=== PATIENT | female | born 1970 | race Caucasian/White ===

== ENCOUNTER 2016-05-31 13:12 | Emergency (ER) | payer OTHER ==
[~2016-05-31] VITALS: Ht 152.4 cm; Wt 60.0 kg
[~2016-05-31 13:12] MED LIST: LISI-363 PO
[2016-05-31 13:15] VITALS: BP 127/85; PULSE 83; RESP 15; TEMP 98.2; O2SAT 97
[2016-05-31] MEDS ORDERED: LISI-515 PO (15:41)
[2016-05-31] MEDS ORDERED: IBUPROFEN 600 MG TAB PO ONE (17:15)
[2016-05-31 17:42] LABS: BACTERIA, URINE RARE /hpf; BLOOD, URINE NEG (NEG); COMMENT (UR) CULT NOT INDICATED; CULTURE IF INDICATED CULT NOT INDICATED; GLUCOSE,URINE NEG (NEG); HYALINE CAST, URINE 1 /lpf (RARE); KETONE, URINE NEG (NEG); NITRITE,URINE NEG (NEG); SQUAMOUS EPITHELIAL CELL URINE 3 /hpf (0-5); URINE COLOR YELLOW (YELLW/STRAW)
[2016-05-31] MEDS ORDERED: METR-1 PO (17:51)
[2016-05-31] MEDS ORDERED: POLY10O EACH EYE (17:51)
--- NOTE | 2016-05-31 17:52 | PD ---
HPI Chief Complaint: Finish Opener Problem/Complaint Time Seen by Provider: 15:44 Travel History International Travel<30 days: No Contact w/Intl Traveler<30days: No Traveled to known affect area: No History of Present Illness HPI Patient is a 45 year old female presents with two complaints. She states "i think i have an infection" and then points to her eyes as well as her vagina. Patient states she is having some vaginal discomfort as well as eye discharge. She requests something for pain. States symptoms for 3 days and gradually worsening. Denies n/v/d, vb. PFSH Past Medical History Hx Anticoagulant Therapy: No Arthritis: No Asthma: No Autoimmune Disease: Yes (HIV +) Blood Disorders: No Anxiety: No Depression: No Heart Rhythm Problems: No Cancer: No Cardiovascular Problems: No High Cholesterol: No Chemotherapy: No Chest Pain: No Congestive Heart Failure: No COPD: No Cerebrovascular Accident: No Diabetes: No Diminished Hearing: No Diverticulitis: Yes Endocrine: No Gastrointestinal Disorders: No Genitourinary: No Headaches: Yes Hepatitis: Yes (C) Hiatal Hernia: Yes Heparin Induced Thrombocytopen: No Hypertension: Yes Immune Disorder: Yes Inguinal Hernia: Yes Implanted Vascular Access Dvce: No Kidney Stones: Yes (removed in september 2015) Musculoskeletal: No Neurologic: No Psychiatric: No Reproductive: No Respiratory: No Immunizations Current: Yes Migraines: Yes Radiation Therapy: No Sickle Cell Disease: No Sleep Apnea: No Thyroid Disease: No Influenza Vaccination: No ?: Not Menopausal: No : 2 Para: 2 Miscarriage: 0 : 0 Ovarian Cysts: Yes (HAD REMOVED) Past Surgical History AICD: No Appendectomy: Yes Arteriovenous Shunt: No Cardiac Surgery: No Section: Yes (X 2) Cholecystectomy: Yes Ear Surgery: No Endocrine Surgery: No Eye Surgery: No Genitourinary Surgery: Yes (Kidney Stones surgery.) Gynecologic Surgery: No Hysterectomy: Yes (PARTIAL) Insulin Pump: No Joint Replacement: No Neurologic Surgery: No Oral Surgery: No Pacemaker: No Thoracic Surgery: No Tonsillectomy: Yes ( AND ADENOIDS CHILD) Other Surgery: Yes (Gallbladder, Appendectomy, Hysterectomy, 2 C-Sections, Tonsillectomy) Social History Alcohol Use: No Tobacco Use: No Substance Use: No Allergies-Medications (Allergen,Severity, Reaction): Coded Allergies: *MDRO Multi-Drug Resistant Organism (Verified Adverse Reaction, Unknown, ) MRSA (wounds) - 09/03/15; MRSA (ear) - 11/26/15 Reported Meds & Prescriptions Reported Meds & Active Scripts Active Flagyl (Metronidazole) 500 Mg Tab 500 Mg PO BID 7 Days Polytrim Opth Drops (Polymyxin/Trimethoprim Sulfate) 10,000-0.1 Unit/Ml-% Soln 1 Drop EACH EYE Q6HR 10 Days Reported Lisinopril 20 Mg Tab 20 Mg PO DAILY Review of Systems Except as stated in HPI: all other systems reviewed are Neg Physical Exam Narrative GENERAL: WD/WN in nad. Disheveled and unkempt. SKIN: Warm and dry. HEAD: Atraumatic. Normocephalic. EYES: Pupils equal and round. No scleral icterus. THere is minimal injection R> L and no chemosis. no discharge apparent. ENT: No nasal bleeding or discharge. Mucous membranes pink and moist. NECK: Trachea midline. No JVD. CARDIOVASCULAR: Regular rate and rhythm. RESPIRATORY: No accessory muscle use. Clear to auscultation. Breath sounds equal bilaterally. GASTROINTESTINAL: Abdomen soft, non-tender, nondistended. Hepatic and splenic margins not palpable. : Performed with female nurse gta at all time. Grossly normal female external genitalia, no rash nor lesion. Minimal vaginal discharge. No CMT, no BMT. No cervicitis. MUSCULOSKELETAL: Extremities without clubbing, cyanosis, or edema. No obvious deformities. NEUROLOGICAL: Awake and alert. No obvious cranial nerve deficits. Motor grossly within normal limits. Five out of 5 muscle strength in the arms and legs. Normal speech. PSYCHIATRIC: Appropriate mood and affect; insight and judgment normal. Data Data Last Documented VS Vital Signs Date Time Temp Pulse Resp B/P Pulse Ox O2 Delivery O2 Flow Rate FiO2 05/31/16 13:15 98.2 83 15 127/85 97 Orders Ibuprofen (Motrin) (05/31/16 17:15) Gc And Chlamydia Pcr (05/31/16 17:04) Wet Prep Profile (05/31/16 17:04) Ed Urine Pregnancytest Poc (05/31/16 17:26) Urinalysis - C+S If Indicated (05/31/16 17:26) Acetaminophen (Tylenol) (05/31/16 18:00) Labs Laboratory Tests Test 05/31/16 05/31/16 17:10 17:30 Clue Cells (Wet Prep) PRESENT Vaginal Trichomonas (Wet Prep) NONE SEEN Vaginal Yeast (Wet Prep) NONE SEEN Chlamydia trachomatis DNA NOT DETECTED (PCR) Neisseria gonorrhoeae DNA NOT DETECTED (PCR) Urine Color YELLOW Urine Turbidity CLEAR Urine pH 6.0 Urine Specific [place] 1.016 Urine Protein TRACE mg/dL Urine Glucose (UA) NEG mg/dL Urine Ketones NEG mg/dL Urine Occult Blood NEG Urine Nitrite NEG Urine Bilirubin NEG Urine Urobilinogen LESS THAN 2.0 MG/DL Urine Leukocyte Esterase NEG Urine RBC 2 /hpf Urine WBC 2 /hpf Urine Squamous Epithelial 3 /hpf Cells Urine Bacteria RARE /hpf Urine Hyaline Casts 1 /lpf Microscopic Urinalysis Comment CULT NOT INDICATED MDM Medical Decision Making Medical Screen Exam Complete: Yes Emergency Medical Condition: Yes Differential Diagnosis Viral conjunctivitis, bacterial conjunctivitis, STD, BV, CV, UTI, Pregnnancy. Narrative Course Roomed in ED, appears non-toxic. Symptoms consistent with BV and conjunctivitis , doubt STD related conjunctivitis. Discussed treatment, given scripts. Ibuprofen in ed and patient requests more pain medication. Eforsce highly concerning for multiple scripts from multiple providers over the past year. Tylenol offered and she is agreeable. Discharged to self care. Diagnosis Primary Impression: Bacterial vaginosis Additional Impression: Conjunctivitis Med/Other Pt SpecificInfo: Prescription(s) given Scripts Metronidazole (Flagyl)500 Mg [id number] Mg PO BID 7 Days Ref 0 Prov:Garret Dietz MD 05/31/16 Polymyxin B-Trimethoprim Opth Drops (Polytrim Opth Drops)10,000-0.1 Unit/Ml-% Soln1 Drop EACH EYE Q6HR 10 Days Ref 0 Prov:Garret Dietz MD 05/31/16 Disposition: 01 DISCHARGE HOME Condition: Stable Garret Dietz MD May 31, 2016 17:52
[2016-05-31] MEDS ORDERED: ACETAMINOPHEN 325 MG TAB PO ONE (18:00)
[2016-05-31 21:38] LABS: CHLAMYDIA PCR NOT DETECTED (NOT DETECT); NEISSERIA PCR NOT DETECTED (NOT DETECT)
== END 2016-05-31 18:13 | disposition home or self-care (01) ==
LOC: NEPA 13:12
DX: N76.0 Acute vaginitis (principal); H10.9 Unspecified conjunctivitis
CPT/HCPCS: 81001; 84703; 87210; 87491; 87591; 99283

== ENCOUNTER 2016-06-19 13:03 | Inpatient (IN) | payer OTHER ==
[~2016-06-19] VITALS: Ht 152.4 cm; Wt 59.4 kg
[~2016-06-19 13:03] MED LIST changes: -LISI-363 PO; +LISI-515 PO; +METR-1 PO; +POLY10O EACH EYE
[2016-06-19 13:06] VITALS: BP 182/106; PULSE 98; RESP 15; TEMP 98.2; O2SAT 99
--- NOTE | 2016-06-19 14:04 | PD ---
HPI Chief Complaint: Chest Pain Time Seen by Provider: 13:48 Travel History International Travel<30 days: No Contact w/Intl Traveler<30days: No Traveled to known affect area: No History of Present Illness HPI This is a 45-year-old female with known history of HIV not on any anti- retroviral medication, hepatitis C, presents here for evaluation of cough and chest pain. She reports over the past 4 months she has had a cough with brown sputum production. She reports generalized chest pain that is particularly bad when she coughs or moves. She reports that she was seen at an outside [facility] emergency room last week for evaluation of the symptoms. She reports that a CT of the chest was performed and she was told that she had lung cancer and advised to follow-up with someone. No treatment for her symptoms was given at that time. She presents here now with worsening cough and generalized chest pain. She endorses slight dyspnea. Denies fevers or chills, calf swelling, abdominal pain, nausea or vomiting. The patient reports that in the past week she has obtained insurance plans on following up with a infectious disease specialist on July 08 in regards to her HIV therapy. She does not recall the name of the infectious disease specialist that she is scheduled an appointment with. She does not know when her last CD4 count was. Her last CD4 count in our records was 445 in November 2015. She has no other complaints. PFSH Past Medical History Hx Anticoagulant Therapy: No Arthritis: No Asthma: No Autoimmune Disease: Yes (HIV +) Blood Disorders: No Anxiety: No Depression: No Heart Rhythm Problems: No Cancer: No Cardiovascular Problems: No High Cholesterol: No Chemotherapy: No Chest Pain: No Congestive Heart Failure: No COPD: No Cerebrovascular Accident: No Diabetes: No Diminished Hearing: No Diverticulitis: Yes Endocrine: No Gastrointestinal Disorders: No Genitourinary: No Headaches: Yes Hepatitis: Yes (C) Hiatal Hernia: Yes Heparin Induced Thrombocytopen: No Hypertension: Yes Immune Disorder: Yes Inguinal Hernia: Yes Implanted Vascular Access Dvce: No Kidney Stones: Yes (removed in september 2015) Musculoskeletal: No Neurologic: No Psychiatric: No Reproductive: No Respiratory: No Immunizations Current: Yes Migraines: Yes Radiation Therapy: No Sickle Cell Disease: No Sleep Apnea: No Thyroid Disease: No ?: Not Menopausal: No : 2 Para: 2 Miscarriage: 0 : 0 Ovarian Cysts: Yes (HAD REMOVED) Past Surgical History AICD: No Appendectomy: Yes Arteriovenous Shunt: No Cardiac Surgery: No Section: Yes (X 2) Cholecystectomy: Yes Ear Surgery: No Endocrine Surgery: No Eye Surgery: No Genitourinary Surgery: Yes (Kidney Stones surgery.) Gynecologic Surgery: No Hysterectomy: Yes (PARTIAL) Insulin Pump: No Joint Replacement: No Neurologic Surgery: No Oral Surgery: No Pacemaker: No Thoracic Surgery: No Tonsillectomy: Yes ( AND ADENOIDS CHILD) Other Surgery: Yes (Gallbladder, Appendectomy, Hysterectomy, 2 C-Sections, Tonsillectomy) Social History Alcohol Use: No Tobacco Use: No Substance Use: No Allergies-Medications (Allergen,Severity, Reaction): Coded Allergies: *MDRO Multi-Drug Resistant Organism (Verified Adverse Reaction, Unknown, ) MRSA (wounds) - 09/03/15; MRSA (ear) - 11/26/15 Reported Meds & Prescriptions Reported Meds & Active Scripts Active No Active Prescriptions or Reported Medications Review of Systems Except as stated in HPI: all other systems reviewed are Neg Physical Exam Narrative GENERAL: Well-developed well-nourished female in no acute distress SKIN: Warm and dry. HEAD: Atraumatic. Normocephalic. EYES: Pupils equal and round. No scleral icterus. No injection or drainage. ENT: No nasal bleeding or discharge. Mucous membranes pink and moist. NECK: Trachea midline. No JVD. CARDIOVASCULAR: Regular rate and rhythm. No murmur appreciated. RESPIRATORY: No accessory muscle use. Clear to auscultation. Breath sounds equal bilaterally. GASTROINTESTINAL: Abdomen soft, non-tender, nondistended. Hepatic and splenic margins not palpable. MUSCULOSKELETAL: No obvious deformities. No edema. Negative Homans. NEUROLOGICAL: Awake and alert. No obvious cranial nerve deficits. Motor grossly within normal limits. Normal speech. Data Data Last Documented VS Vital Signs Date Time Temp Pulse Resp B/P Pulse Ox O2 Delivery O2 Flow Rate FiO2 06/19/16 13:06 98.2 98 15 182/106 99 Orders Electrocardiogram (06/19/16 13:51) Basic Metabolic Panel (Bmp) (06/19/16 13:51) Ckmb (Isoenzyme) Profile (06/19/16 13:51) Complete Blood Count With Diff (06/19/16 13:51) D-Dimer (06/19/16 13:51) Magnesium (Mg) (06/19/16 13:51) Troponin I (06/19/16 13:51) Chest, Single Ap (06/19/16 13:51) Morphine Inj (Morphine Inj) (06/19/16 16:00) Labs Laboratory Tests Test 06/19/16 14:02 White Blood Count 13.7 TH/MM3 Red Blood Count 3.98 MIL/MM3 Hemoglobin 12.3 GM/DL Hematocrit 36.9 % Mean Corpuscular Volume 92.8 FL Mean Corpuscular Hemoglobin 30.9 PG Mean Corpuscular Hemoglobin 33.3 % Concent Red Cell Distribution Width 14.5 % Platelet Count 252 TH/MM3 Mean Platelet Volume 8.6 FL Neutrophils (%) (Auto) 64.6 % Lymphocytes (%) (Auto) 12.0 % Monocytes (%) (Auto) 12.7 % Eosinophils (%) (Auto) 9.6 % Basophils (%) (Auto) 1.1 % Neutrophils # (Auto) 8.9 TH/MM3 Lymphocytes # (Auto) 1.6 TH/MM3 Monocytes # (Auto) 1.7 TH/MM3 Eosinophils # (Auto) 1.3 TH/MM3 Basophils # (Auto) 0.1 TH/MM3 CBC Comment DIFF FINAL Differential Comment D-Dimer Quantitative (PE/DVT) 1.02 MG/L FEU Sodium Level 142 MEQ/L Potassium Level 3.6 MEQ/L Chloride Level 106 MEQ/L Carbon Dioxide Level 29.7 MEQ/L Anion Gap 6 MEQ/L Blood Urea Nitrogen 13 MG/DL Creatinine 1.12 MG/DL Estimat Glomerular Filtration 53 ML/MIN Rate Random Glucose 83 MG/DL Calcium Level 8.3 MG/DL Magnesium Level 1.7 MG/DL Total Creatine Kinase 54 U/L Troponin I LESS THAN 0.02 NG/ML MDM Medical Decision Making Medical Screen Exam Complete: Yes Emergency Medical Condition: Yes Medical Record Reviewed: Yes Differential Diagnosis Bronchitis, pneumonia, bronchiectasis, tuberculosis, pneumocystitis, pulmonary embolism Narrative Course 45-year-old female with untreated HIV, hepatitis C presents with 4 months of cough and generalized chest pain that is per to clearly reproduced with coughing. She reports that she was seen in an outside emergency room last week and had a CT of the chest which she reports revealed malignancy. Physical examination is reassuring. She is not tachypneic or hypoxic. She is not febrile. Her lungs sound clear. Plans for basic lab work and chest x-ray and EKG. Pulmonary embolism has been considered in the differential and is considered less likely than alternative diagnoses however her Wells score is 1 and therefore a D-dimer has been ordered as opposed to ctpa. Workup was initiated in triage. The patient will be moved to a medical bed when one becomes available. She is currently stable. Procedures EKG Prior to Arrival: Yes Scripts No Active Prescriptions or Reported Meds Armaan Albright Jun 19, 2016 14:04
[2016-06-19 14:23] LABS: AUTOMATED NEUTROPHIL # 8.9 TH/MM3 (1.8-7.7); BASOPHIL # 0.1 TH/MM3 (0-0.2); BASOPHIL % 1.1 % (0.0-2.0); EOSINOPHIL # 1.3 TH/MM3 (0-0.4); EOSINOPHIL % 9.6 % (0.0-4.0); HEMATOCRIT 36.9 % (35.0-46.0); HEMO FLAGS DIFF FINAL; LYMPHOCYTE # 1.6 TH/MM3 (1.0-4.8); MEAN CELL VOLUME 92.8 FL (80.0-100.0); MEAN CORPUSCULAR HEMOGLOBIN 30.9 PG (27.0-34.0); MEAN CORPUSCULAR HGB CONC 33.3 % (32.0-36.0); MONO % 12.7 % (0.0-8.0); NEUT % 64.6 % (16.0-70.0); PLATELET COUNT 252 TH/MM3 (150-450); RED BLOOD COUNT 3.98 MIL/MM3 (4.00-5.30); RED CELL DISTRIBUTION WIDTH 14.5 % (11.6-17.2); WHITE BLOOD COUNT 13.7 TH/MM3 (4.0-11.0)
[2016-06-19 14:42] LABS: ANION GAP 6 MEQ/L (5-15); BICARBONATE 29.7 MEQ/L (21.0-32.0); BLOOD UREA NITROGEN 13 MG/DL (7-18); CHLORIDE 106 MEQ/L (98-107); GLOMERULAR FILTRATION RATE 53 ML/MIN (>89); SODIUM (NA) 142 MEQ/L (136-145)
[2016-06-19 14:43] LABS: CREATINE KINASE 54 U/L (26-192); MAGNESIUM 1.7 MG/DL (1.5-2.5); POTASSIUM 3.6 MEQ/L (3.5-5.1)
--- NOTE | 2016-06-19 14:58 | RADRPT ---
EXAM DATE/TIME: 06/19/2016 14:03 [facility] COMPARISON: CHEST SINGLE AP, December 09, 2015, 15:23. INDICATIONS : Chest pain MEDICAL HISTORY : None. SURGICAL HISTORY : None. ENCOUNTER: Initial ACUITY: 2 months PAIN SCORE: 6/10 LOCATION: Chest FINDINGS: There is minimal patchiness within the right medial lung base consistent with atelectasis and/or deve loping pneumonia. Clinical correlation is recommended. A faint nodular density within the left upper lung field is again noted. Again, if the patient has not had outpatient evaluation of this question able lesion this should be considered and can be obtained with CT of the chest. Scoliosis of the thor acic spine is noted. CONCLUSION: 1. Focal patchiness within the right medial lung base consistent with atelectasis and/or pneumonia. C linical correlation is recommended. 2. Stable faint nodular density within the left upper lung field. Outpatient CT of the chest would b e helpful for further evaluation of this finding if not already performed. Garret Guidry MD on June 19, 2016 at 14:49 Board Certified Radiologist. This report was verified electronically.
--- NOTE | 2016-06-19 15:54 | PD ---
Data Data Last Documented VS Vital Signs Date Time Temp Pulse Resp B/P Pulse Ox O2 Delivery O2 Flow Rate FiO2 06/19/16 16:23 98 Room Air 06/19/16 13:06 98.2 98 15 182/106 Orders Electrocardiogram (06/19/16 13:51) Basic Metabolic Panel (Bmp) (06/19/16 13:51) Ckmb (Isoenzyme) Profile (06/19/16 13:51) Complete Blood Count With Diff (06/19/16 13:51) D-Dimer (06/19/16 13:51) Magnesium (Mg) (06/19/16 13:51) Troponin I (06/19/16 13:51) Chest, Single Ap (06/19/16 13:51) Morphine Inj (Morphine Inj) (06/19/16 16:00) Iv Access Insert/Monitor (06/19/16 15:49) Ecg Monitoring (06/19/16 15:49) Oximetry (06/19/16 15:49) Oxygen Administration (06/19/16 15:49) Sodium Chloride 0.9% Flush (Ns Flush) (06/19/16 16:00) Ct Pulmonary Angiogram (06/19/16 15:49) Aspirin Chew (Aspirin Chew) (06/19/16 16:00) Iohexol 350 Inj (Omnipaque 350 Inj) (06/19/16 17:26) Blood Culture (06/19/16 17:58) Sputum Af[employer] Culture And Stain (06/19/16 17:58) Sputum Culture And Gram Stain (06/19/16 17:58) Sputum Fungus Cult And Stain (06/19/16 17:58) Morphine Inj (Morphine Inj) (06/19/16 18:00) Ceftriaxone Inj (Rocephin Inj) (06/19/16 18:00) Azithromycin Inj (Zithromax Inj) (06/19/16 18:00) Labs Laboratory Tests Test 06/19/16 14:02 White Blood Count 13.7 TH/MM3 Red Blood Count 3.98 MIL/MM3 Hemoglobin 12.3 GM/DL Hematocrit 36.9 % Mean Corpuscular Volume 92.8 FL Mean Corpuscular Hemoglobin 30.9 PG Mean Corpuscular Hemoglobin 33.3 % Concent Red Cell Distribution Width 14.5 % Platelet Count 252 TH/MM3 Mean Platelet Volume 8.6 FL Neutrophils (%) (Auto) 64.6 % Lymphocytes (%) (Auto) 12.0 % Monocytes (%) (Auto) 12.7 % Eosinophils (%) (Auto) 9.6 % Basophils (%) (Auto) 1.1 % Neutrophils # (Auto) 8.9 TH/MM3 Lymphocytes # (Auto) 1.6 TH/MM3 Monocytes # (Auto) 1.7 TH/MM3 Eosinophils # (Auto) 1.3 TH/MM3 Basophils # (Auto) 0.1 TH/MM3 CBC Comment DIFF FINAL Differential Comment D-Dimer Quantitative (PE/DVT) 1.02 MG/L FEU Sodium Level 142 MEQ/L Potassium Level 3.6 MEQ/L Chloride Level 106 MEQ/L Carbon Dioxide Level 29.7 MEQ/L Anion Gap 6 MEQ/L Blood Urea Nitrogen 13 MG/DL Creatinine 1.12 MG/DL Estimat Glomerular Filtration 53 ML/MIN Rate Random Glucose 83 MG/DL Calcium Level 8.3 MG/DL Magnesium Level 1.7 MG/DL Total Creatine Kinase 54 U/L Troponin I LESS THAN 0.02 NG/ML MDM Supervised Visit with [facility]: Yes Narrative Course I, Dr. Colunga, have reviewed the advance practice practitioner's documentation and am in agreement, met with the patient face to face, made the diagnosis, and the medical decision making was done by me. See his note for further details. Briefly this is a 45-year-old female with history of HIV is not on any anti- retroviral therapy, here for evaluation of chest pain and cough. The patient reports having these symptoms for the last 2 months. She describes an ache in the center of her chest that has been constant for the last 2 months, moderate, no modifying factors. She also reports having a cough productive of brownish sputum which has also been going on for last 2 months. She states that the symptoms seem to be worse over the last few days, so she presented to the emergency department for evaluation. No fevers or chills. No known history of cardiac disease. No history of DVT or PE. The patient was worked up in triage by my PA. Her EKG shows no signs of ischemia. Her cardiac enzymes are negative. Her d-dimer is a little bit elevated at 1.04, so CT pulmonary angiogram has been ordered. On my exam the patient is resting comfortably, no acute distress. She is requesting something for pain. Breath sounds are clear and equal bilaterally. CT pulmonary angiogram: CONCLUSION: 1. Thick-walled cavitary lesion within the superior segment of the left lower lobe measuring 1.3 cm. Differential includes infectious or neoplastic etiologies. 2. Patchy infiltrates within the right middle lobe and right lower lobe consistent with possible pneumonia. Clinical correlation is recommended. 3. No evidence of pulmonary embolism. 4. Cardiomegaly. 5. Hepatomegaly. Patient was placed on TB precautions after CT resulted. Sputum cultures ordered. She was started on Rocephin and azithromycin. She will be admitted for further treatment and evaluation of pneumonia/rule out TB. Diagnosis Primary Impression: Pneumonia Qualified Code: J18.1 - Pneumonia of right middle lobe due to infectious organism Additional Impression: Cavitary lesion of lung Admitting Information Admitting Physician Requests: Admit Scripts No Active Prescriptions or Reported Meds Fitz Colunga MD Jun 19, 2016 15:54
[2016-06-19] MEDS ORDERED: ASPIRIN 81 MG CHEW TAB PO ONE (16:00)
[2016-06-19] MEDS ORDERED: MORPHINE SULFATE 4 MG/ML INJ IV PUSH ONE ×2 (16:00→18:00)
[2016-06-19] MEDS ORDERED: SODIUM CHLORIDE 0.9% FLUSH 5 ML FLUSH IVF PRN (16:00)
[2016-06-19 16:23] VITALS: O2SAT 98
[2016-06-19] MEDS ORDERED: IOHEXOL 350 MG/ML 10 ML VIAL (for RAD DIAG) IV ONE (17:26)
--- NOTE | 2016-06-19 17:55 | RADRPT ---
EXAM DATE/TIME: 06/19/2016 17:24 [facility] COMPARISON: No previous studies available for comparison. INDICATIONS : Cough and chest pain for 4 months; evaluate for pulmonary embolism. IV CONTRAST: 75 cc Omnipaque 350 (iohexol) IV RADIATION DOSE: 23.38 CTDIvol (mGy) MEDICAL HISTORY : Hypertension. Hernia, hiatal. HIV.Hepatitis C SURGICAL HISTORY : Appendectomy. Cholecystectomy. Hysterectomy. ENCOUNTER: Initial ACUITY: 4 - 6 months PAIN SCALE: 6/10 LOCATION: Chest TECHNIQUE: Volumetric scanning of the chest was performed using a pulmonary embolism protocol MIP images were re constructed. Using automated exposure control and adjustment of the mA and/or kV according to patien t size, radiation dose was kept as low as reasonably achievable to obtain optimal diagnostic quality images. FINDINGS: There is a thick-walled cavitary lesion within the superior segment of the left lower lobe measuring 1.3 cm in size which is indeterminate. Infection and neoplasm are in the differential for this lesio n. Patchy nodular infiltrates are noted within the right middle lobe and right lower lobe consistent with probable pneumonia. Clinical correlation is recommended. The heart is enlarged. There is no p ulmonary embolism. No mediastinal, hilar or axillary lymphadenopathy is noted. The liver is enlarge d. The patient is status post cholecystectomy. The adrenal glands are unremarkable bilaterally. CONCLUSION: 1. Thick-walled cavitary lesion within the superior segment of the left lower lobe measuring 1.3 cm. Differential includes infectious or neoplastic etiologies. 2. Patchy infiltrates within the right middle lobe and right lower lobe consistent with possible pneu monia. Clinical correlation is recommended. 3. No evidence of pulmonary embolism. 4. Cardiomegaly. 5. Hepatomegaly. Garret Guidry MD on June 19, 2016 at 17:44 Board Certified Radiologist. This report was verified electronically.
[2016-06-19] MEDS ORDERED: AZITHROMYCIN INJ 500 MG in SODIUM CHLOR 0.9% 250 ML INJ 250 ML IV ONE (18:00)
[2016-06-19] MEDS ORDERED: cefTRIAXone INJ 1,000 MG in SODIUM CHLORIDE 0.9% INJ 100 ML IV ONE (18:00)
[2016-06-19 19:02] VITALS: BP 140/90; PULSE 86; RESP 20; O2SAT 98
[2016-06-19 21:06] VITALS: BP 119/78; PULSE 106; RESP 20; O2SAT 100
[2016-06-19] MEDS ORDERED: MORPHINE SULFATE 4 MG/ML INJ IV PUSH PRN (23:00)
[2016-06-19 23:38] VITALS: BP 130/77; PULSE 90; RESP 18; O2SAT 100
[2016-06-19] MEDS: MORPHINE SULFATE 4 MG/ML INJ IV PUSH PRN (23:51)
[2016-06-20 02:00] VITALS: BP 132/68; PULSE 88; RESP 18; O2SAT 99
[2016-06-20 04:29] VITALS: BP 127/74; PULSE 101; RESP 24; O2SAT 96
[2016-06-20] MEDS ORDERED: BISACODYL 10 MG SUPP PR PRN (05:00)
[2016-06-20] MEDS ORDERED: NALOXONE HCL 0.4 MG/ML AMP IV PRN (05:00)
[2016-06-20] MEDS ORDERED: ACETAMINOPHEN 325 MG TAB PO PRN (05:00)
[2016-06-20] MEDS ORDERED: ONDANSETRON HCL 4 MG/2 ML VIAL IVP PRN (05:00)
[2016-06-20] MEDS ORDERED: SENNOSIDES 8.6 MG TAB PO PRN (05:00)
[2016-06-20] MEDS ORDERED: MAGNESIUM HYDROXIDE SUSP 30 ML CUP PO PRN (05:00)
[2016-06-20 05:04] VITALS: O2SAT 96
[2016-06-20] MEDS: HEPARIN SODIUM - SQ 10,000 UNITS/ML VIAL SQ SCH ×3 (05:15→22:00)
[2016-06-20] MEDS: MORPHINE SULFATE 4 MG/ML INJ IV PUSH PRN ×5 (05:16→22:02)
[2016-06-20 07:13] VITALS: BP 101/56; PULSE 107; RESP 17; O2SAT 96
[2016-06-20] MEDS: SODIUM CHLORIDE 0.9% FLUSH 5 ML FLUSH FLUSH SCH ×2 (09:11→22:03)
[2016-06-20] MEDS: DOCUSATE SODIUM 100 MG CAP PO SCH ×2 (09:11→22:02)
[2016-06-20 13:05] VITALS: BP 92/55; PULSE 114; RESP 19; O2SAT 94
--- NOTE | 2016-06-20 13:12 | EKG ---
Date Performed: 06/19/2016 Time Performed: 14:12:01 PTAGE: 45 years EKG: Sinus rhythm WITH SHORT DE INTERVAL NONSPECIFIC T-WAVE ABNORMALITY BORDERLINE ECG Compared to prior tracing no si gnificant change PREVIOUS TRACING : 06/19/2016 14.11 DOCTOR: Emil Austin Interpretating Date/Time 06/20/2016 13:10:21
--- NOTE | 2016-06-20 18:40 | HHI.HP ---
HPI Service [facility] Hospitalists Primary Care Physician No Primary Care Physician Admission Diagnosis pneumonia, rule out TB Chief Complaint: cough. Travel History International Travel<30 Days: No Contact w/Intl Traveler <30 Da: No Traveled to Known Affected Are: No History of Present Illness Mrs. Cullen is a 44 y/o WF with HIV, hepatitis C, HTN, nephrolithiasis. She lost her insurance and has been of HIV meds x 1 yr. Has had cough for over a month and was seen at [facility]. She was told a CT might show cancer in the left lung. she was sent home and came here for another opinion. Maybe some sweats. coughing up brown sputum. no blood. Pain with coughing. Review of Systems Other cough Past Family Social History Past Medical History HIV, untreated. Last CD4 445 in Hepatitis C Nephrolithiasis Hypertension Ureter kidney stones s/p stent placement with Hx of E.coli and sepsis. Hx candidiasis Chronic left leg pain Hysterectomy and salpingectomy Lysis of adhesion abdomen/pelvis Lap spencer Left leg 4 compartment fasciotomy for compartment syndrome Reported Medications Reported Meds & Active Scripts Active No Active Prescriptions or Reported Medications Allergies: Coded Allergies: *MDRO Multi-Drug Resistant Organism (Verified Adverse Reaction, Unknown, ) MRSA (wounds) - 09/03/15; MRSA (ear) - 11/26/15 Family History nc Social History no etoh/tob Physical Exam Vital Signs heart reg lung course bs fely abd s/nt ext no edema Vital Signs Date Time Temp Pulse Resp B/P Pulse Ox O2 Delivery O2 Flow Rate FiO2 06/20/16 13:05 114 19 92/55 94 Room Air 06/20/16 10:31 21 06/20/16 07:13 107 17 101/56 96 Room Air 06/20/16 05:04 96 06/20/16 04:29 101 24 127/74 96 Room Air 06/20/16 02:00 88 18 132/68 99 Room Air 06/20/16 01:33 16 06/19/16 23:38 90 18 130/77 100 Room Air 06/19/16 21:06 106 20 119/78 100 Room Air 06/19/16 19:02 86 20 140/90 98 Room Air Laboratory Date/Time Procedure Status Source Growth 06/19/16 21:22 Gram Stain - Final Resulted Sputum Expectorated Sputum 06/19/16 21:22 Sputum Culture - Preliminary Resulted Sputum Expectorated Sputum IMMATURE GROWTH - REINCUBATE 06/19/16 21:22 Fungal Smear - Final Resulted Sputum Expectorated Sputum RARE BUDDING YEAST WITH PSEUDOHYPHAE 06/19/16 21:22 Fungal Culture Resulted Sputum Expectorated Sputum Pending 06/19/16 21:22 Acid Fast Stain Received Sputum Expectorated Sputum Pending 06/19/16 21:22 Mycobacterial Culture Received Sputum Expectorated Sputum Pending 06/19/16 18:17 Aerobic Blood Culture - Preliminary Resulted Blood Peripheral NO GROWTH IN 1 DAY 06/19/16 18:17 Anaerobic Blood Culture - Preliminary Resulted Blood Peripheral NO GROWTH IN 1 DAY Result Diagram: 06/19/16 1402 06/19/16 1402 Assessment and Plan Problem List: (1) Cavitary lesion of lung Status: Acute Plan: Pt is 45 yr with HIV and hep C. Has been off meds x 1 yr Last cd4 November 2015 445. Has been coughing up brown sputum CT chest shows rml/rll patchy infiltrates and Left lower lung thick walled cavitary lesion. 1.3cm..?fungal. malignant. r/o tb. consult ID/Pulmonary ED started rocephin/azithro. sputum cx. myco. TB pcr. isolated cough meds. prn pain control dvt prophylaxis cd 4 count. will need to re-establish HIV therapy. (2) HIV (human immunodeficiency virus infection) Status: Chronic Plan: see above (3) Hepatitis C Status: Chronic Plan: see above Physician Certification 2 Midnight Certification Type: Admission for Inpatient Services Order for Inpatient Services 3The services are ordered in accordance with Medicare regulations or non- Medicare payer requirements, as applicable. In the case of services not specified as inpatient-only, they are appropriately provided as inpatient services in accordance with the 2-midnight benchmark. Estimated LOS (days): 3 3 days is the estimated time the patient will need to remain in the hospital, assuming treatment plan goals are met and no additional complications. Post-Hospital Plan: Home Demetrius Worthington MD Jun 20, 2016 18:40
[2016-06-20] MEDS: AZITHROMYCIN INJ 500 MG in SODIUM CHLOR 0.9% 250 ML INJ 250 ML IV SCH (19:14)
[2016-06-20 20:00] VITALS: BP 98/50; PULSE 107; RESP 18; TEMP 100; O2SAT 94
[2016-06-20] MEDS: guaiFENesin/CODEINE SYRUP 200 MG/20 MG/10 ML CUP PO PRN (22:01)
[2016-06-20] MEDS: ENOXAPARIN SODIUM 40 MG/0.4 ML SYRINGE SQ SCH (22:02)
[2016-06-20] MEDS: cefTRIAXone INJ 1,000 MG in SODIUM CHLORIDE 0.9% INJ 100 ML IV SCH (22:03)
[2016-06-20] MEDS: TEMAZEPAM 15 MG CAP PO PRN (23:28)
[2016-06-21] VITALS (8 sets, daily range): BP systolic 102–130; BP diastolic 54–70; PULSE 88–112; RESP 18–20; TEMP 97.5–98.8; O2SAT 95–99
[2016-06-21 01:21] LABS: M. TUBERCULOSIS PCR NOT DETECTED (NOT DETECT)
[2016-06-21] MEDS: guaiFENesin/CODEINE SYRUP 200 MG/20 MG/10 ML CUP PO PRN ×5 (03:23→20:52)
[2016-06-21] MEDS: SODIUM CHLORIDE 0.9% FLUSH 5 ML FLUSH FLUSH PRN (03:23)
[2016-06-21] MEDS: MORPHINE SULFATE 4 MG/ML INJ IV PUSH PRN ×5 (03:24→20:55)
[2016-06-21] MEDS: HEPARIN SODIUM - SQ 10,000 UNITS/ML VIAL SQ SCH (06:00)
[2016-06-21] MEDS: DOCUSATE SODIUM 100 MG CAP PO SCH ×2 (07:45→20:52)
[2016-06-21 09:14] LABS: AUTOMATED NEUTROPHIL # 5.4 TH/MM3 (1.8-7.7); BASOPHIL % 0.5 % (0.0-2.0); EOSINOPHIL # 1.8 TH/MM3 (0-0.4); EOSINOPHIL % 19.5 % (0.0-4.0); HEMATOCRIT 35.8 % (35.0-46.0); HEMO FLAGS DIFF FINAL; LYMPHOCYTE # 1.2 TH/MM3 (1.0-4.8); MEAN CELL VOLUME 93.4 FL (80.0-100.0); MEAN CORPUSCULAR HEMOGLOBIN 31.4 PG (27.0-34.0); MEAN CORPUSCULAR HGB CONC 33.6 % (32.0-36.0); MONO % 10.1 % (0.0-8.0); NEUT % 56.9 % (16.0-70.0); PLATELET COUNT 241 TH/MM3 (150-450); RED BLOOD COUNT 3.83 MIL/MM3 (4.00-5.30); RED CELL DISTRIBUTION WIDTH 14.4 % (11.6-17.2); WHITE BLOOD COUNT 9.4 TH/MM3 (4.0-11.0)
[2016-06-21 09:50] LABS: BICARBONATE 34.3 MEQ/L (21.0-32.0); POTASSIUM 3.9 MEQ/L (3.5-5.1)
[2016-06-21] MEDS ORDERED: KETOROLAC TROMETHAMINE 30 MG/ML (IVP) VIAL IV PUSH ONE (10:00)
[2016-06-21] MEDS: SODIUM CHLORIDE 0.9% FLUSH 5 ML FLUSH FLUSH SCH ×2 (11:30→20:54)
--- NOTE | 2016-06-21 12:56 | MB ---
cc: Armin OCHOA M.D. DATE OF CONSULTATION: 06/21/2016 REASON FOR CONSULTATION: HISTORY OF PRESENT ILLNESS: Mrs. Cullen is a 44 year-old white female with history of HIV for two years. For the last year she has not been on therapy because she lost her insurance and also has a history of Hepatitis C. She denies any prior pulmonary history. She has never smoked, although she is to a smoker. She never had pneumonia, known exposure to tuberculosis, and only recently over the last several weeks has had a cough with purulent sputum. No hemoptysis. She has had no unusual exposures, not aware of anybody that she has ever been exposed to with TB. She was admitted to the hospital for a small nodular density in the left lower lobe with cavitation and a right mid lung infiltrate. LABORATORY DATA: To date include sputum culture which shows rare budding yeast, AFB PCR was negative. AFB stain is pending. Routine culture is pending. Blood cultures were negative. The patient was empirically placed on Rocephin and Zithromax in the emergency room and infectious disease has been consulted. The patient has had recurrent urinary infections due to calculi. She has had thrush and some skin infection, none recently. PAST MEDICAL HISTORY/PAST SURGICAL HISTORY In addition she has had hypertension. She has had some stents placed for the stones and infections in her kidneys, she has had a previous cholecystectomy, hysterectomy and the left leg procedure for a compartment syndrome. No prior history of thromboembolic disease. SOCIAL HISTORY living with her who smokes. They have a 16 and 18 year-old at home. No one has been ill in the home recently. She does not drink, she has never smoked. No illicit drug use. MEDICATIONS Reviewed in the EMR. REVIEW OF SYSTEMS: Other than that noted above appetite has been fine. There has been no significant weight loss. No swelling in the legs. No nausea, vomiting or abdominal pain. She has had some discomfort after prolonged coughing. PHYSICAL EXAMINATION VITAL SIGNS: Highest temperature 100 degrees currently afebrile, pulse is 100, respirations are 18, O2 saturations 99% on room air. HEENT: Sclerae anicteric. No adenopathy in the neck, supraclavicular region. The neck veins are flat. Chest is really quite clear. No wheezes, no rales or congestion. Heart: Regular rhythm. No harsh murmur, very soft systolic murmur. No audible S3. Abdomen is soft. Extremities: No peripheral edema. No calf tenderness. No cyanosis or clubbing. LABORATORY DATA: White count was 13 on admission 9400 today. BUN and creatinine are normal. Sputum and TB PCR noted above. DISCUSSION Mrs. Cullen presents with an abnormal CT scan. It is a very smooth thick-walled nodular density at the left base. I suspect it is a small lung abscess. She may have some infection in the right midlung as well. Infectious Disease has been asked to see her. Sputum pending. In light of the immunodeficiency, Infectious Disease feels additional information is needed. A percutaneous needle aspiration looks like it would be the best approach to that peripheral left lower lobe lesion. Will await their opinion. Further diagnostic and/or therapeutic intervention, will depend on her ongoing clinical course. R. MD KEATON Fuentes/CHUN /12:24 PM /12:47 PM
--- NOTE | 2016-06-21 14:48 | HHI.PR ---
Subjective Remarks ant cp from coughing. Objective Vitals heart reg lung course bs b abd s/nt ext no edema ant cw pain to palpation. Vital Signs Date Time Temp Pulse Resp B/P Pulse Ox O2 Delivery O2 Flow Rate FiO2 06/21/16 12:00 98.6 112 20 123/63 98 06/21/16 08:25 95 21 06/21/16 08:00 98.1 99 20 130/66 98 06/21/16 04:00 98.6 99 18 120/58 99 06/21/16 04:00 Room Air 06/21/16 04:00 98.6 99 18 120/58 99 06/21/16 00:00 98.5 107 18 130/70 96 06/21/16 00:00 Room Air 06/20/16 20:00 107 06/20/16 20:00 100.0 107 18 98/50 94 06/20/16 20:00 Room Air 06/20/16 06/20/16 06/21/16 15:00 23:00 07:00 Intake Total 590 ml 240 ml Balance 590 ml 240 ml Intake Oral 240 ml 240 ml IV Total 350 ml # Voids 2 2 # Bowel Movements 1 0 Result Diagram: 06/21/16 0900 06/21/16 0900 A/P Problem List: (1) Cavitary lesion of lung Status: Acute Plan: Pt is 45 yr with HIV and hep C. Has been off meds x 1 yr Last cd4 November 2015 445. Has been coughing up brown sputum CT chest shows rml/rll patchy infiltrates and Left lower lung thick walled cavitary lesion. 1.3cm..? bacterial ?fungal. malignant. r/o tb. - m. tb pcr negative. sputum cx showing mrsa consulted ID/Pulmonary ED started rocephin/azithro. will defer abx adjustment to ID today. sputum cx. isolated cough meds. prn pain control dvt prophylaxis cd 4 count. will need to re-establish HIV therapy. (2) HIV (human immunodeficiency virus infection) Status: Chronic Plan: see above (3) Hepatitis C Status: Chronic Plan: see above Demetrius Worthington MD Jun 21, 2016 14:47
[2016-06-21] MEDS ORDERED: Vancomycin Consult Pharmacy 1 EA OTHER SCH (17:00)
[2016-06-21] MEDS ORDERED: VANCOMYCIN INJ 1,000 MG in SODIUM CHLOR 0.9% 250 ML INJ 250 ML IV ONE (17:00)
[2016-06-21] MEDS: AZITHROMYCIN INJ 500 MG in SODIUM CHLOR 0.9% 250 ML INJ 250 ML IV SCH (19:22)
[2016-06-21] MEDS: cefTRIAXone INJ 1,000 MG in SODIUM CHLORIDE 0.9% INJ 100 ML IV SCH (20:52)
[2016-06-21] MEDS: ENOXAPARIN SODIUM 40 MG/0.4 ML SYRINGE SQ SCH (20:54)
[2016-06-21] MEDS: TEMAZEPAM 15 MG CAP PO PRN (22:41)
[2016-06-22] VITALS (10 sets, daily range): BP systolic 91–130; BP diastolic 47–68; PULSE 95–122; RESP 18–28; TEMP 98.1–101.6; O2SAT 93–100
[2016-06-22] MEDS: guaiFENesin/CODEINE SYRUP 200 MG/20 MG/10 ML CUP PO PRN ×3 (01:13→10:12)
[2016-06-22] MEDS: MORPHINE SULFATE 4 MG/ML INJ IV PUSH PRN ×6 (01:14→22:40)
[2016-06-22] MEDS: SODIUM CHLORIDE 0.9% FLUSH 5 ML FLUSH FLUSH PRN (01:14)
[2016-06-22] MEDS: VANCOMYCIN 1,000 MG/NS 250 ML IV SCH ×4 (05:37→17:42)
--- NOTE | 2016-06-22 09:11 | RADRPT ---
EXAM DATE/TIME: 06/22/2016 08:39 [place] COMPARISON: CT PULMONARY ANGIOGRAM, June 19, 2016, 17:24. CHEST SINGLE AP, June 19, 2016, 14:03. INDICATIONS : Patient with fever who is HIV positive. Patient has a known cavitary lesion in the left lower lobe. MEDICAL HISTORY : None. SURGICAL HISTORY : None. ENCOUNTER: Subsequent ACUITY: 4 - 6 days PAIN SCORE: 0/10 LOCATION: Bilateral chest FINDINGS: A single AP erect portable view of the chest was obtained. The lungs are better inflated with mild pa tchy opacity remaining at the right lung base. The known cavitary mass in the left lung is again visu alized and measures approximately 1.4 cm. The heart and mediastinal structures are within normal limi ts. There is no evidence of an effusion. CONCLUSION: 1. Cavitary mass again noted in the left lung. 2. Improved aeration with decreased patchy opacity at the right lung base. Karan Martinez MD on June 22, 2016 at 9:07 Board Certified Radiologist. This report was verified electronically.
[2016-06-22] MEDS: DOCUSATE SODIUM 100 MG CAP PO SCH ×2 (09:32→20:42)
[2016-06-22] MEDS: SODIUM CHLORIDE 0.9% FLUSH 5 ML FLUSH FLUSH SCH ×2 (09:33→20:42)
[2016-06-22 10:47] LABS: AUTOMATED NEUTROPHIL # 4.1 TH/MM3 (1.8-7.7); BASOPHIL % 0.4 % (0.0-2.0); EOSINOPHIL % 23.8 % (0.0-4.0); HEMATOCRIT 33.4 % (35.0-46.0); HEMO FLAGS DIFF FINAL; LYMPH % 17.1 % (9.0-44.0); LYMPHOCYTE # 1.4 TH/MM3 (1.0-4.8); MEAN CELL VOLUME 93.2 FL (80.0-100.0); MEAN CORPUSCULAR HGB CONC 33.2 % (32.0-36.0); MONO % 8.9 % (0.0-8.0); NEUT % 49.8 % (16.0-70.0); PLATELET COUNT 215 TH/MM3 (150-450); RED BLOOD COUNT 3.59 MIL/MM3 (4.00-5.30); RED CELL DISTRIBUTION WIDTH 14.1 % (11.6-17.2); WHITE BLOOD COUNT 8.2 TH/MM3 (4.0-11.0)
[2016-06-22 11:23] LABS: BLOOD, URINE NEG (NEG); GLUCOSE,URINE NEG (NEG); KETONE, URINE NEG (NEG); NITRITE,URINE NEG (NEG); PH, URINE 7.5 (5.0-8.5); SQUAMOUS EPITHELIAL CELL URINE 2 /hpf (0-5); URINE COLOR YELLOW (YELLW/STRAW)
[2016-06-22 11:28] LABS: COMMENT (UR) CULT NOT INDICATED; CULTURE IF INDICATED CULT NOT INDICATED
[2016-06-22] MEDS ORDERED: LINEZOLID 600 MG PREMIX 300 ML IV SCH (13:00)
[2016-06-22] MEDS ORDERED: 1/2 NS + KCL 20 MEQ INJ 1,000 ML IV STA (13:02)
[2016-06-22 13:09] LABS: BLOOD GAS BASE EXCESS 6.6 mmol/L (-2-2); BLOOD GAS CARBOXYHEMOGLOBIN 1.2 % (0-4); BLOOD GAS HCO3 31 mmol/L (22-26); BLOOD GAS O2 HGB SATURATION 92 % (90-100); BLOOD GAS OXYGEN CONTENT 14.6 Vol % (12.0-20.0); BLOOD GAS PCO2 43 mmHg (38-42); BLOOD GAS PO2 67 mmHg (61-120); BLOOD GAS TOTAL HGB 11.3 G/DL (12.0-16.0); CRITICAL VALUE NO; DRAW SITE LT RADIAL; FIO2 21 %; NUMBER OF ARTERIAL PUNCTURES 1; STAT YES; TEMP CORR TO 98.6; ULNAR PULSE PRESENT
--- NOTE | 2016-06-22 13:33 | HHI.PR ---
Subjective Remarks Pt c/o acute pain in both hands. Pt had fever 101.6 at 8AM. Objective Vitals Vital Signs Date Time Temp Pulse Resp B/P Pulse Ox O2 Delivery O2 Flow Rate FiO2 06/22/16 13:05 93 Room Air 06/22/16 12:30 98.9 107 20 104/59 93 06/22/16 12:00 98.7 110 20 91/51 100 06/22/16 11:12 18 06/22/16 08:00 101.6 113 20 94/47 96 06/22/16 04:00 98.2 106 18 103/53 98 06/22/16 00:00 99.4 115 18 119/64 94 06/22/16 00:00 Room Air 06/21/16 20:00 Room Air 06/21/16 20:00 98.8 111 18 102/54 98 06/21/16 20:00 105 06/21/16 19:20 21 06/21/16 16:00 97.5 88 20 106/55 97 06/21/16 06/21/16 06/22/16 15:00 23:00 07:00 Intake Total 1570 ml 730 ml Balance 1570 ml 730 ml Intake Oral 720 ml 480 ml IV Total 850 ml 250 ml # Voids 4 2 2 # Bowel Movements 2 1 2 Result Diagram: 06/22/16 1004 06/22/16 0452 Imaging Last Impressions Chest X-Ray 06/22/16 0000 Signed Impressions: Service Date/Time: Wednesday, June 22, 2016 08:39 - CONCLUSION: 1. Cavitary mass again noted in the left lung. 2. Improved aeration with decreased patchy opacity at the right lung base. Karan Martinez MD CT Angiography 06/19/16 1549 Signed Impressions: Service Date/Time: Sunday, June 19, 2016 17:24 - CONCLUSION: 1. Thick-walled cavitary lesion within the superior segment of the left lower lobe measuring 1.3 cm. Differential includes infectious or neoplastic etiologies. 2. Patchy infiltrates within the right middle lobe and right lower lobe consistent with possible pneumonia. Clinical correlation is recommended. 3. No evidence of pulmonary embolism. 4. Cardiomegaly. 5. Hepatomegaly. Garret Guidry MD Objective Remarks GENERAL: This is a well-nourished, well-developed patient, in no apparent distress. CARDIOVASCULAR: Regular rate and rhythm without murmurs, gallops, or rubs. RESPIRATORY: Clear to auscultation. Breath sounds equal bilaterally. No wheezes , rales, or rhonchi. GASTROINTESTINAL: Abdomen soft, non-tender, nondistended. Normal active bowel sounds MUSCULOSKELETAL: 4th and 5th digits of both hands are cool to touch, but excellent radial pulses in each hand. both feet are cool to the touch. NEURO: Alert & Oriented x4 to person, place, time, situation. Moves all ext x4 A/P Problem List: (1) Sepsis Status: Acute Plan: - case d/w Dr. Spenser Dozier (06/22/16) - Case d/w ID, Dr. Hansen (06/22/16) - Case d/w Dr. Richter (06/22/16) DDX: sepsis vs cryoglobulinemia with Raynaud's phenomenon - previous dx of cryoglobulinemia - IVFs - abx regimen per ID - transfer to ICU for closer observation and treatment - Consult Critical Care, case d/w Dr. Richter - obtain serum cryoglobulins, complements, sed rate, CRP, RF (2) Cavitary lesion of lung Status: Acute Plan: - comgmt with ID and Pulmonary Medicine Pt is 45 yr with HIV and hep C. Has been off meds x 1 yr Last cd4 November 2015 445. Has been coughing up brown sputum CT chest shows rml/rll patchy infiltrates and Left lower lung thick walled cavitary lesion. 1.3cm..? bacterial ?fungal. malignant. r/o tb. - m. tb pcr negative. sputum cx showing mrsa ED started rocephin/azithro. will defer abx adjustment to ID today. - sputum cx. (06/19/16) --> MRSA - ABX per ID will need to re-establish HIV therapy. (3) HIV (human immunodeficiency virus infection) Status: Chronic Plan: see above (4) Hepatitis C Status: Chronic Plan: see above Joshua Duran DO Jun 22, 2016 13:33
--- NOTE | 2016-06-22 13:45 | PD.ID.CON ---
History of Present Illness Service ID Consult Requested By Dr Worthington Reason for Consult cavitary pulm lesion Primary Care Physician No Primary Care Physician Diagnoses: History of Present Illness 45 yo F known to me with HIV/HCV co-infx, non compliance , cryogllobullimenia presented with L sided CP found to have a L lung mass lesion which apparently was present on Dec 2015 CXR and has not significantly changed in size She has a fever up 101.6, productive cough and sputum + for MRSA MTB PCR neg today pt co severe pain and numbness i her fingers Review of Systems Respiratory: COMPLAINS OF: Cough, Sputum production Cardiovascular: COMPLAINS OF: Chest pain Integumentary: COMPLAINS OF: Abnormal pigmentation, Pruritus, Rash Except as stated in HPI: all other systems reviewed are Neg Past Family Social History Allergies: Coded Allergies: *MDRO Multi-Drug Resistant Organism (Verified Adverse Reaction, Unknown, ) MRSA (wounds) - 09/03/15; (ear) - 11/26/15; (sputum) - 06/19/16 Past Medical History HIV dz, non compliance (states insurance issues as barrier) candidal espohagitis cryoglobulemimia Past Surgical History hysterctomy appey abdifatah EPSTEIN sx Active Ordered Medications azithro vanco CFTX Family History Non-Contributory. Social History No Tobacco. No ETOH. No Illicit Drugs. Physical Exam Vital Signs Vital Signs Date Time Temp Pulse Resp B/P Pulse Ox O2 Delivery O2 Flow Rate FiO2 06/22/16 13:05 93 Room Air 06/22/16 12:30 98.9 107 20 104/59 93 06/22/16 12:00 98.7 110 20 91/51 100 06/22/16 11:12 18 06/22/16 08:00 101.6 113 20 94/47 96 06/22/16 04:00 98.2 106 18 103/53 98 06/22/16 00:00 99.4 115 18 119/64 94 06/22/16 00:00 Room Air 06/21/16 20:00 Room Air 06/21/16 20:00 98.8 111 18 102/54 98 06/21/16 20:00 105 06/21/16 19:20 21 06/21/16 16:00 97.5 88 20 106/55 97 Physical Exam CONSTITUTIONAL/GENERAL: This is an adequately nourished patient, mmild distress due to pain TUBES/LINES/DRAINS: SKIN: No jaundice, rashes, or lesions. + pruritic rash fingertips are cyanotic cold to touch (digits 3-5 b/l) tender to palpation toe tips with similar changes to less extent HEAD: Atraumatic. Normocephalic. EYES: Pupils equal and round and reactive. Extraocular motions intact. No scleral icterus. No injection or drainage. Fundi not examined. ENT: Hearing grossly normal. Nose without bleeding or purulent drainage. oral mucosae without visible erythema, exudates, masses, or lesions. Poor dentition NECK: Trachea midline. Supple, nontender. CARDIOVASCULAR: Regular rate and rhythm without murmurs, gallops, or rubs. No JVD. Peripheral pulses symmetric. RESPIRATORY/CHEST: Symmetric, unlabored respirations. Clear to auscultation. Breath sounds equal bilaterally. No wheezes, rales, or rhonchi. GASTROINTESTINAL: Abdomen soft, non-tender, nondistended. No hepato-splenomegaly , or palpable masses. No guarding. Bowel sounds present. GENITOURINARY: Without palpable bladder distension. MUSCULOSKELETAL: Extremities without clubbing, cyanosis, or edema. No joint tenderness or effusion noted. No calf tenderness. No mottling or clubbing. well healed scard LLE cw past surg hx LYMPHATICS: No palpable cervical or supraclavicular adenopathy. NEUROLOGICAL: Awake and alert. Motor and sensory grossly within normal limits. Follows commands. Normal speech Moves all extremities. PSYCHIATRIC: No obvious anxiety/depression. no apparent hallucinations or other psychotic thought process. Laboratory Laboratory Tests Test 06/22/16 06/22/16 06/22/16 06/22/16 04:52 10:04 10:50 12:54 Creatinine 1.05 Estimat Glomerular Filtration 57 Rate White Blood Count 8.2 Red Blood Count 3.59 Hemoglobin 11.1 Hematocrit 33.4 Mean Corpuscular Volume 93.2 Mean Corpuscular Hemoglobin 31.0 Mean Corpuscular Hemoglobin 33.2 Concent Red Cell Distribution Width 14.1 Platelet Count 215 Mean Platelet Volume 8.7 Neutrophils (%) (Auto) 49.8 Lymphocytes (%) (Auto) 17.1 Monocytes (%) (Auto) 8.9 Eosinophils (%) (Auto) 23.8 Basophils (%) (Auto) 0.4 Neutrophils # (Auto) 4.1 Lymphocytes # (Auto) 1.4 Monocytes # (Auto) 0.7 Eosinophils # (Auto) 2.0 Basophils # (Auto) 0.0 CBC Comment DIFF FINAL Differential Comment Urine Color YELLOW Urine Turbidity CLEAR Urine pH 7.5 Urine Specific [place] 1.012 Urine Protein TRACE Urine Glucose (UA) NEG Urine Ketones NEG Urine Occult Blood NEG Urine Nitrite NEG Urine Bilirubin NEG Urine Urobilinogen LESS THAN 2.0 Urine Leukocyte Esterase NEG Urine RBC LESS THAN 1 Urine WBC 1 Urine Squamous Epithelial 2 Cells Microscopic Urinalysis Comment CULT NOT INDICATED Blood Gas Puncture Site LT RADIAL Blood Gas Patient Temperature 98.6 Blood Gas HCO3 31 Blood Gas Base Excess 6.6 Blood Gas Oxygen Saturation 92 Arterial Blood pH 7.47 Arterial Blood Partial 43 Pressure CO2 Arterial Blood Partial 67 Pressure O2 Arterial Blood Oxygen Content 14.6 Arterial Blood 1.2 Carboxyhemoglobin Arterial Blood Methemoglobin 1.0 Blood Gas Hemoglobin 11.3 Blood Gas Inspired Oxygen 21 Date/Time Procedure Status Source Growth 06/22/16 10:15 Gram Stain - Final Resulted Sputum Expectorated Sputum 06/22/16 10:15 Sputum Culture Resulted Sputum Expectorated Sputum Pending 06/22/16 10:15 Acid Fast Stain Received Sputum Expectorated Sputum Pending 06/22/16 10:15 Mycobacterial Culture Received Sputum Expectorated Sputum Pending 06/22/16 10:04 Aerobic Blood Culture Received Blood Peripheral Pending 06/22/16 10:04 Anaerobic Blood Culture Received Blood Peripheral Pending 06/19/16 21:22 Fungal Smear - Final Resulted Sputum Expectorated Sputum RARE BUDDING YEAST WITH PSEUDOHYPHAE 06/19/16 21:22 Fungal Culture Resulted Sputum Expectorated Sputum Pending 06/19/16 21:22 Acid Fast Stain - Final Resulted Sputum Expectorated Sputum NO ACID FAST BACILLI SEEN 06/19/16 21:22 Mycobacterial Culture Resulted Sputum Expectorated Sputum Pending 06/19/16 18:17 Aerobic Blood Culture - Preliminary Resulted Blood Peripheral NO GROWTH IN 3 DAYS 06/19/16 18:17 Anaerobic Blood Culture - Preliminary Resulted Blood Peripheral NO GROWTH IN 3 DAYS Result Diagram: 06/22/16 1004 06/22/16 0452 Imaging Last Impressions Chest X-Ray 06/22/16 0000 Signed Impressions: Service Date/Time: Wednesday, June 22, 2016 08:39 - CONCLUSION: 1. Cavitary mass again noted in the left lung. 2. Improved aeration with decreased patchy opacity at the right lung base. Karan Martinez MD CT Angiography 06/19/16 1549 Signed Impressions: Service Date/Time: Sunday, June 19, 2016 17:24 - CONCLUSION: 1. Thick-walled cavitary lesion within the superior segment of the left lower lobe measuring 1.3 cm. Differential includes infectious or neoplastic etiologies. 2. Patchy infiltrates within the right middle lobe and right lower lobe consistent with possible pneumonia. Clinical correlation is recommended. 3. No evidence of pulmonary embolism. 4. Cardiomegaly. 5. Hepatomegaly. Garret Guidry MD Assessment and Plan Assessment and Plan HIV, non compliance HCV Cryoglobulimemia, previously known Cavitrary pulmonary lesion ? chronic PNA, MRSA Acute apisode of poor perfusion : diff dx include Renauld sd, cryoglobulemiemia vs less liekly sepsis dc CFTX start zosyn cont vanco cancell zyvox for now monitor clinically - fu blood clx Discussed Condition With Anil Dozier, Jessica Hansen,Soo Patterson MD Jun 22, 2016 13:45
[2016-06-22 13:49] LABS: RHEUMATOID FACTOR TRIGGER LESS THAN 10.0 IU/ML (0.0-14.9)
[2016-06-22] MEDS: PIPERACIL-TAZO 3.375 GM PREMIX 50 ML IV SCH ×2 (16:33→20:42)
[2016-06-22] MEDS ORDERED: GLUCAGON 1 MG/ML VIAL OTHER PRN (17:15)
[2016-06-22] MEDS ORDERED: DEXTROSE 50% IN WATER 50 ML VIAL(D50) IV PUSH PRN (17:15)
[2016-06-22] MEDS ORDERED: SODIUM CHLOR 0.9% 1000 ML INJ 1,000 ML IV ONE (17:15)
[2016-06-22] MEDS: INSULIN NovoLIN REGULAR SUPPLEMENTAL SCALE SQ SCH (18:00)
[2016-06-22 18:28] LABS: AUTOMATED NEUTROPHIL # 4.5 TH/MM3 (1.8-7.7); BASOPHIL % 0.2 % (0.0-2.0); EOSINOPHIL % 23.4 % (0.0-4.0); HEMATOCRIT 33.4 % (35.0-46.0); MEAN CELL VOLUME 92.8 FL (80.0-100.0); MEAN CORPUSCULAR HEMOGLOBIN 30.7 PG (27.0-34.0); MONO % 11.2 % (0.0-8.0); NEUT % 53.2 % (16.0-70.0); PLATELET COUNT 218 TH/MM3 (150-450); RED CELL DISTRIBUTION WIDTH 14.3 % (11.6-17.2); WHITE BLOOD COUNT 8.5 TH/MM3 (4.0-11.0)
[2016-06-22] MEDS: DEXT 5%-NACL 0.9% 1000 ML INJ 1,000 ML IV SCH (18:35)
[2016-06-22 18:36] LABS: HEMO FLAGS AUTO DIFF
[2016-06-22] MEDS: AZITHROMYCIN INJ 500 MG in SODIUM CHLOR 0.9% 250 ML INJ 250 ML IV SCH (18:38)
[2016-06-22 18:46] LABS: ANION GAP 6 MEQ/L (5-15); AST (GOT) 21 U/L (15-37); BICARBONATE 30.2 MEQ/L (21.0-32.0); BLOOD UREA NITROGEN 11 MG/DL (7-18); CHLORIDE 100 MEQ/L (98-107); GLOMERULAR FILTRATION RATE 55 ML/MIN (>89); MAGNESIUM 1.8 MG/DL (1.5-2.5); POTASSIUM 4.2 MEQ/L (3.5-5.1); SODIUM (NA) 136 MEQ/L (136-145)
[2016-06-22 18:49] LABS: ALKALINE PHOSPHATASE 82 U/L (45-117); ALT (GPT) 30 U/L (10-53); TOTAL BILIRUBIN ADULT 0.5 MG/DL (0.2-1.0)
[2016-06-22 19:45] LABS: BANDS 6 % (0-6); EOSINOPHILS 17 % (0-4); MYELOCYTES 1 % (0-0); NEUTROPHIL # MANUAL DIFF 4.8 TH/MM3 (1.8-7.7); PLATELET ESTIMATE SMEAR NORMAL (NORMAL); PLATELET MORPHOLOGY NORMAL (NORMAL); POLYS (SEG NEUTROPHILS) 49 % (16-70); WBC DIFF SAMPLE 100
[2016-06-22 19:46] LABS: SCAN/DIFF FINAL DIFF MANUAL
[2016-06-22] MEDS: ENOXAPARIN SODIUM 40 MG/0.4 ML SYRINGE SQ SCH (20:42)
--- NOTE | 2016-06-22 21:09 | MB ---
cc: COOPER MARTINEZ M.D. DATE OF CONSULTATION 06/22/2016 DATE OF 1970 HISTORY OF THE PRESENT ILLNESS The patient is a 45-year-old female with past medical history of chronic hepatitis C, HIV, cryoglobulinemia and noncompliance. She was admitted to [facility] under Dr. Worthington's service on June 20 for left-sided chest pain, intermittent productive cough with brownish phlegm. She had CT angiogram of the chest on arrival which showed no evidence of pulmonary embolism, however, it showed a thick-walled cavitary lesion within the superior segment of the left lower lobe measuring 1.3 cm. The patient was placed on broad-spectrum antibiotics and her sputum culture from June 19 grew MRSA and yeast. The patient has been seen by Dr. Hansen from infectious disease and Dr. Dozier from pulmonary service. Her MTB PCR is negative. She had a repeat chest x-ray this morning which showed the cavitary mass again noted in the left lung and improved aeration with decreased patchy opacity at the right lung base. On the floor the patient had a borderline low blood pressure of 90s over 50s. Her C-reactive protein today is 4.5. She was transferred [place] [facility] [place] and critical care medicine was consulted for critical care management. The patient had a temperature of 101.6 this morning and she is currently afebrile. She was placed on IV fluids and her current blood pressure is 112/60 with a pulse of 105 and saturation 97% on room air. She denies any nausea, vomiting or abdominal pain. PAST MEDICAL HISTORY Significant for: 1. Chronic hepatitis C. 2. HIV. 3. Shavon esophagitis. 4. Cryoglobulinemia. PAST SURGICAL HISTORY 1. Previous hysterectomy. 2. Previous appendectomy. 3. And cholecystectomy. 4. Previous surgery on her left lower extremity. ALLERGIES NO KNOWN DRUG ALLERGIES. MEDICATIONS Current medications include: 1. Vancomycin. 2. Azithromycin. 3. Zosyn. 4. Lovenox. FAMILY HISTORY Noncontributory. SOCIAL HISTORY Nonsmoker, nondrinker. Denies any IV drug use. REVIEW OF SYSTEMS As per HPI. Rest of the system unremarkable. PHYSICAL EXAMINATION GENERAL: A 45-year-old female lying in bed in no acute respiratory distress. VITAL SIGNS: Temperature 99.6, T-max 101.6, pulse of 105, blood pressure 112/60, saturation 97% on room air. HEENT: Atraumatic, normocephalic. Pupils equal, round and reactive to light and accommodation. Extraocular muscles intact. Conjunctivae pink. Nonicteric sclerae. Oral mucosa within normal. Dry mucous membranes. NECK: Supple. No JVD, adenopathy or thyromegaly. Trachea midline. CARDIOVASCULAR: Tachycardiac, normal S1-S2. No murmurs, rubs or gallops noted. LUNGS: Pulmonary exam bilateral equal air entry. No rales or wheezing. ABDOMEN: Soft, nontender, no distension. Positive bowel sounds. EXTREMITIES: No clubbing, cyanosis or edema. NEUROLOGICAL: No focal sensory deficit. LABORATORY DATA CBC from today showed WBC 8.2, hemoglobin 11.1, hematocrit 33, platelet count 215. BMP yesterday showed sodium 139, potassium 3.9, chloride 100, CO2 24, BUN of 11, creatinine 1.02, glucose 104. Troponin less than 0.02 with a total CK 54 on June 19. Urinalysis negative for urinary tract infection. Rheumatoid factor negative. MTB PCR negative. IMAGING Radiology, CT angiogram of the chest on June 19 negative for PE, however, it showed a 1.3 cm cavitary lesion within the superior segment of the left lower lobe. IMPRESSION 1. MRSA pneumonia. 2. 1.3 cm cavitary lesion left lower lobe. Differential diagnosis infectious process versus malignancy. 3. Leukocytosis trending down. 4. Mild acute kidney injury, improving. 5. History of hypertension. 6. Chronic hepatitis C. 7. HIV with last CD-4 count of 445 in November. 8. History of cryoglobulinemia. RECOMMENDATIONS 1. Monitor neuro status closely and avoid any sedatives. 2. Oxygen p.r.n. to maintain sats above 92%. 3. Bronchodilators on a p.r.n. basis. 4. Monitor heart rate and blood pressure closely and maintain MAP greater than 65 mmHg. We will give normal saline 1 liter bolus and change maintenance fluids to D5 NS at 125 an hour. 5. Check lactic acid level. 6. Monitor renal function Is and Os and electrolyte replacement as needed. 7. Continue with IV fluids as stated above. 8. Continue with broad-spectrum antibiotics. The patient is placed on vancomycin, Zosyn and azithromycin. Infectious disease is following. Monitor for signs of infections which include fever and WBC. Follow up on cultures. 9. Monitor CBC. 10. Sliding scale insulin with Accu-Cheks if needed for glycemic control. 11. The patient is on p.o. regular diet. 12. No indications for GI prophylaxis. 13. Continue with Lovenox 40 mg subcu daily for DVT prophylaxis. 14. Further recommendations will be based on hospital course. 15. The case discussed with ICU nursing staff and Dr. Duran. 16, Level IV. MD MARCIA Villareal/AMBER /5:17 PM /8:11 PM
[2016-06-22] MEDS ORDERED: CHLORHEXIDINE GLUCONATE 2 % 1 PACK (2 CLOTHS)(extra cloths) TOP PRN (22:45)
[2016-06-23] VITALS (14 sets, daily range): BP systolic 86–120; BP diastolic 50–59; PULSE 85–110; RESP 15–23; TEMP 98.6–100.5; O2SAT 96–99
[2016-06-23] MEDS: TEMAZEPAM 15 MG CAP PO PRN (00:33)
[2016-06-23] MEDS: guaiFENesin/CODEINE SYRUP 200 MG/20 MG/10 ML CUP PO PRN ×4 (00:33→20:57)
[2016-06-23] MEDS: DEXT 5%-NACL 0.9% 1000 ML INJ 1,000 ML IV SCH ×3 (01:15→22:22)
[2016-06-23] MEDS: CHLORHEXIDINE GLUCONATE 2 % 1 PACK (2 CLOTHS)(taper/protocol) TOP SCH (02:47)
[2016-06-23] MEDS: PIPERACIL-TAZO 3.375 GM PREMIX 50 ML IV SCH ×4 (02:47→20:56)
[2016-06-23] MEDS: MORPHINE SULFATE 4 MG/ML INJ IV PUSH PRN ×5 (02:47→20:56)
[2016-06-23] MEDS: VANCOMYCIN 1,000 MG/NS 250 ML IV SCH ×4 (04:59→16:10)
[2016-06-23] MEDS: INSULIN NovoLIN REGULAR SUPPLEMENTAL SCALE SQ SCH ×4 (06:00→17:33)
[2016-06-23 07:22] LABS: HEMATOCRIT 37.7 % (35.0-46.0); MEAN CELL VOLUME 92.8 FL (80.0-100.0); MEAN CORPUSCULAR HEMOGLOBIN 30.9 PG (27.0-34.0); MEAN CORPUSCULAR HGB CONC 33.3 % (32.0-36.0); PLATELET COUNT 215 TH/MM3 (150-450); RED BLOOD COUNT 4.06 MIL/MM3 (4.00-5.30); RED CELL DISTRIBUTION WIDTH 14.4 % (11.6-17.2); WHITE BLOOD COUNT 7.1 TH/MM3 (4.0-11.0)
[2016-06-23 07:34] LABS: HEMO FLAGS AUTO DIFF
[2016-06-23 07:37] LABS: ALKALINE PHOSPHATASE 92 U/L (45-117); ALT (GPT) 37 U/L (10-53); ANION GAP 5 MEQ/L (5-15); AST (GOT) 32 U/L (15-37); BICARBONATE 28.6 MEQ/L (21.0-32.0); BLOOD UREA NITROGEN 11 MG/DL (7-18); CHLORIDE 104 MEQ/L (98-107); GLOMERULAR FILTRATION RATE 47 ML/MIN (>89); POTASSIUM 4.5 MEQ/L (3.5-5.1); SODIUM (NA) 138 MEQ/L (136-145); TOTAL BILIRUBIN ADULT 0.5 MG/DL (0.2-1.0)
[2016-06-23] MEDS: DOCUSATE SODIUM 100 MG CAP PO SCH ×2 (07:48→20:56)
[2016-06-23] MEDS: SODIUM CHLORIDE 0.9% FLUSH 5 ML FLUSH FLUSH SCH ×2 (07:49→20:56)
--- NOTE | 2016-06-23 07:52 | HHI.CCPN ---
Subjective Remarks/Hospital Course The patient is a 45-year-old female with past medical history of chronic hepatitis C, HIV, cryoglobulinemia and noncompliance. She was admitted to [facility] under Dr. Worthington's service on June 20 for left- sided chest pain, intermittent productive cough with brownish phlegm. She had CT angiogram of the chest on arrival which showed no evidence of pulmonary embolism, however, it showed a thick-walled cavitary lesion within the superior segment of the left lower lobe measuring 1.3 cm. The patient was placed on broad-spectrum antibiotics and her sputum culture from June 19 grew MRSA and yeast. The patient has been seen by Dr. Hansen from infectious disease and Dr. Dozier from pulmonary service. Her MTB PCR is negative. She had a repeat chest x-ray this morning which showed the cavitary mass again noted in the left lung and improved aeration with decreased patchy opacity at the right lung base. On the floor the patient had a borderline low blood pressure of 90s over 50s. Her C-reactive protein today is 4.5. She was transferred to [facility] for close observation and critical care medicine was consulted for critical care management. The patient had a temperature of 101.6 this morning and she is currently afebrile. She was placed on IV fluids and her current blood pressure is 112/60 with a pulse of 105 and saturation 97% on room air. She denies any nausea, vomiting or abdominal pain. 06/23 Patient is on room air oxygen. Afebrile. Lactic acid 0.7. Objective Vital Signs Date Time Temp Pulse Resp B/P Pulse Ox O2 Delivery O2 Flow Rate FiO2 06/23/16 06:00 85 06/23/16 04:00 98.8 18 86/50 96 06/22/16 19:00 Room Air 06/22/16 11:05 21 Intake and Output 06/22/16 06/22/16 06/23/16 08:00 16:00 00:00 Intake Total 730 ml 240 ml 1087 ml Output Total 1300 ml Balance 730 ml 240 ml -213 ml Result Diagram: 06/23/16 0705 06/23/16 0705 Other Results Laboratory Tests Test 06/22/16 06/22/16 06/22/16 06/22/16 10:04 10:50 12:54 17:40 White Blood Count 8.2 TH/MM3 Red Blood Count 3.59 MIL/MM3 Hemoglobin 11.1 GM/DL Hematocrit 33.4 % Mean Corpuscular Volume 93.2 FL Mean Corpuscular Hemoglobin 31.0 PG Mean Corpuscular Hemoglobin 33.2 % Concent Red Cell Distribution Width 14.1 % Platelet Count 215 TH/MM3 Mean Platelet Volume 8.7 FL Neutrophils (%) (Auto) 49.8 % Lymphocytes (%) (Auto) 17.1 % Monocytes (%) (Auto) 8.9 % Eosinophils (%) (Auto) 23.8 % Basophils (%) (Auto) 0.4 % Neutrophils # (Auto) 4.1 TH/MM3 Lymphocytes # (Auto) 1.4 TH/MM3 Monocytes # (Auto) 0.7 TH/MM3 Eosinophils # (Auto) 2.0 TH/MM3 Basophils # (Auto) 0.0 TH/MM3 CBC Comment DIFF FINAL Differential Comment Erythrocyte Sedimentation Rate 45 mm/hr Urine Color YELLOW Urine Turbidity CLEAR Urine pH 7.5 Urine Specific [place] 1.012 Urine Protein TRACE mg/dL Urine Glucose (UA) NEG mg/dL Urine Ketones NEG mg/dL Urine Occult Blood NEG Urine Nitrite NEG Urine Bilirubin NEG Urine Urobilinogen LESS THAN 2.0 MG/DL Urine Leukocyte Esterase NEG Urine RBC LESS THAN 1 /hpf Urine WBC 1 /hpf Urine Squamous Epithelial 2 /hpf Cells Microscopic Urinalysis Comment CULT NOT INDICATED Blood Gas Puncture Site LT RADIAL Blood Gas Patient Temperature 98.6 Blood Gas HCO3 31 mmol/L Blood Gas Base Excess 6.6 mmol/L Blood Gas Oxygen Saturation 92 % Arterial Blood pH 7.47 Arterial Blood Partial 43 mmHg Pressure CO2 Arterial Blood Partial 67 mmHg Pressure O2 Arterial Blood Oxygen Content 14.6 Vol % Arterial Blood 1.2 % Carboxyhemoglobin Arterial Blood Methemoglobin 1.0 % Blood Gas Hemoglobin 11.3 G/DL Blood Gas Inspired Oxygen 21 % Nasal Screen MRSA (PCR) NEGATIVE Test 06/22/16 06/23/16 17:59 07:05 White Blood Count 8.5 TH/MM3 7.1 TH/MM3 Red Blood Count 3.60 MIL/MM3 4.06 MIL/MM3 Hemoglobin 11.0 GM/DL 12.6 GM/DL Hematocrit 33.4 % 37.7 % Mean Corpuscular Volume 92.8 FL 92.8 FL Mean Corpuscular Hemoglobin 30.7 PG 30.9 PG Mean Corpuscular Hemoglobin 33.0 % 33.3 % Concent Red Cell Distribution Width 14.3 % 14.4 % Platelet Count 218 TH/MM3 215 TH/MM3 Mean Platelet Volume 8.4 FL 8.7 FL Neutrophils (%) (Auto) 53.2 % % Lymphocytes (%) (Auto) 12.0 % % Monocytes (%) (Auto) 11.2 % % Eosinophils (%) (Auto) 23.4 % % Basophils (%) (Auto) 0.2 % % Neutrophils # (Auto) 4.5 TH/MM3 TH/MM3 Lymphocytes # (Auto) 1.0 TH/MM3 TH/MM3 Monocytes # (Auto) 0.9 TH/MM3 TH/MM3 Eosinophils # (Auto) 2.0 TH/MM3 TH/MM3 Basophils # (Auto) 0.0 TH/MM3 TH/MM3 CBC Comment AUTO DIFF AUTO DIFF Differential Total Cells 100 Counted Neutrophils % (Manual) 49 % Band Neutrophils % 6 % Lymphocytes % 17 % Monocytes % 10 % Eosinophils % 17 % Neutrophils # (Manual) 4.8 TH/MM3 Myelocytes 1 % Differential Comment FINAL DIFF MANUAL Platelet Estimate NORMAL Platelet Morphology Comment NORMAL Sodium Level 136 MEQ/L 138 MEQ/L Potassium Level 4.2 MEQ/L 4.5 MEQ/L Chloride Level 100 MEQ/L 104 MEQ/L Carbon Dioxide Level 30.2 MEQ/L 28.6 MEQ/L Anion Gap 6 MEQ/L 5 MEQ/L Blood Urea Nitrogen 11 MG/DL 11 MG/DL Creatinine 1.08 MG/DL 1.24 MG/DL Estimat Glomerular Filtration 55 ML/MIN 47 ML/MIN Rate Random Glucose 91 MG/DL 83 MG/DL Lactic Acid Level 0.7 mmol/L Calcium Level 7.6 MG/DL 8.0 MG/DL Phosphorus Level 2.9 MG/DL Magnesium Level 1.8 MG/DL Total Bilirubin 0.5 MG/DL 0.5 MG/DL Aspartate Amino Transf 21 U/L 32 U/L (AST/SGOT) Alanine Aminotransferase 30 U/L 37 U/L (ALT/SGPT) Alkaline Phosphatase 82 U/L 92 U/L Total Protein 6.2 GM/DL 6.7 GM/DL Albumin 2.4 GM/DL 2.5 GM/DL Imaging Last Impressions Chest X-Ray 06/22/16 0000 Signed Impressions: Service Date/Time: Wednesday, June 22, 2016 08:39 - CONCLUSION: 1. Cavitary mass again noted in the left lung. 2. Improved aeration with decreased patchy opacity at the right lung base. Karan Martinez MD CT Angiography 06/19/16 1549 Signed Impressions: Service Date/Time: Sunday, June 19, 2016 17:24 - CONCLUSION: 1. Thick-walled cavitary lesion within the superior segment of the left lower lobe measuring 1.3 cm. Differential includes infectious or neoplastic etiologies. 2. Patchy infiltrates within the right middle lobe and right lower lobe consistent with possible pneumonia. Clinical correlation is recommended. 3. No evidence of pulmonary embolism. 4. Cardiomegaly. 5. Hepatomegaly. Garret Guidry MD Objective Remarks GENERAL: Patient is lying in bed in no acute resp distress SKIN: Warm and dry. HEAD: Normocephalic. EYES: No scleral icterus. No injection or drainage. NECK: Supple, trachea midline. No JVD or lymphadenopathy. CARDIOVASCULAR: Regular rate and rhythm without murmurs, gallops, or rubs. RESPIRATORY: Breath sounds equal bilaterally. No accessory muscle use. GASTROINTESTINAL: Abdomen soft, non-tender, nondistended. MUSCULOSKELETAL: No cyanosis, or edema. Neuro: Awake and alert. A/P Assessment and Plan 1. MRSA pneumonia. 2. 1.3 cm cavitary lesion left lower lobe. Differential diagnosis infectious process vs malignancy. 3. Leukocytosis trending down. 4. Mild acute kidney injury 5. History of hypertension. 6. Chronic hepatitis C. 7. HIV with last CD-4 count of 445 in November 2015. 8. History of cryoglobulinemia. Plan: Neuro: Monitor neuro status and avoid any sedatives. Pulm: Oxygen p.r.n. to maintain sats above 92%. Bronchodilators on a p.r.n. basis. Pulm- Dr. Dzoier CV: Monitor heart rate and blood pressure closely and maintain MAP> 65 mmHg. Continue with IVF. Lactic acid 0.7 : Monitor renal function, I/O's, electrolytes replacement as needed. Decrease D5NS@75ml/hr ID: MTB DNA PCR is negative. Continue with abx per ID (vancomycin, Zosyn and azithromycin) Monitor for signs of infections(fever and WBC). Follow up on cultures. Might need bronch with BAL will discuss with Pulm 06/19 Sputum: MRSA, Yeast Heme: Monitor CBC. RF negative, Cryoglobulin level pending Check ZARINA level, Scl 70 IGG, SSA, SSB Endo: Sliding scale insulin with Accu-Cheks if needed for glycemic control. GI: On p.o. regular diet. No indications for GI prophylaxis. Continue with Lovenox 40 mg subcu daily for DVT prophylaxis. Consult vascular access team to place peripheral IV's Will sign off. Level 3 Huseyin Sanches MD Jun 23, 2016 07:52
[2016-06-23 09:19] LABS: BANDS 3 % (0-6); EOSINOPHILS 33 % (0-4); NEUTROPHIL # MANUAL DIFF 3.7 TH/MM3 (1.8-7.7); PLATELET ESTIMATE SMEAR NORMAL (NORMAL); PLATELET MORPHOLOGY NORMAL (NORMAL); POLYS (SEG NEUTROPHILS) 49 % (16-70); SCAN/DIFF FINAL DIFF MANUAL; WBC DIFF SAMPLE 100
[2016-06-23] MEDS ORDERED: PHARMACY ORDERED LAB XX ONE (16:45)
[2016-06-23] MEDS: AZITHROMYCIN INJ 500 MG in SODIUM CHLOR 0.9% 250 ML INJ 250 ML IV SCH (17:35)
[2016-06-23] MEDS: RESP: ALBUTEROL 2.5 MG/IPRATROPIUM 0.5 MG NEB (SCH) NEB (19:44)
[2016-06-23] MEDS: ENOXAPARIN SODIUM 40 MG/0.4 ML SYRINGE SQ SCH (20:55)
[2016-06-24] VITALS (15 sets, daily range): BP systolic 100–138; BP diastolic 54–71; PULSE 71–102; RESP 13–21; TEMP 98.1–99; O2SAT 95–100
[2016-06-24] MEDS: MORPHINE SULFATE 4 MG/ML INJ IV PUSH PRN ×4 (01:02→21:59)
[2016-06-24] MEDS: TEMAZEPAM 15 MG CAP PO PRN (01:02)
[2016-06-24] MEDS: PIPERACIL-TAZO 3.375 GM PREMIX 50 ML IV SCH ×3 (02:47→15:31)
[2016-06-24] MEDS: CHLORHEXIDINE GLUCONATE 2 % 1 PACK (2 CLOTHS)(taper/protocol) TOP SCH (02:47)
[2016-06-24] MEDS ORDERED: PHARMACY ORDERED LAB XX ONE (04:45)
[2016-06-24] MEDS: INSULIN NovoLIN REGULAR SUPPLEMENTAL SCALE SQ SCH ×4 (05:40→18:00)
[2016-06-24] MEDS: VANCOMYCIN 1,000 MG/NS 250 ML IV SCH ×4 (05:41→16:38)
[2016-06-24] MEDS: guaiFENesin/CODEINE SYRUP 200 MG/20 MG/10 ML CUP PO PRN ×3 (05:41→16:37)
[2016-06-24 06:10] LABS: AUTOMATED NEUTROPHIL # 2.3 TH/MM3 (1.8-7.7); BASOPHIL % 0.4 % (0.0-2.0); EOSINOPHIL # 1.7 TH/MM3 (0-0.4); EOSINOPHIL % 27.3 % (0.0-4.0); HEMATOCRIT 34.8 % (35.0-46.0); HEMO FLAGS DIFF FINAL; LYMPHOCYTE # 1.2 TH/MM3 (1.0-4.8); MEAN CELL VOLUME 93.6 FL (80.0-100.0); MEAN CORPUSCULAR HEMOGLOBIN 30.5 PG (27.0-34.0); MEAN CORPUSCULAR HGB CONC 32.6 % (32.0-36.0); MONO % 17.5 % (0.0-8.0); NEUT % 35.8 % (16.0-70.0); PLATELET COUNT 207 TH/MM3 (150-450); RED BLOOD COUNT 3.72 MIL/MM3 (4.00-5.30); WHITE BLOOD COUNT 6.3 TH/MM3 (4.0-11.0)
[2016-06-24 06:47] LABS: BICARBONATE 27.1 MEQ/L (21.0-32.0); POTASSIUM 4.3 MEQ/L (3.5-5.1); VANCOMYCIN TROUGH 18.6 MCG/ML (5.0-10.0)
[2016-06-24] MEDS: RESP: ALBUTEROL 2.5 MG/IPRATROPIUM 0.5 MG NEB (SCH) NEB ×2 (08:06→19:50)
[2016-06-24] MEDS: SODIUM CHLORIDE 0.9% FLUSH 5 ML FLUSH FLUSH SCH ×2 (09:00→21:56)
[2016-06-24] MEDS: DOCUSATE SODIUM 100 MG CAP PO SCH ×2 (09:00→21:00)
[2016-06-24] MEDS: DEXT 5%-NACL 0.9% 1000 ML INJ 1,000 ML IV SCH (16:38)
--- NOTE | 2016-06-24 17:01 | HHI.PR ---
Subjective Remarks No new complaints. Objective Vitals Vital Signs Date Time Temp Pulse Resp B/P Pulse Ox O2 Delivery O2 Flow Rate FiO2 06/24/16 16:00 77 06/24/16 14:00 77 06/24/16 12:09 99.0 92 18 122/59 97 06/24/16 12:00 77 06/24/16 10:00 77 06/24/16 08:07 95 21 06/24/16 08:00 98.6 87 20 122/71 100 06/24/16 08:00 77 06/24/16 07:00 93 Room Air 06/24/16 06:00 77 06/24/16 05:53 20 06/24/16 04:00 71 06/24/16 04:00 98.4 71 20 138/70 100 06/24/16 02:00 76 06/24/16 00:00 98.1 76 21 102/54 98 06/24/16 00:00 87 06/23/16 22:00 107 06/23/16 21:57 20 06/23/16 20:00 100.5 102 21 113/53 98 06/23/16 20:00 102 06/23/16 19:45 98 21 06/23/16 19:00 100 Room Air 06/23/16 18:00 101 06/23/16 06/23/16 06/24/16 15:00 23:00 07:00 Intake Total 750 ml 407 ml 520 ml Output Total 1000 ml 1400 ml 1000 ml Balance -250 ml -993 ml -480 ml Intake Oral 200 ml 300 ml IV Total 550 ml 107 ml 520 ml Output Urine Total 1000 ml 1400 ml 1000 ml # Voids 4 # Bowel Movements 1 Result Diagram: 06/24/16 0517 06/24/16 0517 Imaging Last Impressions Chest X-Ray 06/22/16 0000 Signed Impressions: Service Date/Time: Wednesday, June 22, 2016 08:39 - CONCLUSION: 1. Cavitary mass again noted in the left lung. 2. Improved aeration with decreased patchy opacity at the right lung base. Karan Martinez MD CT Angiography 06/19/16 1549 Signed Impressions: Service Date/Time: Sunday, June 19, 2016 17:24 - CONCLUSION: 1. Thick-walled cavitary lesion within the superior segment of the left lower lobe measuring 1.3 cm. Differential includes infectious or neoplastic etiologies. 2. Patchy infiltrates within the right middle lobe and right lower lobe consistent with possible pneumonia. Clinical correlation is recommended. 3. No evidence of pulmonary embolism. 4. Cardiomegaly. 5. Hepatomegaly. Garret Guidry MD Objective Remarks GENERAL: This is a well-nourished, well-developed patient, in no apparent distress. CARDIOVASCULAR: Regular rate and rhythm without murmurs, gallops, or rubs. RESPIRATORY: Clear to auscultation. Breath sounds equal bilaterally. No wheezes , rales, or rhonchi. GASTROINTESTINAL: Abdomen soft, non-tender, nondistended. Normal active bowel sounds MUSCULOSKELETAL: 4th and 5th digits of both hands are cool to touch, but excellent radial pulses in each hand. both feet are cool to the touch. NEURO: Alert & Oriented x4 to person, place, time, situation. Moves all ext x4 A/P Problem List: (1) Sepsis Status: Acute Plan: - case d/w Dr. Spenser Dozier (06/22/16) - Case d/w ID, Dr. Hansen (06/22/16) - Case d/w Dr. Richter (06/22/16) DDX: sepsis vs cryoglobulinemia with Raynaud's phenomenon - etiology most likely cryoglobulinemia, pt does NOT appear to be septic - previous dx of cryoglobulinemia - IVFs - abx regimen per ID - obtain serum cryoglobulins, complements, sed rate, CRP, RF - transfer to general medical floor (2) Cavitary lesion of lung Status: Acute Plan: - comgmt with ID and Pulmonary Medicine Pt is 45 yr with HIV and hep C. Has been off meds x 1 yr Last cd4 November 2015 445. Has been coughing up brown sputum CT chest shows rml/rll patchy infiltrates and Left lower lung thick walled cavitary lesion. 1.3cm..? bacterial ?fungal. malignant. r/o tb. - m. tb pcr negative. sputum cx showing mrsa ED started rocephin/azithro. will defer abx adjustment to ID today. - sputum cx. (06/19/16) --> MRSA - zosyn - vancomycin will need to re-establish HIV therapy. (3) HIV (human immunodeficiency virus infection) Status: Chronic Plan: see above (4) Hepatitis C Status: Chronic Plan: see above Joshua Duran DO Jun 24, 2016 17:01
--- NOTE | 2016-06-24 20:32 | HHI.IDPN ---
Subjective Subjective Remarks delayed entry - seen earlier today BP normal afebrile prominent eosinophilia some mildly pruritic rash noted co L back pain Antibiotics azithro zosyn vanco Past Medical History HIV HCV Allergies: Coded Allergies: *MDRO Multi-Drug Resistant Organism (Verified Adverse Reaction, Unknown, ) MRSA (wounds) - 09/03/15; (ear) - 11/26/15; (sputum) - 06/19/16 Objective . Vital Signs Date Time Temp Pulse Resp B/P Pulse Ox O2 Delivery O2 Flow Rate FiO2 06/24/16 19:50 98 21 06/24/16 18:00 77 06/24/16 16:00 77 06/24/16 16:00 98.9 92 18 122/71 97 06/24/16 14:00 77 06/24/16 12:09 99.0 92 18 122/59 97 06/24/16 12:00 77 06/24/16 10:00 77 06/24/16 08:07 95 21 06/24/16 08:00 98.6 87 20 122/71 100 06/24/16 08:00 77 06/24/16 07:00 93 Room Air 06/24/16 06:00 77 06/24/16 05:53 20 06/24/16 04:00 71 06/24/16 04:00 98.4 71 20 138/70 100 06/24/16 02:00 76 06/24/16 00:00 98.1 76 21 102/54 98 06/24/16 00:00 87 06/23/16 22:00 107 06/23/16 21:57 20 06/23/16 20:00 100.5 102 21 113/53 98 06/23/16 20:00 102 06/23/16 06/23/16 06/24/16 15:00 23:00 07:00 Intake Total 750 ml 407 ml 520 ml Output Total 1000 ml 1400 ml 1000 ml Balance -250 ml -993 ml -480 ml Intake Oral 200 ml 300 ml IV Total 550 ml 107 ml 520 ml Output Urine Total 1000 ml 1400 ml 1000 ml # Voids 4 # Bowel Movements 1 . Laboratory Tests Test 06/23/16 06/24/16 07:05 05:17 White Blood Count 7.1 TH/MM3 6.3 TH/MM3 Red Blood Count 4.06 MIL/MM3 3.72 MIL/MM3 Hemoglobin 12.6 GM/DL 11.4 GM/DL Hematocrit 37.7 % 34.8 % Mean Corpuscular Volume 92.8 FL 93.6 FL Mean Corpuscular Hemoglobin 30.9 PG 30.5 PG Mean Corpuscular Hemoglobin 33.3 % 32.6 % Concent Red Cell Distribution Width 14.4 % 15.0 % Platelet Count 215 TH/MM3 207 TH/MM3 Mean Platelet Volume 8.7 FL 8.9 FL Neutrophils (%) (Auto) % 35.8 % Lymphocytes (%) (Auto) % 19.0 % Monocytes (%) (Auto) % 17.5 % Eosinophils (%) (Auto) % 27.3 % Basophils (%) (Auto) % 0.4 % Neutrophils # (Auto) TH/MM3 2.3 TH/MM3 Lymphocytes # (Auto) TH/MM3 1.2 TH/MM3 Monocytes # (Auto) TH/MM3 1.1 TH/MM3 Eosinophils # (Auto) TH/MM3 1.7 TH/MM3 Basophils # (Auto) TH/MM3 0.0 TH/MM3 CBC Comment AUTO DIFF DIFF FINAL Differential Total Cells 100 Counted Neutrophils % (Manual) 49 % Band Neutrophils % 3 % Lymphocytes % 7 % Monocytes % 8 % Eosinophils % 33 % Neutrophils # (Manual) 3.7 TH/MM3 Differential Comment FINAL DIFF MANUAL Platelet Estimate NORMAL Platelet Morphology Comment NORMAL Red Cell Morphology Comment NORMAL Laboratory Tests Test 06/23/16 06/24/16 07:05 05:17 Sodium Level 138 MEQ/L 140 MEQ/L Potassium Level 4.5 MEQ/L 4.3 MEQ/L Chloride Level 104 MEQ/L 107 MEQ/L Carbon Dioxide Level 28.6 MEQ/L 27.1 MEQ/L Anion Gap 5 MEQ/L 6 MEQ/L Blood Urea Nitrogen 11 MG/DL 10 MG/DL Creatinine 1.24 MG/DL 1.28 MG/DL Estimat Glomerular Filtration 47 ML/MIN 45 ML/MIN Rate Random Glucose 83 MG/DL 80 MG/DL Calcium Level 8.0 MG/DL 8.0 MG/DL Total Bilirubin 0.5 MG/DL Aspartate Amino Transf 32 U/L (AST/SGOT) Alanine Aminotransferase 37 U/L (ALT/SGPT) Alkaline Phosphatase 92 U/L Total Protein 6.7 GM/DL Albumin 2.5 GM/DL Microbiology Date/Time Procedure Status Source Growth 06/22/16 09:50 Aerobic Blood Culture - Preliminary Resulted Blood Peripheral NO GROWTH IN 2 DAYS 06/22/16 09:50 Anaerobic Blood Culture - Preliminary Resulted Blood Peripheral NO GROWTH IN 2 DAYS 06/22/16 10:04 Aerobic Blood Culture - Preliminary Resulted Blood Peripheral NO GROWTH IN 2 DAYS 06/22/16 10:04 Anaerobic Blood Culture - Preliminary Resulted Blood Peripheral NO GROWTH IN 2 DAYS 06/22/16 10:15 Gram Stain - Final Complete Sputum Expectorated Sputum 06/22/16 10:15 Sputum Culture - Final Complete S. Aureus Mrsa 06/22/16 10:15 Acid Fast Stain - Final Resulted Sputum Expectorated Sputum NO ACID FAST BACILLI SEEN 06/22/16 10:15 Mycobacterial Culture Resulted Sputum Expectorated Sputum Pending Imaging Last Impressions Chest X-Ray 06/22/16 0000 Signed Impressions: Service Date/Time: Wednesday, June 22, 2016 08:39 - CONCLUSION: 1. Cavitary mass again noted in the left lung. 2. Improved aeration with decreased patchy opacity at the right lung base. Karan Martinez MD CT Angiography 06/19/16 1549 Signed Impressions: Service Date/Time: Sunday, June 19, 2016 17:24 - CONCLUSION: 1. Thick-walled cavitary lesion within the superior segment of the left lower lobe measuring 1.3 cm. Differential includes infectious or neoplastic etiologies. 2. Patchy infiltrates within the right middle lobe and right lower lobe consistent with possible pneumonia. Clinical correlation is recommended. 3. No evidence of pulmonary embolism. 4. Cardiomegaly. 5. Hepatomegaly. Garret Guidry MD Physical Exam CONSTITUTIONAL/GENERAL: This is an adequately nourished patient, mild distress due to pain TUBES/LINES/DRAINS: SKIN: No jaundice, rashes, or lesions. + pruritic rash bl forearms fingertips are warm and pink and well perfused HEAD: Atraumatic. Normocephalic. EYES: Pupils equal and round and reactive. Extraocular motions intact. No scleral icterus. No injection or drainage. Fundi not examined. ENT: Hearing grossly normal. Nose without bleeding or purulent drainage. oral mucosae without visible erythema, exudates, masses, or lesions. Poor dentition CARDIOVASCULAR: Regular rate and rhythm without murmurs, gallops, or rubs. No JVD. Peripheral pulses symmetric. RESPIRATORY/CHEST: Symmetric, unlabored respirations. Clear to auscultation. Breath sounds equal bilaterally. No wheezes, rales, or rhonchi. GASTROINTESTINAL: Abdomen soft, non-tender, nondistended. . Bowel sounds present. MUSCULOSKELETAL: Extremities without clubbing, cyanosis, or edema. NEUROLOGICAL: Awake and alert. Motor and sensory grossly within normal limits. Follows commands. Normal speech Moves all extremities. Assessment & Plan Remarks HIV, non compliance HCV Cryoglobulimemia, previously known Cavitrary pulmonary lesion ? chronic PNA, MRSA Acute apisode of poor perfusion with Renauld typr reaction and mild renal insufficiency Marked eosinophilia cindy schuster and simone macdonald zyvox repeat CXR Soo Hansen MD Jun 24, 2016 20:32
[2016-06-24] MEDS: LINEZOLID 600 MG TAB PO SCH (21:56)
[2016-06-24] MEDS: ENOXAPARIN SODIUM 40 MG/0.4 ML SYRINGE SQ SCH (21:56)
[2016-06-25] VITALS (10 sets, daily range): BP systolic 94–129; BP diastolic 52–69; PULSE 80–108; RESP 16–22; TEMP 97.6–98.8; O2SAT 95–100
[2016-06-25] MEDS: guaiFENesin/CODEINE SYRUP 200 MG/20 MG/10 ML CUP PO PRN ×2 (00:19→23:04)
[2016-06-25] MEDS: TEMAZEPAM 15 MG CAP PO PRN (00:19)
[2016-06-25] MEDS: CHLORHEXIDINE GLUCONATE 2 % 1 PACK (2 CLOTHS)(taper/protocol) TOP SCH ×2 (04:00→22:09)
[2016-06-25] MEDS ORDERED: PHARMACY ORDERED LAB XX ONE (04:45)
[2016-06-25] MEDS: DEXT 5%-NACL 0.9% 1000 ML INJ 1,000 ML IV SCH ×2 (05:35→19:43)
[2016-06-25] MEDS: INSULIN NovoLIN REGULAR SUPPLEMENTAL SCALE SQ SCH ×5 (05:38→23:11)
[2016-06-25 06:30] LABS: VANCOMYCIN TROUGH 17.1 MCG/ML (5.0-10.0)
[2016-06-25] MEDS: RESP: ALBUTEROL 2.5 MG/IPRATROPIUM 0.5 MG NEB (SCH) NEB ×2 (08:00→20:05)
[2016-06-25] MEDS: MORPHINE SULFATE 4 MG/ML INJ IV PUSH PRN ×4 (09:34→23:05)
[2016-06-25] MEDS: LINEZOLID 600 MG TAB PO SCH ×2 (09:35→19:42)
[2016-06-25] MEDS: SODIUM CHLORIDE 0.9% FLUSH 5 ML FLUSH FLUSH SCH ×2 (09:35→19:43)
[2016-06-25] MEDS: DOCUSATE SODIUM 100 MG CAP PO SCH ×2 (09:35→19:42)
--- NOTE | 2016-06-25 10:52 | HHI.PR ---
Subjective Remarks still c/o b/l hand pain. Objective Vitals Vital Signs Date Time Temp Pulse Resp B/P Pulse Ox O2 Delivery O2 Flow Rate FiO2 06/25/16 09:48 100 21 06/25/16 06:00 84 06/25/16 04:00 80 06/25/16 04:00 98.8 80 22 94/52 95 06/25/16 02:00 86 06/25/16 00:00 98.7 82 17 106/56 100 06/25/16 00:00 82 06/24/16 22:00 102 06/24/16 20:00 90 06/24/16 20:00 98.5 90 13 100/61 96 06/24/16 19:50 98 21 06/24/16 19:00 95 Room Air 06/24/16 18:00 77 06/24/16 16:00 77 06/24/16 16:00 98.9 92 18 122/71 97 06/24/16 14:00 77 06/24/16 12:09 99.0 92 18 122/59 97 06/24/16 12:00 77 06/24/16 06/24/16 06/25/16 15:00 23:00 07:00 Intake Total 1007 ml 963 ml 897 ml Output Total 1500 ml 800 ml 400 ml Balance -493 ml 163 ml 497 ml Intake Oral 320 ml 250 ml IV Total 687 ml 963 ml 647 ml Output Urine Total 1500 ml 800 ml 400 ml # Voids 3 2 1 Result Diagram: 06/24/16 0517 06/25/16 0513 Other Results Item Value Date Time Complement C4 16 MG/DL 06/22/16 0452 Complement C3 90 MG/DL 06/22/16 0452 Item Value Date Time Erythrocyte Sedimentation Rate 45 mm/hr H 06/22/16 1004 Item Value Date Time Rheumatoid Factor Screen NEGATIVE 06/22/16 0452 Imaging Last Impressions Chest X-Ray 06/22/16 0000 Signed Impressions: Service Date/Time: Wednesday, June 22, 2016 08:39 - CONCLUSION: 1. Cavitary mass again noted in the left lung. 2. Improved aeration with decreased patchy opacity at the right lung base. Karan Martinez MD CT Angiography 06/19/16 1549 Signed Impressions: Service Date/Time: Stephon, June 19, 2016 17:24 - CONCLUSION: 1. Thick-walled cavitary lesion within the superior segment of the left lower lobe measuring 1.3 cm. Differential includes infectious or neoplastic etiologies. 2. Patchy infiltrates within the right middle lobe and right lower lobe consistent with possible pneumonia. Clinical correlation is recommended. 3. No evidence of pulmonary embolism. 4. Cardiomegaly. 5. Hepatomegaly. Garret Guidry MD Objective Remarks GENERAL: This is a well-nourished, well-developed patient, in no apparent distress. CARDIOVASCULAR: Regular rate and rhythm without murmurs, gallops, or rubs. RESPIRATORY: Clear to auscultation. Breath sounds equal bilaterally. No wheezes , rales, or rhonchi. GASTROINTESTINAL: Abdomen soft, non-tender, nondistended. Normal active bowel sounds MUSCULOSKELETAL: both hands are warm, both with some erythema and tender to touch. NEURO: Alert & Oriented x4 to person, place, time, situation. Moves all ext x4 A/P Problem List: (1) Cryoglobulinemia Status: Acute Plan: - case d/w Dr. Spenser Dozier (06/22/16) - Case d/w ID, Dr. Hansen (06/22/16) - Case d/w Dr. Richter (06/22/16) - previous dx of cryoglobulinemia - IVFs - abx regimen per ID for chest abscess - obtain repeat serum cryoglobulins --> pending - case informally d/w Hematology (06/24/16) - pt unlikely to benefit from plasmapheresis since cryoglobulins would quickly reaccumulate - best approach to try to treat underlying etiology - Pt has chronic Hepatitis C which is likely the etiology of pt's cryoglobulinemia - will consult GI for Hepatitis C treatment options - obtain Hep C genotype - obtain Hep C RNA quantitative (2) Cavitary lesion of lung Status: Acute Plan: - comgmt with ID and Pulmonary Medicine Pt is 45 yr with HIV and hep C. Has been off meds x 1 yr Last cd4 November 2015 445. Has been coughing up brown sputum CT chest shows rml/rll patchy infiltrates and Left lower lung thick walled cavitary lesion. 1.3cm..? bacterial ?fungal. malignant. r/o tb. - m. tb pcr negative. sputum cx showing mrsa ED started rocephin/azithro. will defer abx adjustment to ID today. - sputum cx. (06/19/16) --> MRSA - zosyn (06/22 - 06/24/16) - vancomycin (06/22 - 06/24/16) - azithromycin (06/20 - 06/23/16) - Zyvox (06/24 - present) will need to re-establish HIV therapy. (3) HIV (human immunodeficiency virus infection) Status: Chronic Plan: see above (4) Hepatitis C Status: Chronic Plan: see above Joshua Duran DO Jun 25, 2016 10:52
--- NOTE | 2016-06-25 12:10 | PD.CONS ---
HPI History of Present Illness This is a 45 year old with a hx of HIV and HCV with prior cryoglobulinemia in April of 2014 who is currently in the ICU for cryoglobulinemia, pneumonia, cavitary lesion of the lung, HIV, Hepatitis C, and marked eosinophilia. She was diagnosed with both HIV and Hepatitis C about 2 years ago. She was started on treatment a little over a year ago for about a month, but then lost her insurance and has been off of her medications for about a year. She reports that she did receive one shot after being diagnosed with Hepatitis C, but is treatment naive. She believes it may have been a vaccination. SHe has been having a productive cough with brown sputum and shortness of breath. She recently had an abnormal CT scan at [facility] and told that she may have lung cancer and that she needed to follow up with someone. Her symptoms did not improve and therefore she came here for further evaluation and treatment. CT angiography (06/19/16) revealed 1. Thick-walled cavitary lesion within the superior segment of the left lower lobe measuring 1.3 cm. Differential includes infectious or neoplastic etiologies. 2. Patchy infiltrates within the right middle lobe and right lower lobe consistent with possible pneumonia. Clinical correlation is recommended. 3. No evidence of pulmonary embolism. 4. Cardiomegaly. 5. Hepatomegaly. She is being followed by ID and is getting zyvox per their recommendations. GI was consulted for hepatitis C, possible cryoglobulinemia. She is not having any nausea, vomiting, abdominal pain, or other GI issues. She does reports that she has been having skin sensitivity and an intermittent blotchy red rash associated with showers- water alone, no soap for a few months. She reports that when she has this, she will have significant discomfort from the water hitting her skin and develop a blotchy red rash. She denies any new soaps or skin irritants. She had a positive Cryoglobulin with a low cryoprecipitate < 1% back on 04/09/14. She does not recall ever being told that she had cryoglobulinemia. (Caroline Patel) PFSH Past Medical History Chronic hepatitis C Fatty liver Hypertension Oral Shavon HIV Hypertension Gastritis Dermatitis Kidney stones Past Surgical History Appendectomy Cholecystectomy Hernia repair Tonsillectomy Total abdominal hysterectomy (Caroline Patel) Coded Allergies: *MDRO Multi-Drug Resistant Organism (Verified Adverse Reaction, Unknown, ) MRSA (wounds) - 09/03/15; (ear) - 11/26/15; (sputum) - 06/19/16 Medications Allergies Coded Allergies Type Severity Reaction Last Updated Verified *MDRO Multi-Drug Resistant Organism Adverse Reaction Unknown 06/22/16 Yes Active Scripts Medications Dose Route/Sig Days Date Category No Active Prescriptions or Reported Medications Rx Family History Maternal grandmother had glaucoma Social History No use of tobacco, alcohol, illicit drug use (Caroline Patel) Review of Systems Constitutional: COMPLAINS OF: Fatigue, Chills, DENIES: Fever, Weight loss, Night Sweats Respiratory: COMPLAINS OF: Cough, Sputum production, Shortness of breath Cardiovascular: DENIES: Chest pain Gastrointestinal: DENIES: Abdominal pain, Black stools, Bloody stools, Constipation, Diarrhea, Nausea, Vomiting, Swelling of Abdomen, Heartburn Musculoskeletal: COMPLAINS OF: Muscle aches Integumentary: COMPLAINS OF: Abnormal pigmentation, Rash Hematologic/lymphatic: DENIES: Bruising Neurologic: DENIES: Headache Psychiatric: DENIES: Confusion (Caroline Patel) GI Exam Vitals I&O Vital Signs Date Time Temp Pulse Resp B/P Pulse Ox O2 Delivery O2 Flow Rate FiO2 06/25/16 10:00 108 06/25/16 09:48 100 21 06/25/16 08:00 81 06/25/16 08:00 97.6 81 16 114/61 100 06/25/16 06:00 84 06/25/16 04:00 80 06/25/16 04:00 98.8 80 22 94/52 95 06/25/16 02:00 86 06/25/16 00:00 98.7 82 17 106/56 100 06/25/16 00:00 82 06/24/16 22:00 102 06/24/16 20:00 90 06/24/16 20:00 98.5 90 13 100/61 96 06/24/16 19:50 98 21 06/24/16 19:00 95 Room Air 06/24/16 18:00 77 06/24/16 16:00 77 06/24/16 16:00 98.9 92 18 122/71 97 06/24/16 14:00 77 06/24/16 12:09 99.0 92 18 122/59 97 I/O 06/24/16 06/24/16 06/24/16 06/25/16 06/25/16 06/25/16 07:00 15:00 23:00 07:00 15:00 23:00 Intake Total 520 ml 1007 ml 963 ml 897 ml Output Total 1000 ml 1500 ml 800 ml 400 ml Balance -480 ml -493 ml 163 ml 497 ml Intake Oral 320 ml 250 ml IV Total 520 ml 687 ml 963 ml 647 ml Output Urine Total 1000 ml 1500 ml 800 ml 400 ml # Voids 3 2 1 Imaging Last Impressions Chest X-Ray 06/22/16 0000 Signed Impressions: Service Date/Time: Wednesday, June 22, 2016 08:39 - CONCLUSION: 1. Cavitary mass again noted in the left lung. 2. Improved aeration with decreased patchy opacity at the right lung base. Karan Martinez MD CT Angiography 06/19/16 1549 Signed Impressions: Service Date/Time: Sunday, June 19, 2016 17:24 - CONCLUSION: 1. Thick-walled cavitary lesion within the superior segment of the left lower lobe measuring 1.3 cm. Differential includes infectious or neoplastic etiologies. 2. Patchy infiltrates within the right middle lobe and right lower lobe consistent with possible pneumonia. Clinical correlation is recommended. 3. No evidence of pulmonary embolism. 4. Cardiomegaly. 5. Hepatomegaly. Garret Guidry MD Laboratory Test 06/25/16 05:13 Creatinine 1.15 MG/DL Estimat Glomerular Filtration 51 ML/MIN Rate Vancomycin Level Trough 17.1 MCG/ML Date/Time Procedure Status Source Growth 06/22/16 10:15 Gram Stain - Final Complete Sputum Expectorated Sputum 06/22/16 10:15 Sputum Culture - Final Complete S. Aureus Mrsa 06/22/16 10:15 Acid Fast Stain - Final Resulted Sputum Expectorated Sputum NO ACID FAST BACILLI SEEN 06/22/16 10:15 Mycobacterial Culture Resulted Sputum Expectorated Sputum Pending 06/22/16 10:04 Aerobic Blood Culture - Preliminary Resulted Blood Peripheral NO GROWTH IN 3 DAYS 06/22/16 10:04 Anaerobic Blood Culture - Preliminary Resulted Blood Peripheral NO GROWTH IN 3 DAYS Physical Examination HEENT: Normocephalic; atraumatic; no jaundice. CHEST: Resp. even/unlabored. CARDIAC: RRR ABDOMEN: Soft, nondistended, nontender; no hepatosplenomegaly; bowel sounds are present in all four quadrants. EXTREMITIES:Very trace generalized edema. SKIN: Normal; no rash; no jaundice. SOIL SORT WORKER: No focal deficits; alert and oriented times three. (Caroline Patel) Assessment and Plan Plan ASSESSMENT: - Hepatitis C, with hx of cryoglobulinemia. She was diagnosed 2 years ago and is tx naive. In 04/2014, she was positive for cryoglobulinemia, with low cryoprecipitate < 1.0%. She reports that for the past 2 months, she has been having an intermittent painful blotchy red rash aggravated by showers at times. She states that the water hitting her skin is quite painful and then she will break out in a blotchy red rash and then this will resolve on its own. Cryoglobulins are pending. Dr. Duran informally d/w hematology and they feel that the patient would be unlikely to benefit from plasmapheresis since the cryoglobulins would quickly reaccumulate and that the best approach would be to try to treat underlying etiology. HCV Genotype 1A, Viral load in November of 2015 395,000. - PNA, Cavitary lesion of the lung. ID following, Abx per ID - HIV, dx 2 years ago. Did start tx x 1 month about a year ago, but then lost her insurance and was not able to get medications. She recently obtained [facility] and has an appointment with a primary physician to get referred to ID, but has not been seen yet. - Anemia. 11.4/34.8. PLAN: - SOLA - Await cryoglobulins - HCV Viral load - Monitor labs - Supportive care - Further recommendations to follow based on results of above - Pt seen and examined by Dr. Sandoval and myself and this note is written on her behalf (Caroline Patel) Physician Comments seen, examined agree with above hepatitis c treatment can be done only op , will need referral to infectious disease as per her insurance rules we will await viral load and genotype (Karen Sandoval MD) Caroline Patel Jun 25, 2016 12:09 Karen Sandoval MD Jun 25, 2016 17:36
[2016-06-25] MEDS: ENOXAPARIN SODIUM 40 MG/0.4 ML SYRINGE SQ SCH (19:43)
[2016-06-25] MEDS: SODIUM CHLORIDE 0.9% FLUSH 5 ML FLUSH FLUSH PRN (23:05)
[2016-06-26] VITALS (9 sets, daily range): BP systolic 120–171; BP diastolic 65–79; PULSE 75–104; RESP 17–26; TEMP 97.7–99; O2SAT 96–100
[2016-06-26] MEDS: DEXT 5%-NACL 0.9% 1000 ML INJ 1,000 ML IV SCH (00:41)
[2016-06-26] MEDS: MORPHINE SULFATE 4 MG/ML INJ IV PUSH PRN ×5 (03:12→20:25)
[2016-06-26] MEDS: INSULIN NovoLIN REGULAR SUPPLEMENTAL SCALE SQ SCH ×2 (05:29→12:00)
[2016-06-26] MEDS: guaiFENesin/CODEINE SYRUP 200 MG/20 MG/10 ML CUP PO PRN ×2 (06:11→18:13)
[2016-06-26] MEDS: SODIUM CHLORIDE 0.9% FLUSH 5 ML FLUSH FLUSH SCH ×2 (08:00→20:22)
[2016-06-26] MEDS: DOCUSATE SODIUM 100 MG CAP PO SCH ×2 (08:00→20:22)
[2016-06-26] MEDS: LINEZOLID 600 MG TAB PO SCH ×2 (08:00→20:22)
[2016-06-26] MEDS: RESP: ALBUTEROL 2.5 MG/IPRATROPIUM 0.5 MG NEB (SCH) NEB (08:37)
--- NOTE | 2016-06-26 11:38 | HHI.PR ---
Subjective Remarks arms/hands less painful today. Objective Vitals Vital Signs Date Time Temp Pulse Resp B/P Pulse Ox O2 Delivery O2 Flow Rate FiO2 06/26/16 08:37 100 21 06/26/16 06:00 87 06/26/16 04:00 75 06/26/16 04:00 98.3 81 19 120/65 97 06/26/16 02:00 75 06/26/16 00:00 83 06/26/16 00:00 98.3 91 21 130/71 97 06/25/16 22:00 83 06/25/16 20:06 100 21 06/25/16 20:00 98.3 83 19 129/69 97 06/25/16 20:00 89 06/25/16 06/25/16 06/26/16 15:00 23:00 07:00 Intake Total 2128 ml 897 ml Output Total 1675 ml 550 ml Balance 453 ml 347 ml Intake Oral 730 ml 250 ml IV Total 1398 ml 647 ml Output Urine Total 1675 ml 550 ml # Voids 6 4 # Bowel Movements 0 Result Diagram: 06/24/16 0517 06/26/16 0640 Imaging Last Impressions Chest X-Ray 06/22/16 0000 Signed Impressions: Service Date/Time: Wednesday, June 22, 2016 08:39 - CONCLUSION: 1. Cavitary mass again noted in the left lung. 2. Improved aeration with decreased patchy opacity at the right lung base. Karan Martinez MD CT Angiography 06/19/16 1549 Signed Impressions: Service Date/Time: Sunday, June 19, 2016 17:24 - CONCLUSION: 1. Thick-walled cavitary lesion within the superior segment of the left lower lobe measuring 1.3 cm. Differential includes infectious or neoplastic etiologies. 2. Patchy infiltrates within the right middle lobe and right lower lobe consistent with possible pneumonia. Clinical correlation is recommended. 3. No evidence of pulmonary embolism. 4. Cardiomegaly. 5. Hepatomegaly. Garret Guidry MD Objective Remarks GENERAL: This is a well-nourished, well-developed patient, in no apparent distress. CARDIOVASCULAR: Regular rate and rhythm without murmurs, gallops, or rubs. RESPIRATORY: Clear to auscultation. Breath sounds equal bilaterally. No wheezes , rales, or rhonchi. GASTROINTESTINAL: Abdomen soft, non-tender, nondistended. Normal active bowel sounds MUSCULOSKELETAL: both hands are warm, both with some erythema and tender to touch. NEURO: Alert & Oriented x4 to person, place, time, situation. Moves all ext x4 A/P Problem List: (1) Cryoglobulinemia Status: Acute Plan: - comgmt with GI - case d/w Dr. Spenser Dozier (06/22/16) - Case d/w ID, Dr. Hansen (06/22/16) - Case d/w Dr. Richter (06/22/16) - previous dx of cryoglobulinemia - IVFs - abx regimen per ID for chest abscess - obtain repeat serum cryoglobulins --> pending - case informally d/w Hematology (06/24/16) - pt unlikely to benefit from plasmapheresis since cryoglobulins would quickly reaccumulate - best approach to try to treat underlying etiology - Pt has chronic Hepatitis C which is likely the etiology of pt's cryoglobulinemia - Hep C genotype --> pending - Hep C RNA quantitative --> pending - therapy for Hep C would need to be initiated outpt (2) Cavitary lesion of lung Status: Acute Plan: - comgmt with ID and Pulmonary Medicine Pt is 45 yr with HIV and hep C. Has been off meds x 1 yr Last cd4 November 2015 445. Has been coughing up brown sputum CT chest shows rml/rll patchy infiltrates and Left lower lung thick walled cavitary lesion. 1.3cm..? bacterial ?fungal. malignant. r/o tb. - m. tb pcr negative. sputum cx showing mrsa ED started rocephin/azithro. will defer abx adjustment to ID today. - sputum cx. (06/19/16) --> MRSA - zosyn (06/22 - 06/24/16) - vancomycin (06/22 - 06/24/16) - azithromycin (06/20 - 06/23/16) - Zyvox (06/24 - present) - Will d/w ID - anticipate d/c to home in next 1-2 days will need to re-establish HIV therapy. (3) HIV (human immunodeficiency virus infection) Status: Chronic Plan: see above (4) Hepatitis C Status: Chronic Plan: see above (5) Strain of left trapezius muscle Status: Acute Plan: - pt c/o pain at left trapezius muscle extending to her neck and left shoulder - pain on palpation of left trapezius muscle - obtain x-ray series of c-spine and left shoulder - trial of heating pad - trial of flexeril 5mg q8hrs prn Problem Qualifiers (1) Strain of left trapezius muscle: Qualified Code: S46.812A - Strain of left trapezius muscle, initial encounter Joshua Duran DO Jun 26, 2016 11:38
[2016-06-26] MEDS ORDERED: CYCLOBENZAPRINE HCL 10 MG TAB PO PRN (12:00)
[2016-06-26] MEDS ORDERED: PILL SPLITTER OTHER PRN (12:15)
--- NOTE | 2016-06-26 12:21 | HHI.GIFU ---
Subjective Remarks Patient is resting in bed, reports pain in left shoulder/ neck left upper back. left arm painful. (Marina Saavedra WAREHOUSE LEAD) Objective Vitals I&O Vital Signs Date Time Temp Pulse Resp B/P Pulse Ox O2 Delivery O2 Flow Rate FiO2 06/26/16 08:37 100 21 06/26/16 06:00 87 06/26/16 04:00 75 06/26/16 04:00 98.3 81 19 120/65 97 06/26/16 02:00 75 06/26/16 00:00 83 06/26/16 00:00 98.3 91 21 130/71 97 06/25/16 22:00 83 06/25/16 20:06 100 21 06/25/16 20:00 98.3 83 19 129/69 97 06/25/16 20:00 89 I/O 06/25/16 06/25/16 06/25/16 06/26/16 06/26/16 06/26/16 07:00 15:00 23:00 07:00 15:00 23:00 Intake Total 897 ml 2128 ml 897 ml Output Total 400 ml 1675 ml 550 ml Balance 497 ml 453 ml 347 ml Intake Oral 250 ml 730 ml 250 ml IV Total 647 ml 1398 ml 647 ml Output Urine Total 400 ml 1675 ml 550 ml # Voids 1 6 4 # Bowel Movements 0 Laboratory Laboratory Tests Test 06/26/16 06:40 Creatinine 1.00 Estimat Glomerular Filtration 60 Rate Date/Time Procedure Status Source Growth 06/22/16 10:15 Gram Stain - Final Complete Sputum Expectorated Sputum 06/22/16 10:15 Sputum Culture - Final Complete S. Aureus Mrsa 06/22/16 10:15 Acid Fast Stain - Final Resulted Sputum Expectorated Sputum NO ACID FAST BACILLI SEEN 06/22/16 10:15 Mycobacterial Culture Resulted Sputum Expectorated Sputum Pending 06/22/16 10:04 Aerobic Blood Culture - Preliminary Resulted Blood Peripheral NO GROWTH IN 4 DAYS 06/22/16 10:04 Anaerobic Blood Culture - Preliminary Resulted Blood Peripheral NO GROWTH IN 4 DAYS Imaging Last Impressions Chest X-Ray 06/22/16 0000 Signed Impressions: Service Date/Time: Wednesday, June 22, 2016 08:39 - CONCLUSION: 1. Cavitary mass again noted in the left lung. 2. Improved aeration with decreased patchy opacity at the right lung base. Karan Martinez MD CT Angiography 06/19/16 1549 Signed Impressions: Service Date/Time: Sunday, June 19, 2016 17:24 - CONCLUSION: 1. Thick-walled cavitary lesion within the superior segment of the left lower lobe measuring 1.3 cm. Differential includes infectious or neoplastic etiologies. 2. Patchy infiltrates within the right middle lobe and right lower lobe consistent with possible pneumonia. Clinical correlation is recommended. 3. No evidence of pulmonary embolism. 4. Cardiomegaly. 5. Hepatomegaly. Garret Guidry MD Physical Exam HEENT: normocephalic; atraumatic; no jaundice. Throat is clear. NECK: Neck is supple, no JVD, no lymphadenopathy. CHEST: Chest is clear to auscultation and percussion. CARDIAC: Regular rate and rhythm with no murmur gallop or rubs. ABDOMEN: Soft, nondistended, nontender; no hepatosplenomegaly; bowel sounds are present in all four quadrants. EXTREMITIES: gen.edema mild SKIN: redness, rash, swelling to left arm DRAPERY HANGER: No focal deficits; alert and oriented times three. (Marina Saavedra) Assessment and Plan Plan ASSESSMENT: - Hepatitis C, with hx of cryoglobulinemia. She was diagnosed 2 years ago and is tx naive. In 04/2014, she was positive for cryoglobulinemia, with low cryoprecipitate < 1.0%. She reports that for the past 2 months, she has been having an intermittent painful blotchy red rash aggravated by showers at times. She states that the water hitting her skin is quite painful and then she will break out in a blotchy red rash and then this will resolve on its own. Cryoglobulins are pending. Dr. Duran informally d/w hematology and they feel that the patient would be unlikely to benefit from plasmapheresis since the cryoglobulins would quickly reaccumulate and that the best approach would be to try to treat underlying etiology. HCV Genotype 1A, Viral load in November of 2015 395,000. - PNA, Cavitary lesion of the lung. ID following, Abx per ID - HIV, dx 2 years ago. Did start tx x 1 month about a year ago, but then lost her insurance and was not able to get medications. She recently obtained [facility] and has an appointment with a primary physician to get referred to ID, but has not been seen yet. - Anemia. 11.4/34.8. 2/- Hep - C PCR and cryoglobulin pending, anemia stable PLAN: - SOLA - Await cryoglobulins - HCV Viral load - She needs referral to ID per insurance protocol - Monitor labs - Supportive care - Further recommendations to follow based on results of above - Pt seen and examined by Dr. Sandoval and myself and this note is written on her behalf (Marina Saavedra) Physician Comments seen, examined agree with above (Karen Sandoval MD) Marina Saavedra Jun 26, 2016 12:21 Karen Sandoval MD Jun 26, 2016 15:20
[2016-06-26 13:53] LABS: SCL-70 IGG AUTOAB <1.0 NEG AI (<1.0 NEGATIVE)
--- NOTE | 2016-06-26 14:27 | HHI.IDPN ---
Subjective Subjective Remarks doing well tgransferred to floor no rash co L upper back pain Antibiotics zyvox Past Medical History HIV HCV Allergies: Coded Allergies: *MDRO Multi-Drug Resistant Organism (Verified Adverse Reaction, Unknown, ) MRSA (wounds) - 09/03/15; (ear) - 11/26/15; (sputum) - 06/19/16 Objective . Vital Signs Date Time Temp Pulse Resp B/P Pulse Ox O2 Delivery O2 Flow Rate FiO2 06/26/16 08:37 100 21 06/26/16 06:00 87 06/26/16 04:00 75 06/26/16 04:00 98.3 81 19 120/65 97 06/26/16 02:00 75 06/26/16 00:00 83 06/26/16 00:00 98.3 91 21 130/71 97 06/25/16 22:00 83 06/25/16 20:06 100 21 06/25/16 20:00 98.3 83 19 129/69 97 06/25/16 20:00 89 06/25/16 06/25/16 06/26/16 14:59 22:59 06:59 Intake Total 2128 ml 897 ml Output Total 1675 ml 550 ml Balance 453 ml 347 ml Intake Oral 730 ml 250 ml IV Total 1398 ml 647 ml Output Urine Total 1675 ml 550 ml # Voids 6 4 # Bowel Movements 1 . Laboratory Tests Test 06/25/16 06/26/16 05:13 06:40 Creatinine 1.15 MG/DL 1.00 MG/DL Estimat Glomerular Filtration 51 ML/MIN 60 ML/MIN Rate Imaging Last Impressions Chest X-Ray 06/22/16 0000 Signed Impressions: Service Date/Time: Wednesday, June 22, 2016 08:39 - CONCLUSION: 1. Cavitary mass again noted in the left lung. 2. Improved aeration with decreased patchy opacity at the right lung base. Karan Martinez MD CT Angiography 06/19/16 1549 Signed Impressions: Service Date/Time: Sunday, June 19, 2016 17:24 - CONCLUSION: 1. Thick-walled cavitary lesion within the superior segment of the left lower lobe measuring 1.3 cm. Differential includes infectious or neoplastic etiologies. 2. Patchy infiltrates within the right middle lobe and right lower lobe consistent with possible pneumonia. Clinical correlation is recommended. 3. No evidence of pulmonary embolism. 4. Cardiomegaly. 5. Hepatomegaly. Garret Guidry MD Physical Exam CONSTITUTIONAL/GENERAL: This is an adequately nourished patient, mild distress due to pain TUBES/LINES/DRAINS: SKIN: No jaundice, rashes, or lesions. no rash seen + dvery dry somewhat scaly skin fingertips are warm and pink and well perfused HEAD: Atraumatic. Normocephalic. EYES: Pupils equal and round and reactive. Extraocular motions intact. No scleral icterus. No injection or drainage. Fundi not examined. ENT: Hearing grossly normal. Nose without bleeding or purulent drainage. oral mucosae without visible erythema, exudates, masses, or lesions. Poor dentition CARDIOVASCULAR: Regular rate and rhythm without murmurs, gallops, or rubs. No JVD. Peripheral pulses symmetric. RESPIRATORY/CHEST: Symmetric, unlabored respirations. Clear to auscultation. Breath sounds equal bilaterally. No wheezes, rales, or rhonchi. GASTROINTESTINAL: Abdomen soft, non-tender, nondistended. . Bowel sounds present. MUSCULOSKELETAL: Extremities without clubbing, cyanosis, or edema. NEUROLOGICAL: Awake and alert. Motor and sensory grossly within normal limits. Follows commands. Normal speech Moves all extremities. Assessment & Plan Remarks HIV, non compliance HCV Cryoglobulimemia, previously known Cavitrary pulmonary lesion ? chronic PNA, MRSA - MTB PCR neg Acute apisode of poor perfusion with Renauld typr reaction and mild renal insufficiency: resolved Marked eosinophilia cont zyvox; anticipate 2 weeks - monitor closely CBC and bicarb while on zyvox Soo Hansen MD Jun 26, 2016 14:27
--- NOTE | 2016-06-26 15:57 | RADRPT ---
EXAM DATE/TIME: 06/26/2016 15:09 [facility] COMPARISON: CHEST SINGLE AP, June 22, 2016, 8:39. INDICATIONS : Neck pain for 2 days with no known injury MEDICAL HISTORY : None. SURGICAL HISTORY : None. ENCOUNTER: Initial ACUITY: 2 days PAIN SCORE: 6/10 LOCATION: Cervical spine FINDINGS: There are 7 cervical type vertebral bodies. There are degenerated disc at C4/5 and C5/6. Alignment is adequate. No acute fracture seen. No destructive lesion is present. The atlantodens joint is intact. The bony foramina appear adequate. CONCLUSION: 1. Degenerated disc at C4/5 and C5/6. 2. No acute fracture. Gunner Beyer MD on June 26, 2016 at 15:55 Board Certified Radiologist. This report was verified electronically.
--- NOTE | 2016-06-26 15:57 | RADRPT ---
EXAM DATE/TIME: 06/26/2016 15:15 [facility] COMPARISON: SPINE CERVICAL COMPLETE ([id number]), June 26, 2016, 15:09. INDICATIONS : Left shoulder pain for 2 days with no known injury MEDICAL HISTORY : None. SURGICAL HISTORY : None. ENCOUNTER: Initial ACUITY: 2 days PAIN SCORE: 6/10 LOCATION: Left entire shoulder FINDINGS: Multiple view examination of the left shoulder demonstrates no evidence of fracture or dislocation. The glenohumeral and acromioclavicular joints are maintained. There is normal range of motion betwee n internal and external rotation. Bony mineralization is normal. CONCLUSION: 1. Negative examination. Gunner Beyer MD on June 26, 2016 at 15:54 Board Certified Radiologist. This report was verified electronically.
[2016-06-26] MEDS: ENOXAPARIN SODIUM 40 MG/0.4 ML SYRINGE SQ SCH (20:22)
[2016-06-27] VITALS (7 sets, daily range): BP systolic 122–144; BP diastolic 62–80; PULSE 77–89; RESP 16–18; TEMP 97.9–99.2; O2SAT 95–98
[2016-06-27] MEDS: guaiFENesin/CODEINE SYRUP 200 MG/20 MG/10 ML CUP PO PRN ×2 (00:47→18:24)
[2016-06-27] MEDS: MORPHINE SULFATE 4 MG/ML INJ IV PUSH PRN ×6 (00:49→22:03)
[2016-06-27 03:54] LABS: CD4/CD8 RATIO 0.1 (0.86-5.00)
[2016-06-27] MEDS: CHLORHEXIDINE GLUCONATE 2 % 1 PACK (2 CLOTHS)(taper/protocol) TOP SCH (04:00)
[2016-06-27] MEDS: RESP: ALBUTEROL 2.5 MG/IPRATROPIUM 0.5 MG NEB (SCH) NEB (09:26)
[2016-06-27 09:54] LABS: HCV RNA PCR IU/ML 2160000 IU/mL (()); HCV RNA PCR LOGIU/ML 6.33 (()); HEPATITIS C RNA GENOTYPE 1a (())
[2016-06-27] MEDS: LINEZOLID 600 MG TAB PO SCH ×2 (10:00→22:04)
[2016-06-27] MEDS: DOCUSATE SODIUM 100 MG CAP PO SCH ×2 (10:00→22:04)
[2016-06-27] MEDS: SODIUM CHLORIDE 0.9% FLUSH 5 ML FLUSH FLUSH SCH ×2 (10:06→22:04)
--- NOTE | 2016-06-27 15:16 | HHI.PR ---
Subjective Remarks No new complaints. Objective Vitals Vital Signs Date Time Temp Pulse Resp B/P Pulse Ox O2 Delivery O2 Flow Rate FiO2 06/27/16 12:00 98.2 82 18 132/80 95 06/27/16 09:32 96 21 06/27/16 08:00 98.6 86 18 141/77 95 06/27/16 06:27 16 06/27/16 04:00 98.3 89 18 144/79 97 06/27/16 00:00 99.2 87 18 134/74 98 06/26/16 20:00 97.7 85 18 158/67 96 06/26/16 16:30 99.0 85 18 157/77 100 06/26/16 06/26/16 06/27/16 15:00 23:00 07:00 Intake Total 471 ml 480 ml 242 ml Output Total 500 ml Balance -29 ml 480 ml 242 ml Intake Oral 360 ml 480 ml 240 ml IV Total 111 ml 2 ml Output Urine Total 500 ml # Voids 3 3 3 # Bowel Movements 0 Result Diagram: 06/24/16 0517 06/26/16 0640 Imaging Last Impressions Chest X-Ray 06/22/16 0000 Signed Impressions: Service Date/Time: Wednesday, June 22, 2016 08:39 - CONCLUSION: 1. Cavitary mass again noted in the left lung. 2. Improved aeration with decreased patchy opacity at the right lung base. Karan Martinez MD CT Angiography 06/19/16 1549 Signed Impressions: Service Date/Time: Sunday, June 19, 2016 17:24 - CONCLUSION: 1. Thick-walled cavitary lesion within the superior segment of the left lower lobe measuring 1.3 cm. Differential includes infectious or neoplastic etiologies. 2. Patchy infiltrates within the right middle lobe and right lower lobe consistent with possible pneumonia. Clinical correlation is recommended. 3. No evidence of pulmonary embolism. 4. Cardiomegaly. 5. Hepatomegaly. Garret Guidry MD Objective Remarks GENERAL: This is a well-nourished, well-developed patient, in no apparent distress. CARDIOVASCULAR: Regular rate and rhythm without murmurs, gallops, or rubs. RESPIRATORY: Clear to auscultation. Breath sounds equal bilaterally. No wheezes , rales, or rhonchi. GASTROINTESTINAL: Abdomen soft, non-tender, nondistended. Normal active bowel sounds MUSCULOSKELETAL: no c/c/e NEURO: Alert & Oriented x4 to person, place, time, situation. Moves all ext x4 A/P Problem List: (1) Cryoglobulinemia Status: Acute Plan: - comgmt with GI - case d/w Dr. Spenser Dozier (06/22/16) - Case d/w ID, Dr. Hansen (06/22/16) - Case d/w Dr. Richter (06/22/16) - previous dx of cryoglobulinemia - abx regimen per ID for chest abscess - obtain repeat serum cryoglobulins --> pending - case informally d/w Hematology (06/24/16) - pt unlikely to benefit from plasmapheresis since cryoglobulins would quickly reaccumulate - best approach to try to treat underlying etiology - Pt has chronic Hepatitis C which is likely the etiology of pt's cryoglobulinemia - Hep C genotype --> 1a - Hep C RNA quantitative --> 2.1 million - upon discharge I will have pt f/u with Dr. Gunner Moseley who cares for HIV & Hep C pts for [facility] (2) Cavitary lesion of lung Status: Acute Plan: - comgmt with ID and Pulmonary Medicine Pt is 45 yr with HIV and hep C. Has been off meds x 1 yr Last cd4 November 2015 445. Has been coughing up brown sputum CT chest shows rml/rll patchy infiltrates and Left lower lung thick walled cavitary lesion. 1.3cm..? bacterial ?fungal. malignant. r/o tb. - m. tb pcr negative. sputum cx showing mrsa ED started rocephin/azithro. will defer abx adjustment to ID today. - sputum cx. (06/19/16) --> MRSA - zosyn (06/22 - 06/24/16) - vancomycin (06/22 - 06/24/16) - azithromycin (06/20 - 06/23/16) - Zyvox (06/24 - present), now PO - anticipate d/c to home 06/29/16 (3) HIV (human immunodeficiency virus infection) Status: Chronic Plan: see above (4) Hepatitis C Status: Chronic Plan: see above (5) Strain of left trapezius muscle Status: Acute Plan: - pt c/o pain at left trapezius muscle extending to her neck and left shoulder - pain on palpation of left trapezius muscle - obtain x-ray series of c-spine and left shoulder - trial of heating pad - trial of flexeril 5mg q8hrs prn Problem Qualifiers (1) Strain of left trapezius muscle: Qualified Code: S46.812A - Strain of left trapezius muscle, initial encounter Joshua Duran DO Jun 27, 2016 15:16
[2016-06-27] MEDS: ENOXAPARIN SODIUM 40 MG/0.4 ML SYRINGE SQ SCH (22:04)
[2016-06-28] VITALS: BP 132/80; PULSE 85; RESP 16; TEMP 98.4; O2SAT 97
[2016-06-28] MEDS: MORPHINE SULFATE 4 MG/ML INJ IV PUSH PRN ×3 (04:13→12:53)
[2016-06-28] MEDS: guaiFENesin/CODEINE SYRUP 200 MG/20 MG/10 ML CUP PO PRN ×5 (04:14→22:22)
[2016-06-28] MEDS: SODIUM CHLORIDE 0.9% FLUSH 5 ML FLUSH FLUSH SCH ×2 (07:47→22:21)
[2016-06-28] MEDS: DOCUSATE SODIUM 100 MG CAP PO SCH ×2 (07:48→22:21)
[2016-06-28] MEDS: LINEZOLID 600 MG TAB PO SCH ×2 (07:48→22:22)
[2016-06-28 08:00] VITALS: BP 139/83; PULSE 88; RESP 18; TEMP 99; O2SAT 96
[2016-06-28] MEDS: SODIUM CHLORIDE 0.9% FLUSH 5 ML FLUSH FLUSH PRN ×2 (08:44→12:54)
[2016-06-28 12:00] VITALS: BP 136/70; PULSE 85; RESP 18; TEMP 98.3; O2SAT 95
[2016-06-28] MEDS ORDERED: NORC5TAB PO (14:55)
[2016-06-28] MEDS ORDERED: GUAI100S5 PO (14:55)
[2016-06-28] MEDS ORDERED: DOCU1CAP39 PO (14:55)
[2016-06-28] MEDS ORDERED: CYCL1TAB29 PO (14:55)
[2016-06-28] MEDS ORDERED: ZYVO600T PO (14:55)
--- NOTE | 2016-06-28 15:01 | HHI.DS ---
Discharge Summary Admission Date Jun 19, 2016 at 18:10 Discharge Date: Jul 01, 2016 Admitting Diagnosis pneumonia, rule out TB (1) Cryoglobulinemia Diagnosis: Principal (2) Cavitary lesion of lung Diagnosis: Principal (3) HIV (human immunodeficiency virus infection) Diagnosis: Secondary (4) Hepatitis C Diagnosis: Secondary (5) Strain of left trapezius muscle Diagnosis: Secondary Consultants Dr. Soo Hansen, Infectious Disease Brief History Mrs. Cullen is a 44 y/o WF with HIV, hepatitis C, HTN, nephrolithiasis. She lost her insurance and has been of HIV meds x 1 yr. Has had cough for over a month and was seen at [facility]. She was told a CT might show cancer in the left lung. she was sent home and came here for another opinion. Maybe some sweats. coughing up brown sputum. no blood. Pain with coughing. CBC/BMP: 06/24/16 0517 06/28/16 0940 Significant Findings Laboratory Tests Test 06/26/16 06/28/16 06:40 09:40 Estimat Glomerular Filtration 60 ML/MIN (>89) 51 ML/MIN (>89) Rate Creatinine 1.16 MG/DL (0.50-1.00) Imaging Last Impressions Upper Extremity Ultrasound 06/28/16 0000 Signed Impressions: Service Date/Time: Tuesday, June 28, 2016 20:50 - CONCLUSION: 1. Negative for deep venous thrombosis. There is superficial occlusive thrombus in the left mid and distal cephalic vein. Kurt Underwood MD Shoulder X-Ray 06/26/16 0000 Signed Impressions: Service Date/Time: Sunday, June 26, 2016 15:15 - CONCLUSION: 1. Negative examination. Gunner Beyer MD Cervical Spine X-Ray 06/26/16 0000 Signed Impressions: Service Date/Time: Sunday, June 26, 2016 15:09 - CONCLUSION: 1. Degenerated disc at C4/5 and C5/6. 2. No acute fracture. Gunner Beyer MD Chest X-Ray 06/22/16 0000 Signed Impressions: Service Date/Time: Wednesday, June 22, 2016 08:39 - CONCLUSION: 1. Cavitary mass again noted in the left lung. 2. Improved aeration with decreased patchy opacity at the right lung base. Karan Martinez MD CT Angiography 06/19/16 1549 Signed Impressions: Service Date/Time: Sunday, June 19, 2016 17:24 - CONCLUSION: 1. Thick-walled cavitary lesion within the superior segment of the left lower lobe measuring 1.3 cm. Differential includes infectious or neoplastic etiologies. 2. Patchy infiltrates within the right middle lobe and right lower lobe consistent with possible pneumonia. Clinical correlation is recommended. 3. No evidence of pulmonary embolism. 4. Cardiomegaly. 5. Hepatomegaly. Garret Guidry MD PE at Discharge GENERAL: This is a well-nourished, well-developed patient, in no apparent distress. CARDIOVASCULAR: Regular rate and rhythm without murmurs, gallops, or rubs. RESPIRATORY: Clear to auscultation. Breath sounds equal bilaterally. No wheezes , rales, or rhonchi. GASTROINTESTINAL: Abdomen soft, non-tender, nondistended. Normal active bowel sounds MUSCULOSKELETAL: no c/c/e NEURO: Alert & Oriented x4 to person, place, time, situation. Moves all ext x4 Hospital Course (1) Cryoglobulinemia Status: Acute Plan: - comgmt with GI - case d/w Dr. Spenser Dozier (06/22/16) - Case d/w ID, Dr. Hansen (06/22/16) - Case d/w Dr. Richter (06/22/16) - previous dx of cryoglobulinemia - abx regimen per ID for chest abscess - obtain repeat serum cryoglobulins --> pending - case informally d/w Hematology (06/24/16) - pt unlikely to benefit from plasmapheresis since cryoglobulins would quickly reaccumulate - best approach to try to treat underlying etiology - Pt has chronic Hepatitis C which is likely the etiology of pt's cryoglobulinemia - Hep C genotype --> 1a - Hep C RNA quantitative --> 2.1 million - upon discharge I will have pt f/u with Dr. Gunner Moseley who cares for HIV & Hep C pts for [facility] (2) Cavitary lesion of lung Status: Acute Plan: - comgmt with ID and Pulmonary Medicine Pt is 45 yr with HIV and hep C. Has been off meds x 1 yr Last cd4 November 2015 445. Has been coughing up brown sputum CT chest shows rml/rll patchy infiltrates and Left lower lung thick walled cavitary lesion. 1.3cm..? bacterial ?fungal. malignant. r/o tb. - m. tb pcr negative. sputum cx showing mrsa ED started rocephin/azithro. will defer abx adjustment to ID today. - sputum cx. (06/19/16) --> MRSA - zosyn (06/22 - 06/24/16) - vancomycin (06/22 - 06/24/16) - azithromycin (06/20 - 06/23/16) - Zyvox (06/24 - present), now PO, will need to continue for additional 2 weeks - discharge to home - f/u with PCP, Dr. Neto Cheung, in 1 week - f/u with Dr. Gunner Moseley in 2 weeks, RE: HIV and Hep C - f/u with Dr. Spenser Dozier in 2 weeks, re: chronic lung abscess - see discharge orders (3) HIV (human immunodeficiency virus infection) Status: Chronic Plan: see above (4) Hepatitis C Status: Chronic Plan: see above (5) Strain of left trapezius muscle Status: Acute Plan: - pt c/o pain at left trapezius muscle extending to her neck and left shoulder - pain on palpation of left trapezius muscle - x-ray series of c-spine and left shoulder --> NO acute findings - trial of heating pad - trial of flexeril 5mg q8hrs prn (6) Superficial thrombophlebitis - Pt's initial planned discharge was held for 3 days d/t developement of superficial thrombophebitis left cephalic vein - Pt was treated with compress, elevation of LUE, and low dose lovenox, ASA - Pt instructed to f/u with her PCP - see discharge orders Pt Condition on Discharge: Stable Discharge Disposition: Discharge Home Discharge Instructions DIET: Follow Instructions for: As Tolerated, No Restrictions Activities you can perform: Regular-No Restrictions Follow up Referrals: Infectious Disease - [address] Gunner Moseley PCP Follow-up - [address] Neto Cheung Pulmonology - 2 Weeks with Armin Dozier MD New Medications: Aspirin (Aspirin) 81 Mg Chew 81 MG CHEW DAILY thrombosis #0 Ref 0 TAB Hydrocodone-Acetaminophen ([place]) 5-325 mg Tab 1 TAB PO Q6H PRN PAIN #7 Ref 0 TAB Cyclobenzaprine (Flexeril) 10 Mg Tab 5 MG PO Q8H PRN muscle strain #15 Ref 0 TAB Docusate Sodium (Dok) 100 Mg Cap 100 MG PO Q12HR narcotics #60 Ref 0 CAP Guaifenesin-Codeine Liq (Guaifenesin-Codeine Liq) 100-10 Mg/5 Ml Soln 10 ML PO Q4H PRN cough #1 Ref 0 ML Linezolid (Zyvox) 600 Mg Tab 600 MG PO Q12HR chronic lung abscess #28 Ref 0 TAB Joshua Duran DO Jun 28, 2016 15:01
--- NOTE | 2016-06-28 15:14 | HHI.PR ---
Subjective Remarks Pt c/o pain and swelling at LUE Objective Vitals Vital Signs Date Time Temp Pulse Resp B/P Pulse Ox O2 Delivery O2 Flow Rate FiO2 06/28/16 13:00 18 06/28/16 12:00 98.3 85 18 136/70 95 06/28/16 08:00 99.0 88 18 139/83 96 06/28/16 00:00 98.4 85 16 132/80 97 06/27/16 20:00 97.9 88 16 133/62 97 06/27/16 16:00 98.7 77 18 122/74 95 06/27/16 06/27/16 06/28/16 15:00 23:00 07:00 Intake Total 480 ml 420 ml 240 ml Balance 480 ml 420 ml 240 ml Intake Oral 480 ml 420 ml 240 ml # Voids 3 2 2 # Bowel Movements 1 1 0 Result Diagram: 06/24/16 0517 06/28/16 0940 Imaging Last Impressions Chest X-Ray 06/22/16 0000 Signed Impressions: Service Date/Time: Wednesday, June 22, 2016 08:39 - CONCLUSION: 1. Cavitary mass again noted in the left lung. 2. Improved aeration with decreased patchy opacity at the right lung base. Karan Martinez MD CT Angiography 06/19/16 1549 Signed Impressions: Service Date/Time: Sunday, June 19, 2016 17:24 - CONCLUSION: 1. Thick-walled cavitary lesion within the superior segment of the left lower lobe measuring 1.3 cm. Differential includes infectious or neoplastic etiologies. 2. Patchy infiltrates within the right middle lobe and right lower lobe consistent with possible pneumonia. Clinical correlation is recommended. 3. No evidence of pulmonary embolism. 4. Cardiomegaly. 5. Hepatomegaly. Garret Guidry MD Objective Remarks GENERAL: This is a well-nourished, well-developed patient, in no apparent distress. CARDIOVASCULAR: Regular rate and rhythm without murmurs, gallops, or rubs. RESPIRATORY: Clear to auscultation. Breath sounds equal bilaterally. No wheezes , rales, or rhonchi. GASTROINTESTINAL: Abdomen soft, non-tender, nondistended. Normal active bowel sounds MUSCULOSKELETAL: swelling at anterior surface at RUE, tender and warm to touch NEURO: Alert & Oriented x4 to person, place, time, situation. Moves all ext x4 A/P Problem List: (1) Cryoglobulinemia Status: Acute Plan: - comgmt with GI - case d/w Dr. Spenser Dozier (06/22/16) - Case d/w ID, Dr. Hansen (06/22/16) - Case d/w Dr. Richter (06/22/16) - previous dx of cryoglobulinemia - abx regimen per ID for chest abscess - obtain repeat serum cryoglobulins --> pending - case informally d/w Hematology (06/24/16) - pt unlikely to benefit from plasmapheresis since cryoglobulins would quickly reaccumulate - best approach to try to treat underlying etiology - Pt has chronic Hepatitis C which is likely the etiology of pt's cryoglobulinemia - Hep C genotype --> 1a - Hep C RNA quantitative --> 2.1 million - upon discharge I will have pt f/u with Dr. Gunner Moseley who cares for HIV & Hep C pts for [facility] (2) Cavitary lesion of lung Status: Acute Plan: - comgmt with ID and Pulmonary Medicine Pt is 45 yr with HIV and hep C. Has been off meds x 1 yr Last cd4 November 2015 445. Has been coughing up brown sputum CT chest shows rml/rll patchy infiltrates and Left lower lung thick walled cavitary lesion. 1.3cm..? bacterial ?fungal. malignant. r/o tb. - m. tb pcr negative. sputum cx showing mrsa ED started rocephin/azithro. will defer abx adjustment to ID today. - sputum cx. (06/19/16) --> MRSA - zosyn (06/22 - 06/24/16) - vancomycin (06/22 - 06/24/16) - azithromycin (06/20 - 06/23/16) - Zyvox (06/24 - present), now PO - anticipate d/c to home 06/29/16 (3) HIV (human immunodeficiency virus infection) Status: Chronic Plan: see above (4) Hepatitis C Status: Chronic Plan: see above (5) Strain of left trapezius muscle Status: Acute Plan: - pt c/o pain at left trapezius muscle extending to her neck and left shoulder - pain on palpation of left trapezius muscle - obtain x-ray series of c-spine and left shoulder - trial of heating pad - trial of flexeril 5mg q8hrs prn (6) Thrombophlebitis arm Status: Acute Plan: - thrombophlebitis vs DVT at [facility] [place] - obtain US - heating pad Problem Qualifiers (1) Strain of left trapezius muscle: Qualified Code: S46.812A - Strain of left trapezius muscle, initial encounter Joshua Duran DO Jun 28, 2016 15:14
[2016-06-28 16:00] VITALS: BP 123/73; PULSE 99; RESP 18; TEMP 98.4; O2SAT 96
[2016-06-28] MEDS: ACETAMINOPHEN/HYDROcodone 325 MG/5 MG TAB PO PRN ×2 (16:48→22:21)
[2016-06-28 20:00] VITALS: BP 125/75; PULSE 84; RESP 17; TEMP 98.5; O2SAT 96
[2016-06-28] MEDS: TEMAZEPAM 15 MG CAP PO PRN (22:21)
[2016-06-28] MEDS: ENOXAPARIN SODIUM 40 MG/0.4 ML SYRINGE SQ SCH (22:21)
--- NOTE | 2016-06-28 22:31 | RADRPT ---
EXAM DATE/TIME: 06/28/2016 20:50 [facility] COMPARISON: No previous studies available for comparison. INDICATIONS : Left arm swelling. MEDICAL HISTORY : Hypertension. Cough. Chest pain. Dyspnea. Renal disease. HIV. Hepatits C. MDRO. SURGICAL HISTORY : Tonsillectomy. Cholecystectomy. Hysterectomy. Leg surgery. Kidney stone removal. ENCOUNTER: Initial ACUITY: 1 day PAIN SCORE: 6/10 LOCATION: Left arm FINDINGS: There is spontaneous flow documented in the brachial, basilic, axillary, and subclavian veins. The v essels are compressible and augmentation response is documented. No filling defects are seen. The f low is phasic with respiration. Direction of flow in the jugular vein is caudal. There is thrombus in the cephalic vein. CONCLUSION: 1. Negative for deep venous thrombosis. There is superficial occlusive thrombus in the left mid and d istal cephalic vein. Kurt Underwood MD on June 28, 2016 at 22:29 Board Certified Radiologist. This report was verified electronically.
[2016-06-29] VITALS (7 sets, daily range): BP systolic 109–128; BP diastolic 58–80; PULSE 72–84; RESP 16–20; TEMP 97.7–98; O2SAT 95–98
[2016-06-29] MEDS: ACETAMINOPHEN/HYDROcodone 325 MG/5 MG TAB PO PRN ×4 (04:56→23:12)
[2016-06-29] MEDS: guaiFENesin/CODEINE SYRUP 200 MG/20 MG/10 ML CUP PO PRN (09:00)
[2016-06-29] MEDS: DOCUSATE SODIUM 100 MG CAP PO SCH ×2 (09:02→20:53)
[2016-06-29] MEDS: LINEZOLID 600 MG TAB PO SCH ×2 (09:02→20:53)
[2016-06-29] MEDS: SODIUM CHLORIDE 0.9% FLUSH 5 ML FLUSH FLUSH SCH ×2 (09:03→20:53)
[2016-06-29] MEDS: NAPROXEN 500 MG TAB PO SCH ×2 (09:09→20:53)
--- NOTE | 2016-06-29 10:35 | HHI.PR ---
Subjective Remarks painful left upper arm after old iv removed Objective Vitals heart reg lung cta abd s/nt ext left upper arm indurated/tender/red above the elbow and old iv site. Vital Signs Date Time Temp Pulse Resp B/P Pulse Ox O2 Delivery O2 Flow Rate FiO2 06/29/16 08:00 98.0 72 20 109/66 96 06/29/16 04:00 98.0 72 17 110/67 98 06/29/16 00:00 98.0 84 18 123/77 95 06/28/16 20:00 98.5 84 17 125/75 96 06/28/16 16:00 98.4 99 18 123/73 96 06/28/16 13:00 18 06/28/16 12:00 98.3 85 18 136/70 95 06/28/16 06/28/16 06/29/16 15:00 23:00 07:00 Intake Total 728 ml 380 ml 280 ml Balance 728 ml 380 ml 280 ml Intake Oral 720 ml 380 ml 280 ml IV Total 8 ml # Voids 4 3 3 # Bowel Movements 1 1 1 Result Diagram: 06/28/16 0940 Imaging Last Impressions Chest X-Ray 06/22/16 0000 Signed Impressions: Service Date/Time: Wednesday, June 22, 2016 08:39 - CONCLUSION: 1. Cavitary mass again noted in the left lung. 2. Improved aeration with decreased patchy opacity at the right lung base. Karan Martinez MD CT Angiography 06/19/16 1549 Signed Impressions: Service Date/Time: Sunday, June 19, 2016 17:24 - CONCLUSION: 1. Thick-walled cavitary lesion within the superior segment of the left lower lobe measuring 1.3 cm. Differential includes infectious or neoplastic etiologies. 2. Patchy infiltrates within the right middle lobe and right lower lobe consistent with possible pneumonia. Clinical correlation is recommended. 3. No evidence of pulmonary embolism. 4. Cardiomegaly. 5. Hepatomegaly. Garret Guidry MD A/P Problem List: (1) Cavitary lesion of lung Status: Acute Plan: - comgmt with ID and Pulmonary Medicine Pt is 45 yr with HIV and hep C. Has been off meds x 1 yr Last cd4 November 2015 445. Has been coughing up brown sputum CT chest shows rml/rll patchy infiltrates and Left lower lung thick walled cavitary lesion. 1.3cm.. no TB. - m. tb pcr negative. sputum cx showing mrsa currently on zyvox per ID f/u outpt ID (2) Superficial thrombophlebitis Status: Acute Plan: developed superficial thrombophebitis left cephalic vein cont compress. elevation. nsaid. already on low dose lovenox. (3) Cryoglobulinemia Status: Acute Plan: - case informally d/w Hematology (06/24/16) - pt unlikely to benefit from plasmapheresis since cryoglobulins would quickly reaccumulate - best approach to try to treat underlying etiology - Pt has chronic Hepatitis C which is likely the etiology of pt's cryoglobulinemia - Hep C genotype --> 1a - Hep C RNA quantitative --> 2.1 million - upon discharge I will have pt f/u with Dr. Gunner Moseley who cares for HIV & Hep C pts for [facility] (4) HIV (human immunodeficiency virus infection) Status: Chronic Plan: see above (5) Hepatitis C Status: Chronic Plan: see above (6) Strain of left trapezius muscle Status: Acute Plan: - pt c/o pain at left trapezius muscle extending to her neck and left shoulder - pain on palpation of left trapezius muscle - obtained x-ray series of c-spine and left shoulder - trial of heating pad - trial of flexeril 5mg q8hrs prn Problem Qualifiers (1) Strain of left trapezius muscle: Qualified Code: S46.812A - Strain of left trapezius muscle, initial encounter Demetrius Worthington MD Jun 29, 2016 10:35
[2016-06-29] MEDS: ENOXAPARIN SODIUM 40 MG/0.4 ML SYRINGE SQ SCH (20:53)
[2016-06-29] MEDS: TEMAZEPAM 15 MG CAP PO PRN (23:11)
[2016-06-30 03:57] VITALS: BP 118/68; PULSE 70; RESP 16; TEMP 97.5; O2SAT 97
[2016-06-30] MEDS: guaiFENesin/CODEINE SYRUP 200 MG/20 MG/10 ML CUP PO PRN ×2 (05:21→21:26)
[2016-06-30] MEDS: ACETAMINOPHEN/HYDROcodone 325 MG/5 MG TAB PO PRN (05:21)
[2016-06-30 08:00] VITALS: BP 106/57; PULSE 71; RESP 16; TEMP 97.7; O2SAT 96
[2016-06-30] MEDS: LINEZOLID 600 MG TAB PO SCH ×2 (08:46→21:27)
[2016-06-30] MEDS: NAPROXEN 500 MG TAB PO SCH ×2 (08:46→21:27)
[2016-06-30] MEDS: SODIUM CHLORIDE 0.9% FLUSH 5 ML FLUSH FLUSH SCH ×2 (08:46→21:29)
[2016-06-30] MEDS: DOCUSATE SODIUM 100 MG CAP PO SCH ×2 (08:46→21:00)
--- NOTE | 2016-06-30 09:56 | HHI.PR ---
Subjective Remarks asking for more pain meds. Objective Vitals nad heart reg lung cta abds/nt ext left uppr ext. less indurated and red mild tenderness. Vital Signs Date Time Temp Pulse Resp B/P Pulse Ox O2 Delivery O2 Flow Rate FiO2 06/30/16 08:00 97.7 71 16 106/57 96 06/30/16 03:57 97.5 70 16 118/68 97 06/29/16 23:18 97.7 84 16 128/80 97 06/29/16 21:25 98.0 75 16 109/59 95 06/29/16 15:53 97.8 83 20 113/60 97 06/29/16 12:00 97.7 81 20 115/58 95 06/29/16 06/29/16 06/30/16 15:00 23:00 07:00 Intake Total 480 ml 480 ml Output Total 100 ml Balance 480 ml 380 ml Intake Oral 480 ml 480 ml Output Urine Total 100 ml # Voids 6 # Bowel Movements 1 0 Result Diagram: 06/30/16 0559 Imaging Last Impressions Chest X-Ray 06/22/16 0000 Signed Impressions: Service Date/Time: Wednesday, June 22, 2016 08:39 - CONCLUSION: 1. Cavitary mass again noted in the left lung. 2. Improved aeration with decreased patchy opacity at the right lung base. Karan Martinez MD CT Angiography 06/19/16 1549 Signed Impressions: Service Date/Time: Sunday, June 19, 2016 17:24 - CONCLUSION: 1. Thick-walled cavitary lesion within the superior segment of the left lower lobe measuring 1.3 cm. Differential includes infectious or neoplastic etiologies. 2. Patchy infiltrates within the right middle lobe and right lower lobe consistent with possible pneumonia. Clinical correlation is recommended. 3. No evidence of pulmonary embolism. 4. Cardiomegaly. 5. Hepatomegaly. Garret Guidry MD A/P Problem List: (1) Cavitary lesion of lung Status: Acute Plan: - comgmt with ID and Pulmonary Medicine Pt is 45 yr with HIV and hep C. Has been off meds x 1 yr Last cd4 November 2015 445. Has been coughing up brown sputum CT chest shows rml/rll patchy infiltrates and Left lower lung thick walled cavitary lesion. 1.3cm.. no TB. - m. tb pcr negative. sputum cx showing mrsa currently on zyvox per ID f/u outpt ID (2) Superficial thrombophlebitis Status: Acute Plan: developed superficial thrombophebitis left cephalic vein cont compress. elevation. nsaid. already on low dose lovenox. seems better..continue aggressive care today and d/c in AM. (3) Cryoglobulinemia Status: Acute Plan: - case informally d/w Hematology (06/24/16) - pt unlikely to benefit from plasmapheresis since cryoglobulins would quickly reaccumulate - best approach to try to treat underlying etiology - Pt has chronic Hepatitis C which is likely the etiology of pt's cryoglobulinemia - Hep C genotype --> 1a - Hep C RNA quantitative --> 2.1 million - upon discharge I will have pt f/u with Dr. Gunner Moseley who cares for HIV & Hep C pts for [facility] (4) HIV (human immunodeficiency virus infection) Status: Chronic Plan: see above (5) Hepatitis C Status: Chronic Plan: see above (6) Strain of left trapezius muscle Status: Acute Plan: - pt c/o pain at left trapezius muscle extending to her neck and left shoulder - pain on palpation of left trapezius muscle - obtained x-ray series of c-spine and left shoulder - trial of heating pad - trial of flexeril 5mg q8hrs prn Problem Qualifiers (1) Strain of left trapezius muscle: Qualified Code: S46.812A - Strain of left trapezius muscle, initial encounter Demetrius Worthington MD Jun 30, 2016 09:56
[2016-06-30] MEDS: ACETAMINOPHEN/HYDROcodone 325 MG/7.5 MG TAB PO PRN ×2 (11:20→17:49)
[2016-06-30 12:00] VITALS: BP 110/73; PULSE 72; RESP 16; TEMP 97.4; O2SAT 97
[2016-06-30 16:00] VITALS: BP 103/64; PULSE 71; RESP 16; TEMP 97.4; O2SAT 97
[2016-06-30 19:32] VITALS: BP 110/66; PULSE 72; RESP 16; TEMP 96.6; O2SAT 97
[2016-06-30] MEDS: ENOXAPARIN SODIUM 40 MG/0.4 ML SYRINGE SQ SCH (21:27)
[2016-06-30 23:25] VITALS: BP 115/67; PULSE 73; RESP 16; TEMP 98.6; O2SAT 95
[2016-07-01] MEDS: TEMAZEPAM 15 MG CAP PO PRN (00:05)
[2016-07-01] MEDS: ACETAMINOPHEN/HYDROcodone 325 MG/7.5 MG TAB PO PRN ×2 (00:06→06:22)
[2016-07-01 05:30] VITALS: BP 117/71; PULSE 64; RESP 16; TEMP 97.4; O2SAT 98
[2016-07-01 08:00] VITALS: BP 109/59; PULSE 69; RESP 18; TEMP 97.8; O2SAT 96
[2016-07-01] MEDS: LINEZOLID 600 MG TAB PO SCH (08:05)
[2016-07-01] MEDS: DOCUSATE SODIUM 100 MG CAP PO SCH (08:05)
[2016-07-01] MEDS: SODIUM CHLORIDE 0.9% FLUSH 5 ML FLUSH FLUSH SCH (08:06)
[2016-07-01] MEDS ORDERED: ASPI81CH CHEW (09:14)
--- NOTE | 2016-07-01 09:15 | HHI.DCPOC ---
Discharge Care Plan Diagnosis: (1) Pneumonia (2) HIV (human immunodeficiency virus infection) (3) Cavitary lesion of lung (4) Thrombophlebitis arm (5) Hepatitis C (6) Hypothyroidism Goals to Promote Your Health * To prevent worsening of your condition and complications * To maintain your health at the optimal level Directions to Meet Your Goals Take your medications as prescribed Follow your dietary instruction Follow activity as directed Keep your appointments as scheduled Take your immunizations and boosters as scheduled If your symptoms worsen call your PCP, if no PCP go to Urgent Care Center or Emergency Room Smoking is Dangerous to Your Health. Avoid second hand smoke Call the 24-hour hour crisis hotline for domestic abuse at Demetrius Worthington MD Jul 01, 2016 09:15
--- NOTE | 2016-07-01 09:17 | HHI.PR ---
Subjective Remarks left upper ext feels much better. Objective Vitals lue..induration nearly resolved. full range of motion. distal pulses intact heart reg lung cta abd s/nt ext no pitting Vital Signs Date Time Temp Pulse Resp B/P Pulse Ox O2 Delivery O2 Flow Rate FiO2 07/01/16 08:00 97.8 69 18 109/59 96 07/01/16 05:30 97.4 64 16 117/71 98 06/30/16 23:25 98.6 73 16 115/67 95 06/30/16 20:00 Room Air 21 06/30/16 19:32 96.6 72 16 110/66 97 06/30/16 16:00 97.4 71 16 103/64 97 06/30/16 12:00 97.4 72 16 110/73 97 06/30/16 10:18 Room Air 21 06/30/16 06/30/16 07/01/16 15:00 23:00 07:00 Intake Total 830 ml 480 ml 240 ml Output Total 250 ml 200 ml Balance 830 ml 230 ml 40 ml Intake Oral 830 ml 480 ml 240 ml Output Urine Total 250 ml 200 ml # Voids 3 # Bowel Movements 1 1 0 Result Diagram: 06/30/16 0559 Imaging Last Impressions Chest X-Ray 06/22/16 0000 Signed Impressions: Service Date/Time: Wednesday, June 22, 2016 08:39 - CONCLUSION: 1. Cavitary mass again noted in the left lung. 2. Improved aeration with decreased patchy opacity at the right lung base. Karan Martinez MD CT Angiography 06/19/16 1549 Signed Impressions: Service Date/Time: Sunday, June 19, 2016 17:24 - CONCLUSION: 1. Thick-walled cavitary lesion within the superior segment of the left lower lobe measuring 1.3 cm. Differential includes infectious or neoplastic etiologies. 2. Patchy infiltrates within the right middle lobe and right lower lobe consistent with possible pneumonia. Clinical correlation is recommended. 3. No evidence of pulmonary embolism. 4. Cardiomegaly. 5. Hepatomegaly. Garret Guidry MD A/P Problem List: (1) Cavitary lesion of lung Status: Acute Plan: - comgmt with ID and Pulmonary Medicine Pt is 45 yr with HIV and hep C. Has been off meds x 1 yr Last cd4 November 2015 445. Has been coughing up brown sputum CT chest shows rml/rll patchy infiltrates and Left lower lung thick walled cavitary lesion. 1.3cm.. no TB. - m. tb pcr negative. sputum cx showing mrsa currently on zyvox per ID f/u outpt ID (2) Superficial thrombophlebitis Status: Acute Plan: developed superficial thrombophebitis left cephalic vein cont compress. elevation. nsaid. already on low dose lovenox. better. cont warm compresses at home and asa. f/u pcp. (3) Cryoglobulinemia Status: Acute Plan: - case informally d/w Hematology (06/24/16) - pt unlikely to benefit from plasmapheresis since cryoglobulins would quickly reaccumulate - best approach to try to treat underlying etiology - Pt has chronic Hepatitis C which is likely the etiology of pt's cryoglobulinemia - Hep C genotype --> 1a - Hep C RNA quantitative --> 2.1 million - upon discharge I will have pt f/u with Dr. Gunner Moseley who cares for HIV & Hep C pts for [place] (4) HIV (human immunodeficiency virus infection) Status: Chronic Plan: see above (5) Hepatitis C Status: Chronic Plan: see above (6) Strain of left trapezius muscle Status: Acute Plan: - pt c/o pain at left trapezius muscle extending to her neck and left shoulder - pain on palpation of left trapezius muscle - obtained x-ray series of c-spine and left shoulder - trial of heating pad - trial of flexeril 5mg q8hrs prn Problem Qualifiers (1) Strain of left trapezius muscle: Qualified Code: S46.812A - Strain of left trapezius muscle, initial encounter Demetrius Worthington MD Jul 01, 2016 09:17
== END 2016-07-01 11:34 | disposition home or self-care (01) | DRG 974 ==
LOC: NEPE 13:03 → NEDA 18:10 → NEDH 06-20 06:52 → N04A 06-20 15:30 → HIME 06-22 16:55 → N04B 06-26 16:04
PROVIDERS: ADMIT Hospitalist; ATTEND Hospitalist
DX: B20 Human immunodeficiency virus [HIV] disease (principal); J15.212 Pneumonia due to Methicillin resistant Staphylococcus aureus; J85.1 Abscess of lung with pneumonia; N17.9 Acute kidney failure, unspecified; I82.612 Acute embolism and thrombosis of superficial veins of left upper extremity; S46.812A Strain of other muscles, fascia and tendons at shoulder and upper arm level, left arm, initial encounter; D64.9 Anemia, unspecified; D89.1 Cryoglobulinemia; B18.2 Chronic viral hepatitis C; Z91.14 Patient's other noncompliance with medication regimen; L29.9 Pruritus, unspecified
CPT/HCPCS: 36600; 71010; 71275; 72050; 73030; 76937; 80048; 80053; 80202; 81001; 82550; 82565; 82595; 82805; 82948; 83605; 83735; 84100; 84484; 85007; 85025; 85027; 85379; 85652; 86038; 86140; 86160; 86235; 86355; 86357; 86359; 86360; 86403; 86430; 87015; 87040; 87070; 87102; 87116; 87147; 87186; 87205; 87206; 87522; 87556; 87641; 87798; 87902; 93005; 93971; 94640; 94664; 96374; J0456; J0696; J1644; J1650; J1885; J2270; J2543; J3370; J7030; J7042; J7050; Q9967

== ENCOUNTER 2016-07-16 17:14 | Emergency (ER) | payer OTHER ==
[~2016-07-16] VITALS: Ht 149.9 cm; Wt 60.0 kg
[~2016-07-16 17:14] MED LIST changes: +ASPI81CH CHEW; +CYCL1TAB29 PO; +DOCU1CAP39 PO; +GUAI100S5 PO; -LISI-515 PO; -METR-1 PO; +NORC5TAB PO; -POLY10O EACH EYE; +ZYVO600T PO
[2016-07-16 17:15] VITALS: BP 128/73; PULSE 126; RESP 16; TEMP 99.3; O2SAT 99
[2016-07-16 17:22] VITALS: PULSE 113; RESP 20; O2SAT 99
[2016-07-16] MEDS ORDERED: methylPREDNISolone SOD SUCC 125 MG/2 ML VIAL IVP ONE (23:45)
[2016-07-16] MEDS ORDERED: SODIUM CHLORIDE 0.9% FLUSH 5 ML FLUSH IVF PRN (23:45)
--- NOTE | 2016-07-16 23:46 | PD ---
HPI Chief Complaint: Respiratory Symptoms Time Seen by Provider: 23:32 Travel History International Travel<30 days: No Contact w/Intl Traveler<30days: No Traveled to known affect area: No History of Present Illness HPI The patient is a 45-year-old female who presents to the emergency department for anterior pleuritic chest pain. The patient states she has a history of HIV was recently admitted to the hospital for pneumonia. The patient states she was diagnosed with MRSA and was treated with antibiotics. The patient states she was discharged home and had anterior pleuritic chest pain at that time which has continued over the last several weeks. The patient now complains of fever, chills, and sweats, thinks her symptoms are now progressing. The patient did see her primary physician on an outpatient basis, Dr. Stone, who scheduled her for an echocardiogram to evaluate her murmur or neck. However, she was unable to be seen acutely by her primary physician for her progressing symptoms. The patient also states she has an appointment next week with her HIV physician, is not currently on antivirals. The patient does complain of a dry mostly nonproductive cough with her pleuritic chest pain , she notes minimal edema of the left ankle, does have a history of previous infection to left lower extremity with surgery. The patient denies any nausea, vomiting, diarrhea, or abdominal pain. PFSH Past Medical History Hx Anticoagulant Therapy: No Arthritis: No Asthma: No Autoimmune Disease: Yes (HIV +) Blood Disorders: No Anxiety: No Depression: No Heart Rhythm Problems: No Cancer: No Cardiovascular Problems: Yes (HEART MURMUR) High Cholesterol: No Chemotherapy: No Chest Pain: Yes Congestive Heart Failure: No COPD: No Cerebrovascular Accident: No Diabetes: No Diminished Hearing: No Diverticulitis: Yes Endocrine: No Gastrointestinal Disorders: No Genitourinary: Yes Headaches: Yes Hepatitis: Yes (C) Hiatal Hernia: No Heparin Induced Thrombocytopen: No Hypertension: Yes Immune Disorder: Yes Inguinal Hernia: Yes Implanted Vascular Access Dvce: No Kidney Stones: Yes (removed in september 2015) Musculoskeletal: No Neurologic: No Psychiatric: No Reproductive: No Respiratory: No Immunizations Current: Yes Migraines: Yes Radiation Therapy: No Seizures: No Sickle Cell Disease: No Sleep Apnea: No Thyroid Disease: No Menopausal: No : 2 Para: 2 Miscarriage: 0 : 0 Ovarian Cysts: Yes (HAD REMOVED) Past Surgical History AICD: No Appendectomy: Yes Arteriovenous Shunt: No Cardiac Surgery: No Section: Yes (X 2) Cholecystectomy: Yes Ear Surgery: No Endocrine Surgery: No Eye Surgery: No Genitourinary Surgery: Yes (Kidney Stones surgery.) Gynecologic Surgery: No Hysterectomy: Yes (PARTIAL) Insulin Pump: No Joint Replacement: No Neurologic Surgery: No Oral Surgery: No Pacemaker: No Thoracic Surgery: No Tonsillectomy: Yes ( AND ADENOIDS CHILD) Other Surgery: Yes (Gallbladder, Appendectomy, Hysterectomy, 2 C-Sections, Tonsillectomy) Social History Alcohol Use: No Tobacco Use: No Substance Use: No Allergies-Medications (Allergen,Severity, Reaction): Coded Allergies: *MDRO Multi-Drug Resistant Organism (Verified Adverse Reaction, Unknown, ) MRSA (wounds) - 09/03/15; (ear) - 11/26/15; (sputum) - 06/19/16 Reported Meds & Prescriptions Reported Meds & Active Scripts Active Aspirin 81 Mg Chew 81 Mg CHEW DAILY [place] (Hydrocodone-Acetaminophen) 5-325 mg Tab 1 Tab PO Q6H PRN Zyvox (Linezolid) 600 Mg Tab 600 Mg PO Q12HR Guaifenesin-Codeine Liq 100-10 Mg/5 Ml Soln 10 Ml PO Q4H PRN Dok (Docusate Sodium) 100 Mg Cap 100 Mg PO Q12HR Flexeril (Cyclobenzaprine HCl) 10 Mg Tab 5 Mg PO Q8H PRN Review of Systems Except as stated in HPI: all other systems reviewed are Neg General / Constitutional: Positive: Fever, Chills HENT: No: Lightheadedness Respiratory: Positive: Cough, Shortness of Breath, Pleuritic Pain Gastrointestinal: No: Nausea, Vomiting, Abdominal Pain Musculoskeletal: Positive: Edema Physical Exam Narrative GENERAL: Awake, alert, pleasant 45-year-old female who appears her stated age and is in no acute respiratory distress. SKIN: Warm and dry. HEAD: Atraumatic. Normocephalic. EYES: Pupils equal and round. No scleral icterus. No injection or drainage. ENT: No nasal bleeding or discharge. Mucous membranes pink and moist. NECK: Trachea midline. No JVD. CARDIOVASCULAR: Regular, tachycardic with a heart rate in the 120s. RESPIRATORY: No accessory muscle use. Few rhonchi in the right midlung. GASTROINTESTINAL: Abdomen soft, non-tender, nondistended. No rebound tenderness. MUSCULOSKELETAL: No obvious deformities. No clubbing. No cyanosis. Well- healed longitudinal scars in the left lower extremity. No obvious edema.. NEUROLOGICAL: Awake and alert. No obvious cranial nerve deficits. Motor grossly within normal limits. Normal speech. PSYCHIATRIC: Appropriate mood and affect; insight and judgment normal. Data Data Last Documented VS Vital Signs Date Time Temp Pulse Resp B/P Pulse Ox O2 Delivery O2 Flow Rate FiO2 07/17/16 00:40 95 07/16/16 17:22 20 99 07/16/16 17:15 99.3 128/73 Orders Complete Blood Count With Diff (07/16/16 23:39) Comprehensive Metabolic Panel (07/16/16 23:39) Magnesium (Mg) (07/16/16 23:39) Blood Culture (07/16/16 23:39) Iv Access Insert/Monitor (07/16/16 23:39) Ecg Monitoring (07/16/16 23:39) Oximetry (07/16/16 23:39) Oxygen Administration (07/16/16 23:39) Sodium Chloride 0.9% Flush (Ns Flush) (07/16/16 23:45) Methylprednisolone So Succ Inj (Solumedr (07/16/16 23:45) Albuterol-Ipratropium Neb (Duoneb Neb) (07/16/16 23:45) Ct Thorax/ Chest Wo Iv Contras (07/16/16 ) Sodium Chlor 0.9% 1000 Ml Inj (Ns 1000 M (07/17/16 00:00) Ketorolac Inj (Toradol Inj) (07/17/16 00:45) Morphine Inj (Morphine Inj) (07/17/16 01:30) Ondansetron Inj (Zofran Inj) (07/17/16 01:30) Labs Laboratory Tests Test 07/17/16 00:00 White Blood Count 5.9 TH/MM3 Red Blood Count 3.83 MIL/MM3 Hemoglobin 12.2 GM/DL Hematocrit 34.8 % Mean Corpuscular Volume 90.7 FL Mean Corpuscular Hemoglobin 31.8 PG Mean Corpuscular Hemoglobin 35.1 % Concent Red Cell Distribution Width 15.6 % Platelet Count 234 TH/MM3 Mean Platelet Volume 9.0 FL Neutrophils (%) (Auto) 35.5 % Lymphocytes (%) (Auto) 37.7 % Monocytes (%) (Auto) 19.3 % Eosinophils (%) (Auto) 6.8 % Basophils (%) (Auto) 0.7 % Neutrophils # (Auto) 2.1 TH/MM3 Lymphocytes # (Auto) 2.2 TH/MM3 Monocytes # (Auto) 1.1 TH/MM3 Eosinophils # (Auto) 0.4 TH/MM3 Basophils # (Auto) 0.0 TH/MM3 CBC Comment DIFF FINAL Differential Comment Sodium Level 140 MEQ/L Potassium Level 4.0 MEQ/L Chloride Level 104 MEQ/L Carbon Dioxide Level 29.0 MEQ/L Anion Gap 7 MEQ/L Blood Urea Nitrogen 17 MG/DL Creatinine 1.13 MG/DL Estimat Glomerular Filtration 52 ML/MIN Rate Random Glucose 83 MG/DL Calcium Level 8.9 MG/DL Magnesium Level 1.8 MG/DL Total Bilirubin 0.5 MG/DL Aspartate Amino Transf 30 U/L (AST/SGOT) Alanine Aminotransferase 21 U/L (ALT/SGPT) Alkaline Phosphatase 64 U/L Total Protein 8.4 GM/DL Albumin 3.4 GM/DL MDM Medical Decision Making Medical Screen Exam Complete: Yes Emergency Medical Condition: Yes Medical Record Reviewed: Yes Interpretation(s) Last Impressions Chest CT 07/16/16 0000 Signed Impressions: Service Date/Time: Sunday, July 17, 2016 00:01 - CONCLUSION: 1. Interval resolution of the infiltrate in the anterior right lower lung. 2. Stable thickwalled 1.3 cm cavitary mass in the left lower lobe. Jsaon Craig MD Laboratory Tests Test 07/17/16 00:00 White Blood Count 5.9 TH/MM3 Red Blood Count 3.83 MIL/MM3 Hemoglobin 12.2 GM/DL Hematocrit 34.8 % Mean Corpuscular Volume 90.7 FL Mean Corpuscular Hemoglobin 31.8 PG Mean Corpuscular Hemoglobin 35.1 % Concent Red Cell Distribution Width 15.6 % Platelet Count 234 TH/MM3 Mean Platelet Volume 9.0 FL Neutrophils (%) (Auto) 35.5 % Lymphocytes (%) (Auto) 37.7 % Monocytes (%) (Auto) 19.3 % Eosinophils (%) (Auto) 6.8 % Basophils (%) (Auto) 0.7 % Neutrophils # (Auto) 2.1 TH/MM3 Lymphocytes # (Auto) 2.2 TH/MM3 Monocytes # (Auto) 1.1 TH/MM3 Eosinophils # (Auto) 0.4 TH/MM3 Basophils # (Auto) 0.0 TH/MM3 CBC Comment DIFF FINAL Differential Comment Sodium Level 140 MEQ/L Potassium Level 4.0 MEQ/L Chloride Level 104 MEQ/L Carbon Dioxide Level 29.0 MEQ/L Anion Gap 7 MEQ/L Blood Urea Nitrogen 17 MG/DL Creatinine 1.13 MG/DL Estimat Glomerular Filtration 52 ML/MIN Rate Random Glucose 83 MG/DL Calcium Level 8.9 MG/DL Magnesium Level 1.8 MG/DL Total Bilirubin 0.5 MG/DL Aspartate Amino Transf 30 U/L (AST/SGOT) Alanine Aminotransferase 21 U/L (ALT/SGPT) Alkaline Phosphatase 64 U/L Total Protein 8.4 GM/DL Albumin 3.4 GM/DL Differential Diagnosis Differential diagnosis includes mycoplasma pneumonia, tuberculosis, AYALA infection, pneumonia, pleural effusion, pulmonary embolism, cavitary lesion. Narrative Course IV was established, labs are drawn and sent, and the patient was placed on cardiac telemetry monitoring and continuous pulse oximetry monitoring. CT of the thorax was ordered without contrast to evaluate for underlying cavitary pneumonia. The patient was administered Solu-Medrol and 2 duo nebs. Blood cultures were sent to lab. The patient was administered 1 L of IV fluids. CT of the thorax reveals resolution of the previous pneumonia, cavitary lesion is stable. Labs are unremarkable. The patient is stable for outpatient follow-up with her primary physician. Diagnosis Primary Impression: Pleuritic chest pain Patient Instructions: General Instructions Additional Instructions: Medications as directed. Follow-up with your primary physician. Return if symptoms worsen or progress. Please provide the patient a copy of her labs and CT results at discharge. Med/Other Pt SpecificInfo: Prescription(s) given Scripts Ibuprofen 600 Mg [id number] Mg PO Q6H PRN (Pain/Inflammation) #20 TAB Ref 0 Prov:Marko Torres MD 07/17/16 Hydrocodone-Acetaminophen ([place])5-325 mg Tab1 Tab PO Q6H PRN (PAIN) #15 TAB Ref 0 Prov:Marko Torres MD 07/17/16 Disposition: 01 DISCHARGE HOME Condition: Stable Marko Torres MD Jul 16, 2016 23:46
[2016-07-16] MEDS: RESP: ALBUTEROL 2.5 MG/IPRATROPIUM 0.5 MG NEB (SCH) INH ×2 (23:50→23:51)
[2016-07-17] MEDS ORDERED: SODIUM CHLOR 0.9% 1000 ML INJ 1,000 ML IV ONE
[2016-07-17 00:24] LABS: AUTOMATED NEUTROPHIL # 2.1 TH/MM3 (1.8-7.7); BASOPHIL % 0.7 % (0.0-2.0); EOSINOPHIL # 0.4 TH/MM3 (0-0.4); EOSINOPHIL % 6.8 % (0.0-4.0); HEMATOCRIT 34.8 % (35.0-46.0); HEMO FLAGS DIFF FINAL; LYMPH % 37.7 % (9.0-44.0); LYMPHOCYTE # 2.2 TH/MM3 (1.0-4.8); MEAN CELL VOLUME 90.7 FL (80.0-100.0); MEAN CORPUSCULAR HEMOGLOBIN 31.8 PG (27.0-34.0); MEAN CORPUSCULAR HGB CONC 35.1 % (32.0-36.0); MONO % 19.3 % (0.0-8.0); NEUT % 35.5 % (16.0-70.0); PLATELET COUNT 234 TH/MM3 (150-450); RED BLOOD COUNT 3.83 MIL/MM3 (4.00-5.30); RED CELL DISTRIBUTION WIDTH 15.6 % (11.6-17.2); WHITE BLOOD COUNT 5.9 TH/MM3 (4.0-11.0)
[2016-07-17 00:40] VITALS: PULSE 95
[2016-07-17] MEDS ORDERED: KETOROLAC TROMETHAMINE 30 MG/ML (IVP) VIAL IV PUSH ONE (00:45)
--- NOTE | 2016-07-17 00:45 | RADRPT ---
EXAM DATE/TIME: 07/17/2016 00:01 [facility] COMPARISON: CT ABDOMEN & PELVIS W/O CONTRAST, June 20, 2015, 10:25. CT PULMONARY ANGIOGRAM, June 19 7, 17:24. CHEST SINGLE AP, June 22, 2016, 8:39. INDICATIONS : Recent pneumonia with increasing shortness of breath. RADIATION DOSE: 5.10 CTDIvol (mGy) MEDICAL HISTORY : HIV. Hepatitis C. Hypertension. SURGICAL HISTORY : None. ENCOUNTER: Initial ACUITY: 2 weeks PAIN SCALE: 0/10 LOCATION: TECHNIQUE: Volumetric scanning of the chest was performed. Using automated exposure control and adjustment of t he mA and/or kV according to patient size, radiation dose was kept as low as reasonably achievable to obtain optimal diagnostic quality images. FINDINGS: LUNGS: 1.3 thick wall cavitary lesion in the superior segment left lower lobe is stable in size when compare d to 06/19/16. Previously noted infiltrate in the anterior right lower lung has totally resolved. No new infiltrates seen. No evidence of pneumothorax. PLEURAE: There is no pleural thickening or pleural effusion. MEDIASTINUM: The heart and great vessels demonstrate no acute abnormality. There is no mediastinal or hilar lymph adenopathy. AXILLAE: Scattered bilateral axillary lymph nodes with fatty timoteo stable from prior. MUSCULOSKELETAL: Within normal limits for patient age. MISCELLANEOUS: The visualized upper abdominal organs demonstrate no acute abnormality. Stable tiny nonobstructing s tone upper pole right kidney. Hemoclips in the mayra from prior cholecystectomy.. CONCLUSION: 1. Interval resolution of the infiltrate in the anterior right lower lung. 2. Stable thickwalled 1.3 cm cavitary mass in the left lower lobe. Jason Craig MD on July 17, 2016 at 0:39 Board Certified Radiologist. This report was verified electronically.
[2016-07-17 00:51] LABS: ALKALINE PHOSPHATASE 64 U/L (45-117); TOTAL BILIRUBIN ADULT 0.5 MG/DL (0.2-1.0)
[2016-07-17 01:04] LABS: ALT (GPT) 21 U/L (10-53); ANION GAP 7 MEQ/L (5-15); AST (GOT) 30 U/L (15-37); BLOOD UREA NITROGEN 17 MG/DL (7-18); CHLORIDE 104 MEQ/L (98-107); GLOMERULAR FILTRATION RATE 52 ML/MIN (>89); MAGNESIUM 1.8 MG/DL (1.5-2.5)
[2016-07-17 01:05] LABS: SODIUM (NA) 140 MEQ/L (136-145)
[2016-07-17] MEDS ORDERED: ONDANSETRON HCL 4 MG/2 ML VIAL IV PUSH ONE (01:30)
[2016-07-17] MEDS ORDERED: MORPHINE SULFATE 4 MG/ML INJ IV PUSH ONE (01:30)
[2016-07-17] MEDS ORDERED: NORC5TAB PO (01:33)
[2016-07-17] MEDS ORDERED: IBUP-232 PO (01:33)
== END 2016-07-17 02:15 | disposition home or self-care (01) ==
LOC: NEPC 17:14
DX: R07.81 Pleurodynia (principal); R06.02 Shortness of breath; Z87.01 Personal history of pneumonia (recurrent); I10 Essential (primary) hypertension; B20 Human immunodeficiency virus [HIV] disease
CPT/HCPCS: 71250; 80053; 83735; 85025; 87040; 94640; 94664; 96361; 96374; 96375; 99284; J1885; J2270; J2405; J2930; J7030

== ENCOUNTER 2016-07-24 08:49 | Inpatient (IN) | payer OTHER ==
[~2016-07-24] VITALS: Ht 152.4 cm; Wt 60.0 kg
[2016-07-24] VITALS (9 sets, daily range): BP systolic 101–157; BP diastolic 52–83; PULSE 92–125; RESP 16–20; TEMP 98.2–100.6; O2SAT 95–100
[~2016-07-24 08:49] MED LIST changes: +IBUP-232 PO
[2016-07-24] MEDS ORDERED: LISI10TA3 PO (09:07)
[2016-07-24] MEDS ORDERED: MORPHINE SULFATE 4 MG/ML INJ IV PUSH ONE (09:30)
[2016-07-24] MEDS ORDERED: SODIUM CHLOR 0.9% 1000 ML INJ 1,000 ML IV SCH (09:30)
--- NOTE | 2016-07-24 09:46 | RADRPT ---
EXAM DATE/TIME: 07/24/2016 09:29 [facility] COMPARISON: CT THORAX W/O CONTRAST, July 17, 2016, 0:01. CHEST SINGLE AP, June 22, 2016, 8:39. INDICATIONS : Shortness of breath MEDICAL HISTORY : None. SURGICAL HISTORY : None. ENCOUNTER: Initial ACUITY: 1 day PAIN SCORE: 10/10 LOCATION: Bilateral chest FINDINGS: The heart size is normal. There continues to be a cavitary 1.4 cm mass in the left upper lung. There is some increased density at the medial right upper lung and at the medial right base. A significant effusion is not seen. CONCLUSION: Persisting cavitary mass in the left upper lung and suspected consolidation or atelectasis in the med ial right upper and lower lungs. Shakir Livingston MD on July 24, 2016 at 9:38 Board Certified Radiologist. This report was verified electronically.
[2016-07-24 09:47] LABS: BASOPHIL # 0.1 TH/MM3 (0-0.2); BASOPHIL % 0.5 % (0.0-2.0); EOSINOPHIL # 2.3 TH/MM3 (0-0.4); HEMATOCRIT 33.7 % (35.0-46.0); HEMO FLAGS DIFF FINAL; LYMPH % 14.5 % (9.0-44.0); LYMPHOCYTE # 2.1 TH/MM3 (1.0-4.8); MEAN CELL VOLUME 91.1 FL (80.0-100.0); MEAN CORPUSCULAR HEMOGLOBIN 29.9 PG (27.0-34.0); MEAN CORPUSCULAR HGB CONC 32.8 % (32.0-36.0); MONO % 7.2 % (0.0-8.0); NEUT % 61.8 % (16.0-70.0); PLATELET COUNT 243 TH/MM3 (150-450); RED BLOOD COUNT 3.69 MIL/MM3 (4.00-5.30); RED CELL DISTRIBUTION WIDTH 15.6 % (11.6-17.2); WHITE BLOOD COUNT 14.6 TH/MM3 (4.0-11.0)
--- NOTE | 2016-07-24 09:47 | PD ---
HPI Chief Complaint: Pain: Acute or Chronic Time Seen by Provider: 08:59 Travel History International Travel<30 days: No Contact w/Intl Traveler<30days: No Traveled to known affect area: No History of Present Illness HPI This is a 45-year-old female who presents to the emergency department with pain at her tailbone that radiates into her right thigh, constant for 3-4 days, moderate severity associated with some chills, worse with walking. Patient reports that she's had increasing sores show up on her groin area. The patient has a history of HIV and her last CD4 count is 150. She is not currently on any antiretrovirals. She denies any history of IV drug use. PFSH Past Medical History Hx Anticoagulant Therapy: No Arthritis: No Asthma: No Autoimmune Disease: Yes (HIV +) Blood Disorders: No Anxiety: No Depression: No Heart Rhythm Problems: No Cancer: No Cardiovascular Problems: Yes (HTN) High Cholesterol: No Chemotherapy: No Chest Pain: Yes Congestive Heart Failure: No COPD: No Cerebrovascular Accident: No Diabetes: No Diminished Hearing: No Diverticulitis: Yes Endocrine: No Gastrointestinal Disorders: No Genitourinary: Yes Headaches: Yes (seldom) Hepatitis: Yes (C) Hiatal Hernia: No Heparin Induced Thrombocytopen: No Hypertension: Yes Immune Disorder: Yes Inguinal Hernia: Yes Implanted Vascular Access Dvce: No Kidney Stones: Yes (removed in september 2015) Musculoskeletal: No Neurologic: No Psychiatric: No Reproductive: No Respiratory: No Immunizations Current: Yes Migraines: Yes Radiation Therapy: No Seizures: No Sickle Cell Disease: No Sleep Apnea: No Thyroid Disease: No Tetanus Vaccination: < 5 Years Influenza Vaccination: Yes ?: Not LMP: 2013 Menopausal: No : 2 Para: 2 Miscarriage: 0 : 0 Ovarian Cysts: Yes (HAD REMOVED) Past Surgical History AICD: No Appendectomy: Yes Arteriovenous Shunt: No Cardiac Surgery: No Section: Yes (X 2) Cholecystectomy: Yes Ear Surgery: No Endocrine Surgery: No Eye Surgery: No Genitourinary Surgery: Yes (Kidney Stones surgery.) Gynecologic Surgery: No Hysterectomy: Yes (PARTIAL) Insulin Pump: No Joint Replacement: No Neurologic Surgery: No Oral Surgery: No Pacemaker: No Thoracic Surgery: No Tonsillectomy: Yes ( AND ADENOIDS CHILD) Other Surgery: Yes (Gallbladder, Appendectomy, Hysterectomy, 2 C-Sections, Tonsillectomy) Social History Alcohol Use: No Tobacco Use: No Substance Use: No Allergies-Medications (Allergen,Severity, Reaction): Coded Allergies: *MDRO Multi-Drug Resistant Organism (Verified Adverse Reaction, Unknown, ) MRSA (wounds) - 09/03/15; (ear) - 11/26/15; (sputum) - 06/19/16 Reported Meds & Prescriptions Reported Meds & Active Scripts Active Reported Lisinopril 10 Mg Tab 10 Mg PO DAILY Review of Systems Except as stated in HPI: all other systems reviewed are Neg Physical Exam Narrative GENERAL:Well appearing, no acute distress SKIN: Chronic thickened scan in the vaginal area with small ulcerated lesions in the groin creases with some pustules. Abscess on the left posterior thigh that measures about 3 cm. Purulent drainage from a pilonidal cyst with minimal induration and no surrounding fluctuance. HEAD: Atraumatic. Normocephalic. EYES: Pupils equal and round. No injection or drainage. ENT: Moist mucous membranes NECK: Trachea midline. CARDIOVASCULAR: Regular rate and rhythm. No murmur appreciated. RESPIRATORY: Clear to auscultation. Breath sounds equal bilaterally. GASTROINTESTINAL: Abdomen soft, non-tender, nondistended. MUSCULOSKELETAL: Tender to palpation of the right posterior thigh. NEUROLOGICAL: Awake and alert. No obvious cranial nerve deficits. Moving all extremities. PSYCHIATRIC: Appropriate mood and affect; insight and judgment normal. Data Data Last Documented VS Vital Signs Date Time Temp Pulse Resp B/P Pulse Ox O2 Delivery O2 Flow Rate FiO2 07/24/16 11:28 98 21 07/24/16 09:11 99.4 101 150/74 07/24/16 09:10 Room Air 07/24/16 09:02 17 Orders Complete Blood Count With Diff (07/24/16 09:06) Comprehensive Metabolic Panel (07/24/16 09:06) Lactic Acid Sepsis Protocol (07/24/16 09:06) Urinalysis - C+S If Indicated (07/24/16 09:06) Blood Culture (07/24/16 09:06) Blood Glucose (07/24/16 09:06) Ecg Monitoring (07/24/16 09:06) Iv Access Insert/Monitor (07/24/16 09:06) Oximetry (07/24/16 09:06) Oxygen Administration (07/24/16 09:06) C-Reactive Protein (Crp) (07/24/16 09:06) Sodium Chlor 0.9% 1000 Ml Inj (Ns 1000 M (07/24/16 09:30) Westergren Sedimentation Rate (07/24/16 09:18) Chest, Single Ap (07/24/16 ) Morphine Inj (Morphine Inj) (07/24/16 09:30) Vancomycin Inj (Vancomycin Inj) (07/24/16 10:00) Cefepime Inj (Maxipime Inj) (07/24/16 10:00) Cath For Specimen (07/24/16 10:10) Ct Femur W/O Iv Contrast (07/24/16 ) Urine Culture (07/24/16 10:19) Vascular Access Team Consult PRN (07/24/16 11:04) Vascular Poc Ultrasound (07/24/16 ) Admit To Inpatient (07/24/16 ) Code Status (07/24/16 11:16) Vital Signs (Adult) Q4H (07/24/16 11:16) Activity Oob With Assistance (07/24/16 11:16) Diet Regular Basic (07/24/16 Lunch) Sodium Chloride 0.9% Flush (Ns Flush) (07/24/16 11:30) Sodium Chloride 0.9% Flush (Ns Flush) (07/24/16 21:00) Acetaminophen (Tylenol) (07/24/16 11:30) Ondansetron Inj (Zofran Inj) (07/24/16 11:30) Bisacodyl Supp (Dulcolax Supp) (07/24/16 11:30) Docusate Sodium (Colace) (07/24/16 12:00) Temazepam (Restoril) (07/24/16 11:30) Basic Metabolic Panel (Bmp) (07/25/16 06:00) Complete Blood Count With Diff (07/25/16 06:00) Electrocardiogram (07/24/16 11:16) Resp Oxygen Rex C Titrat 1-4 L (07/24/16 ) Pt Request For Service (07/24/16 11:16) Scd Bilateral/Knee High ADOLPH.BID (07/24/16 11:16) Naloxone Inj (Narcan Inj) (07/24/16 11:30) Inpatient Certification (07/24/16 ) Consult Infectious Disease (07/24/16 ) Admit Order (Ed Use Only) (07/24/16 11:31) Labs Laboratory Tests Test 07/24/16 07/24/16 07/24/16 09:24 09:25 10:19 Lactic Acid Level 1.8 mmol/L White Blood Count 14.6 TH/MM3 Red Blood Count 3.69 MIL/MM3 Hemoglobin 11.1 GM/DL Hematocrit 33.7 % Mean Corpuscular Volume 91.1 FL Mean Corpuscular Hemoglobin 29.9 PG Mean Corpuscular Hemoglobin 32.8 % Concent Red Cell Distribution Width 15.6 % Platelet Count 243 TH/MM3 Mean Platelet Volume 9.6 FL Neutrophils (%) (Auto) 61.8 % Lymphocytes (%) (Auto) 14.5 % Monocytes (%) (Auto) 7.2 % Eosinophils (%) (Auto) 16.0 % Basophils (%) (Auto) 0.5 % Neutrophils # (Auto) 9.0 TH/MM3 Lymphocytes # (Auto) 2.1 TH/MM3 Monocytes # (Auto) 1.0 TH/MM3 Eosinophils # (Auto) 2.3 TH/MM3 Basophils # (Auto) 0.1 TH/MM3 CBC Comment DIFF FINAL Differential Comment Erythrocyte Sedimentation Rate 66 mm/hr Sodium Level 140 MEQ/L Potassium Level 4.0 MEQ/L Chloride Level 106 MEQ/L Carbon Dioxide Level 26.4 MEQ/L Anion Gap 8 MEQ/L Blood Urea Nitrogen 14 MG/DL Creatinine 1.23 MG/DL Estimat Glomerular Filtration 47 ML/MIN Rate Random Glucose 147 MG/DL Calcium Level 8.2 MG/DL Total Bilirubin 0.3 MG/DL Aspartate Amino Transf 26 U/L (AST/SGOT) Alanine Aminotransferase 20 U/L (ALT/SGPT) Alkaline Phosphatase 54 U/L C-Reactive Protein 2.90 MG/DL Total Protein 7.1 GM/DL Albumin 2.8 GM/DL Urine Color YELLOW Urine Turbidity HAZY Urine pH 6.0 Urine Specific [place] 1.018 Urine Protein 30 mg/dL Urine Glucose (UA) NEG mg/dL Urine Ketones NEG mg/dL Urine Occult Blood NEG Urine Nitrite POS Urine Bilirubin NEG Urine Urobilinogen LESS THAN 2.0 MG/DL Urine Leukocyte Esterase LARGE Urine RBC 4 /hpf Urine WBC 69 /hpf Urine Squamous Epithelial 7 /hpf Cells Urine Bacteria MOD /hpf Urine Mucus FEW /lpf Microscopic Urinalysis Comment CATH-CULTURE IND MDM Medical Decision Making Medical Screen Exam Complete: Yes Emergency Medical Condition: Yes Interpretation(s) Temperature is 99.4, tachycardic Leukocytosis 16% eosinophils Sedimentation rate is 66 CRP is 2.9 Lactic acid is 1.8 Creatinine is 1.2 Urinalysis: Urinary tract infection Chest x-ray: Persisting cavitary mass in the left upper lung and consolidation in the medial right upper and lower lungs CT femur: No soft tissue infection Differential Diagnosis Sepsis, pneumonia, pyelonephritis, pilonidal cyst, abscess, soft tissue infection Narrative Course This is a 45-year-old female who has a history of HIV and noncompliance as well as cryoglobulinemia who presents to the emergency department with increasing pain in her tailbone extending down to her leg. She is not been feeling well for several days. She was placed in a monitor and an IV was established. She was tachycardic. Labs demonstrate a leukocytosis. She does have a urinary tract infection. Chest x-ray demonstrates an old cavitary lesion on the left and then some possible new consolidation on the right. She has a history of MRSA pneumonia. She has scattered small abscesses and pustules on her skin. She does have a fairly superficial open abscess on her tailbone suggestive of a pilonidal cyst. I was concerned for a deeper soft tissue infection of her right posterior thigh so obtained a CT scan which was negative. I don't suspect an epidural abscess as her pain is quite low and seems to be focused around her pilonidal cyst. I think she requires admission for broad-spectrum antibiotics given her history of immunocompromise. Physician Communication Physician Communication Discussed with Dr. Duran Diagnosis Primary Impression: Sepsis Qualified Code: A41.9 - Sepsis, due to unspecified organism Admitting Information Admitting Physician Requests: Admit Bee Pace MD Jul 24, 2016 09:47
[2016-07-24] MEDS ORDERED: IOHEXOL 350 MG/ML 10 ML VIAL (for RAD DIAG) IV ONE (09:51)
[2016-07-24] MEDS ORDERED: CEFEPIME INJ 2,000 MG in SODIUM CHLORIDE 0.9% INJ 100 ML IV ONE (10:00)
[2016-07-24] MEDS ORDERED: VANCOMYCIN INJ 900 MG in SODIUM CHLOR 0.9% 250 ML INJ 250 ML IV ONE (10:00)
[2016-07-24 10:11] LABS: ALKALINE PHOSPHATASE 54 U/L (45-117); ALT (GPT) 20 U/L (10-53); ANION GAP 8 MEQ/L (5-15); AST (GOT) 26 U/L (15-37); BICARBONATE 26.4 MEQ/L (21.0-32.0); BLOOD UREA NITROGEN 14 MG/DL (7-18); CHLORIDE 106 MEQ/L (98-107); GLOMERULAR FILTRATION RATE 47 ML/MIN (>89); SODIUM (NA) 140 MEQ/L (136-145); TOTAL BILIRUBIN ADULT 0.3 MG/DL (0.2-1.0)
[2016-07-24 10:36] LABS: BACTERIA, URINE MOD /hpf; BLOOD, URINE NEG (NEG); COMMENT (UR) CATH-CULTURE IND; CULTURE IF INDICATED CATH CULTURE IND; GLUCOSE,URINE NEG (NEG); KETONE, URINE NEG (NEG); MUCUS URINE FEW /lpf (OCC); NITRITE,URINE POS (NEG); SQUAMOUS EPITHELIAL CELL URINE 7 /hpf (0-5); URINE COLOR YELLOW (YELLW/STRAW)
--- NOTE | 2016-07-24 10:55 | RADRPT ---
EXAM DATE/TIME: 07/24/2016 09:51 [facility] COMPARISON: No previous studies available for comparison. INDICATIONS : Tailbone pain radiating down right leg. No known trauma. RADIATION DOSE: 10.33 CTDIvol (mGy) MEDICAL HISTORY : HIV. Hepatitis C. Hypertension.Renal disease. SURGICAL HISTORY : Appendectomy. Cholecystectomy. section.Hysterectomy. ENCOUNTER: Initial ACUITY: 1 day PAIN SCALE: 6/10 LOCATION: Right femur TECHNIQUE: Volumetric scanning of the femur was performed. Using automated exposure control and adjustment of t he mA and/or kV according to patient size, radiation dose was kept as low as reasonably achievable to obtain optimal diagnostic quality images. FINDINGS: BONES: No evidence of fracture. Alignment is within normal limits. JOINTS: No evidence of joint narrowing or effusion. SOFT TISSUES: Muscles, tendons, and neurovascular structures are grossly unremarkable. No evidence of mass, organiz ed fluid collection, or foreign body CONCLUSION: There is no evidence for abscess or soft tissue induration. The lumbar spine was not evaluated. The SI joints are not evaluated.. Noah Beyer MD FACR on July 24, 2016 at 10:52 Board Certified Radiologist. This report was verified electronically.
[2016-07-24] MEDS ORDERED: ACETAMINOPHEN 325 MG TAB PO PRN (11:30)
[2016-07-24] MEDS ORDERED: NALOXONE HCL 0.4 MG/ML AMP IV PRN (11:30)
[2016-07-24] MEDS ORDERED: BISACODYL 10 MG SUPP PR PRN (11:30)
[2016-07-24] MEDS ORDERED: SODIUM CHLORIDE 0.9% FLUSH 5 ML FLUSH FLUSH PRN (11:30)
[2016-07-24] MEDS ORDERED: ONDANSETRON HCL 4 MG/2 ML VIAL IVP PRN (11:30)
[2016-07-24] MEDS ORDERED: TEMAZEPAM 15 MG CAP PO PRN (11:30)
--- NOTE | 2016-07-24 11:36 | HHI.HP ---
HPI Service [facility] Hospitalists Primary Care Physician Nikia Stone M.D. Admission Diagnosis sepsis, urinary tract infection Chief Complaint: sacral pain with radiation to right thigh. Travel History International Travel<30 Days: No Contact w/Intl Traveler <30 Da: No Traveled to Known Affected Are: No History of Present Illness Pt is a 45 y/o F with HIV, chronic Hepatitis C, and non-compliance. Pt is well known to my service. Pt was most recently admitted to [place] 06/19 -07/01/16. During that hospitalization pt was once agian treated for her cavitary lung lesion as well as RML & RLL pneumonia. Sputum Cultures showed MRSA. Pt received IV zyvox. Pt was instructed to complete a 2 week course of PO zyvox upon discharge. Pt states that she completed this course of treatment. Pt's hospitalization was complicated by cryoglobulinemia. Pt was instructed to follow with Dr. Gunner Moseley for management of her HIV and Hepatitis C. Case was informally d/w Hematology. It was felt that pt would NOT benefit from plasmapheresis since cryoglobulins would quickly reaccumulate, and treatment of the underlying process, Hepatitis C, was recommended. Unfortunately pt has been off of HIV medication for over 1 year. Pt's last absolute CD4 count 06/25/16 was 151. Per pt, she has an appointment to see Dr. Moseley July 29. Pt now returns to the [place] ER 07/24/16 with c/o pain at her tailbone with radiation to her right thigh. Pt describes the pain as severe, constant for last 3-4 days. Pt states that walking exacerbates the pain. Pt denies cough, dysuria, sweat. Pt c/o chills. On physical exam pt has a small, punctate shallow ulcer at the sacrum. Pt a skin abscess at the posterior left thigh which was drained in the ER. Pt also c/o vaginal discharge ongoing for several days. In the ER, pt was noted to be tachycardic upon initial presentation with a HR of 118. Tmax 99.4. Pt was NOT tachycardic. There was an a mild elevation of the pt's WBC at 14.6K. LE CT (07/24/16) There is no evidence for abscess or soft tissue induration. The lumbar spine was not evaluated. The SI joints are not evaluated Pt admitted to [facility] for further evaluation and treatment. Pt was interviewed and examined together with Brittani Black PA-C. Pt's floor nurse was also present. Review of Systems Constitutional: DENIES: Diaphoretic episodes, Fatigue, Fever, Weight gain, Weight loss, Chills, Dizziness, Change in appetite, Night Sweats Endocrine: DENIES: Heat/cold intolerance, Polydipsia, Polyuria, Polyphagia Eyes: DENIES: Blurred vision, Diplopia, Eye inflammation, Eye pain, Vision loss , Photosensitivity, Double Vision Ears, nose, mouth, throat: DENIES: Tinnitus, Hearing loss, Vertigo, Nasal discharge, Oral lesions, Throat pain, Hoarseness, Ear Pain, Running Nose, Epistaxis, Sinus Pain, Toothache, Odynophagia Respiratory: DENIES: Apneas, Cough, Snoring, Wheezing, Hemoptysis, Sputum production, Shortness of breath Cardiovascular: DENIES: Chest pain, Palpitations, Syncope, Dyspnea on Exertion , PND, Lower Extremity Edema, Orthopnea, Claudication Gastrointestinal: DENIES: Abdominal pain, Black stools, Bloody stools, BRB per rectum, Constipation, Diarrhea, GERD, Nausea, Reflux, Vomiting, Difficulty Swallowing, Anorexia Genitourinary: DENIES: Urinary frequency, Urinary incontinence, Urgency, Hematuria, Dysuria, Nocturia Musculoskeletal: COMPLAINS OF: Joint pain, Muscle aches, DENIES: Stiffness, Joint Swelling, Back pain, Neck pain Integumentary: DENIES: Abnormal pigmentation, Pruritus, Rash, Nail changes, Breast masses, Breast skin changes, Nipple discharge Hematologic/lymphatic: DENIES: Bruising, Lymphadenopathy Immunologic/allergic: DENIES: Eczema, Urticaria Psychiatric: DENIES: Anxiety, Confusion, Mood changes, Depression, Hallucinations, Agitation, Suicidal Ideation, Homicidal Ideation, Delusions, History of Bipolar, History of Schizophrenia Past Family Social History Past Medical History 1. HIV, untreated. Last CD4 151 06/2016 2. Hepatitis C 3. Cryoglobulinemia 4. Nephrolithiasis 5. Hypertension 6. Ureter kidney stones s/p stent placement with Hx of E.coli and sepsis. 7. Hx candidiasis 8. Chronic left leg pain Past Surgical History 1. Hysterectomy and salpingectomy 2. Lysis of adhesion abdomen/pelvis 3. Lap spencer 4. Left leg 4 compartment fasciotomy for compartment syndrome Allergies: Coded Allergies: *MDRO Multi-Drug Resistant Organism (Verified Adverse Reaction, Unknown, ) MRSA (wounds) - 09/03/15; (ear) - 11/26/15; (sputum) - 06/19/16 Family History Non-contributory Social History - NO tobacco - NO alcohol use - NO illicit street drugs Physical Exam Vital Signs Vital Signs Date Time Temp Pulse Resp B/P Pulse Ox O2 Delivery O2 Flow Rate FiO2 07/24/16 09:11 99.4 101 150/74 07/24/16 09:10 99 Room Air 07/24/16 09:02 107 17 07/24/16 08:50 98.2 118 20 157/83 100 Room Air Physical Exam GENERAL: This is a well-nourished, well-developed patient, in no apparent distress. SKIN: No rashes, ecchymoses or lesions. Cool and dry. HEAD: Atraumatic. Normocephalic. No temporal or scalp tenderness. EYES: Pupils equal round and reactive. Extraocular motions intact. No scleral icterus. No injection or drainage. ENT: Nose without bleeding, purulent drainage or septal hematoma. Throat without erythema, tonsillar hypertrophy or exudate. Uvula midline. Airway patent. NECK: Trachea midline. No JVD or lymphadenopathy. Supple, nontender, no meningeal signs. CARDIOVASCULAR: Regular rate and rhythm without murmurs, gallops, or rubs. RESPIRATORY: Clear to auscultation. Breath sounds equal bilaterally. No wheezes , rales, or rhonchi. GASTROINTESTINAL: Abdomen soft, non-tender, nondistended. No hepato-splenomegaly , or palpable masses. No guarding. MUSCULOSKELETAL: Extremities without clubbing, cyanosis, or edema. No joint tenderness, effusion, or edema noted. No calf tenderness. Negative Homans sign bilaterally. NEUROLOGICAL: Awake and alert. Cranial nerves II through XII intact. Motor and sensory grossly within normal limits. Five out of 5 muscle strength in all muscle groups. Normal speech. Skin: shallow, non-draining 2-3 cm diameter ulcer at sacrum, tender abscess at left posterior thigh with surgical incision with surrounding erythema, hyperpigmentation in groin with yeast smell. Laboratory Laboratory Tests Test 07/24/16 07/24/16 07/24/16 09:24 09:25 10:19 Lactic Acid Level 1.8 White Blood Count 14.6 Red Blood Count 3.69 Hemoglobin 11.1 Hematocrit 33.7 Mean Corpuscular Volume 91.1 Mean Corpuscular Hemoglobin 29.9 Mean Corpuscular Hemoglobin 32.8 Concent Red Cell Distribution Width 15.6 Platelet Count 243 Mean Platelet Volume 9.6 Neutrophils (%) (Auto) 61.8 Lymphocytes (%) (Auto) 14.5 Monocytes (%) (Auto) 7.2 Eosinophils (%) (Auto) 16.0 Basophils (%) (Auto) 0.5 Neutrophils # (Auto) 9.0 Lymphocytes # (Auto) 2.1 Monocytes # (Auto) 1.0 Eosinophils # (Auto) 2.3 Basophils # (Auto) 0.1 CBC Comment DIFF FINAL Differential Comment Erythrocyte Sedimentation Rate 66 Sodium Level 140 Potassium Level 4.0 Chloride Level 106 Carbon Dioxide Level 26.4 Anion Gap 8 Blood Urea Nitrogen 14 Creatinine 1.23 Estimat Glomerular Filtration 47 Rate Random Glucose 147 Calcium Level 8.2 Total Bilirubin 0.3 Aspartate Amino Transf 26 (AST/SGOT) Alanine Aminotransferase 20 (ALT/SGPT) Alkaline Phosphatase 54 C-Reactive Protein 2.90 Total Protein 7.1 Albumin 2.8 Urine Color YELLOW Urine Turbidity HAZY Urine pH 6.0 Urine Specific [place] 1.018 Urine Protein 30 Urine Glucose (UA) NEG Urine Ketones NEG Urine Occult Blood NEG Urine Nitrite POS Urine Bilirubin NEG Urine Urobilinogen LESS THAN 2.0 Urine Leukocyte Esterase LARGE Urine RBC 4 Urine WBC 69 Urine Squamous Epithelial 7 Cells Urine Bacteria MOD Urine Mucus FEW Microscopic Urinalysis Comment CATH-CULTURE IND Date/Time Procedure Status Source Growth 07/24/16 10:19 Urine Culture Received Urine Catheterized Urine Pending 07/24/16 09:38 Aerobic Blood Culture Received Blood Peripheral Pending 07/24/16 09:38 Anaerobic Blood Culture Received Blood Peripheral Pending Result Diagram: 07/24/1625 07/24/16924 Imaging Last Impressions Lower Extremity CT 07/24/16 0000 Signed Impressions: Service Date/Time: Sunday, July 24, 2016 09:51 - CONCLUSION: There is no evidence for abscess or soft tissue induration. The lumbar spine was not evaluated. The SI joints are not evaluated.. Noah Beyer MD FACR Chest X-Ray 07/24/16 0000 Signed Impressions: Service Date/Time: Sunday, July 24, 2016 09:29 - CONCLUSION: Persisting cavitary mass in the left upper lung and suspected consolidation or atelectasis in the medial right upper and lower lungs. Shakir Livingston MD Septic Shock Reassessment Heart: Regular rate and rhythm Lungs: Clear Skin: Warm Peripheral Pulses: Bounding Right Radial Bounding Left Radial Bounding Right Popliteal Bounding Left Popliteal Bounding Right Dorsalis Pedis Bounding Left Dorsalis Pedis Bounding Right Posterior Tibial Bounding Left Posterior Tibial Capillary Refill: Brisk Assessment and Plan Problem List: (1) UTI (urinary tract infection) Status: Acute Plan: - Pt recently hospitalized d/t MRSA pneumonia - Pt received treatment with IV zosyn, and pt instructed to complete a 2 week course of PO zyvox outpt - Pt with chronic MIL cavitary lesion - Pt received Vancomycin and Cefepime in the ER - blood Cx --> pending - urine Cx --> pending - WBC 14.6 on admission (07/24/16) - Consult Infectious Disease - await ID evaluation prior to further antibiotics (2) HIV (human immunodeficiency virus infection) Status: Chronic Plan: - Pt off HIV medication for over 1 year - last CD4 absolute count 151 06/2016 - Non-compliant - Pt instructed to f/u with Dr. Moseley at the conclusion of last hospitalization (3) Hepatitis C Status: Chronic Plan: - Pt instructed to f/u with Dr. Moseley at the conclusion of last hospitalization (4) Cryoglobulinemia Status: Acute Plan: - see above (5) Hypothyroidism Status: Acute Plan: - continue levothyroxine (6) HTN (hypertension) Status: Chronic Plan: - continue lisinopril (7) Abscess of left thigh Status: Acute Plan: - s/p I&D in ER - I wrote for wound culture - pt received vancomycin and cefepime in Er (8) Shavon vaginitis Status: Acute Plan: - case d/w Dr. George. She will consult Physician Certification 2 Midnight Certification Type: Admission for Inpatient Services Order for Inpatient Services The services are ordered in accordance with Medicare regulations or non- Medicare payer requirements, as applicable. In the case of services not specified as inpatient-only, they are appropriately provided as inpatient services in accordance with the 2-midnight benchmark. Estimated LOS (days): 3 days is the estimated time the patient will need to remain in the hospital, assuming treatment plan goals are met and no additional complications. Post-Hospital Plan: Not yet determined Problem Qualifiers (1) Hypothyroidism: Qualified Code: E03.9 - Hypothyroidism, unspecified type (2) HTN (hypertension): Qualified Code: I10 - Essential hypertension Joshua Duran DO Jul 24, 2016 11:36
[2016-07-24] MEDS ORDERED: DOCUSATE SODIUM 100 MG CAP PO SCH (12:00)
[2016-07-24] MEDS ORDERED: CYCLOBENZAPRINE HCL 10 MG TAB PO PRN (12:15)
[2016-07-24] MEDS ORDERED: LIDOCAINE 1%/EPINEPHrine 1:100,000 SOLN 20 ML VIAL INFIL ONE (12:30)
--- NOTE | 2016-07-24 12:50 | PD ---
Physical Exam Time Seen by Provider: 12:48 Narrative I was asked to perform an I&D of an abscess on the patient's left posterior thigh. For further details regarding the patient's visit please see the physician's documentation. Data Data Last Documented VS Vital Signs Date Time Temp Pulse Resp B/P Pulse Ox O2 Delivery O2 Flow Rate FiO2 07/24/16 11:28 98 21 07/24/16 09:11 99.4 101 150/74 07/24/16 09:10 Room Air 07/24/16 09:02 17 Orders Complete Blood Count With Diff (07/24/16 09:06) Comprehensive Metabolic Panel (07/24/16 09:06) Lactic Acid Sepsis Protocol (07/24/16 09:06) Urinalysis - C+S If Indicated (07/24/16 09:06) Blood Culture (07/24/16 09:06) Blood Glucose (07/24/16 09:06) Ecg Monitoring (07/24/16 09:06) Iv Access Insert/Monitor (07/24/16 09:06) Oximetry (07/24/16 09:06) Oxygen Administration (07/24/16 09:06) C-Reactive Protein (Crp) (07/24/16 09:06) Sodium Chlor 0.9% 1000 Ml Inj (Ns 1000 M (07/24/16 09:30) Westergren Sedimentation Rate (07/24/16 09:18) Chest, Single Ap (07/24/16 ) Morphine Inj (Morphine Inj) (07/24/16 09:30) Vancomycin Inj (Vancomycin Inj) (07/24/16 10:00) Cefepime Inj (Maxipime Inj) (07/24/16 10:00) Cath For Specimen (07/24/16 10:10) Ct Femur W/O Iv Contrast (07/24/16 ) Urine Culture (07/24/16 10:19) Vascular Access Team Consult PRN (07/24/16 11:04) Vascular Poc Ultrasound (07/24/16 ) Admit To Inpatient (07/24/16 ) Code Status (07/24/16 11:16) Vital Signs (Adult) Q4H (07/24/16 11:16) Activity Oob With Assistance (07/24/16 11:16) Diet Regular Basic (07/24/16 Lunch) Sodium Chloride 0.9% Flush (Ns Flush) (07/24/16 11:30) Sodium Chloride 0.9% Flush (Ns Flush) (07/24/16 21:00) Acetaminophen (Tylenol) (07/24/16 11:30) Ondansetron Inj (Zofran Inj) (07/24/16 11:30) Bisacodyl Supp (Dulcolax Supp) (07/24/16 11:30) Docusate Sodium (Colace) (07/24/16 12:00) Temazepam (Restoril) (07/24/16 11:30) Basic Metabolic Panel (Bmp) (07/25/16 06:00) Complete Blood Count With Diff (07/25/16 06:00) Electrocardiogram (07/24/16 11:16) Resp Oxygen Rex C Titrat 1-4 L (07/24/16 ) Pt Request For Service (07/24/16 11:16) Scd Bilateral/Knee High ADOLPH.BID (07/24/16 11:16) Naloxone Inj (Narcan Inj) (07/24/16 11:30) Inpatient Certification (07/24/16 ) Consult Infectious Disease (07/24/16 ) Admit Order (Ed Use Only) (07/24/16 11:31) Labs Laboratory Tests Test 07/24/16 07/24/16 07/24/16 09:24 09:25 10:19 Lactic Acid Level 1.8 mmol/L White Blood Count 14.6 TH/MM3 Red Blood Count 3.69 MIL/MM3 Hemoglobin 11.1 GM/DL Hematocrit 33.7 % Mean Corpuscular Volume 91.1 FL Mean Corpuscular Hemoglobin 29.9 PG Mean Corpuscular Hemoglobin 32.8 % Concent Red Cell Distribution Width 15.6 % Platelet Count 243 TH/MM3 Mean Platelet Volume 9.6 FL Neutrophils (%) (Auto) 61.8 % Lymphocytes (%) (Auto) 14.5 % Monocytes (%) (Auto) 7.2 % Eosinophils (%) (Auto) 16.0 % Basophils (%) (Auto) 0.5 % Neutrophils # (Auto) 9.0 TH/MM3 Lymphocytes # (Auto) 2.1 TH/MM3 Monocytes # (Auto) 1.0 TH/MM3 Eosinophils # (Auto) 2.3 TH/MM3 Basophils # (Auto) 0.1 TH/MM3 CBC Comment DIFF FINAL Differential Comment Erythrocyte Sedimentation Rate 66 mm/hr Sodium Level 140 MEQ/L Potassium Level 4.0 MEQ/L Chloride Level 106 MEQ/L Carbon Dioxide Level 26.4 MEQ/L Anion Gap 8 MEQ/L Blood Urea Nitrogen 14 MG/DL Creatinine 1.23 MG/DL Estimat Glomerular Filtration 47 ML/MIN Rate Random Glucose 147 MG/DL Calcium Level 8.2 MG/DL Total Bilirubin 0.3 MG/DL Aspartate Amino Transf 26 U/L (AST/SGOT) Alanine Aminotransferase 20 U/L (ALT/SGPT) Alkaline Phosphatase 54 U/L C-Reactive Protein 2.90 MG/DL Total Protein 7.1 GM/DL Albumin 2.8 GM/DL Urine Color YELLOW Urine Turbidity HAZY Urine pH 6.0 Urine Specific [place] 1.018 Urine Protein 30 mg/dL Urine Glucose (UA) NEG mg/dL Urine Ketones NEG mg/dL Urine Occult Blood NEG Urine Nitrite POS Urine Bilirubin NEG Urine Urobilinogen LESS THAN 2.0 MG/DL Urine Leukocyte Esterase LARGE Urine RBC 4 /hpf Urine WBC 69 /hpf Urine Squamous Epithelial 7 /hpf Cells Urine Bacteria MOD /hpf Urine Mucus FEW /lpf Microscopic Urinalysis Comment CATH-CULTURE IND MDM Supervised Visit with LISSA: No Narrative Course After the risks and benefits were discussed the following procedure was performed: INCISION AND DRAINAGE OF ABSCESS: The area was prepped and was sterilely draped. A subcutaneous wheal of 1 % Xylocaine with lidocaine with a total number 3 mL was used to anesthetize the area. The area was properly anesthetized. A number 11 scalpel was used to make a 1-cm incision across the area of the abscess. Cultures were obtained. The abscess was drained an irrigated with normal saline. Sterile dressing applied. Diagnosis Primary Impression: Sepsis Qualified Code: A41.9 - Sepsis, due to unspecified organism Nat Dewey Jul 24, 2016 12:50
[2016-07-24] MEDS: DOCUSATE SODIUM 100 MG CAP PO SCH ×2 (13:57→20:28)
[2016-07-24] MEDS: ACETAMINOPHEN/HYDROcodone 325 MG/5 MG TAB PO PRN ×2 (13:58→20:28)
[2016-07-24] MEDS: diphenhydrAMINE HCL 25 MG CAP PO PRN ×2 (15:46→22:42)
--- NOTE | 2016-07-24 17:30 | PD.ID.CON ---
History of Present Illness Service ID Consult Requested By Dr Duran Reason for Consult UTI Primary Care Physician Nikia Stone M.D. Diagnoses: History of Present Illness 45 yo F known to me with HIV/HCV co-infx, non compliance , cryoglobulinemia Last admission in june with MRSA pulmonary abscess and ARF thought to be 2/ 2 cryoglobulinemia Pt's last absolute CD4 count 06/25/16 was 151. Pt now returns to the [facility] ER today with c/o severe, constant pain at her tailbone with radiation to her right thigh x 3-4 days. Walking exacerbates the pain. LE CT (07/24/16) There is no evidence for abscess or soft tissue induration. The lumbar spine was not evaluated. The SI joints are not evaluated Pt is afebrile with elevated WBC, and her ESR has been trending up and is now 66 Pt denies disuria Co on pruritic rash involving torso, BUE Review of Systems Musculoskeletal: COMPLAINS OF: Back pain Except as stated in HPI: all other systems reviewed are Neg Past Family Social History Allergies: Coded Allergies: *MDRO Multi-Drug Resistant Organism (Verified Adverse Reaction, Unknown, ) MRSA (wounds) - 09/03/15; (ear) - 11/26/15; (sputum) - 06/19/16 Past Medical History HIV dz, non compliance (states insurance issues as barrier) candidal espohagitis cryoglobulemimia Past Surgical History hysterectomy mariella EPSTEIN sx Active Ordered Medications Medications where reviewed in EMR Antibiotics Include: vancomycin Family History Non-Contributory. Social History No Tobacco. No ETOH. No Illicit Drugs. Physical Exam Vital Signs Vital Signs Date Time Temp Pulse Resp B/P Pulse Ox O2 Delivery O2 Flow Rate FiO2 07/24/16 15:26 95 21 07/24/16 12:00 99.2 113 16 114/56 99 07/24/16 11:40 18 07/24/16 11:38 98.8 96 18 115/67 100 Room Air 07/24/16 11:28 98 21 07/24/16 09:11 99.4 101 150/74 07/24/16 09:10 99 Room Air 07/24/16 09:02 107 17 07/24/16 08:50 98.2 118 20 157/83 100 Room Air Physical Exam CONSTITUTIONAL/GENERAL: This is an adequately nourished patient, in no apparent distress. TUBES/LINES/DRAINS: SKIN: No jaundice, rashes, or lesions. Diffuse erythrodermia - pt seen during vancomycin infusion HEAD: Atraumatic. Normocephalic. EYES: Pupils equal and round and reactive. Extraocular motions intact. No scleral icterus. No injection or drainage. Fundi not examined. ENT: Hearing grossly normal. Nose without bleeding or purulent drainage. Oral mucosae without visible erythema, exudates, masses, or lesions. NECK: Trachea midline. Supple, nontender. No palpable thyroid enlargement or nodularity. CARDIOVASCULAR: Regular rate and rhythm without murmurs, gallops, or rubs. No JVD. Peripheral pulses symmetric. RESPIRATORY/CHEST: Symmetric, unlabored respirations. Clear to auscultation. Breath sounds equal bilaterally. No wheezes, rales, or rhonchi. GASTROINTESTINAL: Abdomen soft, non-tender, nondistended. No hepato-splenomegaly , or palpable masses. No guarding. Bowel sounds present. GENITOURINARY: Without palpable bladder distension. MUSCULOSKELETAL: Extremities without clubbing, cyanosis, or edema. + joint tenderness over R SI joint . No calf tenderness. No mottling or clubbing. LYMPHATICS: No palpable cervical or supraclavicular adenopathy. NEUROLOGICAL: Awake and alert. Motor and sensory grossly within normal limits. Follows commands. Normal speech. Moves all extremities. PSYCHIATRIC: No obvious anxiety/depression. no apparent hallucinations or other psychotic thought process. Laboratory Laboratory Tests Test 07/24/16 07/24/16 07/24/16 09:24 09:25 10:19 Lactic Acid Level 1.8 White Blood Count 14.6 Red Blood Count 3.69 Hemoglobin 11.1 Hematocrit 33.7 Mean Corpuscular Volume 91.1 Mean Corpuscular Hemoglobin 29.9 Mean Corpuscular Hemoglobin 32.8 Concent Red Cell Distribution Width 15.6 Platelet Count 243 Mean Platelet Volume 9.6 Neutrophils (%) (Auto) 61.8 Lymphocytes (%) (Auto) 14.5 Monocytes (%) (Auto) 7.2 Eosinophils (%) (Auto) 16.0 Basophils (%) (Auto) 0.5 Neutrophils # (Auto) 9.0 Lymphocytes # (Auto) 2.1 Monocytes # (Auto) 1.0 Eosinophils # (Auto) 2.3 Basophils # (Auto) 0.1 CBC Comment DIFF FINAL Differential Comment Erythrocyte Sedimentation Rate 66 Sodium Level 140 Potassium Level 4.0 Chloride Level 106 Carbon Dioxide Level 26.4 Anion Gap 8 Blood Urea Nitrogen 14 Creatinine 1.23 Estimat Glomerular Filtration 47 Rate Random Glucose 147 Calcium Level 8.2 Total Bilirubin 0.3 Aspartate Amino Transf 26 (AST/SGOT) Alanine Aminotransferase 20 (ALT/SGPT) Alkaline Phosphatase 54 C-Reactive Protein 2.90 Total Protein 7.1 Albumin 2.8 Urine Color YELLOW Urine Turbidity HAZY Urine pH 6.0 Urine Specific [place] 1.018 Urine Protein 30 Urine Glucose (UA) NEG Urine Ketones NEG Urine Occult Blood NEG Urine Nitrite POS Urine Bilirubin NEG Urine Urobilinogen LESS THAN 2.0 Urine Leukocyte Esterase LARGE Urine RBC 4 Urine WBC 69 Urine Squamous Epithelial 7 Cells Urine Bacteria MOD Urine Mucus FEW Microscopic Urinalysis Comment CATH-CULTURE IND Date/Time Procedure Status Source Growth 07/24/16 12:52 Gram Stain Received Wound Leg Pending 07/24/16 12:52 Wound Culture Received Wound Leg Pending 07/24/16 10:19 Urine Culture Received Urine Catheterized Urine Pending 07/24/16 09:38 Aerobic Blood Culture Received Blood Peripheral Pending 07/24/16 09:38 Anaerobic Blood Culture Received Blood Peripheral Pending Result Diagram: 07/24/1625 07/24/16 0925 Imaging Last Impressions Lower Extremity CT 07/24/16 0000 Signed Impressions: Service Date/Time: Sunday, July 24, 2016 09:51 - CONCLUSION: There is no evidence for abscess or soft tissue induration. The lumbar spine was not evaluated. The SI joints are not evaluated.. Noah Beyer MD FACR Chest X-Ray 07/24/16 0000 Signed Impressions: Service Date/Time: Sunday, July 24, 2016 09:29 - CONCLUSION: Persisting cavitary mass in the left upper lung and suspected consolidation or atelectasis in the medial right upper and lower lungs. Shakir Livingston MD Assessment and Plan Assessment and Plan HIV/AIDS, non compliant - off HAART - syeda with Dr Moseley July 29 New onset pain R SI joint radiating hip and down the RLE - ? sacroilitis vs radiculopathy MRSA pulmonary abscess with persistent cavitary mass on CXR ? Kevin sd to vancomycin Pyuria: - poorly collected UA (sq epis >5) in the abscence of disuria in a young pt wo h/o any conditions predisposing to neurogenic bladder - dc vancomycin - start zyvox - CT chest - MRI R SI area, if neg will get L spine MRI - recollect UA, C+S Soo Hansen MD Jul 24, 2016 17:30
--- NOTE | 2016-07-24 18:01 | EKG ---
Date Performed: 07/24/2016 Time Performed: 10:00:40 PTAGE: 45 years EKG: SINUS TACHYCARDIA NONSPECIFIC T-WAVE ABNORMALITY ABNORMAL RHYTHM ECG NO SIGNIFICANT CHANGE FROM PRIOR ELECTROCARDIOGRAM. PREVIOUS TRACING : 07/24/2016 09.59 DOCTOR: Jack Edward Interpretating Date/Time 07/24/2016 17:59:28
[2016-07-24] MEDS: LINEZOLID 600 MG TAB PO SCH (19:06)
--- NOTE | 2016-07-24 19:26 | PD.CONS ---
History of Present Illness Service gynecology Consult Requested By Joshua Duran DO Reason for Consult vaginal discharge Primary Care Physician Nikia Stone M.D. Diagnoses: History of Present Illness 45 yo MWF known to Dr. Lopez with HIV/HCV co-infx, non compliance , cryoglobulinemia Last admission in June with MRSA pulmonary abscess and ARF thought to be 2/ 2 cryoglobulinemia Pt's last absolute CD4 count 06/25/16 was 151. Pt now returns to the [facility] ER today with c/o severe, constant pain at her tailbone with radiation to her right thigh x 3-4 days. Walking exacerbates the pain. LE CT (07/24/16) There is no evidence for abscess or soft tissue induration. The lumbar spine was not evaluated. The SI joints are not evaluated Pt is afebrile with elevated WBC, and her ESR has been trending up and is now 66 Pt denies dysuria, but leukocytes and nitrites were positive in the urine. Culture of urine, blood and other abscesses are pending. Complains of pruritic rash involving vulva, mons and groins. She complains of some itching of skin, "wetness" in groins" and moderate yellow discharge without malodor, and swelling and tenderness of the labia.. She estimates symptoms have been present one month. Patient states she has not been sexually active with her or any other partner since she recieved her HIV diagnosis some years a go. She is s/p total abdominal hysterectomy in the for benign reasons. Review of Systems Genitourinary: COMPLAINS OF: Vaginal discharge Past Family Social History Allergies: Coded Allergies: *MDRO Multi-Drug Resistant Organism (Verified Adverse Reaction, Unknown, ) MRSA (wounds) - 09/03/15; (ear) - 11/26/15; (sputum) - 06/19/16 Physical Exam Vital Signs Vital Signs Date Time Temp Pulse Resp B/P Pulse Ox O2 Delivery O2 Flow Rate FiO2 07/24/16 16:00 100.6 125 16 101/52 100 07/24/16 15:26 95 21 07/24/16 12:00 99.2 113 16 114/56 99 07/24/16 11:40 18 07/24/16 11:38 98.8 96 18 115/67 100 Room Air 07/24/16 11:28 98 21 07/24/16 09:11 99.4 101 150/74 07/24/16 09:10 99 Room Air 07/24/16 09:02 107 17 07/24/16 08:50 98.2 118 20 157/83 100 Room Air Physical Exam GENERAL: This is a well-nourished, well-developed patient, in no apparent distress. SKIN: No rashes, ecchymoses or lesions. Cool and dry. HEAD: Atraumatic. Normocephalic. No temporal or scalp tenderness. EYES: Pupils equal round and reactive. Extraocular motions intact. No scleral icterus. No injection or drainage. ENT: Nose without bleeding, purulent drainage or septal hematoma. Throat without erythema, tonsillar hypertrophy or exudate. Uvula midline. Airway patent. NECK: Trachea midline. No JVD or lymphadenopathy. Supple, nontender, no meningeal signs. CARDIOVASCULAR: Regular rate and rhythm without murmurs, gallops, or rubs. RESPIRATORY: Clear to auscultation. Breath sounds equal bilaterally. No wheezes , rales, or rhonchi. GASTROINTESTINAL: Abdomen soft, non-tender, nondistended. No hepato-splenomegaly , or palpable masses. No guarding. MUSCULOSKELETAL: Extremities without clubbing, cyanosis, or edema. No joint tenderness, effusion, or edema noted. No calf tenderness. Negative Homans sign bilaterally. NEUROLOGICAL: Awake and alert. Cranial nerves II through XII intact. Motor and sensory grossly within normal limits. Five out of 5 muscle strength in all muscle groups. Normal speech. On exam she has dark discoloration diffusely involving the mons and labia, extending to the groins. The skin is dry on the mons, but there is some moisture and white-yellow exudate in the groins. The labia are tender and indurated, but epithelium is intact. There is small amounts of smegma in folds. On bimanual digital exam, the vagina seems normally estrogenized for a pre- menopausal patient, of normal caliber and length, and absence of cervix is verified. No pelvic masses are palpated but guarding was moderate. Laboratory Laboratory Tests Test 07/24/16 07/24/16 07/24/16 09:24 09:25 10:19 Lactic Acid Level 1.8 White Blood Count 14.6 Red Blood Count 3.69 Hemoglobin 11.1 Hematocrit 33.7 Mean Corpuscular Volume 91.1 Mean Corpuscular Hemoglobin 29.9 Mean Corpuscular Hemoglobin 32.8 Concent Red Cell Distribution Width 15.6 Platelet Count 243 Mean Platelet Volume 9.6 Neutrophils (%) (Auto) 61.8 Lymphocytes (%) (Auto) 14.5 Monocytes (%) (Auto) 7.2 Eosinophils (%) (Auto) 16.0 Basophils (%) (Auto) 0.5 Neutrophils # (Auto) 9.0 Lymphocytes # (Auto) 2.1 Monocytes # (Auto) 1.0 Eosinophils # (Auto) 2.3 Basophils # (Auto) 0.1 CBC Comment DIFF FINAL Differential Comment Erythrocyte Sedimentation Rate 66 Sodium Level 140 Potassium Level 4.0 Chloride Level 106 Carbon Dioxide Level 26.4 Anion Gap 8 Blood Urea Nitrogen 14 Creatinine 1.23 Estimat Glomerular Filtration 47 Rate Random Glucose 147 Calcium Level 8.2 Total Bilirubin 0.3 Aspartate Amino Transf 26 (AST/SGOT) Alanine Aminotransferase 20 (ALT/SGPT) Alkaline Phosphatase 54 C-Reactive Protein 2.90 Total Protein 7.1 Albumin 2.8 Urine Color YELLOW Urine Turbidity HAZY Urine pH 6.0 Urine Specific [place] 1.018 Urine Protein 30 Urine Glucose (UA) NEG Urine Ketones NEG Urine Occult Blood NEG Urine Nitrite POS Urine Bilirubin NEG Urine Urobilinogen LESS THAN 2.0 Urine Leukocyte Esterase LARGE Urine RBC 4 Urine WBC 69 Urine Squamous Epithelial 7 Cells Urine Bacteria MOD Urine Mucus FEW Microscopic Urinalysis Comment CATH-CULTURE IND Date/Time Procedure Status Source Growth 07/24/16 12:52 Gram Stain Received Wound Leg Pending 07/24/16 12:52 Wound Culture Received Wound Leg Pending 07/24/16 10:19 Urine Culture Received Urine Catheterized Urine Pending 07/24/16 09:38 Aerobic Blood Culture Received Blood Peripheral Pending 07/24/16 09:38 Anaerobic Blood Culture Received Blood Peripheral Pending Result Diagram: 07/24/1692407/24/16924 Assessment and Plan Assessment and Plan Vaginal discharge: Darkening of the skin of the pelvis, exudate in creases, itching, discharge without malodor, and lack of sexual activity make a chronic fungal infection most likely. Untreated HIV: Makes an exotic fungus or other microbe a possibility. Therefore , wet prep and fungal culture for C&S is collected by myself from vagina and vulva. Spoke with lab about ordering and transport to lab. I know that cultures of blood, urine and wounds are pending, Dr. Hansen of ID is consulting, and that patient has a history of MRSO. Therefore I will wait for results of testing and defer to ID for best systemic antifungal treatment. Personally, I would tend to prescribe vaginal and topical antifungal therapy while IV antibiotics are in use. I will order this pending additional information and input. There is no evidence of current HSV outbreak, and no history. If you need me to revisit the patient before culture results return, please let me know. Otherwise I will await those results. Discussed Condition With patient Discharge Planning Patient is given my business card in case she would like to follow up after discharge. Maren George MD Jul 24, 2016 19:26
[2016-07-24] MEDS: SODIUM CHLORIDE 0.9% FLUSH 5 ML FLUSH FLUSH SCH (20:28)
[2016-07-24] MEDS: TERCONAZOLE 0.4% VAG CR 45 GM TUBE VAGINAL SCH (23:24)
[2016-07-25] VITALS: BP 118/66; PULSE 89; RESP 20; TEMP 97.8; O2SAT 99
[2016-07-25] MEDS: ACETAMINOPHEN/HYDROcodone 325 MG/5 MG TAB PO PRN ×4 (03:01→22:54)
[2016-07-25] MEDS: diphenhydrAMINE HCL 50 MG CAP PO PRN ×4 (05:56→22:54)
[2016-07-25] MEDS: LINEZOLID 600 MG TAB PO SCH ×2 (05:56→17:51)
[2016-07-25] MEDS: DOCUSATE SODIUM 100 MG CAP PO SCH ×2 (07:50→20:05)
[2016-07-25] MEDS: LISINOPRIL 10 MG TAB PO SCH (07:51)
[2016-07-25] MEDS: ASPIRIN EC 81 MG TABEC PO SCH (07:52)
[2016-07-25 08:00] VITALS: BP 102/57; PULSE 104; RESP 16; TEMP 98.8; O2SAT 99
--- NOTE | 2016-07-25 08:47 | RADRPT ---
EXAM DATE/TIME: 07/25/2016 08:17 [facility] COMPARISON: No previous studies available for comparison. INDICATIONS : Shortness of breath, evaulate for pulmonary disease. RADIATION DOSE: 5.1 CTDIvol (mGy) MEDICAL HISTORY : Hypertension. HIV. Hepatitis C. SURGICAL HISTORY : Hysterectomy. ENCOUNTER: Initial ACUITY: 1 day PAIN SCALE: 0/10 LOCATION: Bilateral chest TECHNIQUE: Volumetric scanning of the chest was performed. Using automated exposure control and adjustment of t he mA and/or kV according to patient size, radiation dose was kept as low as reasonably achievable to obtain optimal diagnostic quality images. FINDINGS: There is a 1.3 cm cavitary nodule in the superior segment left lower lobe. Subsegmental atelectasis a nd scarring present at both lung bases. There is no pleural or pericardial effusion. Mildly prominent axillary lymph nodes are present bilaterally measuring up to 1.4 cm on the left. These are similar t o prior examination from July 17. No acute findings in the upper abdomen. No acute bony abnormality. CONCLUSION: 1. Stable 1.3 cm cavitary nodule superior segment left lower lobe compared with July 17. Minimal bas al atelectasis. Mild axillary adenopathy, stable. Kurt Underwood MD on July 25, 2016 at 8:42 Board Certified Radiologist. This report was verified electronically.
[2016-07-25] MEDS ORDERED: GADODIAMIDE PF 287 MG/ML 10 ML VIAL (for RAD MRI) IV ONE (08:54)
[2016-07-25] MEDS: SODIUM CHLORIDE 0.9% FLUSH 5 ML FLUSH FLUSH SCH ×2 (09:00→20:00)
--- NOTE | 2016-07-25 09:17 | RADRPT ---
EXAM DATE/TIME: 07/25/2016 08:36 [facility] COMPARISON: No previous studies available for comparison. INDICATIONS : Right hip pain. CONTRAST: 10 cc Omniscan (gadodiamide) IV MEDICAL HISTORY : Hepatitis C. HIV. Hypertension. SURGICAL HISTORY : Hysterectomy. Cholecystectomy. Tonsillectomy. ENCOUNTER: Initial ACUITY: 1 day PAIN SCORE: 5/10 LOCATION: pelvis TECHNIQUE: Multiplanar, multisequence magnetic resonance imaging of the pelvis was performed. FINDINGS: REPRODUCTIVE: No mass is visualized. BLADDER: No wall thickening or mass. RETROPERITONEUM: There is nonspecific bilateral inguinal adenopathy. The lymph nodes measure between 1.5 and 2.2 cm. N o definite pelvic adenopathy is seen. BOWEL/MESENTERY: Visualized small and large bowel demonstrates no acute abnormality. There is no free fluid. INGUINAL: Nonspecific bilaterally no adenopathy. MUSCULOSKELETAL: There is irregularity involving the articulating surface of the right proximal femoral head in a hemalatha danni characteristic of AVN. The joint space is maintained. The left hip is unremarkable. There is good alignment of the SI joints and pubic symphysis. There is normal signal throughout the bony structure s of the pelvis. No definite joint effusions. CONCLUSION: 1. Right hip AVN 2. Bilateral nonspecific inguinal adenopathy. Nate Mera MD on July 25, 2016 at 9:09 Board Certified Radiologist. This report was verified electronically.
[2016-07-25] MEDS ORDERED: PILL SPLITTER OTHER PRN (11:00)
[2016-07-25 11:09] LABS: AUTOMATED NEUTROPHIL # 4.2 TH/MM3 (1.8-7.7); BASOPHIL % 0.2 % (0.0-2.0); EOSINOPHIL # 1.5 TH/MM3 (0-0.4); HEMATOCRIT 31.7 % (35.0-46.0); HEMO FLAGS DIFF FINAL; LYMPH % 10.4 % (9.0-44.0); LYMPHOCYTE # 0.7 TH/MM3 (1.0-4.8); MEAN CELL VOLUME 89.9 FL (80.0-100.0); MEAN CORPUSCULAR HEMOGLOBIN 29.8 PG (27.0-34.0); MEAN CORPUSCULAR HGB CONC 33.1 % (32.0-36.0); MONO % 5.8 % (0.0-8.0); NEUT % 61.6 % (16.0-70.0); PLATELET COUNT 202 TH/MM3 (150-450); RED BLOOD COUNT 3.52 MIL/MM3 (4.00-5.30); RED CELL DISTRIBUTION WIDTH 15.6 % (11.6-17.2); WHITE BLOOD COUNT 6.9 TH/MM3 (4.0-11.0)
[2016-07-25 11:31] LABS: BICARBONATE 24.1 MEQ/L (21.0-32.0); POTASSIUM 3.9 MEQ/L (3.5-5.1)
[2016-07-25] MEDS: FLUCONAZOLE 100 MG TAB PO SCH (11:44)
[2016-07-25 12:00] VITALS: BP 94/57; PULSE 104; RESP 17; TEMP 98.2; O2SAT 99
[2016-07-25 16:00] VITALS: BP 99/53; PULSE 89; RESP 16; TEMP 96.7; O2SAT 99
--- NOTE | 2016-07-25 16:38 | HHI.PR ---
Subjective Remarks Pt continues with right hip pain. Objective Vitals Vital Signs Date Time Temp Pulse Resp B/P Pulse Ox O2 Delivery O2 Flow Rate FiO2 07/25/16 16:00 96.7 89 16 99/53 99 07/25/16 12:00 98.2 104 17 94/57 99 07/25/16 09:35 21 07/25/16 08:00 98.8 104 16 102/57 99 07/25/16 00:00 97.8 89 20 118/66 99 07/24/16 21:30 18 07/24/16 20:00 98.8 92 18 122/60 96 07/24/16 07/24/16 07/25/16 15:00 23:00 07:00 Intake Total 480 ml 480 ml Output Total 0 ml 350 ml 600 ml Balance 0 ml 130 ml -120 ml Intake Oral 480 ml 480 ml IV Total 0 ml Output Urine Total 0 ml 350 ml 600 ml # Bowel Movements 0 0 0 Result Diagram: 07/25/16 1050 07/25/16 1050 Imaging Last Impressions Pelvis MRI 07/25/16 0000 Signed Impressions: Service Date/Time: Monday, July 25, 2016 08:36 - CONCLUSION: 1. Right hip AVN 2. Bilateral nonspecific inguinal adenopathy. Nate Mera MD Chest CT 07/25/16 0000 Signed Impressions: Service Date/Time: Monday, July 25, 2016 08:17 - CONCLUSION: 1. Stable 1.3 cm cavitary nodule superior segment left lower lobe compared with July 17. Minimal basal atelectasis. Mild axillary adenopathy, stable. Kurt Underwood MD Lower Extremity CT 07/24/16 0000 Signed Impressions: Service Date/Time: Sunday, July 24, 2016 09:51 - CONCLUSION: There is no evidence for abscess or soft tissue induration. The lumbar spine was not evaluated. The SI joints are not evaluated.. Noah Beyer MD FACR Chest X-Ray 07/24/16 0000 Signed Impressions: Service Date/Time: Sunday, July 24, 2016 09:29 - CONCLUSION: Persisting cavitary mass in the left upper lung and suspected consolidation or atelectasis in the medial right upper and lower lungs. Shakir Livingston MD Objective Remarks GENERAL: This is a well-nourished, well-developed patient, in no apparent distress. CARDIOVASCULAR: Regular rate and rhythm without murmurs, gallops, or rubs. RESPIRATORY: Clear to auscultation. Breath sounds equal bilaterally. No wheezes , rales, or rhonchi. GASTROINTESTINAL: Abdomen soft, non-tender, nondistended. Normal active bowel sounds MUSCULOSKELETAL: Extremities without clubbing, cyanosis, or edema. NEURO: Alert & Oriented x4 to person, place, time, situation. Moves all ext x4 Skin: shallow, non-draining 2-3 cm diameter ulcer at sacrum, tender abscess at left posterior thigh with surgical incision with surrounding erythema, hyperpigmentation in groin with yeast smell. A/P Problem List: (1) UTI (urinary tract infection) Status: Acute Plan: - Pt recently hospitalized d/t MRSA pneumonia - Pt received treatment with IV zosyn, and pt instructed to complete a 2 week course of PO zyvox outpt - Pt with chronic MIL cavitary lesion - Pt received Vancomycin and Cefepime in the ER - blood Cx (07/24/16) --> NO growth to date - urine Cx --> gram negative enriqueta - WBC 14.6 on admission (07/24/16) - poor collection - repeat UA/Cx ordered (2) Avascular necrosis of bone of right hip Status: Acute Plan: - pelvis MRI (07/24/16) --> right hip AVN - will consult Orthopedic Service (3) Abscess of left thigh Status: Acute Plan: - comgmt with ID - s/p I&D in ER - wound Cx from thigh (07/24/16) --> MRSA - pt received vancomycin and cefepime in Er - Vancomycin lead to erythema --> stopped - ABX changed to zyvox (4) HIV (human immunodeficiency virus infection) Status: Chronic Plan: - Pt off HIV medication for over 1 year - last CD4 absolute count 151 06/2016 - Non-compliant - Pt instructed to f/u with Dr. Moseley at the conclusion of last hospitalization (5) Hepatitis C Status: Chronic Plan: - Pt instructed to f/u with Dr. Moseley at the conclusion of last hospitalization (6) Cryoglobulinemia Status: Acute Plan: - see above (7) Hypothyroidism Status: Acute Plan: - continue levothyroxine (8) HTN (hypertension) Status: Chronic Plan: - continue lisinopril (9) Shavon vaginitis Status: Acute Plan: - comgmt with ID & Archeology Professor - diflucan, terconazole Problem Qualifiers (1) Hypothyroidism: Qualified Code: E03.9 - Hypothyroidism, unspecified type (2) HTN (hypertension): Qualified Code: I10 - Essential hypertension Joshua Duran DO Jul 25, 2016 16:38
[2016-07-25 20:00] VITALS: BP 112/62; PULSE 85; RESP 16; TEMP 97.1; O2SAT 100
[2016-07-25] MEDS: TERCONAZOLE 0.4% VAG CR 45 GM TUBE VAGINAL SCH (20:05)
[2016-07-26] VITALS: BP 117/59; PULSE 95; RESP 18; TEMP 97.6; O2SAT 100
[2016-07-26] MEDS: HYDROmorphone HCL PF 2 MG/ML VIAL IV PRN ×2 (01:44→06:00)
[2016-07-26] MEDS: diphenhydrAMINE HCL 50 MG CAP PO PRN ×2 (05:59→22:35)
[2016-07-26] MEDS: LINEZOLID 600 MG TAB PO SCH ×2 (05:59→18:02)
[2016-07-26] MEDS: LISINOPRIL 10 MG TAB PO SCH (07:51)
[2016-07-26] MEDS: DOCUSATE SODIUM 100 MG CAP PO SCH ×2 (07:51→20:14)
[2016-07-26] MEDS: FLUCONAZOLE 100 MG TAB PO SCH (07:52)
[2016-07-26] MEDS: SODIUM CHLORIDE 0.9% FLUSH 5 ML FLUSH FLUSH SCH ×2 (07:52→20:16)
[2016-07-26] MEDS: ASPIRIN EC 81 MG TABEC PO SCH (07:52)
[2016-07-26 08:00] VITALS: BP 125/62; PULSE 97; RESP 17; TEMP 96.6; O2SAT 98
[2016-07-26 08:30] VITALS: O2SAT 99
[2016-07-26] MEDS: oxyCODONE/ACETAMINOPHEN 5 MG/325 MG TAB PO PRN ×3 (10:24→22:36)
[2016-07-26 12:00] VITALS: BP 100/52; PULSE 90; RESP 16; TEMP 96.9; O2SAT 96
[2016-07-26 16:00] VITALS: BP 103/59; PULSE 88; RESP 18; TEMP 97.3; O2SAT 99
--- NOTE | 2016-07-26 16:56 | HHI.PR ---
Subjective Remarks continued right leg pain Objective Vitals Vital Signs Date Time Temp Pulse Resp B/P Pulse Ox O2 Delivery O2 Flow Rate FiO2 07/26/16 16:00 97.3 88 18 103/59 99 07/26/16 12:00 96.9 90 16 100/52 96 07/26/16 11:37 16 07/26/16 08:30 99 21 07/26/16 08:00 96.6 97 17 125/62 98 07/26/16 06:38 20 07/26/16 00:00 97.6 95 18 117/59 100 07/25/16 23:54 18 07/25/16 20:00 97.1 85 16 112/62 100 07/25/16 07/25/16 07/26/16 15:00 23:00 07:00 Intake Total 720 ml 360 ml 420 ml Output Total 600 ml Balance 120 ml 360 ml 420 ml Intake Oral 720 ml 360 ml 420 ml IV Total 0 ml Output Urine Total 600 ml # Voids 2 2 # Bowel Movements 0 1 1 Result Diagram: 07/25/16 1050 07/25/16 1050 Imaging Last Impressions Pelvis MRI 07/25/16 0000 Signed Impressions: Service Date/Time: Monday, July 25, 2016 08:36 - CONCLUSION: 1. Right hip AVN 2. Bilateral nonspecific inguinal adenopathy. Nate Mera MD Chest CT 07/25/16 0000 Signed Impressions: Service Date/Time: Monday, July 25, 2016 08:17 - CONCLUSION: 1. Stable 1.3 cm cavitary nodule superior segment left lower lobe compared with July 17. Minimal basal atelectasis. Mild axillary adenopathy, stable. Kurt Underwood MD Lower Extremity CT 07/24/16 0000 Signed Impressions: Service Date/Time: Sunday, July 24, 2016 09:51 - CONCLUSION: There is no evidence for abscess or soft tissue induration. The lumbar spine was not evaluated. The SI joints are not evaluated.. Noah Beyer MD FACR Chest X-Ray 07/24/16 0000 Signed Impressions: Service Date/Time: Sunday, July 24, 2016 09:29 - CONCLUSION: Persisting cavitary mass in the left upper lung and suspected consolidation or atelectasis in the medial right upper and lower lungs. Shakir Livingston MD Objective Remarks GENERAL: This is a well-nourished, well-developed patient, in no apparent distress. CARDIOVASCULAR: Regular rate and rhythm without murmurs, gallops, or rubs. RESPIRATORY: Clear to auscultation. Breath sounds equal bilaterally. No wheezes , rales, or rhonchi. GASTROINTESTINAL: Abdomen soft, non-tender, nondistended. Normal active bowel sounds MUSCULOSKELETAL: Extremities without clubbing, cyanosis, or edema. NEURO: Alert & Oriented x4 to person, place, time, situation. Moves all ext x4 Skin: shallow, non-draining 2-3 cm diameter ulcer at sacrum, tender abscess at left posterior thigh with surgical incision with surrounding erythema, hyperpigmentation in groin with yeast smell. A/P Problem List: (1) UTI (urinary tract infection) Status: Acute Plan: - Pt recently hospitalized d/t MRSA pneumonia - Pt received treatment with IV zosyn, and pt instructed to complete a 2 week course of PO zyvox outpt - Pt with chronic MIL cavitary lesion - Pt received Vancomycin and Cefepime in the ER - abx changed to Zyvox - blood Cx (07/24/16) --> NO growth to date - urine Cx --> E. Coli - WBC 14.6 on admission (07/24/16) - poor collection - repeat UA/Cx ordered (2) Avascular necrosis of bone of right hip Status: Acute Plan: - pelvis MRI (07/24/16) --> right hip AVN - will consult Orthopedic Service (3) Abscess of left thigh Status: Acute Plan: - comgmt with ID - s/p I&D in ER - wound Cx from thigh (07/24/16) --> MRSA - pt received vancomycin and cefepime in Er - Vancomycin lead to erythema --> stopped - ABX changed to zyvox (4) HIV (human immunodeficiency virus infection) Status: Chronic Plan: - Pt off HIV medication for over 1 year - last CD4 absolute count 151 06/2016 - Non-compliant - Pt instructed to f/u with Dr. Moseley at the conclusion of last hospitalization (5) Hepatitis C Status: Chronic Plan: - Pt instructed to f/u with Dr. Moseley at the conclusion of last hospitalization (6) Cryoglobulinemia Status: Chronic Plan: - see above (7) Hypothyroidism Status: Chronic Plan: - continue levothyroxine (8) HTN (hypertension) Status: Chronic Plan: - continue lisinopril (9) Shavon vaginitis Status: Acute Plan: - comgmt with ID & Professional Architect - diflucan, terconazole Problem Qualifiers (1) Hypothyroidism: Qualified Code: E03.9 - Hypothyroidism, unspecified type (2) HTN (hypertension): Qualified Code: I10 - Essential hypertension Joshua Duran DO Jul 26, 2016 16:56
[2016-07-26 19:59] VITALS: BP 108/57; PULSE 79; RESP 18; TEMP 97.3; O2SAT 98
[2016-07-26] MEDS: TERCONAZOLE 0.4% VAG CR 45 GM TUBE VAGINAL SCH (21:14)
[2016-07-26] MEDS: TEMAZEPAM 15 MG CAP PO PRN (22:35)
[2016-07-27] VITALS: BP 109/61; PULSE 82; RESP 16; TEMP 96.8; O2SAT 100
[2016-07-27] MEDS: LINEZOLID 600 MG TAB PO SCH ×2 (04:44→17:01)
[2016-07-27] MEDS: oxyCODONE/ACETAMINOPHEN 5 MG/325 MG TAB PO PRN ×4 (04:44→23:26)
[2016-07-27] MEDS: diphenhydrAMINE HCL 50 MG CAP PO PRN ×4 (04:44→23:25)
[2016-07-27 05:23] LABS: AUTOMATED NEUTROPHIL # 1.3 TH/MM3 (1.8-7.7); BASOPHIL % 0.6 % (0.0-2.0); EOSINOPHIL # 1.9 TH/MM3 (0-0.4); EOSINOPHIL % 36.7 % (0.0-4.0); HEMATOCRIT 29.7 % (35.0-46.0); HEMO FLAGS DIFF FINAL; LYMPH % 23.9 % (9.0-44.0); LYMPHOCYTE # 1.2 TH/MM3 (1.0-4.8); MEAN CELL VOLUME 90.2 FL (80.0-100.0); MEAN CORPUSCULAR HEMOGLOBIN 30.4 PG (27.0-34.0); MEAN CORPUSCULAR HGB CONC 33.7 % (32.0-36.0); MONO % 12.8 % (0.0-8.0); PLATELET COUNT 220 TH/MM3 (150-450); RED BLOOD COUNT 3.29 MIL/MM3 (4.00-5.30); WHITE BLOOD COUNT 5.2 TH/MM3 (4.0-11.0)
[2016-07-27 05:34] LABS: BICARBONATE 28.4 MEQ/L (21.0-32.0); MAGNESIUM 1.8 MG/DL (1.5-2.5); POTASSIUM 4.1 MEQ/L (3.5-5.1)
[2016-07-27 08:00] VITALS: BP 114/56; PULSE 78; RESP 17; TEMP 97.3; O2SAT 99
[2016-07-27] MEDS: ASPIRIN EC 81 MG TABEC PO SCH (08:54)
[2016-07-27] MEDS: SODIUM CHLORIDE 0.9% FLUSH 5 ML FLUSH FLUSH SCH ×2 (08:55→20:28)
[2016-07-27] MEDS: LISINOPRIL 10 MG TAB PO SCH (08:55)
[2016-07-27] MEDS: DOCUSATE SODIUM 100 MG CAP PO SCH ×2 (08:55→20:28)
[2016-07-27] MEDS: FLUCONAZOLE 100 MG TAB PO SCH (08:55)
--- NOTE | 2016-07-27 10:37 | HHI.PR ---
Subjective Remarks Pt reports that her hip pain is unchanged. The abscess on her left posterior thigh is still draining some liquid but much less tender than before. BP is low normal but stable. Afebrile. Objective Vitals Vital Signs Date Time Temp Pulse Resp B/P Pulse Ox O2 Delivery O2 Flow Rate FiO2 07/27/16 08:00 97.3 78 17 114/56 99 07/27/16 06:06 16 07/27/16 00:00 96.8 82 16 109/61 100 07/26/16 19:59 97.3 79 18 108/57 98 07/26/16 16:00 97.3 88 18 103/59 99 07/26/16 12:00 96.9 90 16 100/52 96 07/26/16 07/26/16 07/27/16 15:00 23:00 07:00 Intake Total 720 ml 360 ml 250 ml Output Total 350 ml Balance 370 ml 360 ml 250 ml Intake Oral 720 ml 360 ml 250 ml Output Urine Total 350 ml # Voids 2 2 # Bowel Movements 1 0 1 Result Diagram: 07/27/16 0431 07/27/16 0431 Other Results Laboratory Tests Test 07/25/16 07/27/16 10:50 04:31 White Blood Count 6.9 TH/MM3 5.2 TH/MM3 Red Blood Count 3.52 MIL/MM3 3.29 MIL/MM3 Hemoglobin 10.5 GM/DL 10.0 GM/DL Hematocrit 31.7 % 29.7 % Mean Corpuscular Volume 89.9 FL 90.2 FL Mean Corpuscular Hemoglobin 29.8 PG 30.4 PG Mean Corpuscular Hemoglobin 33.1 % 33.7 % Concent Red Cell Distribution Width 15.6 % 16.0 % Platelet Count 202 TH/MM3 220 TH/MM3 Mean Platelet Volume 8.8 FL 8.7 FL Neutrophils (%) (Auto) 61.6 % 26.0 % Lymphocytes (%) (Auto) 10.4 % 23.9 % Monocytes (%) (Auto) 5.8 % 12.8 % Eosinophils (%) (Auto) 22.0 % 36.7 % Basophils (%) (Auto) 0.2 % 0.6 % Neutrophils # (Auto) 4.2 TH/MM3 1.3 TH/MM3 Lymphocytes # (Auto) 0.7 TH/MM3 1.2 TH/MM3 Monocytes # (Auto) 0.4 TH/MM3 0.7 TH/MM3 Eosinophils # (Auto) 1.5 TH/MM3 1.9 TH/MM3 Basophils # (Auto) 0.0 TH/MM3 0.0 TH/MM3 CBC Comment DIFF FINAL DIFF FINAL Differential Comment Sodium Level 141 MEQ/L 143 MEQ/L Potassium Level 3.9 MEQ/L 4.1 MEQ/L Chloride Level 107 MEQ/L 107 MEQ/L Carbon Dioxide Level 24.1 MEQ/L 28.4 MEQ/L Anion Gap 10 MEQ/L 8 MEQ/L Blood Urea Nitrogen 17 MG/DL 17 MG/DL Creatinine 1.15 MG/DL 1.02 MG/DL Estimat Glomerular Filtration 51 ML/MIN 59 ML/MIN Rate Random Glucose 91 MG/DL 80 MG/DL Calcium Level 7.9 MG/DL 8.4 MG/DL Magnesium Level 1.8 MG/DL Imaging Last Impressions Pelvis MRI 07/25/16 0000 Signed Impressions: Service Date/Time: Monday, July 25, 2016 08:36 - CONCLUSION: 1. Right hip AVN 2. Bilateral nonspecific inguinal adenopathy. Nate Mera MD Chest CT 07/25/16 0000 Signed Impressions: Service Date/Time: Monday, July 25, 2016 08:17 - CONCLUSION: 1. Stable 1.3 cm cavitary nodule superior segment left lower lobe compared with July 17. Minimal basal atelectasis. Mild axillary adenopathy, stable. Kurt Underwood MD Lower Extremity CT 07/24/16 0000 Signed Impressions: Service Date/Time: Sunday, July 24, 2016 09:51 - CONCLUSION: There is no evidence for abscess or soft tissue induration. The lumbar spine was not evaluated. The SI joints are not evaluated.. Noah Beyer MD FACR Chest X-Ray 07/24/16 0000 Signed Impressions: Service Date/Time: Sunday, July 24, 2016 09:29 - CONCLUSION: Persisting cavitary mass in the left upper lung and suspected consolidation or atelectasis in the medial right upper and lower lungs. Shakir Livingston MD Objective Remarks General: NAD, AAOx3 Chest: CTA Cardiac: Regular Abd: +BS, soft ND/NT Ext: no edema Skin: shallow, non-draining 2-3 cm diameter ulcer at sacrum, tender abscess at left posterior thigh with surgical incision with surrounding erythema (improving) A/P Problem List: (1) UTI (urinary tract infection) Status: Acute Plan: - Pt recently hospitalized d/t MRSA pneumonia - Pt received treatment with IV Zosyn, and pt instructed to complete a 2 week course of PO Zyvox outpt - Pt with chronic MIL cavitary lesion - ID following. - Pt received Vancomycin and Cefepime in the ER - Abx changed to Zyvox - blood Cx (07/24/16) --> NO growth to date - urine Cx --> E. Coli - WBC 14.6 on admission (07/24/16) which has improved to 5.2 today. - Pt is afebrile. (2) Avascular necrosis of bone of right hip Status: Acute Plan: - pelvis MRI (07/24/16) --> right hip AVN - Await consult from Orthopedic Service (3) Abscess of left thigh Status: Acute Plan: - comgmt with ID - s/p I&D in ER - wound Cx from thigh (07/24/16) --> MRSA - pt received vancomycin and cefepime in Er - Vancomycin lead to erythema --> stopped - ABX changed to zyvox (4) HIV (human immunodeficiency virus infection) Status: Chronic Plan: - Pt off HIV medication for over 1 year - last CD4 absolute count 151 06/2016 - Non-compliant - Pt instructed to f/u with Dr. Moseley at the conclusion of last hospitalization (5) Hepatitis C Status: Chronic Plan: - Pt instructed to f/u with Dr. Moseley at the conclusion of last hospitalization (6) Cryoglobulinemia Status: Acute Plan: - see above (7) Hypothyroidism Status: Acute Plan: - continue levothyroxine (8) HTN (hypertension) Status: Chronic Plan: - continue lisinopril (9) Shavon vaginitis Status: Acute Plan: - comgmt with ID & Block Sorter - diflucan, terconazole Assessment and Plan Patient examined. Assessment and plan formulated with Brittani Black PA-C. I agree with the above. hiv/aids. has been off hiv meds for awhile. cd 4 151. s/p 6 weeks zyvoxx for mrsa pna/cavitary lesion left lung. now s/p left leg abscess drainage. mrsa on cx. vaginal/groin yeast infection better. right hip pain with evidence for AVN on imaging. pt has hep c and cryoglobulinemia. cont abx per ID Ortho consulted for AVN. Problem Qualifiers (1) Hypothyroidism: Qualified Code: E03.9 - Hypothyroidism, unspecified type (2) HTN (hypertension): Qualified Code: I10 - Essential hypertension Brittani Blcak Jul 27, 2016 10:37 Demetrius Worthington MD Jul 27, 2016 14:11 Demetrius Worthington MD Jul 27, 2016 14:11
[2016-07-27 12:00] VITALS: BP 107/55; PULSE 76; RESP 18; TEMP 96; O2SAT 99
[2016-07-27 16:00] VITALS: BP 96/59; PULSE 76; RESP 16; TEMP 97.1; O2SAT 99
--- NOTE | 2016-07-27 18:00 | HHI.IDPN ---
Subjective Subjective Remarks feels better afebrile absolute eosinoihils count up from yday, but less than max on07/24 MRI showed AVN of R hip; awaiting ortho consult Antibiotics zyvox Allergies: Coded Allergies: *MDRO Multi-Drug Resistant Organism (Verified Adverse Reaction, Unknown, ) MRSA (leg)-07/24/16; (wounds)-09/03/15; (ear)-11/26/15; (sputum)-06/19/16 Objective . Vital Signs Date Time Temp Pulse Resp B/P Pulse Ox O2 Delivery O2 Flow Rate FiO2 07/27/16 16:00 97.1 76 16 96/59 99 07/27/16 12:00 96.0 76 18 107/55 99 07/27/16 08:00 97.3 78 17 114/56 99 07/27/16 06:06 16 07/27/16 00:00 96.8 82 16 109/61 100 07/26/16 19:59 97.3 79 18 108/57 98 07/26/16 07/26/16 07/27/16 15:00 23:00 07:00 Intake Total 720 ml 360 ml 250 ml Output Total 350 ml Balance 370 ml 360 ml 250 ml Intake Oral 720 ml 360 ml 250 ml Output Urine Total 350 ml # Voids 2 2 # Bowel Movements 1 0 1 . Laboratory Tests Test 07/27/16 04:31 White Blood Count 5.2 TH/MM3 Red Blood Count 3.29 MIL/MM3 Hemoglobin 10.0 GM/DL Hematocrit 29.7 % Mean Corpuscular Volume 90.2 FL Mean Corpuscular Hemoglobin 30.4 PG Mean Corpuscular Hemoglobin 33.7 % Concent Red Cell Distribution Width 16.0 % Platelet Count 220 TH/MM3 Mean Platelet Volume 8.7 FL Neutrophils (%) (Auto) 26.0 % Lymphocytes (%) (Auto) 23.9 % Monocytes (%) (Auto) 12.8 % Eosinophils (%) (Auto) 36.7 % Basophils (%) (Auto) 0.6 % Neutrophils # (Auto) 1.3 TH/MM3 Lymphocytes # (Auto) 1.2 TH/MM3 Monocytes # (Auto) 0.7 TH/MM3 Eosinophils # (Auto) 1.9 TH/MM3 Basophils # (Auto) 0.0 TH/MM3 CBC Comment DIFF FINAL Differential Comment Laboratory Tests Test 07/27/16 04:31 Sodium Level 143 MEQ/L Potassium Level 4.1 MEQ/L Chloride Level 107 MEQ/L Carbon Dioxide Level 28.4 MEQ/L Anion Gap 8 MEQ/L Blood Urea Nitrogen 17 MG/DL Creatinine 1.02 MG/DL Estimat Glomerular Filtration 59 ML/MIN Rate Random Glucose 80 MG/DL Calcium Level 8.4 MG/DL Magnesium Level 1.8 MG/DL Imaging Last Impressions Pelvis MRI 07/25/16 0000 Signed Impressions: Service Date/Time: Monday, July 25, 2016 08:36 - CONCLUSION: 1. Right hip AVN 2. Bilateral nonspecific inguinal adenopathy. Nate Mera MD Chest CT 07/25/16 0000 Signed Impressions: Service Date/Time: Monday, July 25, 2016 08:17 - CONCLUSION: 1. Stable 1.3 cm cavitary nodule superior segment left lower lobe compared with July 17. Minimal basal atelectasis. Mild axillary adenopathy, stable. Kurt Underwood MD Lower Extremity CT 07/24/16 0000 Signed Impressions: Service Date/Time: Sunday, July 24, 2016 09:51 - CONCLUSION: There is no evidence for abscess or soft tissue induration. The lumbar spine was not evaluated. The SI joints are not evaluated.. Noah Beyer MD FACR Chest X-Ray 07/24/16 0000 Signed Impressions: Service Date/Time: Sunday, July 24, 2016 09:29 - CONCLUSION: Persisting cavitary mass in the left upper lung and suspected consolidation or atelectasis in the medial right upper and lower lungs. Shakir Livingston MD Physical Exam CONSTITUTIONAL/GENERAL: This is an adequately nourished patient, in no apparent distress. TUBES/LINES/DRAINS: SKIN: No jaundice, rashes, or lesions. L posterior thigh abbscess - dressing in place HEAD: Atraumatic. Normocephalic. EYES: Pupils equal and round and reactive. Extraocular motions intact. No scleral icterus. No injection or drainage. Fundi not examined. ENT: Hearing grossly normal. Nose without bleeding or purulent drainage. Oral mucosae without visible erythema, exudates, masses, or lesions. NECK: Trachea midline. Supple, nontender. No palpable thyroid enlargement or nodularity. CARDIOVASCULAR: Regular rate and rhythm without murmurs, gallops, or rubs. No JVD. Peripheral pulses symmetric. RESPIRATORY/CHEST: Symmetric, unlabored respirations. Clear to auscultation. Breath sounds equal bilaterally. No wheezes, rales, or rhonchi. GASTROINTESTINAL: Abdomen soft, non-tender, nondistended. No hepato-splenomegaly , or palpable masses. No guarding. Bowel sounds present. GENITOURINARY: Without palpable bladder distension. MUSCULOSKELETAL: Extremities without clubbing, cyanosis, or edema. + joint tenderness over R SI joint . NEUROLOGICAL: Awake and alert. Motor and sensory grossly within normal limits. Follows commands. Normal speech. Moves all extremities. PSYCHIATRIC: calm , cooperative Assessment & Plan Remarks HIV/AIDS, non compliant - off HAART - syeda with Dr Moseley July 29 New onset pain R SI joint radiating hip and down the RLE - R hip AVN - ortho consulted MRSA pulmonary abscess with persistent cavitary mass on CXR - CT showed stable cavitary lesion ? Kevin sd to vancomycin Pyuria: - poorly collected UA (sq epis >5) in the abscence of disuria in a young pt wo h/o any conditions predisposing to neurogenic bladder - monitor eosinophols - cont zyvox x 7 days total -= recollect UA, C+S Soo Hansen MD Jul 27, 2016 18:00
[2016-07-27 20:00] VITALS: BP 118/55; PULSE 80; RESP 20; TEMP 96; O2SAT 98
[2016-07-27] MEDS: TERCONAZOLE 0.4% VAG CR 45 GM TUBE VAGINAL SCH (20:28)
[2016-07-27] MEDS: TEMAZEPAM 15 MG CAP PO PRN (23:25)
[2016-07-28] VITALS: BP 120/71; PULSE 81; RESP 21; TEMP 97.3; O2SAT 99
[2016-07-28 05:18] LABS: AUTOMATED NEUTROPHIL # 1.6 TH/MM3 (1.8-7.7); BASOPHIL % 0.4 % (0.0-2.0); EOSINOPHIL # 2.3 TH/MM3 (0-0.4); EOSINOPHIL % 39.2 % (0.0-4.0); LYMPH % 22.3 % (9.0-44.0); LYMPHOCYTE # 1.3 TH/MM3 (1.0-4.8); MEAN CELL VOLUME 89.6 FL (80.0-100.0); MEAN CORPUSCULAR HEMOGLOBIN 30.6 PG (27.0-34.0); MEAN CORPUSCULAR HGB CONC 34.1 % (32.0-36.0); MONO % 11.1 % (0.0-8.0); PLATELET COUNT 249 TH/MM3 (150-450); RED BLOOD COUNT 3.24 MIL/MM3 (4.00-5.30); RED CELL DISTRIBUTION WIDTH 15.5 % (11.6-17.2); WHITE BLOOD COUNT 5.9 TH/MM3 (4.0-11.0)
[2016-07-28] MEDS: diphenhydrAMINE HCL 50 MG CAP PO PRN ×4 (05:20→23:24)
[2016-07-28] MEDS: oxyCODONE/ACETAMINOPHEN 5 MG/325 MG TAB PO PRN ×4 (05:20→23:24)
[2016-07-28] MEDS: LINEZOLID 600 MG TAB PO SCH (05:21)
[2016-07-28 05:22] LABS: HEMO FLAGS AUTO DIFF
[2016-07-28 05:43] LABS: BICARBONATE 30.9 MEQ/L (21.0-32.0); MAGNESIUM 1.7 MG/DL (1.5-2.5); POTASSIUM 4.3 MEQ/L (3.5-5.1)
[2016-07-28 06:54] LABS: BANDS 17 % (0-6); EOSINOPHILS 26 % (0-4); METAMYELOCYTES 4 % (0-1); NEUTROPHIL # MANUAL DIFF 2.8 TH/MM3 (1.8-7.7); POLYS (SEG NEUTROPHILS) 27 % (16-70); WBC DIFF SAMPLE 100
[2016-07-28 06:55] LABS: PLATELET ESTIMATE SMEAR NORMAL (NORMAL); PLATELET MORPHOLOGY NORMAL (NORMAL)
[2016-07-28 06:56] LABS: SCAN/DIFF FINAL DIFF MANUAL
--- NOTE | 2016-07-28 07:16 | MB ---
cc: MARY ANN ARRIETA TODD DATE OF CONSULTATION: 07/27/2016 REASON FOR CONSULTATION Right hip pain with avascular necrosis. HISTORY OF PRESENT ILLNESS Mary Ellen Stratton is a 45-year-old female who has multiple medical problems including HIV and chronic hepatitis. She has a history of being noncompliant with medication treatment for her infections. The patient has recently been treated for cavitary lung lesions. Sputum cultures revealed MRSA. She has been on Zyvox. She states that she has had right hip pain for the last week. She has some difficulty ambulating. Pain is deep in the hip and thigh. She is currently awake and alert on the 7th floor. Pain is worse with walking or movement. She was also recently diagnosed with a small sacral ulcer. PAST MEDICAL HISTORY ILLNESSES 1. HIV. 2. Hepatitis. 3. Nephrolithiasis. 4. Hypertension. 5. Candidiasis. SURGERIES 1. Hysterectomy. 2. Lysis of adhesions. 3. Laparoscopic cholecystectomy. 4. Four-compartment fasciotomy of left leg. ALLERGIES No known drug allergies. MEDICATIONS Please see EMR for complete list of inpatient medications; this was reviewed. FAMILY HISTORY Noncontributory. SOCIAL HISTORY The patient denies alcohol, tobacco or drug use. REVIEW OF SYSTEMS The patient denies headache, visual changes, neck pain, abdominal pain, nausea, vomiting, recent weight loss, numbness or tingling of extremities. She complains of right hip pain. Pain is worse with movement. She denies any current shortness of breath. PHYSICAL EXAMINATION GENERAL: The patient is a well-developed, well-nourished 45-year-old female in no acute distress. She is awake and alert. She is alert and oriented x3. VITAL SIGNS: Temperature 97.1, pulse 76, respirations 16, blood pressure 96/59. O2 sat is 99% on room air. HEAD: The patient is normocephalic. Pupils are equal. NECK: Soft, nontender. Trachea is midline. ABDOMEN: Soft, nontender, nondistended. EXTREMITIES: Examination of bilateral upper extremities reveals no pain with shoulder, elbow or wrist motion bilaterally. Skin is intact in all fingers. Sensation is intact in radial, ulnar, and median nerve distributions bilaterally. Radial pulses are palpable. Examination of left leg reveals no significant pain with hip, knee or ankle motion. Skin is intact. Dorsalis pedis pulse is palpable. Sensation is intact in the left foot. Examination of right leg reveals mild discomfort with gentle hip motion. Straight leg raise test is negative. She has no pain with knee or ankle motion. Skin is intact around the lateral hip. She has mild tenderness over the trochanteric bursa. Sensation is intact in the right foot. MRI MRI of the pelvis was reviewed. MRI reveals some mild avascular necrosis of the right hip. There is no significant collapse present. There is no significant effusion noted. IMPRESSION 1. HIV. 2. Hepatitis. 3. Noncompliance with medication treatment. 4. Early avascular necrosis of right hip. PLAN The treatment options were discussed with the patient. At this point I would recommend conservative treatment. She may weight bear as tolerated. I explained to her that her body may be able to resolve some of the avascular necrosis. There is also a chance that they could get worse and could develop severe pain and arthritis. At this point the patient would not be a candidate for a total hip replacement given her noncompliance with treatment for HIV as well as her recent pulmonary MRSA infections. All questions were answered. A mid-level provider in my office (nurse practitioner or physician dental office assistant) may see this patient on follow-up visits and continue to implement the objectives of this plan including: Starting or adjusting medications, injections , cast application, orthotics, brace application, physical therapy, radiological studies (including x-ray, MRI, CT, ultrasound, bone scan), vascular studies, neurologic studies, specialist consultation, and proceeding with surgical management, as appropriate. MD DENISHA Velez/TIFFANY /7:43 PM /7:01 AM CARRIE
[2016-07-28] MEDS: FLUCONAZOLE 100 MG TAB PO SCH (07:47)
[2016-07-28] MEDS: ASPIRIN EC 81 MG TABEC PO SCH (07:47)
[2016-07-28] MEDS: DOCUSATE SODIUM 100 MG CAP PO SCH ×2 (07:48→20:17)
[2016-07-28] MEDS: LISINOPRIL 10 MG TAB PO SCH (07:48)
[2016-07-28] MEDS: SODIUM CHLORIDE 0.9% FLUSH 5 ML FLUSH FLUSH SCH ×2 (07:49→20:17)
[2016-07-28 08:00] VITALS: BP 107/58; PULSE 87; RESP 16; TEMP 98.5; O2SAT 96
--- NOTE | 2016-07-28 10:10 | HHI.PR ---
Objective Vitals Vital Signs Date Time Temp Pulse Resp B/P Pulse Ox O2 Delivery O2 Flow Rate FiO2 07/28/16 08:00 98.5 87 16 107/58 96 07/28/16 06:20 16 07/28/16 00:00 97.3 81 21 120/71 99 07/27/16 20:00 96.0 80 20 118/55 98 07/27/16 16:00 97.1 76 16 96/59 99 07/27/16 12:00 96.0 76 18 107/55 99 07/27/16 07/27/16 07/28/16 15:00 23:00 07:00 Intake Total 545 ml 240 ml 480 ml Balance 545 ml 240 ml 480 ml Intake Oral 545 ml 240 ml 480 ml IV Total 0 ml # Voids 4 1 3 # Bowel Movements 1 0 0 Result Diagram: 07/28/16 0445 07/28/16 0445 Other Results Laboratory Tests Test 07/27/16 07/28/16 04:31 04:45 White Blood Count 5.2 TH/MM3 5.9 TH/MM3 Red Blood Count 3.29 MIL/MM3 3.24 MIL/MM3 Hemoglobin 10.0 GM/DL 9.9 GM/DL Hematocrit 29.7 % 29.0 % Mean Corpuscular Volume 90.2 FL 89.6 FL Mean Corpuscular Hemoglobin 30.4 PG 30.6 PG Mean Corpuscular Hemoglobin 33.7 % 34.1 % Concent Red Cell Distribution Width 16.0 % 15.5 % Platelet Count 220 TH/MM3 249 TH/MM3 Mean Platelet Volume 8.7 FL 8.2 FL Neutrophils (%) (Auto) 26.0 % 27.0 % Lymphocytes (%) (Auto) 23.9 % 22.3 % Monocytes (%) (Auto) 12.8 % 11.1 % Eosinophils (%) (Auto) 36.7 % 39.2 % Basophils (%) (Auto) 0.6 % 0.4 % Neutrophils # (Auto) 1.3 TH/MM3 1.6 TH/MM3 Lymphocytes # (Auto) 1.2 TH/MM3 1.3 TH/MM3 Monocytes # (Auto) 0.7 TH/MM3 0.7 TH/MM3 Eosinophils # (Auto) 1.9 TH/MM3 2.3 TH/MM3 Basophils # (Auto) 0.0 TH/MM3 0.0 TH/MM3 CBC Comment DIFF FINAL AUTO DIFF Differential Comment FINAL DIFF MANUAL Sodium Level 143 MEQ/L 141 MEQ/L Potassium Level 4.1 MEQ/L 4.3 MEQ/L Chloride Level 107 MEQ/L 105 MEQ/L Carbon Dioxide Level 28.4 MEQ/L 30.9 MEQ/L Anion Gap 8 MEQ/L 5 MEQ/L Blood Urea Nitrogen 17 MG/DL 13 MG/DL Creatinine 1.02 MG/DL 1.04 MG/DL Estimat Glomerular Filtration 59 ML/MIN 57 ML/MIN Rate Random Glucose 80 MG/DL 82 MG/DL Calcium Level 8.4 MG/DL 8.6 MG/DL Magnesium Level 1.8 MG/DL 1.7 MG/DL Differential Total Cells 100 Counted Neutrophils % (Manual) 27 % Band Neutrophils % 17 % Lymphocytes % 17 % Monocytes % 9 % Eosinophils % 26 % Neutrophils # (Manual) 2.8 TH/MM3 Metamyelocytes 4 % Atypical Lymphocytes % Platelet Estimate NORMAL Platelet Morphology Comment NORMAL Imaging Last Impressions Pelvis MRI 07/25/16 0000 Signed Impressions: Service Date/Time: Monday, July 25, 2016 08:36 - CONCLUSION: 1. Right hip AVN 2. Bilateral nonspecific inguinal adenopathy. Nate Mera MD Chest CT 07/25/16 0000 Signed Impressions: Service Date/Time: Monday, July 25, 2016 08:17 - CONCLUSION: 1. Stable 1.3 cm cavitary nodule superior segment left lower lobe compared with July 17. Minimal basal atelectasis. Mild axillary adenopathy, stable. Kurt Underwood MD Lower Extremity CT 07/24/16 0000 Signed Impressions: Service Date/Time: Sunday, July 24, 2016 09:51 - CONCLUSION: There is no evidence for abscess or soft tissue induration. The lumbar spine was not evaluated. The SI joints are not evaluated.. Noah Beyer MD FACR Chest X-Ray 07/24/16 0000 Signed Impressions: Service Date/Time: Sunday, July 24, 2016 09:29 - CONCLUSION: Persisting cavitary mass in the left upper lung and suspected consolidation or atelectasis in the medial right upper and lower lungs. Shakir Livingston MD Objective Remarks General: NAD, AAOx3 Chest: CTA Cardiac: Regular Abd: +BS, soft ND/NT Ext: no edema Skin: shallow, non-draining 2-3 cm diameter ulcer at sacrum, left posterior thigh abscess healing well with surgical incision with surrounding erythema (improving). A/P Problem List: (1) UTI (urinary tract infection) Status: Acute Plan: - Pt recently hospitalized d/t MRSA pneumonia - Pt received treatment with IV Zosyn, and pt instructed to complete a 2 week course of PO Zyvox outpt - Pt with chronic MIL cavitary lesion - ID following. - Pt received Vancomycin and Cefepime in the ER - Abx changed to Zyvox secondary to reaction to Vancomycin. - blood Cx (07/24/16) --> NO growth to date - urine Cx --> E. Coli - WBC 14.6 on admission (07/24/16) which has improved - Pts eosinophil count elevated at 2.3 today. - ID following. - Pt currently recommended Zyvox for 7 more days. - Pt is afebrile. (2) Avascular necrosis of bone of right hip Status: Acute Plan: - pelvis MRI (07/24/16) --> right hip AVN - Appreciate Orthopedic Surgery consult, no surgical intervention recommended at this time due to pts noncompliance with HIV meds and recent MRSA pneumonia. - Pain control PRN - PT (3) Abscess of left thigh Status: Acute Plan: - Improving. - comgmt with ID - s/p I&D in ER - wound Cx from thigh (07/24/16) --> MRSA - pt received vancomycin and cefepime in Er - Vancomycin lead to erythema --> stopped - ABX changed to Zyvox until 08/03 (4) HIV (human immunodeficiency virus infection) Status: Chronic Plan: - Pt off HIV medication for over 1 year - last CD4 absolute count 151 06/2016 - Non-compliant - Pt has a f/u with Dr. Moseley scheduled for 07/29 (5) Hepatitis C Status: Chronic Plan: - Pt has a f/u with Dr. Moseley scheduled for 07/29 (6) Cryoglobulinemia Status: Chronic Plan: - see above (7) Hypothyroidism Status: Chronic Plan: - continue levothyroxine (8) HTN (hypertension) Status: Chronic Plan: - continue lisinopril (9) Shavon vaginitis Status: Acute Plan: - Improving. - comgmt with ID & Fence Maker - Diflucan, terconazole Problem Qualifiers (1) Hypothyroidism: Qualified Code: E03.9 - Hypothyroidism, unspecified type (2) HTN (hypertension): Qualified Code: I10 - Essential hypertension Brittani Black Jul 28, 2016 10:10 Demetrius Worthington MD Jul 28, 2016 11:41
--- NOTE | 2016-07-28 11:40 | HHI.PR ---
Subjective Remarks overall seems better. Objective Vitals heart reg lung course bs abd s/nt ext left post thigh dime size superficial wound. no pus or erythema vaginal/inguinal yeast much improved. Vital Signs Date Time Temp Pulse Resp B/P Pulse Ox O2 Delivery O2 Flow Rate FiO2 07/28/16 08:00 98.5 87 16 107/58 96 07/28/16 06:20 16 07/28/16 00:00 97.3 81 21 120/71 99 07/27/16 20:00 96.0 80 20 118/55 98 07/27/16 16:00 97.1 76 16 96/59 99 07/27/16 12:00 96.0 76 18 107/55 99 07/27/16 07/27/16 07/28/16 15:00 23:00 07:00 Intake Total 545 ml 240 ml 480 ml Balance 545 ml 240 ml 480 ml Intake Oral 545 ml 240 ml 480 ml IV Total 0 ml # Voids 4 1 3 # Bowel Movements 1 0 0 Result Diagram: 07/28/16 0445 07/28/165 Imaging Last Impressions Pelvis MRI 07/25/16 0000 Signed Impressions: Service Date/Time: Monday, July 25, 2016 08:36 - CONCLUSION: 1. Right hip AVN 2. Bilateral nonspecific inguinal adenopathy. Nate Mera MD Chest CT 07/25/16 0000 Signed Impressions: Service Date/Time: Monday, July 25, 2016 08:17 - CONCLUSION: 1. Stable 1.3 cm cavitary nodule superior segment left lower lobe compared with July 17. Minimal basal atelectasis. Mild axillary adenopathy, stable. Kurt Underwood MD Lower Extremity CT 07/24/16 0000 Signed Impressions: Service Date/Time: Sunday, July 24, 2016 09:51 - CONCLUSION: There is no evidence for abscess or soft tissue induration. The lumbar spine was not evaluated. The SI joints are not evaluated.. Noah Beyer MD FACR Chest X-Ray 07/24/16 0000 Signed Impressions: Service Date/Time: Sunday, July 24, 2016 09:29 - CONCLUSION: Persisting cavitary mass in the left upper lung and suspected consolidation or atelectasis in the medial right upper and lower lungs. Shakir Livingston MD A/P Problem List: (1) Abscess of left thigh Status: Acute Plan: - Pt recently hospitalized d/t MRSA pneumonia -pt instructed to complete a 2 week course of PO Zyvox outpt - Pt with chronic left lung cavitary lesion Readmitted for left post thigh superficial mrsa abscess. s/p i/d severe vaginal/inguinal yeast infection severe right hip pain....w/up revealed AVN hip ID reccs noted. eosinophils noted. will discuss with ID again today for d/c plans Ortho reccs noted. Pt eval conservative management cont antifungals Pt says her outpt ID appt is next Wednesday..She is counseled again on the importance of f/u and resume hiv medications (2) Avascular necrosis of bone of right hip Status: Acute Plan: -see above (3) HIV (human immunodeficiency virus infection) Status: Chronic Plan: - Pt off HIV medication for over 1 year - last CD4 absolute count 151 06/2016 - Non-compliant - Pt has a f/u with Dr. Moseley (4) Hepatitis C Status: Chronic Plan: - Pt has a f/u with Dr. Moseley scheduled (5) Cryoglobulinemia Status: Chronic Plan: - see above (6) Hypothyroidism Status: Chronic Plan: - continue levothyroxine (7) HTN (hypertension) Status: Chronic Plan: - continue lisinopril (8) Shavon vaginitis Status: Acute Plan: - Improving. 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
[2016-07-28 12:00] VITALS: BP 112/63; PULSE 89; RESP 17; TEMP 97.7; O2SAT 97
--- NOTE | 2016-07-28 15:06 | HHI.IDPN ---
Subjective Subjective Remarks feels better Vaginal d/c and itching resolved afebrile absolute eosinoihils count keep going up now @ 2.3 ortho surgeon rec'd conservative tx Antibiotics zyvox fluconazole Allergies: Coded Allergies: *MDRO Multi-Drug Resistant Organism (Verified Adverse Reaction, Unknown, ) MRSA (leg)-07/24/16; (wounds)-09/03/15; (ear)-11/26/15; (sputum)-06/19/16 Objective . Vital Signs Date Time Temp Pulse Resp B/P Pulse Ox O2 Delivery O2 Flow Rate FiO2 07/28/16 12:00 97.7 89 17 112/63 97 07/28/16 08:00 98.5 87 16 107/58 96 07/28/16 06:20 16 07/28/16 00:00 97.3 81 21 120/71 99 07/27/16 20:00 96.0 80 20 118/55 98 07/27/16 16:00 97.1 76 16 96/59 99 07/27/16 07/27/16 07/28/16 15:00 23:00 07:00 Intake Total 545 ml 240 ml 480 ml Balance 545 ml 240 ml 480 ml Intake Oral 545 ml 240 ml 480 ml IV Total 0 ml # Voids 4 1 3 # Bowel Movements 1 0 0 . Laboratory Tests Test 07/27/16 07/28/16 04:31 04:45 White Blood Count 5.2 TH/MM3 5.9 TH/MM3 Red Blood Count 3.29 MIL/MM3 3.24 MIL/MM3 Hemoglobin 10.0 GM/DL 9.9 GM/DL Hematocrit 29.7 % 29.0 % Mean Corpuscular Volume 90.2 FL 89.6 FL Mean Corpuscular Hemoglobin 30.4 PG 30.6 PG Mean Corpuscular Hemoglobin 33.7 % 34.1 % Concent Red Cell Distribution Width 16.0 % 15.5 % Platelet Count 220 TH/MM3 249 TH/MM3 Mean Platelet Volume 8.7 FL 8.2 FL Neutrophils (%) (Auto) 26.0 % 27.0 % Lymphocytes (%) (Auto) 23.9 % 22.3 % Monocytes (%) (Auto) 12.8 % 11.1 % Eosinophils (%) (Auto) 36.7 % 39.2 % Basophils (%) (Auto) 0.6 % 0.4 % Neutrophils # (Auto) 1.3 TH/MM3 1.6 TH/MM3 Lymphocytes # (Auto) 1.2 TH/MM3 1.3 TH/MM3 Monocytes # (Auto) 0.7 TH/MM3 0.7 TH/MM3 Eosinophils # (Auto) 1.9 TH/MM3 2.3 TH/MM3 Basophils # (Auto) 0.0 TH/MM3 0.0 TH/MM3 CBC Comment DIFF FINAL AUTO DIFF Differential Comment FINAL DIFF MANUAL Differential Total Cells 100 Counted Neutrophils % (Manual) 27 % Band Neutrophils % 17 % Lymphocytes % 17 % Monocytes % 9 % Eosinophils % 26 % Neutrophils # (Manual) 2.8 TH/MM3 Metamyelocytes 4 % Atypical Lymphocytes % Platelet Estimate NORMAL Platelet Morphology Comment NORMAL Laboratory Tests Test 07/27/16 07/28/16 04:31 04:45 Sodium Level 143 MEQ/L 141 MEQ/L Potassium Level 4.1 MEQ/L 4.3 MEQ/L Chloride Level 107 MEQ/L 105 MEQ/L Carbon Dioxide Level 28.4 MEQ/L 30.9 MEQ/L Anion Gap 8 MEQ/L 5 MEQ/L Blood Urea Nitrogen 17 MG/DL 13 MG/DL Creatinine 1.02 MG/DL 1.04 MG/DL Estimat Glomerular Filtration 59 ML/MIN 57 ML/MIN Rate Random Glucose 80 MG/DL 82 MG/DL Calcium Level 8.4 MG/DL 8.6 MG/DL Magnesium Level 1.8 MG/DL 1.7 MG/DL Imaging Last Impressions Pelvis MRI 07/25/16 0000 Signed Impressions: Service Date/Time: Monday, July 25, 2016 08:36 - CONCLUSION: 1. Right hip AVN 2. Bilateral nonspecific inguinal adenopathy. Nate Mera MD Chest CT 07/25/16 0000 Signed Impressions: Service Date/Time: Monday, July 25, 2016 08:17 - CONCLUSION: 1. Stable 1.3 cm cavitary nodule superior segment left lower lobe compared with July 17. Minimal basal atelectasis. Mild axillary adenopathy, stable. Kurt Underwood MD Lower Extremity CT 07/24/16 0000 Signed Impressions: Service Date/Time: Sunday, July 24, 2016 09:51 - CONCLUSION: There is no evidence for abscess or soft tissue induration. The lumbar spine was not evaluated. The SI joints are not evaluated.. Noah Beyer MD FACR Chest X-Ray 07/24/16 0000 Signed Impressions: Service Date/Time: Sunday, July 24, 2016 09:29 - CONCLUSION: Persisting cavitary mass in the left upper lung and suspected consolidation or atelectasis in the medial right upper and lower lungs. Shakir Livingston MD Physical Exam CONSTITUTIONAL/GENERAL: This is an adequately nourished patient, in no apparent distress. TUBES/LINES/DRAINS: SKIN: skin is dry with scratch markes L posterior thigh abbscess - minimal d/c resolved erythema, no fluctuance HEAD: Atraumatic. Normocephalic. EYES: Pupils equal and round and reactive. Extraocular motions intact. No scleral icterus. No injection or drainage. Fundi not examined. ENT: Hearing grossly normal. Nose without bleeding or purulent drainage. Oral mucosae without visible erythema, exudates, masses, or lesions. NECK: Trachea midline. Supple, nontender. No palpable thyroid enlargement or nodularity. CARDIOVASCULAR: Regular rate and rhythm without murmurs, gallops, or rubs. No JVD. Peripheral pulses symmetric. RESPIRATORY/CHEST: Symmetric, unlabored respirations. Clear to auscultation. Breath sounds equal bilaterally. No wheezes, rales, or rhonchi. GASTROINTESTINAL: Abdomen soft, non-tender, nondistended. No hepato-splenomegaly , or palpable masses. No guarding. Bowel sounds present. GENITOURINARY: Without palpable bladder distension. MUSCULOSKELETAL: Extremities without clubbing, cyanosis, or edema. NEUROLOGICAL: Awake and alert. Motor and sensory grossly within normal limits. Follows commands. Normal speech. Moves all extremities. PSYCHIATRIC: calm , cooperative Assessment & Plan Remarks HIV/AIDS, non compliant - off HAART - syeda with Dr Moseley July 29 R hip AVN - ortho rec'd observation MRSA pulmonary abscess with persistent cavitary mass on CXR - CT showed stable cavitary lesion Worsening eosinophilia, likely drug induced since on admission eos count was 0 Pyuria: - poorly collected UA (sq epis >5) in the abscence of disuria in a young pt wo h/o any conditions predisposing to neurogenic bladder - monitor eosinophols - dc zyvox and fluconzol -= recollect UA, C+S dw Soo Ortega MD Jul 28, 2016 15:06
[2016-07-28 16:00] VITALS: BP 123/75; PULSE 83; RESP 17; TEMP 98; O2SAT 100
[2016-07-28 20:00] VITALS: BP 122/66; PULSE 86; RESP 21; TEMP 97.7; O2SAT 98
[2016-07-28 20:09] LABS: BLOOD, URINE NEG (NEG); COMMENT (UR) CULT NOT INDICATED; CULTURE IF INDICATED CULT NOT INDICATED; GLUCOSE,URINE NEG (NEG); KETONE, URINE NEG (NEG); NITRITE,URINE NEG (NEG); SQUAMOUS EPITHELIAL CELL URINE 6 /hpf (0-5); URINE COLOR YELLOW (YELLW/STRAW)
[2016-07-28] MEDS: TERCONAZOLE 0.4% VAG CR 45 GM TUBE VAGINAL SCH (20:18)
[2016-07-28] MEDS: guaiFENesin/DEXTROMETHORPHAN 200 MG/20 MG/10 ML CUP PO PRN (21:49)
[2016-07-28] MEDS: TEMAZEPAM 15 MG CAP PO PRN (23:24)
[2016-07-29] VITALS: BP 132/66; PULSE 91; RESP 20; TEMP 99.1; O2SAT 98
[2016-07-29] MEDS: oxyCODONE/ACETAMINOPHEN 5 MG/325 MG TAB PO PRN ×2 (05:42→12:31)
[2016-07-29] MEDS: diphenhydrAMINE HCL 50 MG CAP PO PRN (05:42)
[2016-07-29] MEDS: guaiFENesin/DEXTROMETHORPHAN 200 MG/20 MG/10 ML CUP PO PRN ×2 (05:42→12:31)
[2016-07-29 08:00] VITALS: BP 108/69; PULSE 100; RESP 16; TEMP 99.9; O2SAT 93
[2016-07-29] MEDS: LISINOPRIL 10 MG TAB PO SCH (08:18)
[2016-07-29] MEDS: DOCUSATE SODIUM 100 MG CAP PO SCH (08:18)
[2016-07-29] MEDS: ASPIRIN EC 81 MG TABEC PO SCH (08:19)
[2016-07-29] MEDS: SODIUM CHLORIDE 0.9% FLUSH 5 ML FLUSH FLUSH SCH (08:20)
--- NOTE | 2016-07-29 09:12 | HHI.PR ---
Subjective Remarks Pt complains of pain in the right hip and is having difficulty with walking. Appetite is stable Afebrile. Objective Vitals Vital Signs Date Time Temp Pulse Resp B/P Pulse Ox O2 Delivery O2 Flow Rate FiO2 07/29/16 08:00 99.9 100 16 108/69 93 07/29/16 00:00 99.1 91 20 132/66 98 07/28/16 20:00 97.7 86 21 122/66 98 07/28/16 16:00 98.0 83 17 123/75 100 07/28/16 12:00 97.7 89 17 112/63 97 07/28/16 07/28/16 07/29/16 15:00 23:00 07:00 Intake Total 560 ml 360 ml 360 ml Output Total 700 ml Balance -140 ml 360 ml 360 ml Intake Oral 560 ml 360 ml 360 ml Output Urine Total 700 ml # Voids 2 3 # Bowel Movements 1 0 0 Result Diagram: 07/28/16 0445 07/28/16 0445 Other Results Laboratory Tests Test 07/28/16 07/28/16 04:45 17:50 White Blood Count 5.9 TH/MM3 Red Blood Count 3.24 MIL/MM3 Hemoglobin 9.9 GM/DL Hematocrit 29.0 % Mean Corpuscular Volume 89.6 FL Mean Corpuscular Hemoglobin 30.6 PG Mean Corpuscular Hemoglobin 34.1 % Concent Red Cell Distribution Width 15.5 % Platelet Count 249 TH/MM3 Mean Platelet Volume 8.2 FL Neutrophils (%) (Auto) 27.0 % Lymphocytes (%) (Auto) 22.3 % Monocytes (%) (Auto) 11.1 % Eosinophils (%) (Auto) 39.2 % Basophils (%) (Auto) 0.4 % Neutrophils # (Auto) 1.6 TH/MM3 Lymphocytes # (Auto) 1.3 TH/MM3 Monocytes # (Auto) 0.7 TH/MM3 Eosinophils # (Auto) 2.3 TH/MM3 Basophils # (Auto) 0.0 TH/MM3 CBC Comment AUTO DIFF Differential Total Cells 100 Counted Neutrophils % (Manual) 27 % Band Neutrophils % 17 % Lymphocytes % 17 % Monocytes % 9 % Eosinophils % 26 % Neutrophils # (Manual) 2.8 TH/MM3 Metamyelocytes 4 % Differential Comment FINAL DIFF MANUAL Atypical Lymphocytes % Platelet Estimate NORMAL Platelet Morphology Comment NORMAL Sodium Level 141 MEQ/L Potassium Level 4.3 MEQ/L Chloride Level 105 MEQ/L Carbon Dioxide Level 30.9 MEQ/L Anion Gap 5 MEQ/L Blood Urea Nitrogen 13 MG/DL Creatinine 1.04 MG/DL Estimat Glomerular Filtration 57 ML/MIN Rate Random Glucose 82 MG/DL Calcium Level 8.6 MG/DL Magnesium Level 1.7 MG/DL Urine Color YELLOW Urine Turbidity CLEAR Urine pH 6.0 Urine Specific [place] 1.017 Urine Protein NEG mg/dL Urine Glucose (UA) NEG mg/dL Urine Ketones NEG mg/dL Urine Occult Blood NEG Urine Nitrite NEG Urine Bilirubin NEG Urine Urobilinogen 0.2 MG/DL Urine Leukocyte Esterase NEG Urine WBC 1 /hpf Urine Squamous Epithelial 6 /hpf Cells Microscopic Urinalysis Comment CULT NOT INDICATED Imaging Last Impressions Pelvis MRI 07/25/16 0000 Signed Impressions: Service Date/Time: Monday, July 25, 2016 08:36 - CONCLUSION: 1. Right hip AVN 2. Bilateral nonspecific inguinal adenopathy. Nate Mera MD Chest CT 07/25/16 0000 Signed Impressions: Service Date/Time: Monday, July 25, 2016 08:17 - CONCLUSION: 1. Stable 1.3 cm cavitary nodule superior segment left lower lobe compared with July 17. Minimal basal atelectasis. Mild axillary adenopathy, stable. Kurt Underwood MD Lower Extremity CT 07/24/16 0000 Signed Impressions: Service Date/Time: Sunday, July 24, 2016 09:51 - CONCLUSION: There is no evidence for abscess or soft tissue induration. The lumbar spine was not evaluated. The SI joints are not evaluated.. Noah Beyer MD FACR Chest X-Ray 07/24/16 0000 Signed Impressions: Service Date/Time: Sunday, July 24, 2016 09:29 - CONCLUSION: Persisting cavitary mass in the left upper lung and suspected consolidation or atelectasis in the medial right upper and lower lungs. Shakir Livingston MD Objective Remarks General: NAD, AAOx3 Chest: CTA Cardiac: Regular Abd: +BS, soft ND/NT Ext: no edema A/P Problem List: (1) Abscess of left thigh Status: Acute Plan: - Pt recently hospitalized d/t MRSA pneumonia - She was instructed to complete a 2 week course of PO Zyvox outpt - Pt with chronic left lung cavitary lesion - Readmitted for left post thigh superficial mrsa abscess s/p I&D and severe vaginal/inguinal yeast infection with complaints of severe right hip pain - Workup revealed AVN of right hip - ID following - Eosinophil counts noted to be elevated. - Zyvox and antifungals stopped on 07/28. - Ortho recommending conservative management - Pt to try to use walker with ambulating - Pt says her outpt ID appt is next Wednesday. She is counseled again on the importance of f/u and resume HIV medications (2) Avascular necrosis of bone of right hip Status: Acute Plan: -see above (3) HIV (human immunodeficiency virus infection) Status: Chronic Plan: - Pt off HIV medication for over 1 year - last CD4 absolute count 151 06/2016 - Non-compliant - Pt has a f/u with Dr. Moseley (4) Hepatitis C Status: Chronic Plan: - Pt has a f/u with Dr. Moseley scheduled (5) Cryoglobulinemia Status: Chronic Plan: - see above (6) Hypothyroidism Status: Chronic Plan: - continue levothyroxine (7) HTN (hypertension) Status: Chronic Plan: - continue lisinopril (8) Shavon vaginitis Status: Acute Plan: - Improving. 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
[2016-07-29 10:11] LABS: AUTOMATED NEUTROPHIL # 1.7 TH/MM3 (1.8-7.7); BASOPHIL % 0.6 % (0.0-2.0); EOSINOPHIL # 2.2 TH/MM3 (0-0.4); EOSINOPHIL % 37.3 % (0.0-4.0); HEMATOCRIT 29.9 % (35.0-46.0); HEMO FLAGS DIFF FINAL; LYMPH % 22.9 % (9.0-44.0); LYMPHOCYTE # 1.4 TH/MM3 (1.0-4.8); MEAN CELL VOLUME 90.3 FL (80.0-100.0); MEAN CORPUSCULAR HEMOGLOBIN 29.9 PG (27.0-34.0); MEAN CORPUSCULAR HGB CONC 33.1 % (32.0-36.0); MONO % 9.8 % (0.0-8.0); NEUT % 29.4 % (16.0-70.0); PLATELET COUNT 234 TH/MM3 (150-450); RED BLOOD COUNT 3.31 MIL/MM3 (4.00-5.30); RED CELL DISTRIBUTION WIDTH 15.3 % (11.6-17.2); WHITE BLOOD COUNT 5.9 TH/MM3 (4.0-11.0)
[2016-07-29 12:00] VITALS: BP 120/68; PULSE 94; RESP 18; TEMP 98.9; O2SAT 95
[2016-07-29] MEDS ORDERED: OXYC1TAB63 PO (12:53)
[2016-07-29] MEDS ORDERED: TERC.4%V VAGINAL (12:58)
--- NOTE | 2016-07-29 13:11 | HHI.DS ---
Discharge Summary Admission Date Jul 24, 2016 at 11:33 Discharge Date: Jul 29, 2016 Admitting Diagnosis sepsis, urinary tract infection (1) Abscess of left thigh Diagnosis: Principal (2) Avascular necrosis of bone of right hip Diagnosis: Principal (3) HIV (human immunodeficiency virus infection) Diagnosis: Secondary (4) Hepatitis C Diagnosis: Secondary (5) Cryoglobulinemia Diagnosis: Secondary (6) Hypothyroidism Diagnosis: Secondary (7) HTN (hypertension) Diagnosis: Secondary (8) Shavon vaginitis Diagnosis: Secondary Consultants Dr. Maren George - Gynecology Dr. Soo Hansen - ID Brief History Pt is a 45 y/o F with HIV, chronic Hepatitis C, and non-compliance. Pt is well known to my service. Pt was most recently admitted to [facility] 06/19 -07/01/16. During that hospitalization pt was once agian treated for her cavitary lung lesion as well as RML & RLL pneumonia. Sputum Cultures showed MRSA. Pt received IV zyvox. Pt was instructed to complete a 2 week course of PO zyvox upon discharge. Pt states that she completed this course of treatment. Pt's hospitalization was complicated by cryoglobulinemia. Pt was instructed to follow with Dr. Gunner Moseley for management of her HIV and Hepatitis C. Case was informally d/w Hematology. It was felt that pt would NOT benefit from plasmapheresis since cryoglobulins would quickly reaccumulate, and treatment of the underlying process, Hepatitis C, was recommended. Unfortunately pt has been off of HIV medication for over 1 year. Pt's last absolute CD4 count 06/25/16 was 151. Per pt, she has an appointment to see Dr. Moseley July 29. Pt now returns to the [facility] ER 07/24/16 with c/o pain at her tailbone with radiation to her right thigh. Pt describes the pain as severe, constant for last 3-4 days. Pt states that walking exacerbates the pain. Pt denies cough, dysuria, sweat. Pt c/o chills. On physical exam pt has a small, punctate shallow ulcer at the sacrum. Pt a skin abscess at the posterior left thigh which was drained in the ER. Pt also c/o vaginal discharge ongoing for several days. In the ER, pt was noted to be tachycardic upon initial presentation with a HR of 118. Tmax 99.4. Pt was NOT tachycardic. There was an a mild elevation of the pt's WBC at 14.6K. LE CT (07/24/16) There is no evidence for abscess or soft tissue induration. The lumbar spine was not evaluated. The SI joints are not evaluated Pt admitted to [facility] for further evaluation and treatment. Pt was interviewed and examined together with Brittani Black PA-C. Pt's floor nurse was also present. CBC/BMP: 07/29/16 0950 07/28/16 0445 Significant Findings Laboratory Tests Test 07/27/16 07/28/16 07/29/16 04:31 04:45 09:50 Red Blood Count 3.29 MIL/MM3 3.24 MIL/MM3 3.31 MIL/MM3 (4.00-5.30) (4.00-5.30) (4.00-5.30) Hemoglobin 10.0 GM/DL 9.9 GM/DL 9.9 GM/DL (11.6-15.3) (11.6-15.3) (11.6-15.3) Hematocrit 29.7 % 29.0 % 29.9 % (35.0-46.0) (35.0-46.0) (35.0-46.0) Monocytes (%) (Auto) 12.8 % 11.1 % 9.8 % (0.0-8.0) (0.0-8.0) (0.0-8.0) Eosinophils (%) (Auto) 36.7 % 39.2 % 37.3 % (0.0-4.0) (0.0-4.0) (0.0-4.0) Neutrophils # (Auto) 1.3 TH/MM3 1.6 TH/MM3 1.7 TH/MM3 (1.8-7.7) (1.8-7.7) (1.8-7.7) Eosinophils # (Auto) 1.9 TH/MM3 2.3 TH/MM3 2.2 TH/MM3 (0-0.4) (0-0.4) (0-0.4) Creatinine 1.02 MG/DL 1.04 MG/DL (0.50-1.00) (0.50-1.00) Estimat Glomerular Filtration 59 ML/MIN (>89) 57 ML/MIN (>89) Rate Calcium Level 8.4 MG/DL (8.5-10.1) Band Neutrophils % 17 % (0-6) Monocytes % 9 % (0-8) Eosinophils % 26 % (0-4) Metamyelocytes 4 % (0-1) Imaging Last Impressions Pelvis MRI 07/25/16 0000 Signed Impressions: Service Date/Time: Monday, July 25, 2016 08:36 - CONCLUSION: 1. Right hip AVN 2. Bilateral nonspecific inguinal adenopathy. Nate Mera MD Chest CT 07/25/16 0000 Signed Impressions: Service Date/Time: Monday, July 25, 2016 08:17 - CONCLUSION: 1. Stable 1.3 cm cavitary nodule superior segment left lower lobe compared with July 17. Minimal basal atelectasis. Mild axillary adenopathy, stable. Kurt Underwood MD Lower Extremity CT 07/24/16 0000 Signed Impressions: Service Date/Time: Sunday, July 24, 2016 09:51 - CONCLUSION: There is no evidence for abscess or soft tissue induration. The lumbar spine was not evaluated. The SI joints are not evaluated.. Noah Beyer MD FACR Chest X-Ray 07/24/16 0000 Signed Impressions: Service Date/Time: Sunday, July 24, 2016 09:29 - CONCLUSION: Persisting cavitary mass in the left upper lung and suspected consolidation or atelectasis in the medial right upper and lower lungs. Shakir Livingston MD PE at Discharge General: NAD, AAOx3 Chest: CTA Cardiac: Regular Abd: +BS, soft ND/NT Ext: no edema Hospital Course Pt was recently hospitalized d/t MRSA pneumonia with noted cavitary lung lesions in 06/2016. Pt was seen by Pulmonology and Chest CT showed RML/RLL patchy infiltrates and left lower lung thick walled cavitary lesion, measuring 1.3cm. Workup at that time was negative for TB and sputum culture grew out MRSA. Pt was treated with Zyvox x 2 weeks per ID. Pt also found to have cryoglobulinemia during her previous admission likely secondary to her chronic hepatitis C. Pt has not yet followed up with Dr. Moseley for treatment recommendations for her HIV/Hep C. She was readmitted for left post thigh superficial MRSA abscess s/p I&D in the ED and severe vaginal/inguinal yeast infection with complaints of severe right hip pain. Pt was seen by Route Sales Representative and had a pelvic examination and was noted felt to have a chronic fungal infection. She was prescribed Diflucan and Terconazole topical antifungal vaginal cream. Pt received Vancomycin and Cefepime in the ER for the left thigh abscess. LE CT (07/24/16) There is no evidence for abscess or soft tissue induration. ID was consulted. Vancomycin was stopped due to suspected reaction with a rash. Zyvox was started on 07/24. CT chest noted a stable 1.3cm cavitary nodule superior segment left lower lobe compared with July 17, minimal basal atelectasis, and mild axillary adenopathy, stable. Pelvic MRI noted right hip AVN and bilateral nonspecific inguinal adenopathy. Orthopedic surgery evaluated and recommended conservative management. Pt had better success and less pain with using a walker for ambulating. Her labs were monitored during this admission and it was noted that her eosinophil counts were trending up. Zyvox and Diflucan were stopped on 07/28. Pt says her outpt ID appt with Dr. Moseley is next Wednesday. She is counseled again on the importance of f/u and resume HIV medications. Pt has been off HIV medication for over 1 year. Her last CD4 absolute count was 151 in 06/2016. ID has recommended that the pt be on Bactrim DS i po on Wed-Wed-Wed. She will need a repeat CBC for monitoring of her eosinophil count and this can be done next week when she follows up with Dr. Moseley. ID felt her elevated eosinophils were drug related and she stopped the zyvoxx and diflucan. If significantly elevated on f/u then further w/up may be necessary. Pt will need to followup with her PCP, Dr. Stone in 1 week. Pt is to followup with Dr. Madera in the next 2-3 weeks for monitoring of her AVN. She will need followup with Pulmonary Medicine. She was previously seen by Pulmonology during her admission in 06/2016. She can followup with Dr. Hess in 1 month for scheduling a repeat CT Chest within the next 3 months for close monitoring of the stable cavitary lung nodule. Pt Condition on Discharge: Stable Discharge Disposition: Discharge Home Discharge Instructions DIET: Follow Instructions for: Heart Healthy Diet Activities you can perform: Weight Bearing as Joe Follow up Referrals: Infectious Disease - 08/05/[address] Moseley Orthopedics - 3 Weeks with Jose Madera MD PCP Follow-up - [address] Nikia Stone Pulmonology - 1 Month with Augustus Hess MD New Medications: Sulfamethoxazole-Trimethoprim (Bactrim DS) 800-160 Mg Tab 1 TAB PO MonWedFri Infection Days 30 Ref 0 TAB Oxycodone-Acetaminophen (Oxycodone-Acetaminophen) 5-325 mg Tab 1 TAB PO Q6H PRN pain 1-10 #30 TAB Terconazole Vaginal Cream (Terazol 7 Vaginal Cream) 0.4 % Cream 1 APPL VAGINAL HS vaginal candiasis Days 7 TUBE Continued Medications: Lisinopril (Lisinopril) 10 Mg Tab 10 MG PO DAILY #30 Ref 0 TAB Brittani Black Jul 29, 2016 13:10 Demetrius Worthington MD Jul 29, 2016 17:52
--- NOTE | 2016-07-29 13:19 | HHI.IDPN ---
Subjective Subjective Remarks feels better NO Vaginal d/c and itching resolved afebrile absolute eosinoihils count keep going up now slightly @ 2.2 ortho surgeon rec'd conservative tx Antibiotics none Allergies: Coded Allergies: *MDRO Multi-Drug Resistant Organism (Verified Adverse Reaction, Unknown, ) MRSA (leg)-07/24/16; (wounds)-09/03/15; (ear)-11/26/15; (sputum)-06/19/16 Objective . Vital Signs Date Time Temp Pulse Resp B/P Pulse Ox O2 Delivery O2 Flow Rate FiO2 07/29/16 12:00 98.9 94 18 120/68 95 07/29/16 08:00 99.9 100 16 108/69 93 07/29/16 00:00 99.1 91 20 132/66 98 07/28/16 20:00 97.7 86 21 122/66 98 07/28/16 16:00 98.0 83 17 123/75 100 07/28/16 07/28/16 07/29/16 15:00 23:00 07:00 Intake Total 560 ml 360 ml 360 ml Output Total 700 ml Balance -140 ml 360 ml 360 ml Intake Oral 560 ml 360 ml 360 ml Output Urine Total 700 ml # Voids 2 3 # Bowel Movements 1 0 0 . Laboratory Tests Test 07/28/16 07/29/16 04:45 09:50 White Blood Count 5.9 TH/MM3 5.9 TH/MM3 Red Blood Count 3.24 MIL/MM3 3.31 MIL/MM3 Hemoglobin 9.9 GM/DL 9.9 GM/DL Hematocrit 29.0 % 29.9 % Mean Corpuscular Volume 89.6 FL 90.3 FL Mean Corpuscular Hemoglobin 30.6 PG 29.9 PG Mean Corpuscular Hemoglobin 34.1 % 33.1 % Concent Red Cell Distribution Width 15.5 % 15.3 % Platelet Count 249 TH/MM3 234 TH/MM3 Mean Platelet Volume 8.2 FL 8.0 FL Neutrophils (%) (Auto) 27.0 % 29.4 % Lymphocytes (%) (Auto) 22.3 % 22.9 % Monocytes (%) (Auto) 11.1 % 9.8 % Eosinophils (%) (Auto) 39.2 % 37.3 % Basophils (%) (Auto) 0.4 % 0.6 % Neutrophils # (Auto) 1.6 TH/MM3 1.7 TH/MM3 Lymphocytes # (Auto) 1.3 TH/MM3 1.4 TH/MM3 Monocytes # (Auto) 0.7 TH/MM3 0.6 TH/MM3 Eosinophils # (Auto) 2.3 TH/MM3 2.2 TH/MM3 Basophils # (Auto) 0.0 TH/MM3 0.0 TH/MM3 CBC Comment AUTO DIFF DIFF FINAL Differential Total Cells 100 Counted Neutrophils % (Manual) 27 % Band Neutrophils % 17 % Lymphocytes % 17 % Monocytes % 9 % Eosinophils % 26 % Neutrophils # (Manual) 2.8 TH/MM3 Metamyelocytes 4 % Differential Comment FINAL DIFF MANUAL Atypical Lymphocytes % Platelet Estimate NORMAL Platelet Morphology Comment NORMAL Laboratory Tests Test 07/28/16 04:45 Sodium Level 141 MEQ/L Potassium Level 4.3 MEQ/L Chloride Level 105 MEQ/L Carbon Dioxide Level 30.9 MEQ/L Anion Gap 5 MEQ/L Blood Urea Nitrogen 13 MG/DL Creatinine 1.04 MG/DL Estimat Glomerular Filtration 57 ML/MIN Rate Random Glucose 82 MG/DL Calcium Level 8.6 MG/DL Magnesium Level 1.7 MG/DL Imaging Last Impressions Pelvis MRI 07/25/16 0000 Signed Impressions: Service Date/Time: Monday, July 25, 2016 08:36 - CONCLUSION: 1. Right hip AVN 2. Bilateral nonspecific inguinal adenopathy. Nate Mera MD Chest CT 07/25/16 0000 Signed Impressions: Service Date/Time: Monday, July 25, 2016 08:17 - CONCLUSION: 1. Stable 1.3 cm cavitary nodule superior segment left lower lobe compared with July 17. Minimal basal atelectasis. Mild axillary adenopathy, stable. Kurt Underwood MD Lower Extremity CT 07/24/16 0000 Signed Impressions: Service Date/Time: Sunday, July 24, 2016 09:51 - CONCLUSION: There is no evidence for abscess or soft tissue induration. The lumbar spine was not evaluated. The SI joints are not evaluated.. Noah Beyer MD FACR Chest X-Ray 07/24/16 0000 Signed Impressions: Service Date/Time: Sunday, July 24, 2016 09:29 - CONCLUSION: Persisting cavitary mass in the left upper lung and suspected consolidation or atelectasis in the medial right upper and lower lungs. Shakir Livingston MD Physical Exam CONSTITUTIONAL/GENERAL: This is an adequately nourished patient, in no apparent distress. TUBES/LINES/DRAINS: SKIN: skin is dry scaly with scratch markes L posterior thigh abbscess - minimal d/c resolved erythema, no fluctuance; some whiote necrotic tissue present CARDIOVASCULAR: Regular rate and rhythm without murmurs, gallops, or rubs. No JVD. Peripheral pulses symmetric. RESPIRATORY/CHEST: Symmetric, unlabored respirations. Clear to auscultation. Breath sounds equal bilaterally. No wheezes, rales, or rhonchi. GASTROINTESTINAL: Abdomen soft, non-tender, nondistended. No hepato-splenomegaly , or palpable masses. No guarding. Bowel sounds present. GENITOURINARY: Without palpable bladder distension. MUSCULOSKELETAL: Extremities without clubbing, cyanosis, or edema. NEUROLOGICAL: Awake and alert. Motor and sensory grossly within normal limits. Follows commands. Normal speech. Moves all extremities. PSYCHIATRIC: calm , cooperative Assessment & Plan Remarks HIV/AIDS, non compliant - off HAART - syeda with Dr Moseley July 29 -last CD4 coount 151 1 mo ago R hip AVN - ortho rec'd observation MRSA pulmonary abscess with persistent cavitary mass on CXR - CT showed stable cavitary lesion Persistent eosinophilia, likely drug induced since on admission eos count was 0 - stable since yday Pyuria: - poorly collected UA (sq epis >5) in the abscence of disuria in a young pt wo h/o any conditions predisposing to neurogenic bladder - repeat UA is negative - monitor eosinophils as o/p - FU with pulmonolist for pulm cavitary lesion - FU with HIV provider - needs PCP proofilaxis (Bactrim DS Wed/We/Wed) ilene Worthington OK to [facility] Soo Hansen MD Jul 29, 2016 13:19
[2016-07-29] MEDS ORDERED: BACT800T5 PO (13:32)
--- NOTE | 2016-08-17 09:25 | PQ ---
Physician Query Response Document PATIENT: AMBROCIO MOSELEY : 1970 ADMIT DATE: 07/24/2016 11:33 AM DISCH DATE: 07/29/2016 1:47 PM RESPONDING PROVIDER #: Eschwart QUERY TEXT: HIV Clarification and Associated Conditions HIV (Human immunodeficiency virus) is documented in the medical record. Please specify the type Such as: -- Acquired immune deficiency syndrome [AIDS] -- [id number] complex [ARC] -- Symptomatic -- Asymptomatic -- With current or previous HIV-related condition (please specify related condition) -- Exposure to HIV -- Inconclusive serologic evidence of HIV -- Other, please specify Also please include any associated conditions, if applicable. The patient's Clinical Indicators include: Pt's last absolute CD4 count 06/25/16 was 151. Non-infected CD4+ cell count 600- 1500 cells/mcL Immune system is beginning to weaken CD4+ cell count greater than 350 but less than 500 cells/mcL weak immune system with increased risk for obpportunistic infections CD4+ count less than 350 cells/m cL AIDS and a pamela risk for opportunisdtic infections CD4+ cell count fewer than 200 cells/mcL Query created by: David Ortega on 07/28/2016 10:05 AM RESPONSE TEXT: Pt has HIV/AIDS. Unfortunately, pt is NOT compliant with her HIV treatment. Pt is experiencing sympto matic complications of untreated HIV infection. Electronically signed by: Joshua Duran DO 08/17/2016 9:21 AM
== END 2016-07-29 13:47 | disposition home or self-care (01) | DRG 977 ==
LOC: NEPC 08:49 → NEDA 11:33 → N07B 13:15
PROVIDERS: ADMIT Hospitalist; ATTEND Hospitalist
PROC: 0H9JXZX Drainage of Left Upper Leg Skin, External Approach, Diagnostic (ICD-10-PCS; principal; 2016-07-24)
DX: B20 Human immunodeficiency virus [HIV] disease (principal); D72.1 Eosinophilia; N39.0 Urinary tract infection, site not specified; M87.9 Osteonecrosis, unspecified; B37.3 Candidiasis of vulva and vagina; L02.416 Cutaneous abscess of left lower limb; Z91.19 Patient's noncompliance with other medical treatment and regimen; D89.1 Cryoglobulinemia; B18.2 Chronic viral hepatitis C; Z87.01 Personal history of pneumonia (recurrent); Z86.14 Personal history of Methicillin resistant Staphylococcus aureus infection; J98.4 Other disorders of lung; I10 Essential (primary) hypertension; E03.9 Hypothyroidism, unspecified; L27.0 Generalized skin eruption due to drugs and medicaments taken internally; T36.8X5A Adverse effect of other systemic antibiotics, initial encounter; Y92.239 Unspecified place in hospital as the place of occurrence of the external cause; L98.491 Non-pressure chronic ulcer of skin of other sites limited to breakdown of skin
CPT/HCPCS: 10060; 71010; 71250; 72197; 73700; 76937; 80048; 80053; 81001; 83605; 83735; 85007; 85025; 85027; 85652; 86140; 86403; 87040; 87070; 87077; 87086; 87147; 87186; 87205; 87210; 93005; 96361; 96374; A9579; J0692; J1170; J2270; J2405; J3370; J7030; J7050; Q0163; Q9967

== ENCOUNTER 2016-09-05 19:43 | Inpatient (IN) | payer OTHER ==
[~2016-09-05] VITALS: Ht 152.4 cm; Wt 56.9 kg
[~2016-09-05 19:43] MED LIST changes: -ASPI81CH CHEW; +BACT800T5 PO; -CYCL1TAB29 PO; -DOCU1CAP39 PO; -GUAI100S5 PO; -IBUP-232 PO; +LISI10TA3 PO; -NORC5TAB PO; +OXYC1TAB63 PO; +TERC.4%V VAGINAL; -ZYVO600T PO
[2016-09-05 19:44] VITALS: BP 167/99; PULSE 100; RESP 20; TEMP 97.8; O2SAT 100
--- NOTE | 2016-09-05 19:49 | PD ---
HPI Chief Complaint: GI Complaint Time Seen by Provider: 22:12 Travel History International Travel<30 days: No Contact w/Intl Traveler<30days: No Traveled to known affect area: No History of Present Illness HPI 46 year old female presents to the ED for evaluation of generalized weakness, nausea, vomiting worsening over the last 3 days with associated epigastric and left upper quadrant pain. Patient has been chilled without fever. Pain is a constant, sharp, stabbing. No hematemesis. Patient has had episode of diarrhea with no hematochezia. States that she is HIV positive and states she is taking her antiretroviral medication however she is unable to tell me which ones. She states that her last CD4 count was "good" however on record of her last visit her last CD4 count was 150. Patient denies a history of tinnitus. No cough or chest congestion. Patient was hospitalized in July for sepsis/ UTI. She has no other symptoms to report at this time. PFSH Past Medical History Hx Anticoagulant Therapy: No Arthritis: No Asthma: No Autoimmune Disease: Yes (HIV +) Blood Disorders: No Anxiety: No Depression: No Heart Rhythm Problems: No Cancer: No Cardiovascular Problems: Yes (HTN) High Cholesterol: No Chemotherapy: No Chest Pain: Yes Congestive Heart Failure: No COPD: No Cerebrovascular Accident: No Diabetes: No Diminished Hearing: No Diverticulitis: Yes Endocrine: No Gastrointestinal Disorders: No Genitourinary: Yes Headaches: Yes (seldom) Hepatitis: Yes (C) Hiatal Hernia: No Heparin Induced Thrombocytopen: No Hypertension: Yes Immune Disorder: Yes Inguinal Hernia: Yes Implanted Vascular Access Dvce: No Kidney Stones: Yes (removed in september 2015) Musculoskeletal: No Neurologic: No Psychiatric: No Reproductive: No Respiratory: No Immunizations Current: Yes Migraines: Yes Radiation Therapy: No Seizures: No Sickle Cell Disease: No Sleep Apnea: No Thyroid Disease: No Menopausal: No : 2 Para: 2 Miscarriage: 0 : 0 Ovarian Cysts: Yes (HAD REMOVED) Past Surgical History AICD: No Appendectomy: Yes Arteriovenous Shunt: No Cardiac Surgery: No Section: Yes (X 2) Cholecystectomy: Yes Ear Surgery: No Endocrine Surgery: No Eye Surgery: No Genitourinary Surgery: Yes (Kidney Stones surgery.) Gynecologic Surgery: No Hysterectomy: Yes (PARTIAL) Insulin Pump: No Joint Replacement: No Neurologic Surgery: No Oral Surgery: No Pacemaker: No Thoracic Surgery: No Tonsillectomy: Yes ( AND ADENOIDS CHILD) Other Surgery: Yes (Gallbladder, Appendectomy, Hysterectomy, 2 C-Sections, Tonsillectomy) Social History Alcohol Use: No Tobacco Use: No Substance Use: No Allergies-Medications (Allergen,Severity, Reaction): Coded Allergies: *MDRO Multi-Drug Resistant Organism (Verified Adverse Reaction, Unknown, ) MRSA (leg)-07/24/16; (wounds)-09/03/15; (ear)-11/26/15; (sputum)-06/19/16 Reported Meds & Prescriptions Reported Meds & Active Scripts Active Bactrim DS (Sulfamethoxazole-Trimethoprim) 800-160 Mg Tab 1 Tab PO MONWEDFRI 30 Days Terazol 7 Vaginal Cream (Terconazole Vaginal Cream) 0.4 % Cream 1 Appl VAGINAL HS 7 Days Oxycodone-Acetaminophen 5-325 mg Tab 1 Tab PO Q6H PRN Reported Lisinopril 10 Mg Tab 10 Mg PO DAILY Review of Systems Except as stated in HPI: all other systems reviewed are Neg Physical Exam Narrative GENERAL: Chronically ill female patient, lying in bed, in no acute distress. SKIN: Focused skin assessment warm/dry. Patient has generalized slightly erythematous, dry, cracked skin on her extremities. HEAD: Atraumatic. Normocephalic. EYES: Pupils equal and round. No scleral icterus. No injection or drainage. ENT: No nasal bleeding or discharge. Mucous membranes pink and moist. NECK: Trachea midline. No JVD. CARDIOVASCULAR: Elevated rate and rhythm. No murmur appreciated. RESPIRATORY: No accessory muscle use. Clear to auscultation. Breath sounds equal bilaterally. GASTROINTESTINAL: Abdomen soft, nondistended. Epigastric left upper quadrant tenderness with mild guarding.. Hepatic and splenic margins not palpable. MUSCULOSKELETAL: No obvious deformities. No clubbing. No cyanosis. No edema. NEUROLOGICAL: Awake and alert. No obvious cranial nerve deficits. Motor grossly within normal limits. Normal speech. Data Data Last Documented VS Vital Signs Date Time Temp Pulse Resp B/P Pulse Ox O2 Delivery O2 Flow Rate FiO2 09/05/16 22:05 98.9 100 15 149/74 100 Room Air Orders Complete Blood Count With Diff (09/05/16 19:55) Comprehensive Metabolic Panel (09/05/16 19:55) Lipase (09/05/16 19:55) Prothrombin Time / Inr (Pt) (09/05/16 19:55) Act Partial Throm Time (Ptt) (09/05/16 19:55) Urinalysis - C+S If Indicated (09/05/16 19:55) Iv Access Insert/Monitor (09/05/16 19:55) Ecg Monitoring (09/05/16 19:55) Oximetry (09/05/16 19:55) Ondansetron Inj (Zofran Inj) (09/05/16 20:00) Sodium Chlor 0.9% 1000 Ml Inj (Ns 1000 M (09/05/16 19:55) Sodium Chloride 0.9% Flush (Ns Flush) (09/05/16 20:00) Electrocardiogram (09/05/16 19:55) Ketorolac Inj (Toradol Inj) (09/05/16 20:00) Sodium Chlor 0.9% 1000 Ml Inj (Ns 1000 M (09/05/16 21:30) Insulin Human Regular Inj (Novolin R Inj (09/05/16 21:45) Dextrose 50% In Sai (Vial) Inj (D50w (Vi (09/05/16 21:45) Albuterol Concentrated Neb (Albuterol Co (09/05/16 21:45) Ct Abd/Pel W/O Iv Contrast (09/05/16 ) Morphine Inj (Morphine Inj) (09/05/16 22:00) Morphine Inj (Morphine Inj) (09/05/16 22:00) Labs Laboratory Tests Test 09/05/16 20:30 White Blood Count 13.4 TH/MM3 Red Blood Count 3.90 MIL/MM3 Hemoglobin 11.6 GM/DL Hematocrit 35.7 % Mean Corpuscular Volume 91.7 FL Mean Corpuscular Hemoglobin 29.7 PG Mean Corpuscular Hemoglobin 32.3 % Concent Red Cell Distribution Width 18.7 % Platelet Count 371 TH/MM3 Mean Platelet Volume 8.1 FL Neutrophils (%) (Auto) 78.3 % Lymphocytes (%) (Auto) 8.2 % Monocytes (%) (Auto) 12.8 % Eosinophils (%) (Auto) 0.3 % Basophils (%) (Auto) 0.4 % Neutrophils # (Auto) 10.5 TH/MM3 Lymphocytes # (Auto) 1.1 TH/MM3 Monocytes # (Auto) 1.7 TH/MM3 Eosinophils # (Auto) 0.0 TH/MM3 Basophils # (Auto) 0.1 TH/MM3 CBC Comment AUTO DIFF Differential Comment AUTO DIFF CONFIRMED Platelet Estimate NORMAL Platelet Morphology Comment NORMAL Red Cell Morphology Comment NORMAL Prothrombin Time 10.4 SEC Prothromb Time International 0.9 RATIO Ratio Activated Partial 24.5 SEC Thromboplast Time Sodium Level 138 MEQ/L Potassium Level 5.9 MEQ/L Chloride Level 114 MEQ/L Carbon Dioxide Level 15.3 MEQ/L Anion Gap 9 MEQ/L Blood Urea Nitrogen 65 MG/DL Creatinine 2.19 MG/DL Estimat Glomerular Filtration 24 ML/MIN Rate Random Glucose 110 MG/DL Calcium Level 10.0 MG/DL Total Bilirubin 0.4 MG/DL Aspartate Amino Transf 25 U/L (AST/SGOT) Alanine Aminotransferase 34 U/L (ALT/SGPT) Alkaline Phosphatase 151 U/L Total Protein 8.2 GM/DL Albumin 2.8 GM/DL Lipase 374 U/L [facility] Medical Decision Making Medical Screen Exam Complete: Yes Emergency Medical Condition: Yes Medical Record Reviewed: Yes Differential Diagnosis Pancreatitis versus gastritis versus sepsis versus medication noncompliance versus intractable vomiting versus electrolyte abnormality versus dehydration Narrative Course 46 year-old female presents to emergency department for evaluation of nausea and vomiting. Patient is noted to have epigastric and left upper quadrant tenderness to palpation. She is mildly tachycardic. CBC is with leukocytosis of 13.4 and neutrophilia of 10.5. CMP is a potassium of 5.9, creatinine 2.19 which is doubled from her visit one month ago, BUN is 65, GFR 24. I discussed the patient with my attending physician Dr. Howard who recommends insulin and D50 for the hyperkalemia. Patient is given IV fluids. CT imaging is ordered of the abdomen and pelvis without contrast based on creatinine. CT showed bilateral nonobstructing renal calculi and a fatty liver. Sepsis Criteria SIRS Criteria (2 or more): Heart rate over 90, WBC > 37863, < 4000 or > 10% bands Sepsis Criteria (SIRS+source): Infect source susp/known Severe Sepsis (+one): Organ Dysfunction Diagnosis Primary Impression: Nausea and vomiting in adult Additional Impressions: SAMUEL (acute kidney injury) Dehydration HIV (human immunodeficiency virus infection) Admitting Information Admitting Physician Requests: Admit Condition: Stable Yessica Lyon Sep 05, 2016 19:49
[2016-09-05] MEDS ORDERED: SODIUM CHLOR 0.9% 1000 ML INJ 1,000 ML IV SCH (19:55)
[2016-09-05] MEDS ORDERED: ONDANSETRON HCL 4 MG/2 ML VIAL IVP ONE (20:00)
[2016-09-05] MEDS ORDERED: KETOROLAC TROMETHAMINE 30 MG/ML (IVP) VIAL IVP ONE (20:00)
[2016-09-05] MEDS ORDERED: SODIUM CHLORIDE 0.9% FLUSH 10 ML FLUSH IV FLUSH PRN (20:00)
[2016-09-05 20:19] VITALS: BP 178/100; PULSE 97; RESP 18; TEMP 99.8; O2SAT 100
[2016-09-05 20:51] LABS: AUTOMATED NEUTROPHIL # 10.5 TH/MM3 (1.8-7.7); BASOPHIL # 0.1 TH/MM3 (0-0.2); BASOPHIL % 0.4 % (0.0-2.0); EOSINOPHIL % 0.3 % (0.0-4.0); HEMATOCRIT 35.7 % (35.0-46.0); LYMPH % 8.2 % (9.0-44.0); LYMPHOCYTE # 1.1 TH/MM3 (1.0-4.8); MEAN CELL VOLUME 91.7 FL (80.0-100.0); MEAN CORPUSCULAR HEMOGLOBIN 29.7 PG (27.0-34.0); MEAN CORPUSCULAR HGB CONC 32.3 % (32.0-36.0); MONO % 12.8 % (0.0-8.0); NEUT % 78.3 % (16.0-70.0); PLATELET COUNT 371 TH/MM3 (150-450); RED CELL DISTRIBUTION WIDTH 18.7 % (11.6-17.2); WHITE BLOOD COUNT 13.4 TH/MM3 (4.0-11.0)
[2016-09-05 20:54] LABS: HEMO FLAGS AUTO DIFF
[2016-09-05 21:04] LABS: APTT (PATIENT) 24.5 SEC (24.3-30.1); INTERNATIONAL NORMALIZED RATIO 0.9 RATIO; PROTHROMBIN TIME - PATIENT 10.4 SEC (9.8-11.6)
[2016-09-05 21:13] LABS: ANION GAP 9 MEQ/L (5-15); AST (GOT) 25 U/L (15-37); BICARBONATE 15.3 MEQ/L (21.0-32.0); BLOOD UREA NITROGEN 65 MG/DL (7-18); CHLORIDE 114 MEQ/L (98-107); GLOMERULAR FILTRATION RATE 24 ML/MIN (>89); POTASSIUM 5.9 MEQ/L (3.5-5.1); SODIUM (NA) 138 MEQ/L (136-145)
[2016-09-05 21:16] LABS: ALKALINE PHOSPHATASE 151 U/L (45-117); ALT (GPT) 34 U/L (10-53); TOTAL BILIRUBIN ADULT 0.4 MG/DL (0.2-1.0)
[2016-09-05 21:23] LABS: PLATELET ESTIMATE SMEAR NORMAL (NORMAL); PLATELET MORPHOLOGY NORMAL (NORMAL); SCAN/DIFF AUTO DIFF CONFIRMED
--- NOTE | 2016-09-05 21:27 | PD ---
Physical Exam Narrative I, Dr. Howard, have reviewed the advance practice practitioner's documentation and am in agreement, met with the patient face to face, made the diagnosis, and the medical decision making was done by me. *My assessment and Findings: Gastroenteritis vs. pancreatitis 46yo F with HIV unknown CD4 count here with diarrhea, vomiting, and abdominal pain. Labs reviewed, leukocytosis at 13.4. Mild hyperkalemia at 5.9. Pt treated with insulin 10 units, D5 50ml, and albuterol neb. CO2 low, likely GI loss. BUN/creatinine elevated at 65/2.19 compared to last BUN/creatinine of 13/ 1.04 on 07/28/16. Pt is very dehydrated and given 2 liters of NS IVF. Lipase 374. CTa/p showed bilateral nonobstructing renal stones and fatty liver. Pt to be admitted for SAMUEL. Data Data Last Documented VS Vital Signs Date Time Temp Pulse Resp B/P Pulse Ox O2 Delivery O2 Flow Rate FiO2 09/05/16 22:07 16 09/05/16 22:05 98.9 100 149/74 100 Room Air Orders Complete Blood Count With Diff (09/05/16 19:55) Comprehensive Metabolic Panel (09/05/16 19:55) Lipase (09/05/16 19:55) Prothrombin Time / Inr (Pt) (09/05/16 19:55) Act Partial Throm Time (Ptt) (09/05/16 19:55) Urinalysis - C+S If Indicated (09/05/16 19:55) Iv Access Insert/Monitor (09/05/16 19:55) Ecg Monitoring (09/05/16 19:55) Oximetry (09/05/16 19:55) Ondansetron Inj (Zofran Inj) (09/05/16 20:00) Sodium Chlor 0.9% 1000 Ml Inj (Ns 1000 M (09/05/16 19:55) Sodium Chloride 0.9% Flush (Ns Flush) (09/05/16 20:00) Electrocardiogram (09/05/16 19:55) Ketorolac Inj (Toradol Inj) (09/05/16 20:00) Sodium Chlor 0.9% 1000 Ml Inj (Ns 1000 M (09/05/16 21:30) Insulin Human Regular Inj (Novolin R Inj (09/05/16 21:45) Dextrose 50% In Sai (Vial) Inj (D50w (Vi (09/05/16 21:45) Albuterol Concentrated Neb (Albuterol Co (09/05/16 21:45) Ct Abd/Pel W/O Iv Contrast (09/05/16 ) Morphine Inj (Morphine Inj) (09/05/16 22:00) Morphine Inj (Morphine Inj) (09/05/16 22:00) Piperacil-Tazo 2.25 Gm Premix (Zosyn 2.2 (09/05/16 22:45) Vancomycin Inj (Vancomycin Inj) (09/05/16 22:45) Admit To Inpatient (09/05/16 ) Code Status (09/05/16 22:33) Vital Signs (Adult) Q4H (09/05/16 22:33) Activity Oob With Assistance (09/05/16 22:33) Diet Regular Basic (09/06/16 Breakfast) Sodium Chloride 0.9% Flush (Ns Flush) (09/05/16 22:45) Sodium Chloride 0.9% Flush (Ns Flush) (09/06/16 09:00) Acetaminophen (Tylenol) (09/05/16 22:45) Ondansetron Inj (Zofran Inj) (09/05/16 22:45) Magnesium Hydroxide Liq (Milk Of Magnesi (09/05/16 22:45) Temazepam (Restoril) (09/05/16 22:45) Basic Metabolic Panel (Bmp) (09/06/16 06:00) Complete Blood Count With Diff (09/06/16 06:00) Chest, Single Ap (09/05/16 22:33) Pt Request For Service (09/05/16 22:33) Scd Bilateral/Knee High ADOLPH.BID (09/05/16 22:33) Naloxone Inj (Narcan Inj) (09/05/16 22:45) Inpatient Certification (09/05/16 ) Sodium Chlor 0.45% 1000 Ml Inj (1/2 Ns 1 (09/05/16 22:45) Lisinopril (Prinivil) (09/06/16 09:00) Oxycodone-Acetamin 5-325 Mg (Percocet (09/05/16 22:45) Clonidine (Catapres) (09/05/16 22:45) Vancomycin Inj (Vancomycin Inj) (09/06/16 11:00) Piperacil-Tazo 3.375 Gm Premix (Zosyn 3. (09/06/16 05:00) Admit Order (Ed Use Only) (09/05/16 22:44) Blood Culture (09/05/16 22:44) Labs Laboratory Tests Test 09/05/16 20:30 Prothrombin Time 10.4 SEC Prothromb Time International 0.9 RATIO Ratio Activated Partial 24.5 SEC Thromboplast Time Sodium Level 138 MEQ/L Potassium Level 5.9 MEQ/L Chloride Level 114 MEQ/L Carbon Dioxide Level 15.3 MEQ/L Anion Gap 9 MEQ/L Blood Urea Nitrogen 65 MG/DL Creatinine 2.19 MG/DL Estimat Glomerular Filtration 24 ML/MIN Rate Random Glucose 110 MG/DL Calcium Level 10.0 MG/DL Total Bilirubin 0.4 MG/DL Aspartate Amino Transf 25 U/L (AST/SGOT) Alanine Aminotransferase 34 U/L (ALT/SGPT) Alkaline Phosphatase 151 U/L Total Protein 8.2 GM/DL Albumin 2.8 GM/DL Lipase 374 U/L White Blood Count 13.4 TH/MM3 Red Blood Count 3.90 MIL/MM3 Hemoglobin 11.6 GM/DL Hematocrit 35.7 % Mean Corpuscular Volume 91.7 FL Mean Corpuscular Hemoglobin 29.7 PG Mean Corpuscular Hemoglobin 32.3 % Concent Red Cell Distribution Width 18.7 % Platelet Count 371 TH/MM3 Mean Platelet Volume 8.1 FL Neutrophils (%) (Auto) 78.3 % Lymphocytes (%) (Auto) 8.2 % Monocytes (%) (Auto) 12.8 % Eosinophils (%) (Auto) 0.3 % Basophils (%) (Auto) 0.4 % Neutrophils # (Auto) 10.5 TH/MM3 Lymphocytes # (Auto) 1.1 TH/MM3 Monocytes # (Auto) 1.7 TH/MM3 Eosinophils # (Auto) 0.0 TH/MM3 Basophils # (Auto) 0.1 TH/MM3 CBC Comment AUTO DIFF Differential Comment AUTO DIFF CONFIRMED Platelet Estimate NORMAL Platelet Morphology Comment NORMAL Red Cell Morphology Comment NORMAL MDM Supervised Visit with LISSA: Yes Interpretation(s) EKG: NSR 94bpm. Normal axis. No ST segment elevation or depression. Diagnosis Primary Impression: SAMUEL (acute kidney injury) Admitting Information Admitting Physician Requests: Admit Jeannette Howard DO Sep 05, 2016 21:27
[2016-09-05] MEDS ORDERED: SODIUM CHLOR 0.9% 1000 ML INJ 1,000 ML IV ONE (21:30)
[2016-09-05] MEDS ORDERED: RESP: ALBUTEROL CONC 2.5 MG/0.5 ML NEB INH ONE (21:45)
[2016-09-05] MEDS ORDERED: INSULIN HUMAN REGULAR 1,000 UNITS/10 ML VIAL IV PUSH ONE (21:45)
[2016-09-05] MEDS ORDERED: DEXTROSE 50% IN WATER 50 ML VIAL(D50) IV PUSH ONE (21:45)
[2016-09-05] MEDS ORDERED: MORPHINE SULFATE 8 MG/ML INJ IV PUSH ONE (22:00)
[2016-09-05] MEDS ORDERED: MORPHINE SULFATE 8 MG/ML INJ ONE (22:00)
[2016-09-05 22:05] VITALS: BP 149/74; PULSE 100; RESP 15; TEMP 98.9; O2SAT 100
--- NOTE | 2016-09-05 22:16 | RADRPT ---
EXAM DATE/TIME: 09/05/2016 21:44 [facility] COMPARISON: CT ABDOMEN & PELVIS W/O CONTRAST, June 20, 2015, 10:25. INDICATIONS : Nausea, vomiting and abdominal pain X 6 days. ORAL CONTRAST: No oral contrast ingested. RADIATION DOSE: 4.62 CTDIvol (mGy) MEDICAL HISTORY : Hypertension. Diverticulitis. Renal calculi.HIV SURGICAL HISTORY : Appendectomy. Cholecystectomy.Hysterectomy. ENCOUNTER: Initial ACUITY: 4 - 6 days PAIN SCALE: 6/10 LOCATION: abdomen TECHNIQUE: Volumetric scanning of the abdomen and pelvis was performed. Using automated exposure control and ad justment of the mA and/or kV according to patient size, radiation dose was kept as low as reasonably achievable to obtain optimal diagnostic quality images. FINDINGS: CT Abdomen: The spleen, pancreas, adrenals are unremarkable. There is no evidence for any appreciable pathological adenopathy, free fluid, or bowel obstruction. The liver is fatty without focal lesions or technique. There is evidence for prior cholecystectomy. There are stones in both kidneys. The lar gest stone in the right kidney measures 1.1 cm in size in the lower pole and there are a total of 6 m ay be 7 separate stones in the right kidney. The largest stone in the left kidney measures 8 mm in si ze and there are 2 separate stones possibly 3 in the left lower pole kidney. There is no ureteral sto ne and there is no hydronephrosis on either side. CT pelvis: There is no evidence for mass, abscess formation, or any significant adenopathy within the pelvis. CONCLUSION: Bilateral nonobstructing renal stones and fatty liver. Radha Rodriguez MD on September 05, 2016 at 22:08 Board Certified Radiologist. This report was verified electronically.
[2016-09-05] MEDS ORDERED: MAGNESIUM HYDROXIDE SUSP 30 ML CUP PO PRN (22:45)
[2016-09-05] MEDS ORDERED: NALOXONE HCL 0.4 MG/ML AMP IV PRN (22:45)
[2016-09-05] MEDS ORDERED: cloNIDine HCL 0.2 MG TAB PO PRN (22:45)
[2016-09-05] MEDS ORDERED: VANCOMYCIN INJ 1,000 MG in SODIUM CHLOR 0.9% 250 ML INJ 250 ML IV ONE (22:45)
[2016-09-05] MEDS ORDERED: PIPERACIL-TAZO 2.25 GM PREMIX 50 ML IV ONE (22:45)
[2016-09-05] MEDS ORDERED: ACETAMINOPHEN 325 MG TAB PO PRN (22:45)
--- NOTE | 2016-09-05 22:50 | RADRPT ---
EXAM DATE/TIME: 09/05/2016 22:31 [facility] COMPARISON: CHEST SINGLE AP, July 24, 2016, 9:29. INDICATIONS : Fever and shortness of breath. MEDICAL HISTORY : Hypertension. Diverticulitis. Renal calculi.HIV SURGICAL HISTORY : Appendectomy. Cholecystectomy.Hysterectomy. ENCOUNTER: Initial ACUITY: 4 - 6 days PAIN SCORE: 0/10 LOCATION: Bilateral chest FINDINGS: The lungs are clear without infiltrate, nodule, or mass. There is no appreciable pleural effusion fo r technique. Heart and mediastinum are unremarkable. CONCLUSION: No acute cardiopulmonary disease. Radha Rodriguez MD on September 05, 2016 at 22:48 Board Certified Radiologist. This report was verified electronically.
[2016-09-05] MEDS: SODIUM CHLOR 0.45% 1000 ML INJ 1,000 ML IV SCH (23:15)
[2016-09-05] MEDS: ONDANSETRON HCL 4 MG/2 ML VIAL IVP PRN (23:35)
[2016-09-06] VITALS (8 sets, daily range): BP systolic 111–155; BP diastolic 67–85; PULSE 85–94; RESP 16–20; TEMP 96.7–98.1; O2SAT 94–100
[2016-09-06 00:12] LABS: BACTERIA, URINE MANY /hpf; BLOOD, URINE NEG (NEG); COMMENT (UR) CULTURE INDICATED; CULTURE IF INDICATED CULTURE INDICATED; GLUCOSE,URINE NEG (NEG); KETONE, URINE NEG (NEG); NITRITE,URINE POS (NEG); PH, URINE 5.5 (5.0-8.5); SQUAMOUS EPITHELIAL CELL URINE 1 /hpf (0-5); URINE COLOR YELLOW (YELLW/STRAW)
[2016-09-06] MEDS: oxyCODONE/ACETAMINOPHEN 5 MG/325 MG TAB PO PRN ×4 (00:50→18:01)
[2016-09-06] MEDS: TEMAZEPAM 15 MG CAP PO PRN ×2 (02:25→23:27)
[2016-09-06] MEDS: ONDANSETRON HCL 4 MG/2 ML VIAL IVP PRN ×4 (02:26→23:27)
[2016-09-06] MEDS: SODIUM CHLOR 0.45% 1000 ML INJ 1,000 ML IV SCH ×3 (06:22→23:19)
[2016-09-06] MEDS: PIPERACIL-TAZO 3.375 GM PREMIX 50 ML IV SCH ×4 (06:22→23:19)
[2016-09-06] MEDS ORDERED: LISINOPRIL 10 MG TAB PO SCH (09:00)
[2016-09-06] MEDS: SODIUM CHLORIDE 0.9% FLUSH 10 ML FLUSH IV FLUSH SCH ×2 (09:00→23:18)
[2016-09-06] MEDS: VANCOMYCIN INJ 1,000 MG in SODIUM CHLOR 0.9% 250 ML INJ 250 ML IV SCH ×2 (11:17→23:27)
--- NOTE | 2016-09-06 11:54 | HHI.HP ---
HPI Service [facility] Hospitalists Primary Care Physician Nikia Stone M.D. Admission Diagnosis nausea/vomiting; Leukocytosis; r/o sepsis Chief Complaint: n/v Travel History International Travel<30 Days: No Contact w/Intl Traveler <30 Da: No Traveled to Known Affected Are: No History of Present Illness Pt was recently hospitalized d/t MRSA pneumonia with noted cavitary lung lesions in 06/2016. Pt was seen by Pulmonology and Chest CT showed RML/RLL patchy infiltrates and left lower lung thick walled cavitary lesion, measuring 1.3cm. Workup at that time was negative for TB and sputum culture grew out MRSA. Pt was treated with Zyvox x 2 weeks per ID. 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 Pt has not yet followed up with Dr. Moseley for treatment recommendations for her HIV/Hep C. She was readmitted 07/24-07/29/16 for left post thigh superficial MRSA abscess s/ p I&D in the ED and severe vaginal/inguinal yeast infection with complaints of severe right hip pain. Pt was seen by [facility] and had a pelvic examination and was noted felt to have a chronic fungal infection. She was prescribed Diflucan and Terconazole topical antifungal vaginal cream. Pt received Vancomycin and Cefepime in the ER for the left thigh abscess. LE CT (07/24/16) No evidence for abscess or soft tissue induration. ID was consulted. Vancomycin was stopped due to suspected reaction with a rash. Zyvox was started on 07/24. CT chest noted a stable 1.3cm cavitary nodule superior segment left lower lobe compared with July 17, minimal basal atelectasis, and mild axillary adenopathy, stable. Pelvic MRI noted right hip AVN and bilateral nonspecific inguinal adenopathy. Orthopedic surgery evaluated and recommended conservative management. Pt had better success and less pain with using a walker for ambulating. Her labs were monitored during this admission and it was noted that her eosinophil counts were trending up. Zyvox and Diflucan were stopped on 07/28. Prior to discharge pt stated that she had an upcoming appointment with her outpt ID physician Dr. Moseley. She was counseled again on the importance of f/u and resume HIV medications. Pt has been off HIV medication for over 1 year. Her last CD4 absolute count was 151 in 06/2016. ID has recommended that the pt be on Bactrim DS i po on Wed-Wed-Wed. Pt was to followup with Dr. Madera in the next 2-3 weeks for monitoring of her AVN. Pt was to f/u with Pulmonary Medicine. She was previously seen by Pulmonology during her admission in 06/2016. She can followup with Dr. Hess in 1 month for scheduling a repeat CT Chest within the next 3 months for close monitoring of the stable cavitary lung nodule. Pt returned to the [facility] 09/05/16 with c/o generalized weakness, nausea, vomiting worsening over the last 3 days with associated epigastric and left upper quadrant pain. Patient has been chilled without fever. Pain is a constant, sharp, stabbing. No hematemesis. Patient has had episode of diarrhea with no hematochezia. Pt states that she has had [address] Moseley and was started on the following drug regimen: - fluconizole 200mg daily - azithromycin 500mg q Wednesday - hydroxyzine 25mg daily - Bactrim DS daily - valacyclovir 1 gram daily - also prescription of bactrim DS BID - Genvoya one tablet daily - doxycycline 100mg BID - Pt also c/o itching and generalized pain. Pt recently started on MS Contin 15mg BID by Dr. Moseley, but she does NOT feel that this has been too helpful and would prefer IV pain medication. Review of Systems Constitutional: DENIES: Diaphoretic episodes, Fatigue, Fever, Weight gain, Weight loss, Chills, Dizziness, Change in appetite, Night Sweats Endocrine: DENIES: Heat/cold intolerance, Polydipsia, Polyuria, Polyphagia Eyes: DENIES: Blurred vision, Diplopia, Eye inflammation, Eye pain, Vision loss , Photosensitivity, Double Vision Ears, nose, mouth, throat: DENIES: Tinnitus, Hearing loss, Vertigo, Nasal discharge, Oral lesions, Throat pain, Hoarseness, Ear Pain, Running Nose, Epistaxis, Sinus Pain, Toothache, Odynophagia Respiratory: DENIES: Apneas, Cough, Snoring, Wheezing, Hemoptysis, Sputum production, Shortness of breath Cardiovascular: DENIES: Chest pain, Palpitations, Syncope, Dyspnea on Exertion , PND, Lower Extremity Edema, Orthopnea, Claudication Gastrointestinal: DENIES: Abdominal pain, Black stools, Bloody stools, BRB per rectum, Constipation, Diarrhea, GERD, Nausea, Reflux, Vomiting, Difficulty Swallowing, Anorexia Genitourinary: DENIES: Urinary frequency, Urinary incontinence, Urgency, Hematuria, Dysuria, Nocturia Musculoskeletal: DENIES: Joint pain, Muscle aches, Stiffness, Joint Swelling, Back pain, Neck pain Integumentary: DENIES: Abnormal pigmentation, Pruritus, Rash, Nail changes, Breast masses, Breast skin changes, Nipple discharge Hematologic/lymphatic: DENIES: Bruising, Lymphadenopathy Immunologic/allergic: DENIES: Eczema, Urticaria Neurologic: DENIES: Abnormal gait, Headache, Localized weakness, Paresthesias, Seizures, Speech Problems, Tremor, Poor Balance Psychiatric: DENIES: Anxiety, Confusion, Mood changes, Depression, Hallucinations, Agitation, Suicidal Ideation, Homicidal Ideation, Delusions, History of Bipolar, History of Schizophrenia Past Family Social History Past Medical History 1. HIV, untreated. Last CD4 151 06/2016 2. Hepatitis C 3. Cryoglobulinemia 4. Nephrolithiasis 5. Hypertension 6. Ureter kidney stones s/p stent placement with Hx of E.coli and sepsis. 7. Hx candidiasis 8. Chronic left leg pain 9 . Hip AVN Past Surgical History 1. Hysterectomy and salpingectomy 2. Lysis of adhesion abdomen/pelvis 3. Lap spencer 4. Left leg 4 compartment fasciotomy for compartment syndrome Reported Medications Reported Meds & Active Scripts Active Bactrim DS (Sulfamethoxazole-Trimethoprim) 800-160 Mg Tab 1 Tab PO MONWEDFRI 30 Days Terazol 7 Vaginal Cream (Terconazole Vaginal Cream) 0.4 % Cream 1 Appl VAGINAL HS 7 Days Oxycodone-Acetaminophen 5-325 mg Tab 1 Tab PO Q6H PRN Reported Lisinopril 10 Mg Tab 10 Mg PO DAILY Allergies: Coded Allergies: *MDRO Multi-Drug Resistant Organism (Verified Adverse Reaction, Unknown, ) MRSA (leg)-07/24/16; (wounds)-09/03/15; (ear)-11/26/15; (sputum)-06/19/16 Family History Non-contributory Social History - No alcohol - No tobacco abuse - No illicit drug use, but prior h/o cocaine abuse Physical Exam Vital Signs Vital Signs Date Time Temp Pulse Resp B/P Pulse Ox O2 Delivery O2 Flow Rate FiO2 09/06/16 08:00 97.9 94 20 155/85 99 09/06/16 07:32 16 09/06/16 04:00 98.1 85 16 128/75 98 09/06/16 01:15 98.0 89 17 135/78 100 09/05/16 22:07 16 09/05/16 22:05 98.9 100 15 149/74 100 Room Air 09/05/16 21:27 16 09/05/16 20:19 99.8 97 18 178/100 100 Room Air 09/05/16 19:44 97.8 100 20 167/99 100 Physical Exam GENERAL: This is a well-nourished, well-developed patient, in no apparent distress. SKIN: No rashes, ecchymoses or lesions. Cool and dry. HEAD: Atraumatic. Normocephalic. No temporal or scalp tenderness. EYES: Pupils equal round and reactive. Extraocular motions intact. No scleral icterus. No injection or drainage. ENT: Nose without bleeding, purulent drainage or septal hematoma. Throat without erythema, tonsillar hypertrophy or exudate. Uvula midline. Airway patent. NECK: Trachea midline. No JVD or lymphadenopathy. Supple, nontender, no meningeal signs. CARDIOVASCULAR: Regular rate and rhythm without murmurs, gallops, or rubs. RESPIRATORY: Clear to auscultation. Breath sounds equal bilaterally. No wheezes , rales, or rhonchi. GASTROINTESTINAL: Abdomen soft, non-tender, nondistended. No hepato-splenomegaly , or palpable masses. No guarding. MUSCULOSKELETAL: Extremities without clubbing, cyanosis, or edema. No joint tenderness, effusion, or edema noted. No calf tenderness. Negative Homans sign bilaterally. NEUROLOGICAL: Awake and alert. Cranial nerves II through XII intact. Motor and sensory grossly within normal limits. Five out of 5 muscle strength in all muscle groups. Normal speech. Laboratory Laboratory Tests Test 09/05/16 09/05/16 20:30 23:30 Prothrombin Time 10.4 Prothromb Time International 0.9 Ratio Activated Partial 24.5 Thromboplast Time Sodium Level 138 Potassium Level 5.9 Chloride Level 114 Carbon Dioxide Level 15.3 Anion Gap 9 Blood Urea Nitrogen 65 Creatinine 2.19 Estimat Glomerular Filtration 24 Rate Random Glucose 110 Calcium Level 10.0 Total Bilirubin 0.4 Aspartate Amino Transf 25 (AST/SGOT) Alanine Aminotransferase 34 (ALT/SGPT) Alkaline Phosphatase 151 Total Protein 8.2 Albumin 2.8 Lipase 374 White Blood Count 13.4 Red Blood Count 3.90 Hemoglobin 11.6 Hematocrit 35.7 Mean Corpuscular Volume 91.7 Mean Corpuscular Hemoglobin 29.7 Mean Corpuscular Hemoglobin 32.3 Concent Red Cell Distribution Width 18.7 Platelet Count 371 Mean Platelet Volume 8.1 Neutrophils (%) (Auto) 78.3 Lymphocytes (%) (Auto) 8.2 Monocytes (%) (Auto) 12.8 Eosinophils (%) (Auto) 0.3 Basophils (%) (Auto) 0.4 Neutrophils # (Auto) 10.5 Lymphocytes # (Auto) 1.1 Monocytes # (Auto) 1.7 Eosinophils # (Auto) 0.0 Basophils # (Auto) 0.1 CBC Comment AUTO DIFF Differential Comment AUTO DIFF CONFIRMED Platelet Estimate NORMAL Platelet Morphology Comment NORMAL Red Cell Morphology Comment NORMAL Urine Color YELLOW Urine Turbidity HAZY Urine pH 5.5 Urine Specific [place] 1.014 Urine Protein TRACE Urine Glucose (UA) NEG Urine Ketones NEG Urine Occult Blood NEG Urine Nitrite POS Urine Bilirubin NEG Urine Urobilinogen LESS THAN 2.0 Urine Leukocyte Esterase NEG Urine WBC 2 Urine Squamous Epithelial 1 Cells Urine Bacteria MANY Microscopic Urinalysis Comment CULTURE INDICATED Date/Time Procedure Status Source Growth 09/05/16 23:30 Urine Culture Received Urine Clean Catch Pending 09/05/16 23:00 Aerobic Blood Culture - Preliminary Resulted Blood Peripheral NO GROWTH IN 1 DAY 09/05/16 23:00 Anaerobic Blood Culture - Preliminary Resulted Blood Peripheral NO GROWTH IN 1 DAY Result Diagram: 09/05/16202909/05/162029 Imaging Last Impressions Chest X-Ray 09/05/163 Signed Impressions: Service Date/Time: Monday, September 05, 2016 22:31 - CONCLUSION: No acute cardiopulmonary disease. Radha Rodriguez MD Abdomen/Pelvis CT 09/05/16 0000 Signed Impressions: Service Date/Time: Monday, September 05, 2016 21:44 - CONCLUSION: Bilateral nonobstructing renal stones and fatty liver. Radha Rodriguez MD Septic Shock Reassessment Heart: Regular rate and rhythm Lungs: Clear Skin: Warm Peripheral Pulses: Bounding Right Radial Bounding Left Radial Bounding Right Popliteal Bounding Left Popliteal Bounding Right Dorsalis Pedis Bounding Left Dorsalis Pedis Bounding Right Posterior Tibial Bounding Left Posterior Tibial Capillary Refill: Brisk Assessment and Plan Problem List: (1) Nausea and vomiting in adult Status: Acute Plan: - CT abd/pelvis (09/05/16) --> NO acute findings - LFTs (09/05/16) --> WNL, except alk phos 151 - elevated BUN/Cr - IVFs - encourage PO intake - possible gastroenteritis - anticipate d/c in 1-2 days (2) Dehydration Status: Acute Plan: - see above (3) Malaise Status: Acute Plan: - pt c/o generalized weakness - Upon admission in the ER pt c/o chills without fever - Tmax since admission 99.8 - NO c/o increased cough, increased SOB, or dysuria - stop ABX this evening - await repeat CBC - repeat CBC in AM - blood Cx (09/05/16) --> NO growth to date - Urine Cx (09/05/16) --> pending - follow culture results (4) Hypertension, benign Status: Chronic Plan: - stable - continue lisinopril (5) Cavitary lesion of lung Status: Acute Plan: - Pt should f/u with Pulm MedDr. Hess outpt - Pt will need f/u CT chest to reassess Pulmonary cavitary lesion (6) Hepatitis C Status: Chronic Plan: - f/u with Dr. Moseley outpt (7) HIV (human immunodeficiency virus infection) Status: Chronic Plan: - f/u with Dr. Moseley outpt - Physician Certification 2 Midnight Certification Type: Admission for Inpatient Services Order for Inpatient Services The services are ordered in accordance with Medicare regulations or non- Medicare payer requirements, as applicable. In the case of services not specified as inpatient-only, they are appropriately provided as inpatient services in accordance with the 2-midnight benchmark. Estimated LOS (days): 3 3 days is the estimated time the patient will need to remain in the hospital, assuming treatment plan goals are met and no additional complications. Post-Hospital Plan: Not yet determined Problem Qualifiers (1) Hepatitis C: Qualified Code: B18.2 - Chronic hepatitis C without hepatic coma Joshua Duran DO Sep 06, 2016 11:54
[2016-09-06] MEDS: GENVOYA PO SCH (12:30)
[2016-09-06 12:31] LABS: BICARBONATE 13.2 MEQ/L (21.0-32.0)
[2016-09-06] MEDS: MORPHINE SULFATE 15 MG CONTROLLED RELEASE TAB PO SCH ×2 (12:45→23:18)
[2016-09-06] MEDS: SULFAMETHOXAZOLE-TRIMETHOPRIM DS 800-160 MG TAB PO SCH (12:45)
[2016-09-06] MEDS: valACYclovir HCL 500 MG TAB PO SCH (12:45)
[2016-09-06] MEDS: FLUCONAZOLE 200 MG TAB PO SCH (12:45)
[2016-09-06] MEDS ORDERED: RESP: ALBUTEROL 2.5 MG/3 ML NEB (SCH) NEB ONE (13:30)
[2016-09-06] MEDS ORDERED: CALCIUM GLUCONATE INJ 1 GM in DEXTROSE 5% IN WATER 100ML INJ 100 ML IV ONE ×2 (14:00)
[2016-09-06] MEDS: EUCERIN CREAM 120 GM JAR TOPICAL SCH ×2 (14:47→18:07)
[2016-09-06 17:27] LABS: AUTOMATED NEUTROPHIL # 7.9 TH/MM3 (1.8-7.7); BASOPHIL % 0.1 % (0.0-2.0); EOSINOPHIL # 0.6 TH/MM3 (0-0.4); EOSINOPHIL % 6.7 % (0.0-4.0); HEMATOCRIT 27.6 % (35.0-46.0); LYMPH % 3.3 % (9.0-44.0); LYMPHOCYTE # 0.3 TH/MM3 (1.0-4.8); MEAN CELL VOLUME 92.3 FL (80.0-100.0); MEAN CORPUSCULAR HEMOGLOBIN 30.6 PG (27.0-34.0); MEAN CORPUSCULAR HGB CONC 33.2 % (32.0-36.0); MONO % 4.5 % (0.0-8.0); NEUT % 85.4 % (16.0-70.0); PLATELET COUNT 242 TH/MM3 (150-450); RED CELL DISTRIBUTION WIDTH 19.2 % (11.6-17.2); WHITE BLOOD COUNT 9.2 TH/MM3 (4.0-11.0)
[2016-09-06 17:29] LABS: HEMO FLAGS AUTO DIFF
[2016-09-06 17:41] LABS: BICARBONATE 16.1 MEQ/L (21.0-32.0); POTASSIUM 5.2 MEQ/L (3.5-5.1)
[2016-09-06 17:54] LABS: PLATELET ESTIMATE SMEAR NORMAL (NORMAL); PLATELET MORPHOLOGY NORMAL (NORMAL); SCAN/DIFF AUTO DIFF CONFIRMED
[2016-09-06] MEDS ORDERED: SODIUM POLYSTYRENE SULFONATE SUSP 15 GM/60 ML CUP PO ONE (18:00)
[2016-09-06] MEDS: hydrOXYzine HCL 25 MG TAB PO PRN ×2 (18:01→23:27)
--- NOTE | 2016-09-06 22:35 | EKG ---
Date Performed: 09/05/2016 Time Performed: 20:31:26 PTAGE: 46 years EKG: Sinus rhythm WITH SHORT HI INTERVAL NONSPECIFIC T-WAVE ABNORMALITY BORDERLINE ECG PREVIOUS TRACING : 07/24/2016 10.00 Compared to prior tracing no significant change DOCTOR: Abdoulaye Jimenez Interpretating Date/Time 09/06/2016 22:34:55
[2016-09-07] VITALS (9 sets, daily range): BP systolic 107–134; BP diastolic 56–76; PULSE 88–116; RESP 16–18; TEMP 97.1–98.8; O2SAT 97–100
[2016-09-07] MEDS: oxyCODONE/ACETAMINOPHEN 5 MG/325 MG TAB PO PRN ×3 (03:57→18:35)
[2016-09-07] MEDS: SODIUM CHLOR 0.45% 1000 ML INJ 1,000 ML IV SCH (05:15)
[2016-09-07] MEDS: hydrOXYzine HCL 25 MG TAB PO PRN ×2 (05:50→20:38)
[2016-09-07 08:01] LABS: AUTOMATED NEUTROPHIL # 5.8 TH/MM3 (1.8-7.7); BASOPHIL % 0.3 % (0.0-2.0); EOSINOPHIL # 0.7 TH/MM3 (0-0.4); EOSINOPHIL % 9.6 % (0.0-4.0); HEMATOCRIT 28.2 % (35.0-46.0); LYMPH % 4.3 % (9.0-44.0); LYMPHOCYTE # 0.3 TH/MM3 (1.0-4.8); MEAN CELL VOLUME 92.2 FL (80.0-100.0); MEAN CORPUSCULAR HEMOGLOBIN 29.5 PG (27.0-34.0); MONO % 6.3 % (0.0-8.0); NEUT % 79.5 % (16.0-70.0); PLATELET COUNT 225 TH/MM3 (150-450); RED BLOOD COUNT 3.06 MIL/MM3 (4.00-5.30); RED CELL DISTRIBUTION WIDTH 18.6 % (11.6-17.2); WHITE BLOOD COUNT 7.3 TH/MM3 (4.0-11.0)
--- NOTE | 2016-09-07 08:10 | HHI.PR ---
Subjective Remarks eating more. Objective Vitals heart reg lung cta abd s/nt ext no edema Vital Signs Date Time Temp Pulse Resp B/P Pulse Ox O2 Delivery O2 Flow Rate FiO2 09/07/16 05:04 16 09/07/16 04:00 97.6 96 17 134/76 99 09/07/16 00:40 16 09/07/16 00:00 97.1 88 16 107/66 100 09/06/16 20:00 96.7 93 16 123/76 100 09/06/16 19:14 94 21 09/06/16 16:00 98.0 91 17 111/67 94 09/06/16 12:00 96.9 90 20 125/83 100 09/06/16 09/06/16 09/07/16 15:00 23:00 07:00 Intake Total 960 ml 480 ml Output Total 200 ml Balance 960 ml 280 ml Intake Oral 960 ml 480 ml Output Urine Total 200 ml # Voids 2 # Bowel Movements 1 Result Diagram: 09/06/16 1646 09/06/16 1646 Imaging Last Impressions Chest X-Ray 09/05/16 2233 Signed Impressions: Service Date/Time: Monday, September 05, 2016 22:31 - CONCLUSION: No acute cardiopulmonary disease. Radha Rodriguez MD Abdomen/Pelvis CT 09/05/16 0000 Signed Impressions: Service Date/Time: Monday, September 05, 2016 21:44 - CONCLUSION: Bilateral nonobstructing renal stones and fatty liver. Radha Rodriguez MD A/P Problem List: (1) SAMUEL (acute kidney injury) Status: Acute Plan: Pt presented with acute n/v and dehydration Found to have uti and samuel/ckd 3 with hyperkalemia recent initiation of HIV meds and prophylactic antimicrobials noted. ..if not improvement in pt sxs will consider these as culprit cont ivf hydration cont abx to cover for previous bacteria/sensitivities. f/u cx sensitivities advance diet and activity. hold leslie cont hiv meds try to dc tomorrow. (2) UTI (urinary tract infection) Status: Acute Plan: above (3) Nausea and vomiting in adult Status: Acute Plan: - CT abd/pelvis (09/05/16) --> NO acute findings - LFTs (09/05/16) --> WNL, except alk phos 151 -see above (4) Dehydration Status: Acute Plan: - see above (5) Hypertension, benign Status: Chronic Plan: hold leslie (6) Cavitary lesion of lung Status: Acute Plan: - Pt should f/u with Pulm Med, Dr. Hess outpt - Pt will need f/u CT chest to reassess Pulmonary cavitary lesion (7) Hepatitis C Status: Chronic Plan: - f/u with Dr. Moseley outpt (8) HIV (human immunodeficiency virus infection) Status: Chronic Plan: - f/u with Dr. Moseley outpt - Problem Qualifiers (1) Hepatitis C: Qualified Code: B18.2 - Chronic hepatitis C without hepatic coma Demetrius Worthington MD September 07, 2016 08:10
[2016-09-07 08:11] LABS: HEMO FLAGS AUTO DIFF
[2016-09-07 08:34] LABS: BICARBONATE 17.8 MEQ/L (21.0-32.0); MAGNESIUM 1.5 MG/DL (1.5-2.5); POTASSIUM 4.4 MEQ/L (3.5-5.1)
[2016-09-07 08:36] LABS: BANDS 2 % (0-6); BASOPHILS 3 % (0-2); CORRECTED NUCLEATED RBC 1 /100 WBC (0-0); EOSINOPHILS 7 % (0-4); PLATELET ESTIMATE SMEAR NORMAL (NORMAL); PLATELET MORPHOLOGY NORMAL (NORMAL); POLYS (SEG NEUTROPHILS) 80 % (16-70); SCAN/DIFF FINAL DIFF MANUAL; WBC DIFF SAMPLE 100
[2016-09-07] MEDS: EUCERIN CREAM 120 GM JAR TOPICAL SCH ×3 (09:00→18:00)
[2016-09-07] MEDS: SODIUM CHLORIDE 0.9% FLUSH 10 ML FLUSH IV FLUSH SCH ×2 (09:00→20:43)
[2016-09-07] MEDS: GENVOYA PO SCH (09:17)
[2016-09-07] MEDS: valACYclovir HCL 500 MG TAB PO SCH (09:18)
[2016-09-07] MEDS: MORPHINE SULFATE 15 MG CONTROLLED RELEASE TAB PO SCH ×2 (09:18→20:38)
[2016-09-07] MEDS: SULFAMETHOXAZOLE-TRIMETHOPRIM DS 800-160 MG TAB PO SCH (09:18)
[2016-09-07] MEDS: ONDANSETRON HCL 4 MG/2 ML VIAL IVP PRN ×3 (09:18→22:55)
[2016-09-07] MEDS: FLUCONAZOLE 200 MG TAB PO SCH (09:18)
[2016-09-07] MEDS: CEFEPIME INJ 2,000 MG in SODIUM CHLORIDE 0.9% INJ 100 ML IV SCH (09:19)
[2016-09-07] MEDS: SODIUM CHLOR 0.9% 1000 ML INJ 1,000 ML IV SCH ×2 (09:29→18:15)
[2016-09-07] MEDS: TEMAZEPAM 15 MG CAP PO PRN (22:55)
[2016-09-07] MEDS: SODIUM CHLORIDE 0.9% FLUSH 10 ML FLUSH IV FLUSH PRN (22:56)
[2016-09-08] VITALS (7 sets, daily range): BP systolic 102–134; BP diastolic 55–81; PULSE 72–99; RESP 16–19; TEMP 98–98.8; O2SAT 98–100
[2016-09-08] MEDS: SODIUM CHLOR 0.9% 1000 ML INJ 1,000 ML IV SCH (03:04)
[2016-09-08] MEDS: oxyCODONE/ACETAMINOPHEN 5 MG/325 MG TAB PO PRN ×4 (04:24→22:10)
[2016-09-08 08:47] LABS: BICARBONATE 18.5 MEQ/L (21.0-32.0); POTASSIUM 3.9 MEQ/L (3.5-5.1)
--- NOTE | 2016-09-08 09:21 | RADRPT ---
EXAM DATE/TIME: 09/08/2016 08:55 [facility] COMPARISON: CT BRAIN W/O CONTRAST, December 09, 2015, 15:40. INDICATIONS : Fall last night, Right side head pain. RADIATION DOSE: 35.01 CTDIvol (mGy) MEDICAL HISTORY : Hypertension. Cardiovascular disease HIV. SURGICAL HISTORY : None. ENCOUNTER: Initial ACUITY: 2 days PAIN SCALE: 3/10 LOCATION: Right cranial TECHNIQUE: Multiple contiguous axial images were obtained of the head. Using automated exposure control and adj ustment of the mA and/or kV according to patient size, radiation dose was kept as low as reasonably a chievable to obtain optimal diagnostic quality images. FINDINGS: CEREBRUM: The ventricles are normal for age. No evidence of midline shift, mass lesion, hemorrhage or acute in farction. No extra-axial fluid collections are seen. POSTERIOR FOSSA: The cerebellum and brainstem are intact. The 4th ventricle is midline. The cerebellopontine angle i s unremarkable. EXTRACRANIAL: The visualized portion of the orbits is intact. SKULL: The calvaria is intact. No evidence of skull fracture. CONCLUSION: Normal examination. Shakir Miller MD on September 08, 2016 at 9:17 Board Certified Radiologist. This report was verified electronically.
--- NOTE | 2016-09-08 09:28 | RADRPT ---
EXAM DATE/TIME: 09/08/2016 09:09 [facility] COMPARISON: No previous studies available for comparison. INDICATIONS : Fell. MEDICAL HISTORY : hx of MRSA, HIV SURGICAL HISTORY : None. ENCOUNTER: Initial ACUITY: 1 day PAIN SCORE: 10/10 LOCATION: Right hip and pelvis FINDINGS: Examination of the right hip was performed with AP Pelvis. The primary and secondary trabecular hemalatha danni of the femoral neck is intact. The hip joint is of normal width without significant sclerosis or bony hypertrophy. The acetabulum is grossly intact. CONCLUSION: Unremarkable examination of the right hip. Shakir Miller MD on September 08, 2016 at 9:19 Board Certified Radiologist. This report was verified electronically.
[2016-09-08] MEDS: CEFEPIME INJ 2,000 MG in SODIUM CHLORIDE 0.9% INJ 100 ML IV SCH (10:11)
[2016-09-08] MEDS: GENVOYA PO SCH (10:11)
[2016-09-08] MEDS: SULFAMETHOXAZOLE-TRIMETHOPRIM DS 800-160 MG TAB PO SCH (10:12)
[2016-09-08] MEDS: MORPHINE SULFATE 15 MG CONTROLLED RELEASE TAB PO SCH ×2 (10:12→22:10)
[2016-09-08] MEDS: valACYclovir HCL 500 MG TAB PO SCH (10:12)
[2016-09-08] MEDS: FLUCONAZOLE 200 MG TAB PO SCH (10:12)
[2016-09-08] MEDS: SODIUM CHLORIDE 0.9% FLUSH 10 ML FLUSH IV FLUSH SCH ×2 (10:13→21:00)
[2016-09-08] MEDS: EUCERIN CREAM 120 GM JAR TOPICAL SCH ×3 (10:20→16:00)
--- NOTE | 2016-09-08 10:29 | HHI.PR ---
Subjective Remarks pt reportedly had a fall in bathroom no LOC but pt not quite sure of the mechanism for fall hit head and right hip. Objective Vitals no scalp lac oriented following commands heart reg lung cta abd s/nt ext right hip tenderness over joint and laterally. Vital Signs Date Time Temp Pulse Resp B/P Pulse Ox O2 Delivery O2 Flow Rate FiO2 09/08/16 04:00 98.4 99 18 134/81 98 09/08/16 00:00 98.7 91 16 109/59 100 09/07/16 23:30 116 09/07/16 23:00 97.1 92 16 117/60 98 09/07/16 20:30 98.0 90 16 114/56 100 09/07/16 19:16 89 09/07/16 16:00 98.5 90 18 116/59 100 09/07/16 12:00 98.7 91 16 125/66 97 09/07/16 09/07/16 09/08/16 15:00 23:00 07:00 Intake Total 600 ml 400 ml 700 ml Output Total 200 ml Balance 600 ml 400 ml 500 ml TPN/PPN 600 ml 400 ml 700 ml Output Urine Total 200 ml # Voids 3 # Bowel Movements 7 1 Result Diagram: 09/07/16 0653 09/08/16 0659 Imaging Last Impressions Chest X-Ray 09/05/16 2233 Signed Impressions: Service Date/Time: Monday, September 05, 2016 22:31 - CONCLUSION: No acute cardiopulmonary disease. Radha Rodriguez MD Abdomen/Pelvis CT 09/05/16 0000 Signed Impressions: Service Date/Time: Monday, September 05, 2016 21:44 - CONCLUSION: Bilateral nonobstructing renal stones and fatty liver. Radha Rodriguez MD A/P Problem List: (1) SAMUEL (acute kidney injury) Status: Acute Plan: Pt presented with acute n/v and dehydration Found to have uti and samuel/ckd 3 with hyperkalemia recent initiation of HIV meds and prophylactic antimicrobials noted. ..if not improvement in pt sxs will consider these as culprit s/p fall with no LOC. right hip pain. struck head also ct head and right hip pending d/c ivf.. renal function better cont abx iv for today advance diet and activity. hold leslie cont hiv meds (2) UTI (urinary tract infection) Status: Acute Plan: above (3) Nausea and vomiting in adult Status: Acute Plan: - CT abd/pelvis (09/05/16) --> NO acute findings - LFTs (09/05/16) --> WNL, except alk phos 151 -see above (4) Dehydration Status: Acute Plan: - see above (5) Hypertension, benign Status: Chronic Plan: hold leslie (6) Cavitary lesion of lung Status: Acute Plan: - Pt should f/u with Pulm Med, Dr. Hess outpt - Pt will need f/u CT chest to reassess Pulmonary cavitary lesion (7) Hepatitis C Status: Chronic Plan: - f/u with Dr. Moseley outpt (8) HIV (human immunodeficiency virus infection) Status: Chronic Plan: - f/u with Dr. Moseley outpt - Problem Qualifiers (1) Hepatitis C: Qualified Code: B18.2 - Chronic hepatitis C without hepatic coma Demetrius Worthington MD September 08, 2016 10:29
[2016-09-08] MEDS ORDERED: AZITHROMYCIN 250 MG TAB PO SCH (12:30)
[2016-09-08] MEDS: hydrOXYzine HCL 25 MG TAB PO PRN (12:50)
[2016-09-08] MEDS: ONDANSETRON HCL 4 MG/2 ML VIAL IVP PRN ×2 (15:59→22:10)
[2016-09-09] VITALS (7 sets, daily range): BP systolic 102–145; BP diastolic 53–81; PULSE 81–100; RESP 18–20; TEMP 96.6–98.2; O2SAT 97–100
[2016-09-09] MEDS: TEMAZEPAM 15 MG CAP PO PRN ×2 (00:08→23:14)
[2016-09-09] MEDS: ONDANSETRON HCL 4 MG/2 ML VIAL IVP PRN ×4 (04:01→23:18)
[2016-09-09] MEDS: oxyCODONE/ACETAMINOPHEN 5 MG/325 MG TAB PO PRN ×4 (04:06→23:15)
[2016-09-09] MEDS: hydrOXYzine HCL 25 MG TAB PO PRN (06:13)
[2016-09-09] MEDS: valACYclovir HCL 500 MG TAB PO SCH (08:34)
[2016-09-09] MEDS: FLUCONAZOLE 200 MG TAB PO SCH (08:34)
[2016-09-09] MEDS: MORPHINE SULFATE 15 MG CONTROLLED RELEASE TAB PO SCH ×2 (08:34→20:26)
[2016-09-09] MEDS: SULFAMETHOXAZOLE-TRIMETHOPRIM DS 800-160 MG TAB PO SCH (08:34)
[2016-09-09] MEDS: CEFEPIME INJ 2,000 MG in SODIUM CHLORIDE 0.9% INJ 100 ML IV SCH (08:34)
[2016-09-09] MEDS: GENVOYA PO SCH (08:35)
[2016-09-09] MEDS: SODIUM CHLORIDE 0.9% FLUSH 10 ML FLUSH IV FLUSH SCH ×2 (08:50→20:26)
[2016-09-09] MEDS: EUCERIN CREAM 120 GM JAR TOPICAL SCH ×2 (08:51→17:10)
--- NOTE | 2016-09-09 09:28 | HHI.PR ---
Subjective Remarks now c/o lower abdomen pain. This started prior to admission. denies constipation. no vomiting. ambulated since her fall. Objective Vitals heart reg lung cta abd s/nt. bs ext no edema Vital Signs Date Time Temp Pulse Resp B/P Pulse Ox O2 Delivery O2 Flow Rate FiO2 09/09/16 04:17 97.2 81 18 121/62 100 09/09/16 00:00 97.2 90 18 102/54 98 09/08/16 20:23 98.3 83 19 102/57 98 09/08/16 20:02 94 09/08/16 16:00 98.8 81 16 115/55 99 09/08/16 12:00 98.7 86 16 108/57 99 09/08/16 09/08/16 09/09/16 15:00 23:00 07:00 Intake Total 1920 ml 900 ml Output Total 1800 ml 1200 ml Balance 120 ml -300 ml Intake Oral 1920 ml 900 ml Output Urine Total 1800 ml 1200 ml # Voids 3 # Bowel Movements 2 0 Result Diagram: 09/07/16 0653 09/08/16 0659 Imaging Last Impressions Chest X-Ray 09/05/16 2233 Signed Impressions: Service Date/Time: Monday, September 05, 2016 22:31 - CONCLUSION: No acute cardiopulmonary disease. Radha Rodriguez MD Abdomen/Pelvis CT 09/05/16 0000 Signed Impressions: Service Date/Time: Monday, September 05, 2016 21:44 - CONCLUSION: Bilateral nonobstructing renal stones and fatty liver. Radha Rodriguez MD A/P Problem List: (1) SAMUEL (acute kidney injury) Status: Acute Plan: Pt presented with acute n/v and dehydration Found to have uti and samuel/ckd 3 with hyperkalemia recent initiation of HIV meds and prophylactic antimicrobials noted. ..if not improvement in pt sxs will consider these as culprit ecoli uti c/o lower abdomen pains. making it hard to eat. s/p fall with no LOC. right hip pain. struck head also. no fx or bleed kub f/u pending bloodwork. cont iv abx ambulate today (2) UTI (urinary tract infection) Status: Acute Plan: above (3) Nausea and vomiting in adult Status: Acute Plan: - CT abd/pelvis (09/05/16) --> NO acute findings - LFTs (09/05/16) --> WNL, except alk phos 151 -see above (4) Dehydration Status: Acute Plan: - see above (5) Hypertension, benign Status: Chronic Plan: hold leslie (6) Cavitary lesion of lung Status: Acute Plan: - Pt should f/u with Pulm Med, Dr. Hess outpt - Pt will need f/u CT chest to reassess Pulmonary cavitary lesion (7) Hepatitis C Status: Chronic Plan: - f/u with Dr. Moseley outpt (8) HIV (human immunodeficiency virus infection) Status: Chronic Plan: - f/u with Dr. Moseley outpt - Problem Qualifiers (1) Hepatitis C: Qualified Code: B18.2 - Chronic hepatitis C without hepatic coma Demetrius Worthington MD September 09, 2016 09:28
[2016-09-09] MEDS: SODIUM CHLORIDE 0.9% FLUSH 10 ML FLUSH IV FLUSH PRN (10:59)
[2016-09-09 11:27] LABS: AUTOMATED NEUTROPHIL # 3.7 TH/MM3 (1.8-7.7); BASOPHIL % 0.2 % (0.0-2.0); EOSINOPHIL # 0.6 TH/MM3 (0-0.4); EOSINOPHIL % 12.3 % (0.0-4.0); HEMATOCRIT 25.7 % (35.0-46.0); LYMPH % 5.8 % (9.0-44.0); LYMPHOCYTE # 0.3 TH/MM3 (1.0-4.8); MEAN CELL VOLUME 90.2 FL (80.0-100.0); MEAN CORPUSCULAR HEMOGLOBIN 30.7 PG (27.0-34.0); MONO % 10.6 % (0.0-8.0); NEUT % 71.1 % (16.0-70.0); PLATELET COUNT 204 TH/MM3 (150-450); RED BLOOD COUNT 2.85 MIL/MM3 (4.00-5.30); WHITE BLOOD COUNT 5.2 TH/MM3 (4.0-11.0)
[2016-09-09 11:28] LABS: HEMO FLAGS AUTO DIFF
[2016-09-09 12:08] LABS: BANDS 1 % (0-6); BASOPHILS 1 % (0-2); EOSINOPHILS 10 % (0-4); MYELOCYTES 1 % (0-0); NEUTROPHIL # MANUAL DIFF 3.9 TH/MM3 (1.8-7.7); POLYS (SEG NEUTROPHILS) 73 % (16-70); WBC DIFF SAMPLE 100
[2016-09-09 12:09] LABS: PLATELET ESTIMATE SMEAR NORMAL (NORMAL); PLATELET MORPHOLOGY NORMAL (NORMAL); SCAN/DIFF FINAL DIFF MANUAL
--- NOTE | 2016-09-09 13:49 | RADRPT ---
EXAM DATE/TIME: 09/09/2016 10:24 [facility] COMPARISON: CT ABDOMEN & PELVIS W/O CONTRAST, September 05, 2016, 21:44. INDICATIONS : Patient has had abdomen pain for two weeks. She also states she has been vomiting over that period of time. MEDICAL HISTORY : Hypertension. Hiatal hernia. Diverticulitis. Renal calculi.HIV SURGICAL HISTORY : Cholecystectomy. Appendectomy. Hysterectomy. ENCOUNTER: Subsequent ACUITY: 2 weeks PAIN SCORE: 10/10 LOCATION: Bilateral Abdomen. FINDINGS: Stones overlie the kidneys bilaterally. Intestinal gas pattern is nonspecific and benign with gas pre sent throughout colon. No dilated small bowel loops appreciated. Regional skeleton is grossly intact. The gallbladder is surgically absent. CONCLUSION: Bilateral nephrolithiasis. Shakir Miller MD on September 09, 2016 at 13:45 Board Certified Radiologist. This report was verified electronically.
[2016-09-10] VITALS: BP 120/66; PULSE 89; RESP 16; TEMP 96.7; O2SAT 100
[2016-09-10] MEDS: hydrOXYzine HCL 25 MG TAB PO PRN ×2 (02:15→08:19)
[2016-09-10 04:00] VITALS: BP 117/65; PULSE 80; RESP 16; TEMP 97.9; O2SAT 100
[2016-09-10] MEDS: ONDANSETRON HCL 4 MG/2 ML VIAL IVP PRN ×2 (05:31→11:42)
[2016-09-10] MEDS: oxyCODONE/ACETAMINOPHEN 5 MG/325 MG TAB PO PRN ×2 (05:34→11:42)
[2016-09-10 06:55] LABS: BICARBONATE 25.9 MEQ/L (21.0-32.0); POTASSIUM 4.2 MEQ/L (3.5-5.1)
[2016-09-10 07:50] VITALS: BP 110/64; PULSE 80; RESP 20; TEMP 98.3; O2SAT 98
[2016-09-10] MEDS: SULFAMETHOXAZOLE-TRIMETHOPRIM DS 800-160 MG TAB PO SCH (08:18)
[2016-09-10] MEDS: FLUCONAZOLE 200 MG TAB PO SCH (08:18)
[2016-09-10] MEDS: valACYclovir HCL 500 MG TAB PO SCH (08:18)
[2016-09-10] MEDS: GENVOYA PO SCH (08:19)
[2016-09-10] MEDS: MORPHINE SULFATE 15 MG CONTROLLED RELEASE TAB PO SCH (08:19)
[2016-09-10] MEDS: SODIUM CHLORIDE 0.9% FLUSH 10 ML FLUSH IV FLUSH SCH (08:20)
[2016-09-10] MEDS: EUCERIN CREAM 120 GM JAR TOPICAL SCH ×2 (08:21→13:00)
--- NOTE | 2016-09-10 09:42 | HHI.PR ---
Subjective Remarks today she more c/o of elbow rash. says some chronic itchy rash on legs from before admission. Objective Vitals heart reg lung cta abd s/nt ext no edema left elbow red/excoriation no cellulitis Vital Signs Date Time Temp Pulse Resp B/P Pulse Ox O2 Delivery O2 Flow Rate FiO2 09/10/16 06:37 18 09/10/16 04:00 97.9 80 16 117/65 100 09/10/16 00:00 96.7 89 16 120/66 100 09/09/16 21:26 15 09/09/16 20:06 91 09/09/16 20:00 97.7 97 18 145/81 100 09/09/16 15:50 96.6 100 20 108/58 100 09/09/16 11:50 98.2 94 20 108/53 97 09/09/16 09/09/16 09/10/16 15:00 23:00 07:00 Intake Total 590 ml 600 ml Output Total 1150 ml 1200 ml 425 ml Balance -560 ml -600 ml -425 ml Intake Oral 590 ml 600 ml Output Urine Total 1150 ml 1200 ml 425 ml # Bowel Movements 0 Result Diagram: 09/09/16 1110 09/10/16 0542 Imaging Last Impressions Chest X-Ray 09/05/16 2233 Signed Impressions: Service Date/Time: Monday, September 05, 2016 22:31 - CONCLUSION: No acute cardiopulmonary disease. Radha Rodriguez MD Abdomen/Pelvis CT 09/05/16 0000 Signed Impressions: Service Date/Time: Monday, September 05, 2016 21:44 - CONCLUSION: Bilateral nonobstructing renal stones and fatty liver. Radha Rodriguez MD A/P Problem List: (1) SAMUEL (acute kidney injury) Status: Acute Plan: Pt presented with acute n/v and dehydration Found to have uti and samuel/ckd 3 with hyperkalemia recent initiation of HIV meds and prophylactic antimicrobials noted. ..if not improvement in pt sxs will consider these as culprit ecoli uti c/o lower abdomen pains. making it hard to eat. ct a/p and kub noted. ..no obstruction kidney stones s/p fall with no LOC. right hip pain. struck head also. no fx or bleed rash mostly on left arm and legs. topical steroid on left arm cont abx d/c home in next 24hrs. (2) UTI (urinary tract infection) Status: Acute Plan: above (3) Nausea and vomiting in adult Status: Acute Plan: - CT abd/pelvis (09/05/16) --> NO acute findings - LFTs (09/05/16) --> WNL, except alk phos 151 -see above (4) Dehydration Status: Acute Plan: - see above (5) Hypertension, benign Status: Chronic Plan: hold leslie (6) Cavitary lesion of lung Status: Acute Plan: - Pt should f/u with Pulm Med, Dr. Hess outpt - Pt will need f/u CT chest to reassess Pulmonary cavitary lesion (7) Hepatitis C Status: Chronic Plan: - f/u with Dr. Moseley outpt (8) HIV (human immunodeficiency virus infection) Status: Chronic Plan: - f/u with Dr. Moseley outpt - Problem Qualifiers (1) Hepatitis C: Qualified Code: B18.2 - Chronic hepatitis C without hepatic coma Demetrius Worthington MD September 10, 2016 09:41
[2016-09-10] MEDS: HYDROCORTISONE 1% OINT 30 GM TUBE TOPICAL SCH ×2 (09:45→15:11)
[2016-09-10] MEDS: CEFEPIME INJ 2,000 MG in SODIUM CHLORIDE 0.9% INJ 100 ML IV SCH (11:43)
[2016-09-10 11:50] VITALS: BP 102/55; PULSE 90; RESP 20; TEMP 98.4; O2SAT 99
[2016-09-10] MEDS ORDERED: AZIT500T2 PO (12:25)
[2016-09-10] MEDS ORDERED: ELVI1TAB3 PO (12:25)
[2016-09-10] MEDS ORDERED: BACT800T5 PO (12:25)
[2016-09-10] MEDS ORDERED: DIFL200T PO (12:25)
[2016-09-10] MEDS ORDERED: VALT1TAB PO (12:25)
[2016-09-10] MEDS ORDERED: MS C15TA2 PO (12:25)
[2016-09-10] MEDS ORDERED: HYDR1OIN TOPICAL (12:28)
[2016-09-10] MEDS ORDERED: HYDR-3133 PO (12:28)
--- NOTE | 2016-09-10 12:28 | HHI.DCPOC ---
Discharge Care Plan Diagnosis: (1) SAMUEL (acute kidney injury) (2) UTI (urinary tract infection) (3) HIV (human immunodeficiency virus infection) (4) Hepatitis C Goals to Promote Your Health * To prevent worsening of your condition and complications * To maintain your health at the optimal level Directions to Meet Your Goals Take your medications as prescribed Follow your dietary instruction Follow activity as directed Keep your appointments as scheduled Take your immunizations and boosters as scheduled If your symptoms worsen call your PCP, if no PCP go to Urgent Care Center or Emergency Room Smoking is Dangerous to Your Health. Avoid second hand smoke Call the 24-hour hour crisis hotline for domestic abuse at Demetrius Worthington MD September 10, 2016 12:28
[2016-09-10] MEDS ORDERED: NITR1CAP36 PO (12:31)
[2016-09-10] MEDS ORDERED: ZOFR4TAB3 SL (12:58)
[2016-09-10] MEDS ORDERED: HYDROCORTISONE 1% OINT 30 GM TUBE TOPICAL SCH (13:00)
[2016-09-10] MEDS ORDERED: hydrOXYzine HCL 25 MG TAB PO SCH (14:00)
--- NOTE | 2016-10-08 16:04 | HHI.DS ---
Discharge Summary Admission Date Sep 05, 2016 at 22:47 Discharge Date: September 10, 2016 Admitting Diagnosis nausea/vomiting; Leukocytosis; r/o sepsis (1) SAMUEL (acute kidney injury) Diagnosis: Principal (2) UTI (urinary tract infection) Diagnosis: Secondary (3) Nausea and vomiting in adult Diagnosis: Secondary (4) Dehydration Diagnosis: Secondary (5) Hypertension, benign Diagnosis: Secondary (6) Cavitary lesion of lung Diagnosis: Secondary (7) Hepatitis C Diagnosis: Secondary (8) HIV (human immunodeficiency virus infection) Diagnosis: Secondary Brief History Pt was recently hospitalized d/t MRSA pneumonia with noted cavitary lung lesions in 06/2016. Pt was seen by Pulmonology and Chest CT showed RML/RLL patchy infiltrates and left lower lung thick walled cavitary lesion, measuring 1.3cm. Workup at that time was negative for TB and sputum culture grew out MRSA. Pt was treated with Zyvox x 2 weeks per ID. 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 Pt has not yet followed up with Dr. Moseley for treatment recommendations for her HIV/Hep C. She was readmitted 07/24-07/29/16 for left post thigh superficial MRSA abscess s/ p I&D in the ED and severe vaginal/inguinal yeast infection with complaints of severe right hip pain. Pt was seen by [employer] [employer] and had a pelvic examination and was noted felt to have a chronic fungal infection. She was prescribed Diflucan and Terconazole topical antifungal vaginal cream. Pt received Vancomycin and Cefepime in the ER for the left thigh abscess. LE CT (07/24/16) No evidence for abscess or soft tissue induration. ID was consulted. Vancomycin was stopped due to suspected reaction with a rash. Zyvox was started on 07/24. CT chest noted a stable 1.3cm cavitary nodule superior segment left lower lobe compared with July 17, minimal basal atelectasis, and mild axillary adenopathy, stable. Pelvic MRI noted right hip AVN and bilateral nonspecific inguinal adenopathy. Orthopedic surgery evaluated and recommended conservative management. Pt had better success and less pain with using a walker for ambulating. Her labs were monitored during this admission and it was noted that her eosinophil counts were trending up. Zyvox and Diflucan were stopped on 07/28. Prior to discharge pt stated that she had an upcoming appointment with her outpt ID physician Dr. Moseley. She was counseled again on the importance of f/u and resume HIV medications. Pt has been off HIV medication for over 1 year. Her last CD4 absolute count was 151 in 06/2016. ID has recommended that the pt be on Bactrim DS i po on Wed-Wed-Wed. Pt was to followup with Dr. Madera in the next 2-3 weeks for monitoring of her AVN. Pt was to f/u with Pulmonary Medicine. She was previously seen by Pulmonology during her admission in 06/2016. She can followup with Dr. Hess in 1 month for scheduling a repeat CT Chest within the next 3 months for close monitoring of the stable cavitary lung nodule. Pt returned to the [facility] 09/05/16 with c/o generalized weakness, nausea, vomiting worsening over the last 3 days with associated epigastric and left upper quadrant pain. Patient has been chilled without fever. Pain is a constant, sharp, stabbing. No hematemesis. Patient has had episode of diarrhea with no hematochezia. Pt states that she has had [address] Moseley and was started on the following drug regimen: - fluconizole 200mg daily - azithromycin 500mg q Wednesday - hydroxyzine 25mg daily - Bactrim DS daily - valacyclovir 1 gram daily - also prescription of bactrim DS BID - Genvoya one tablet daily - doxycycline 100mg BID - Pt also c/o itching and generalized pain. Pt recently started on MS Contin 15mg BID by Dr. Moseley, but she does NOT feel that this has been too helpful and would prefer IV pain medication. Imaging Last Impressions Abdomen X-Ray 09/09/16 0000 Signed Impressions: Service Date/Time: Friday, September 09, 2016 10:24 - CONCLUSION: Bilateral nephrolithiasis. Shakir Miller MD Hip and Pelvis X-Ray 09/08/16 0000 Signed Impressions: Service Date/Time: Thursday, September 08, 2016 09:09 - CONCLUSION: Unremarkable examination of the right hip. Shakir Miller MD Head CT 09/08/16 0000 Signed Impressions: Service Date/Time: Thursday, September 08, 2016 08:55 - CONCLUSION: Normal examination. Shakir Miller MD Chest X-Ray 09/05/16 4403 Signed Impressions: Service Date/Time: Monday, September 05, 2016 22:31 - CONCLUSION: No acute cardiopulmonary disease. Radha Rodriguez MD Abdomen/Pelvis CT 09/05/16 0000 Signed Impressions: Service Date/Time: Monday, September 05, 2016 21:44 - CONCLUSION: Bilateral nonobstructing renal stones and fatty liver. Radha Rodriguez MD Hospital Course Pt presented with generalized weakness, nausea, vomiting which had been worsening over the last 3 days with associated epigastric and left upper quadrant pain. Pt had recently been started on HIV meds and prophylactic antimicrobials listed in the H&P. Found to have an E. coli UTI and SAMUEL/CKD, stage 3 with hyperkalemia. She complained that her lower abdomen pains were making it hard to eat. Pts LFTs at admission were essentially WNL, except alk phos 151. CT abd/pelvis and KUB noted bilateral nonobstructing renal stones.Pts abdominal pain, N/V did improve during this admission. During admission she had a fall in the bathroom with no LOC. Pt complained of resulting right hip pain and had struck head also. Head CT and hip and pelvic Xray done and there was no fx or noted bleed She had also developed a rash mostly on left arm and legs. Pt received topical steroids. Pt has hx of MRSA pneumonia with noted cavitary lung lesions in 06/2016. Pt should f/u with Pulm Med, Dr. Hess outpt. She will need f/u CT chest to reassess Pulmonary cavitary lesion She was continued on her previous regimen of antibiotics which she was on prior to admission Pt will need continued followup with Dr. Moseley regarding her HIV and Hepatitis C. Pt Condition on Discharge: Stable Discharge Disposition: Discharge Home Discharge Instructions DIET: Follow Instructions for: As Tolerated, No Restrictions Activities you can perform: Regular-No Restrictions Follow up Referrals: PCP Follow-up - [address] moseley New Medications: Ondansetron Odt (Zofran Odt) 4 Mg Tab 4 MG SL Q6HR PRN Nausea/Vomiting #30 Ref 0 TAB Continued Medications: Azithromycin (Azithromycin) 500 Mg Tab 500 MG PO qmonday Infection #0 Ref 0 TAB Mflztufncqae-Gekitruofu-Uelasodmxtwg-Tenofvir (Genvoya) 801-121-956-10 Mg Tab 1 TAB PO DAILY Mgmt Viral Infection #30 Ref 0 TAB Fluconazole (Diflucan) 200 Mg Tab 200 MG PO DAILY Infection Ref 0 TAB Morphine ER (Ms Contin) 15 Mg Tab 15 MG PO BID Pain Management Ref 0 TAB Sulfamethoxazole-Trimethoprim (Bactrim DS) 800-160 Mg Tab 1 TAB PO DAILY Infection Days 0 Ref 0 TAB Valacyclovir (Valtrex) 1 Gm Tab 1000 MG PO DAILY Mgmt Viral Infection #30 Ref 0 TAB Brittani Black Oct 08, 2016 16:04
== END 2016-09-10 15:55 | disposition home or self-care (01) | DRG 682 ==
LOC: NEPE 19:43 → NEDA 22:47 → HOCA 09-06 01:15
PROVIDERS: ADMIT Hospitalist; ATTEND Hospitalist
DX: N17.9 Acute kidney failure, unspecified (principal); B20 Human immunodeficiency virus [HIV] disease; N39.0 Urinary tract infection, site not specified; K76.0 Fatty (change of) liver, not elsewhere classified; E87.5 Hyperkalemia; I12.9 Hypertensive chronic kidney disease with stage 1 through stage 4 chronic kidney disease, or unspecified chronic kidney disease; N18.3 Chronic kidney disease, stage 3 (moderate); N20.0 Calculus of kidney; E86.0 Dehydration; B18.2 Chronic viral hepatitis C; R21 Rash and other nonspecific skin eruption; R91.1 Solitary pulmonary nodule; M25.551 Pain in right hip; W19.XXXA Unspecified fall, initial encounter; Y92.231 Patient bathroom in hospital as the place of occurrence of the external cause; Z86.14 Personal history of Methicillin resistant Staphylococcus aureus infection
CPT/HCPCS: 70450; 71010; 73502; 74000; 74176; 76937; 80048; 80053; 81001; 83690; 83735; 85007; 85025; 85027; 85610; 85730; 87040; 87077; 87086; 87186; 93005; 94640; 94664; 96374; 96375; J0610; J0692; J1815; J1885; J2270; J2405; J2543; J3370; J7030; J7050; J7611; J7613

== ENCOUNTER 2016-09-22 13:12 | Day surgery (SDC) | payer OTHER ==
[~2016-09-22 13:12] MED LIST changes: +AZIT500T2 PO; +DIFL200T PO; +ELVI1TAB3 PO; +HYDR-3133 PO; +HYDR1OIN TOPICAL; -LISI10TA3 PO; +MS C15TA2 PO; +NITR1CAP36 PO; -TERC.4%V VAGINAL; +VALT1TAB PO; +ZOFR4TAB3 SL
[2016-09-22 13:27] VITALS: BP 121/77; PULSE 81; RESP 20; TEMP 98.7; O2SAT 100
[2016-09-22 14:30] VITALS: BP 107/62; PULSE 84; RESP 20; TEMP 99.2; O2SAT 100
[2016-09-22] MEDS ORDERED: SODIUM CHLORIDE 0.9% FLUSH 10 ML FLUSH IVF PRN ×2 (14:45)
--- NOTE | 2016-09-22 14:46 | PD.RAD ---
Radiology Post PICC Prog Note Pre Procedure Diagnosis: (1) HIV (human immunodeficiency virus infection) Post Procedure Diagnosis: (1) HIV (human immunodeficiency virus infection) Procedure: Right PICC line placement Procedure Date: September 22, 2016 Supervising Radiologist Jason Kumar JR Proceduralist/Assist: RT Nika(R)() Device Side: Right [place]: 4 single lumen cm: 34 Catheter: Power PICC Plan of Activity Patient to Unit: ROPU Patient Condition: Good PICC line can be used immediately Jr. José,Jason Arango MD September 22, 2016 14:46
--- NOTE | 2016-09-22 15:44 | RADRPT ---
EXAM DATE/TIME: 09/22/2016 14:14 [facility] COMPARISON: No previous studies available for comparison. INDICATIONS : Patient is in need of placement of a peripheral central venous access line for medication administrat ion. MEDICAL HISTORY : History of HIV, oral thrush, avascular necrosis of hip, bursitis, MRSA, sacral decubitus ulcer, lung abscess, brachial neuritis, kidney stones. SURGICAL HISTORY : History of hyterectomy, qppendectomy, cholecystectomy, hernia repair, , kidney stone removal , right leg surgery. ENCOUNTER: Initial ACUITY: 1 day PAIN SCORE: 0/10 FLUORO TIME: 0.36 minutes IMAGE SERIES: 1 ACCESS: Right basilic vein MEDICATION(S): 1.) 200 units Heparin catheter lock DEVICE(S): 1.) 4 Mauritian single lumen 36 cm Xcela Power PICC PROCEDURE : 1. Ultrasound guidance for venous catheterization. 2. Fluoroscopic guidance. 3. Ultrasound & fluoroscopic guided central venous Power PICC line placement. The risks, benefits and alternatives to the procedure were explained and verbal and written consent w as obtained. The site was prepped in sterile fashion. Full sterile technique was used, including ca p, mask, sterile gloves and gown and a large sterile sheet. Hand hygiene and 2% chlorhexidine prep w as utilized per protocol for cutaneous antisepsis with appropriate dry time for site. The skin and s ubcutaneous tissues were infiltrated with local anesthetic solution. Under direct ultrasound guidance, a suitable vein was accessed and a measuring guidewire was introduc ed and positioned in the central venous system. The ultrasound images depicting access guidance were saved and stored to PACS for permanent record. A Power Injectable PICC line was cut to prescribed length and introduced, positioned with tip at the cavoatrial junction level. The line was flushed and secured per protocol. CONCLUSION: 1. Uncomplicated central venous Power PICC line placement. 2. The PICC line can be used immediately. Jason Kumar Jr., MD on September 22, 2016 at 15:41 Board Certified Radiologist. This report was verified electronically.
[2016-09-23] MEDS ORDERED: SODIUM CHLORIDE 0.9% FLUSH 10 ML FLUSH IVF SCH (09:00)
== END 2016-09-22 14:40 | disposition home or self-care (01) ==
LOC: HROP 13:12 → HRIP 13:12 → HROP 14:40
PROVIDERS: ATTEND Specialist
DX: B20 Human immunodeficiency virus [HIV] disease (principal); J85.2 Abscess of lung without pneumonia; B37.0 Candidal stomatitis; L98.413 Non-pressure chronic ulcer of buttock with necrosis of muscle; M87.88 Other osteonecrosis, other site; M54.12 Radiculopathy, cervical region; Z22.322 Carrier or suspected carrier of Methicillin resistant Staphylococcus aureus
CPT/HCPCS: 36569; 76937; 77001; C1751; J1642

== ENCOUNTER 2016-10-08 14:40 | Emergency (ER) | payer OTHER ==
[~2016-10-08] VITALS: Ht 144.8 cm; Wt 70.0 kg
[~2016-10-08 14:40] MED LIST changes: -HYDR-3133 PO; -HYDR1OIN TOPICAL; -NITR1CAP36 PO; -OXYC1TAB63 PO
[2016-10-08 14:46] VITALS: BP 158/94; PULSE 90; RESP 14; TEMP 97.6; O2SAT 100
[2016-10-08 15:46] VITALS: BP 150/76; PULSE 82; RESP 18; TEMP 98.8; O2SAT 100
--- NOTE | 2016-10-08 16:22 | PD ---
HPI Chief Complaint: Fall Time Seen by Provider: 15:44 Travel History International Travel<30 days: No Contact w/Intl Traveler<30days: No Traveled to known affect area: No History of Present Illness HPI The patient was seen and examined in the presence of the nurse. This is a prison patient with advanced HIV disease being treated by Dr. Moseley. I spoke with the prison nurse to get further history as the patient is unable to provide any history or review of systems. They've been managing her at the prison and has had a mental status decline over the last 4-5 days. She was sent here to get a blood transfusion I believe, but in the infusion center she fell. Reportedly threw a fit and fell out of the wheelchair. According to the nurse age she struck the side of her head. No LOC. Patient is mumbling in the bed and cannot follow commands or provide any details. The patient had a solid bowel movement in the wheelchair, not sure if this was intentional or not. PFSH Past Medical History Hx Anticoagulant Therapy: No Arthritis: No Asthma: No Autoimmune Disease: Yes (HIV) Blood Disorders: No Anxiety: No Depression: No Heart Rhythm Problems: No Cancer: No Cardiovascular Problems: Yes (HTN) High Cholesterol: No Chemotherapy: No Chest Pain: Yes Congestive Heart Failure: No COPD: No Cerebrovascular Accident: No Diabetes: No Diminished Hearing: No Diverticulitis: Yes Endocrine: No Gastrointestinal Disorders: No Genitourinary: Yes Headaches: Yes (seldom) Hepatitis: Yes Hiatal Hernia: No Heparin Induced Thrombocytopen: No Hypertension: Yes Immune Disorder: Yes Inguinal Hernia: Yes Implanted Vascular Access Dvce: No Kidney Stones: Yes Musculoskeletal: No Neurologic: No Psychiatric: No Reproductive: No Respiratory: No Immunizations Current: Yes Migraines: Yes Radiation Therapy: No Seizures: No Sickle Cell Disease: No Sleep Apnea: No Thyroid Disease: No Tetanus Vaccination: < 5 Years ?: Not Menopausal: No : 2 Para: 2 Miscarriage: 0 : 0 Ovarian Cysts: Yes (HAD REMOVED) Past Surgical History AICD: No Appendectomy: Yes Arteriovenous Shunt: No Cardiac Surgery: No Section: Yes (x2) Cholecystectomy: Yes Ear Surgery: No Endocrine Surgery: No Eye Surgery: No Genitourinary Surgery: Yes (Kidney Stones surgery.) Gynecologic Surgery: No Hysterectomy: Yes (PARTIAL) Insulin Pump: No Joint Replacement: No Neurologic Surgery: No Oral Surgery: No Pacemaker: No Thoracic Surgery: No Tonsillectomy: Yes ( AND ADENOIDS CHILD) Other Surgery: Yes (Gallbladder, Appendectomy, Hysterectomy, 2 C-Sections, Tonsillectomy) Social History Alcohol Use: Yes Tobacco Use: Yes Substance Use: No (pt denies) Allergies-Medications (Allergen,Severity, Reaction): Coded Allergies: *MDRO Multi-Drug Resistant Organism (Verified Adverse Reaction, Unknown, ) MRSA (leg)-07/24/16; (wounds)-09/03/15; (ear)-11/26/15; (sputum)-06/19/16 Reported Meds & Prescriptions Reported Meds & Active Scripts Active Zofran Odt (Ondansetron Odt) 4 Mg Tab 4 Mg SL Q6HR PRN Bactrim DS (Sulfamethoxazole-Trimethoprim) 800-160 Mg Tab 1 Tab PO DAILY 0 Days Reported Diflucan (Fluconazole) 200 Mg Tab 200 Mg PO DAILY Valtrex (Valacyclovir HCl) 1 Gm Tab 1,000 Mg PO DAILY Azithromycin 500 Mg Tab 500 Mg PO QMONDAY Ms Contin (Morphine Sulfate) 15 Mg Tab 15 Mg PO BID Genvoya (Rzaehzichybs-Rxhegligdb-Agwbxdbtmxlw-Tenofvir) [phone] Mg Tab 1 Tab PO DAILY Review of Systems ROS Limitations: Clinical Condition, Altered Mental Status, Uncooperative, Poor Historian Physical Exam Narrative GENERAL: Disheveled patient was lying in the bed mumbling to herself SKIN: Focused skin assessment reveals no rash and nodules. Skin is Warm and dry. HEAD: Atraumatic. Normocephalic. EYES: Pupils equal and round. No scleral icterus. No injection or drainage. ENT: No nasal bleeding or discharge. Mucous membranes pink and moist. NECK: Trachea midline. No JVD. No midline tenderness CARDIOVASCULAR: Regular rate and rhythm. No murmur appreciated. RESPIRATORY: No accessory muscle use. Clear to auscultation. Breath sounds equal bilaterally. GASTROINTESTINAL: Abdomen soft, non-tender, nondistended. Hepatic and splenic margins not palpable. MUSCULOSKELETAL: No obvious deformities. No clubbing. No cyanosis. No edema. NEUROLOGICAL: Awake but confused. No obvious cranial nerve deficits. Altered gauge motor strength or sensation given her limited participation. Mumbling hard to understand speech. PSYCHIATRIC: Appropriate mood and affect; insight and judgment poor . Data Data Last Documented VS Vital Signs Date Time Temp Pulse Resp B/P Pulse Ox O2 Delivery O2 Flow Rate FiO2 10/08/16 18:34 72 16 129/80 100 Nasal Cannula 2 10/08/16 15:46 98.8 Orders Complete Blood Count With Diff (10/08/16 15:57) Basic Metabolic Panel (Bmp) (10/08/16 15:57) Mri Brain W&W/O Contrast (10/08/16 ) Type And Screen (10/08/16 16:10) Midazolam Inj (Versed Inj) (10/08/16 18:15) Labs Laboratory Tests Test 10/08/16 16:15 White Blood Count 4.0 TH/MM3 Red Blood Count 2.65 MIL/MM3 Hemoglobin 8.0 GM/DL Hematocrit 24.4 % Mean Corpuscular Volume 92.1 FL Mean Corpuscular Hemoglobin 30.1 PG Mean Corpuscular Hemoglobin 32.6 % Concent Red Cell Distribution Width 21.6 % Platelet Count 265 TH/MM3 Mean Platelet Volume 7.4 FL Neutrophils (%) (Auto) 37.3 % Lymphocytes (%) (Auto) 24.3 % Monocytes (%) (Auto) 27.8 % Eosinophils (%) (Auto) 8.6 % Basophils (%) (Auto) 2.0 % Neutrophils # (Auto) 1.5 TH/MM3 Lymphocytes # (Auto) 1.0 TH/MM3 Monocytes # (Auto) 1.1 TH/MM3 Eosinophils # (Auto) 0.3 TH/MM3 Basophils # (Auto) 0.1 TH/MM3 CBC Comment DIFF FINAL Differential Comment Sodium Level 140 MEQ/L Potassium Level 4.0 MEQ/L Chloride Level 109 MEQ/L Carbon Dioxide Level 22.7 MEQ/L Anion Gap 8 MEQ/L Blood Urea Nitrogen 7 MG/DL Creatinine 1.15 MG/DL Estimat Glomerular Filtration 51 ML/MIN Rate Random Glucose 71 MG/DL Calcium Level 8.4 MG/DL Blood Type A POSITIVE Antibody Screen NEGATIVE MDM Medical Decision Making Medical Screen Exam Complete: Yes Emergency Medical Condition: Yes Medical Record Reviewed: Yes Differential Diagnosis Intracranial mass, HIV disease, intracranial hemorrhage Narrative Course I have reviewed the patient's electronic medical record. Reviewed her lab studies from yesterday and today. She is anemic with normal sodium and potassium As noted I discussed with the prison nurse. The nurse from Dr. Moseley's office called and requested we do a type and screen as well as an MRI of the brain IV placed CBC shows hemoglobin of 8 which is stable over the last several days Metabolic profile is normal Type and screen sent MRI of the brain with and without contrast ordered Patient was rather fidgety. The nurse went with 5 mg of Versed to give in 1 mg increments for sedation to get the MRI done. I reviewed with Dr. Moseley. He intends to send the patient back to the prison if the MRI is normal and he will continue to manage her there. If there are abnormal findings that we will discuss with him and make a plan at that time. Dae Patel MD Oct 08, 2016 16:21
[2016-10-08 16:32] LABS: AUTOMATED NEUTROPHIL # 1.5 TH/MM3 (1.8-7.7); BASOPHIL # 0.1 TH/MM3 (0-0.2); EOSINOPHIL # 0.3 TH/MM3 (0-0.4); EOSINOPHIL % 8.6 % (0.0-4.0); HEMATOCRIT 24.4 % (35.0-46.0); HEMO FLAGS DIFF FINAL; LYMPH % 24.3 % (9.0-44.0); MEAN CELL VOLUME 92.1 FL (80.0-100.0); MEAN CORPUSCULAR HEMOGLOBIN 30.1 PG (27.0-34.0); MEAN CORPUSCULAR HGB CONC 32.6 % (32.0-36.0); MONO % 27.8 % (0.0-8.0); NEUT % 37.3 % (16.0-70.0); PLATELET COUNT 265 TH/MM3 (150-450); RED BLOOD COUNT 2.65 MIL/MM3 (4.00-5.30); RED CELL DISTRIBUTION WIDTH 21.6 % (11.6-17.2)
[2016-10-08 16:49] LABS: BICARBONATE 22.7 MEQ/L (21.0-32.0)
[2016-10-08] MEDS ORDERED: MIDAZOLAM HCL 2 MG/2 ML VIAL IV PUSH ONE (18:15)
[2016-10-08 18:34] VITALS: BP 129/80; PULSE 72; RESP 16; O2SAT 100
[2016-10-08] MEDS ORDERED: GADODIAMIDE PF 287 MG/ML 5 ML VIAL (for RAD MRI) IV ONE (18:45)
[2016-10-08 19:15] VITALS: BP 147/84; PULSE 69; RESP 18; O2SAT 100
--- NOTE | 2016-10-08 19:17 | RADRPT ---
EXAM DATE/TIME: 10/08/2016 18:22 [facility] COMPARISON: No previous studies available for comparison. INDICATIONS : Confusion. CONTRAST: 14 cc Omniscan (gadodiamide) IV MEDICAL HISTORY : Hepatitis C. Hypertension. Renal calculi. AIDS. SURGICAL HISTORY : Tonsillectomy. Appendectomy. Cholecystectomy. Hysterectomy. ENCOUNTER: Subsequent ACUITY: 1 day PAIN SCORE: 0/10 LOCATION: head. Known MRI Precautions: Sedation utilized? No Anesthesia present? No MRI reaction? No If YES explain: TECHNIQUE: Multiplanar, multisequence MRI of the brain was performed both prior to and following the administrat ion of paramagnetic contrast. FINDINGS: CEREBRUM: The ventricles are normal for age. No evidence of midline shift, mass lesion, hemorrhage or acute in farction. No extraaxial fluid collections are seen. The pituitary gland and suprasellar cistern are normal in configuration. WHITE MATTER: No significant signal abnormalities are seen in the white matter. POSTERIOR FOSSA: The cerebellum and brainstem are intact. The 4th ventricle is midline. The cerebellopontine angle is unremarkable. The cerebellar tonsils are normal in position. DIFFUSION IMAGING: No focal areas of restricted diffusion are seen. No evidence of acute infarction. EXTRACRANIAL: The visualized portions of the orbits and paranasal sinuses are unremarkable. POST-CONTRAST: No abnormal areas of parenchymal or dural enhancement. No evidence of blood-brain barrier breakdown. CONCLUSION: Normal examination. Jason Kumar Jr., MD on October 08, 2016 at 19:13 Board Certified Radiologist. This report was verified electronically.
--- NOTE | 2016-10-08 19:33 | PD ---
Physical Exam Date Seen by Provider: Oct 08, 2016 Narrative This patient was checked out to me 7 PM pending her MRI. This patient has advanced HIV. She resides in a [facility]. She was sent to us for mental status change. Dr. Patel has been in communication with Dr. Moseley. The plan is to discharge the patient back to the [facility] if her MRI is negative. He will follow her there. Data Data Last Documented VS Vital Signs Date Time Temp Pulse Resp B/P Pulse Ox O2 Delivery O2 Flow Rate FiO2 10/08/16 19:15 69 18 147/84 100 Nasal Cannula 2 10/08/16 15:46 98.8 Orders Complete Blood Count With Diff (10/08/16 15:57) Basic Metabolic Panel (Bmp) (10/08/16 15:57) Mri Brain W&W/O Contrast (10/08/16 ) Type And Screen (10/08/16 16:10) Midazolam Inj (Versed Inj) (10/08/16 18:15) Gadodiamide Pf Inj (Omniscan Pf Inj) (10/08/16 18:45) Labs Laboratory Tests Test 10/08/16 16:15 White Blood Count 4.0 TH/MM3 Red Blood Count 2.65 MIL/MM3 Hemoglobin 8.0 GM/DL Hematocrit 24.4 % Mean Corpuscular Volume 92.1 FL Mean Corpuscular Hemoglobin 30.1 PG Mean Corpuscular Hemoglobin 32.6 % Concent Red Cell Distribution Width 21.6 % Platelet Count 265 TH/MM3 Mean Platelet Volume 7.4 FL Neutrophils (%) (Auto) 37.3 % Lymphocytes (%) (Auto) 24.3 % Monocytes (%) (Auto) 27.8 % Eosinophils (%) (Auto) 8.6 % Basophils (%) (Auto) 2.0 % Neutrophils # (Auto) 1.5 TH/MM3 Lymphocytes # (Auto) 1.0 TH/MM3 Monocytes # (Auto) 1.1 TH/MM3 Eosinophils # (Auto) 0.3 TH/MM3 Basophils # (Auto) 0.1 TH/MM3 CBC Comment DIFF FINAL Differential Comment Sodium Level 140 MEQ/L Potassium Level 4.0 MEQ/L Chloride Level 109 MEQ/L Carbon Dioxide Level 22.7 MEQ/L Anion Gap 8 MEQ/L Blood Urea Nitrogen 7 MG/DL Creatinine 1.15 MG/DL Estimat Glomerular Filtration 51 ML/MIN Rate Random Glucose 71 MG/DL Calcium Level 8.4 MG/DL Blood Type A POSITIVE Antibody Screen NEGATIVE MDM Supervised Visit with LISSA: No Narrative Course Last Impressions Brain MRI 10/08/16 0000 Signed Impressions: Service Date/Time: , October 08, 2016 18:22 - CONCLUSION: Normal examination. Jason Kumar Jr., MD Diagnosis Primary Impression: Mental status change Qualified Code: R41.0 - Disorientation Disposition: 01 DISCHARGE HOME Condition: Stable Mervat Bazzi MD Oct 08, 2016 19:33
== END 2016-10-09 07:55 | disposition home or self-care (01) ==
LOC: NEPE 14:40 → NEPD 10-09 07:55
DX: R41.82 Altered mental status, unspecified (principal); I10 Essential (primary) hypertension; Z72.0 Tobacco use; W05.0XXA Fall from non-moving wheelchair, initial encounter; Y92.538 Other ambulatory health services establishments as the place of occurrence of the external cause
CPT/HCPCS: 70553; 80048; 85025; 86850; 86900; 86901; 96374; 99285; A9579; J2250

== ENCOUNTER 2016-10-16 07:51 | Day surgery (SDC) | payer OTHER ==
[~2016-10-16] VITALS: Ht 144.8 cm; Wt 53.6 kg
[2016-10-16 08:12] VITALS: BP 127/82; PULSE 60; RESP 20; TEMP 98.3; O2SAT 95
[2016-10-16] MEDS ORDERED: SODIUM CHLOR 0.9% 1000 ML INJ 1,000 ML IV SCH (08:15)
[2016-10-16] MEDS ORDERED: BUSP5TAB PO (08:27)
[2016-10-16] MEDS ORDERED: DOXY1TAB6 PO (08:27)
[2016-10-16] MEDS ORDERED: [UNRECOGNIZED DRUG - CODE] SQ (08:27)
[2016-10-16] MEDS ORDERED: CYAN1000P IM (08:27)
[2016-10-16] MEDS ORDERED: REME15TA PO (08:27)
[2016-10-16] MEDS ORDERED: TIZA2TAB PO (08:27)
[2016-10-16] MEDS ORDERED: LORA-373 PO (08:27)
[2016-10-16] MEDS ORDERED: ATOV750UDC PO (08:27)
[2016-10-16] MEDS ORDERED: LEVO50TA4 PO (08:27)
[2016-10-16 09:03] LABS: APTT (PATIENT) 26.1 SEC (24.3-30.1); PROTHROMBIN TIME - PATIENT 10.8 SEC (9.8-11.6)
--- NOTE | 2016-10-16 11:45 | PD.RAD ---
Post Procedure Progress Note Pre Procedure Diagnosis: (1) HIV (human immunodeficiency virus infection) Post Procedure Diagnosis: (1) HIV (human immunodeficiency virus infection) Procedure Date: Oct 16, 2016 Supervising Radiologist: Jason Kumar JR Proceduralist/Assist: James Uribe RT(R), RT Nika(R)() Anesthesia: Local Plan of Activity Patient to Unit: [facility] Patient Condition: Good See PACS Report for procedural detail/treatment Spinal Procedure Lumbar Puncture L4-L5 Fluid Removal (CCs): 11 Fluid Description: Clear Puncture Time: 11:32 Jr. José,Jason Arango MD Oct 16, 2016 11:45
[2016-10-16 13:36] LABS: GROSS BLOOD TUBE #1 0 (0); GROSS BLOOD TUBE #2 0 (0); GROSS BLOOD TUBE #3 0 (0); GROSS BLOOD TUBE #4 0 (0); SUPERNATE COLOR TUBE #1 CLEAR (CLEAR); SUPERNATE COLOR TUBE #2 CLEAR (CLEAR); SUPERNATE COLOR TUBE #3 CLEAR (CLEAR); SUPERNATE COLOR TUBE #4 CLEAR (CLEAR); VOLUME TUBE # 1 2.3 ML; VOLUME TUBE # 2 2.5 ML; VOLUME TUBE # 3 2.5 ML; VOLUME TUBE # 4 3.2 ML; WBC TUBE #4 0 /MM3 (0-10)
[2016-10-16 13:38] LABS: CSF LYMPHOCYTES 0 %; CSF NEUTROPHILS 0 %
[2016-10-16 14:00] VITALS: BP 120/60; PULSE 65; RESP 18; O2SAT 98
--- NOTE | 2016-10-16 14:28 | RADRPT ---
EXAM DATE/TIME: 10/16/2016 11:38 [facility] COMPARISON: No previous studies available for comparison. INDICATIONS : Patient with altered mental status and possible MS in need of lumbar puncture. MEDICAL HISTORY : 1.HIV/Hepatitis C 2.HTN 3.Kidney stones SURGICAL HISTORY : 1. x 2 2.Cholecystectomy ENCOUNTER: Initial ACUITY: 1 month PAIN SCORE: 0/10 LUMBAR PUNCTURE TIME: 1132 hours FLUORO TIME: 0.40 minutes IMAGE SERIES: ACCESS LEVEL: L4-5 FLUID: 11 cc of clear CSF was collected and sent to the laboratory for analysis. PROCEDURE : 1. Fluoroscopic guided lumbar puncture. The risks, benefits and alternatives to the procedure were explained and verbal and written consent w as obtained. The site was prepped in sterile fashion. Full sterile technique was used, including ca p, mask, sterile gloves and gown and a large sterile sheet. Hand hygiene and 2% chlorhexidine and/or betadine/alcohol prep was utilized per protocol for cutaneous antisepsis. The skin and subcutaneous tissues were infiltrated with local anesthetic solution. With fluoroscopic guidance the lumbar thecal sac was punctured at the level above. The fluid describ ed above was removed without difficulty. The patient tolerated the procedure well and there were no complications. CONCLUSION: Uncomplicated fluoroscopically guided lumbar puncture. Jason Kumar Jr., MD on October 16, 2016 at 13:50 Board Certified Radiologist. This report was verified electronically.
[2016-10-17 11:46] LABS: HSV 1,PCR Negative (Negative)
[2016-10-19 12:11] LABS: CSF CRYPTOCOCCUS AG CONF ND (NOT DETECTD)
[2016-10-19 21:32] LABS: TOXOPLASMA AB IGG <0.90 (()); TOXOPLASMA AB IGM (CSF) <0.80 (())
[2016-10-20 19:52] LABS: VDRL CSF NON-REACTIVE (())
== END 2016-10-16 14:00 | disposition home or self-care (01) ==
LOC: HROP 07:51 → HRIP 07:55 → HROP 14:00
PROVIDERS: ATTEND Specialist
DX: R41.82 Altered mental status, unspecified (principal); Z21 Asymptomatic human immunodeficiency virus [HIV] infection status; B19.20 Unspecified viral hepatitis C without hepatic coma; I10 Essential (primary) hypertension; N20.0 Calculus of kidney; Z01.818 Encounter for other preprocedural examination
CPT/HCPCS: 62270; 77003; 82945; 84157; 85610; 85730; 86403; 86592; 86777; 86778; 87015; 87070; 87102; 87116; 87205; 87206; 87497; 87529; 87801; 89051; J7030

== ENCOUNTER 2017-02-05 16:35 | Emergency (ER) | payer OTHER ==
[~2017-02-05] VITALS: Ht 152.4 cm; Wt 52.0 kg
[~2017-02-05 16:35] MED LIST changes: +ATOV750UDC PO; +BUSP5TAB PO; +CYAN1000P IM; +DOXY1TAB6 PO; +LEVO50TA4 PO; +LORA-373 PO; +REME15TA PO; +TIZA2TAB PO; +[UNRECOGNIZED DRUG - CODE] SQ
[2017-02-05 16:39] VITALS: BP 134/80; PULSE 53; RESP 12; TEMP 98.3; O2SAT 98
[2017-02-05 20:19] VITALS: BP 122/57; PULSE 83; RESP 18; O2SAT 99
--- NOTE | 2017-02-05 20:44 | PD ---
HPI . Abscess to the left labia majora Chief Complaint: Skin Problem Time Seen by Provider: 20:15 Travel History International Travel<30 days: No Contact w/Intl Traveler<30days: No Traveled to known affect area: No History of Present Illness HPI 46-year-old female presents to emergency department for evaluation of an abscess noted to the left labia majora. Patient stated she first noticed this abscess approximately 2 weeks ago. Patient states it is very painful however she has not followed up with any medical care due to lack of insurance. Patient has a history of HIV but due to her lack of insurance has not followed up with her physician or taken her antiviral medication regimen since early this year. Patient states she does not know what her counts are at this time. Patient denies any fevers, malaise, lightheadedness, chest pain, shortness of breath, nausea, vomiting, diarrhea, abdominal pain, dysuria or vaginal discharge. The abscess is approximately 2 cm 2 cm and is localized without any erythema or signs or symptoms of infection. PFSH Past Medical History Hx Anticoagulant Therapy: No Arthritis: No Asthma: No Autoimmune Disease: Yes (HIV) Blood Disorders: No Anxiety: No Depression: No Heart Rhythm Problems: No Cancer: No Cardiovascular Problems: Yes (HTN) High Cholesterol: No Chemotherapy: No Chest Pain: Yes Congestive Heart Failure: No COPD: No Cerebrovascular Accident: No Diabetes: No Diminished Hearing: No Diverticulitis: Yes Endocrine: No Gastrointestinal Disorders: No Genitourinary: Yes Headaches: Yes (seldom) Hepatitis: Yes (hep C) Hiatal Hernia: No Heparin Induced Thrombocytopen: No Hypertension: Yes Immune Disorder: Yes (HIV, Viral Hepatitis) Inguinal Hernia: Yes Implanted Vascular Access Dvce: No Kidney Stones: Yes Musculoskeletal: No Neurologic: Yes (AMS) Psychiatric: No Reproductive: No Respiratory: No Immunizations Current: Yes Migraines: Yes Radiation Therapy: No Seizures: No Sickle Cell Disease: No Sleep Apnea: No Thyroid Disease: No Tetanus Vaccination: < 5 Years ?: Not Menopausal: Yes : 2 Para: 2 Miscarriage: 0 : 0 Ovarian Cysts: Yes (HAD REMOVED) Past Surgical History Abdominal Surgery: Yes (2 C-Sections) AICD: No Appendectomy: Yes Arteriovenous Shunt: No Cardiac Surgery: No Section: Yes (x2) Cholecystectomy: Yes Ear Surgery: No Endocrine Surgery: No Eye Surgery: No Genitourinary Surgery: Yes (Kidney Stones surgery.) Gynecologic Surgery: No Hysterectomy: Yes Insulin Pump: No Joint Replacement: No Neurologic Surgery: No Oral Surgery: No Pacemaker: No Thoracic Surgery: No Tonsillectomy: Yes ( AND ADENOIDS CHILD) Other Surgery: Yes (Gallbladder, Appendectomy, Hysterectomy, 2 C-Sections, Tonsillectomy) Social History Alcohol Use: Yes Tobacco Use: No Substance Use: No Allergies-Medications (Allergen,Severity, Reaction): Coded Allergies: *MDRO Multi-Drug Resistant Organism (Verified Adverse Reaction, Unknown, ) MRSA (leg)-07/24/16; (wounds)-09/03/15; (ear)-11/26/15; (sputum)-06/19/16 Reported Meds & Prescriptions Reported Meds & Active Scripts Active No Active Prescriptions or Reported Medications Review of Systems Except as stated in HPI: all other systems reviewed are Neg Physical Exam Narrative GENERAL: Well-nourished well-developed 46-year-old female in no acute distress. Nontoxic appearing. SKIN: Focused skin assessment warm/dry. HEAD: Atraumatic. Normocephalic. EYES: Pupils equal and round. No scleral icterus. No injection or drainage. ENT: No nasal bleeding or discharge. Mucous membranes pink and moist. NECK: Trachea midline. No JVD. CARDIOVASCULAR: Regular rate and rhythm. No murmur appreciated. RESPIRATORY: No accessory muscle use. Clear to auscultation. Breath sounds equal bilaterally. GENITOURINARY: 2 cm 2 cm abscess noted to to the left labia majora that is localized without any erythema or signs or symptoms of infection. No dysuria, no frequency, vaginal discharge or bleeding. GASTROINTESTINAL: Abdomen soft, non-tender, nondistended. Hepatic and splenic margins not palpable. MUSCULOSKELETAL: No obvious deformities. No clubbing. No cyanosis. No edema. NEUROLOGICAL: Awake and alert. No obvious cranial nerve deficits. Motor grossly within normal limits. Normal speech. PSYCHIATRIC: Appropriate mood and affect; insight and judgment normal. Data Data Last Documented VS Vital Signs Date Time Temp Pulse Resp B/P (MAP) Pulse Ox O2 Delivery O2 Flow Rate FiO2 02/05/17 20:19 83 18 122/57 (78) 99 Room Air 02/05/17 16:39 98.3 Orders Orders Lidocaine 1% Inj (Xylocaine 1% Inj) (02/05/17 21:15) Oxycodone-Acetamin 5-325 Mg (Percocet (02/05/17 21:15) Wound Culture And Gram Stain (02/05/17 21:26) [facility] Medical Decision Making Medical Screen Exam Complete: Yes Emergency Medical Condition: Yes Medical Record Reviewed: Yes Differential Diagnosis Differential diagnoses included abnormality to Bartholin's cyst, vaginal abscess , cellulitis Narrative Course 46 year female presents emergency department for evaluation of abscess to left labia majora. Patient is nontoxic appearing. Patient does have a major medical history of HIV and has been off her medications since earlier this year due to lack of insurance. Patient case discussed with my attending, Dr. Pace. Based on patient's symptoms, clinical appearance, vital signs and physical exam it is not clinically necessary to obtain blood work at this time. The abscess drained and wound culture obtained. Please see my procedural narrative. Based on patient's symptoms, clinical presentation, lab results, radiological results, vital sign review and physical exam it is not necessary to admit the patient to the hospital or keep the patient in the emergency department for further evaluation. Patient will be discharged home with prescription for Bactrim DS twice a day 7 days and Lortab 10 for pain management. Instructions to keep the area clean and dry and follow-up with her primary care and options trader recommended. Diagnosis Primary Impression: Vaginal cyst Patient Instructions: Bartholin Cyst (ED), Excision of a Bartholin's Cyst (DC) , General Instructions Additional Instructions: Please return to emergency department if your symptoms return or worsen or signs or symptoms of infection. Watch for any signs or symptoms of infection or worsening infection such as redness, warmth, increasing pain, fevers. Follow up with your primary care provider and options trader. Take full course of antibiotics as prescribed. Use caution when taking pain medication as it might make you drowsy. Don't drink alcohol or operate heavy machinery with pain medication. Take medications as prescribed. Med/Other Pt SpecificInfo: Prescription(s) given Scripts Sulfamethoxazole-Trimethoprim (Bactrim DS) 800-160 Mg Tab 1 TAB PO BID for Infection for 7 Days, #14 TAB 0 Refills Prov: Shantell Lamar 02/05/17 Disposition: 01 DISCHARGE HOME Condition: Stable Shantell Lamar Feb 05, 2017 20:44
[2017-02-05] MEDS ORDERED: oxyCODONE/ACETAMINOPHEN 5 MG/325 MG TAB PO ONE (21:15)
[2017-02-05] MEDS ORDERED: LIDOCAINE HCL 1% 20 ML VIAL INFIL ONE (21:15)
--- NOTE | 2017-02-05 21:32 | PD ---
Data Data Last Documented VS Vital Signs Date Time Temp Pulse Resp B/P (MAP) Pulse Ox O2 Delivery O2 Flow Rate FiO2 02/05/17 20:19 83 18 122/57 (78) 99 Room Air 02/05/17 16:39 98.3 Orders Orders Lidocaine 1% Inj (Xylocaine 1% Inj) (02/05/17 21:15) Oxycodone-Acetamin 5-325 Mg (Percocet (02/05/17 21:15) Wound Culture And Gram Stain (02/05/17 21:26) MDM Supervised Visit with LISSA: Yes Narrative Course The history, exam, and medical decision-making in the associated midlevel provider note were completed with my assistance. I reviewed and agree with the findings presented. I attest that I had a [id number] encounter with the patient on the same day, and personally performed and documented my assessment and findings in the medical record. *My assessment and Findings: This is a 46-year-old female who has a history of HIV who presents to the emergency department with an inflamed cystic structure on her right labia majora. There is minimal erythema but this cyst is quite tender. It was incised and drained in the emergency department and white discharge was extracted. Patient was started on Bactrim given a history of MRSA. I don't think she has a systemic infection and I don't think any further diagnostics are warranted. Scripts No Active Prescriptions or Reported Meds Bee Pace MD Feb 05, 2017 21:32
[2017-02-05] MEDS ORDERED: BACT800T5 PO (21:35)
[2017-02-05] MEDS ORDERED: HYDR-3535 PO (21:38)
== END 2017-02-05 21:58 | disposition home or self-care (01) ==
LOC: NEPC 16:35
DX: N90.7 Vulvar cyst (principal); A49.02 Methicillin resistant Staphylococcus aureus infection, unspecified site; I10 Essential (primary) hypertension; B19.20 Unspecified viral hepatitis C without hepatic coma; K57.92 Diverticulitis of intestine, part unspecified, without perforation or abscess without bleeding; Z21 Asymptomatic human immunodeficiency virus [HIV] infection status; Z86.14 Personal history of Methicillin resistant Staphylococcus aureus infection
CPT/HCPCS: 10060; 86403; 87070; 87186; 87205

== ENCOUNTER 2017-03-04 09:18 | Emergency (ER) | payer OTHER ==
[~2017-03-04] VITALS: Ht 152.4 cm; Wt 60.0 kg
[~2017-03-04 09:18] MED LIST changes: -ATOV750UDC PO; -AZIT500T2 PO; -BUSP5TAB PO; -CYAN1000P IM; -DIFL200T PO; -DOXY1TAB6 PO; -ELVI1TAB3 PO; +HYDR-3535 PO; -LEVO50TA4 PO; -LORA-373 PO; -MS C15TA2 PO; -REME15TA PO; -TIZA2TAB PO; -VALT1TAB PO; -ZOFR4TAB3 SL; -[UNRECOGNIZED DRUG - CODE] SQ
[2017-03-04 09:20] VITALS: BP 134/92; PULSE 69; RESP 14; TEMP 98.4; O2SAT 99
--- NOTE | 2017-03-04 10:24 | PD ---
HPI Chief Complaint: Medical Clearance Time Seen by Provider: 10:10 Travel History International Travel<30 days: No Contact w/Intl Traveler<30days: No Traveled to known affect area: No History of Present Illness HPI 46 years old female complains of sore throat, chills, lightheadedness, dysphagia and left shoulder pain. Patient states that the symptoms started 2 days ago. Patient denies any headache. Patient denies any visual change. Patient denies any neck pain. Patient denies any coughing congestion. Patient states that she had cramping pain localized to left shoulder with radiation to left upper chest. Patient states the pain is worse with movement of the left shoulder joint. Patient denies any abdominal pain. Patient denies any nausea vomiting diarrhea. Patient has history of HIV positive. Patient states that she ran out of her HIV medication about 2 months ago. Patient has not had CD4 or viral load checked recently. Patient states that she is awaiting insurance to see a local physician. Patient was seen by Dr. Moseley in the past. Patient denies history of CAD. Patient states that she has history of hypertension, hepatitis C, HIV positive. PFSH Past Medical History Hx Anticoagulant Therapy: No Arthritis: No Asthma: No Autoimmune Disease: Yes (HIV DIAGNOSED 2015 BORDERLINE AIDS ) Blood Disorders: No Anxiety: No Depression: No Heart Rhythm Problems: No Cancer: No Cardiovascular Problems: Yes (HTN) High Cholesterol: No Chemotherapy: No Chest Pain: Yes Congestive Heart Failure: No COPD: No Cerebrovascular Accident: No Diabetes: No Diminished Hearing: No Diverticulitis: Yes Endocrine: No Gastrointestinal Disorders: No Genitourinary: Yes Headaches: Yes (seldom) Hepatitis: Yes (HEP C ) Hiatal Hernia: No Heparin Induced Thrombocytopen: No Hypertension: Yes Immune Disorder: Yes (HIV, Viral Hepatitis) Inguinal Hernia: Yes Implanted Vascular Access Dvce: No Kidney Stones: Yes Musculoskeletal: No Neurologic: Yes (AMS) Psychiatric: No Reproductive: No Respiratory: No Immunizations Current: Yes Migraines: Yes Radiation Therapy: No Seizures: No Sickle Cell Disease: No Sleep Apnea: No Thyroid Disease: No Tetanus Vaccination: Unknown ?: Not Menopausal: Yes : 2 Para: 2 Miscarriage: 0 : 0 Ovarian Cysts: Yes (HAD REMOVED) Past Surgical History Abdominal Surgery: Yes (2 C-Sections) AICD: No Appendectomy: Yes Arteriovenous Shunt: No Cardiac Surgery: No Section: Yes (x2) Cholecystectomy: Yes Ear Surgery: No Endocrine Surgery: No Eye Surgery: No Genitourinary Surgery: Yes (Kidney Stones surgery.) Gynecologic Surgery: No Hysterectomy: Yes (1999) Insulin Pump: No Joint Replacement: No Neurologic Surgery: No Oral Surgery: No Pacemaker: No Thoracic Surgery: No Tonsillectomy: Yes ( AND ADENOIDS CHILD) Other Surgery: Yes (HERNIA REPAIR) Social History Alcohol Use: No Tobacco Use: No Substance Use: No Allergies-Medications (Allergen,Severity, Reaction): Coded Allergies: No Known Allergies (Unverified , 03/04/17) Reported Meds & Prescriptions Reported Meds & Active Scripts Active No Active Prescriptions or Reported Medications Review of Systems General / Constitutional: No: Fever Eyes: No: Visual changes HENT: Positive: Sore Throat, No: Headaches Cardiovascular: No: Chest Pain or Discomfort Respiratory: No: Shortness of Breath Gastrointestinal: No: Abdominal Pain Genitourinary: No: Dysuria Musculoskeletal: No: Pain Skin: No Rash Neurologic: No: Weakness Psychiatric: No: Depression Endocrine: No: Polydipsia Hematologic/Lymphatic: No: Easy Bruising Physical Exam Narrative GENERAL: Well-nourished, well-developed patient. SKIN: Focused skin assessment warm/dry. HEAD: Normocephalic. EYES: No scleral icterus. No injection or drainage. Throat: Mild erythematous. NECK: Supple, trachea midline. No JVD or lymphadenopathy. CARDIOVASCULAR: Regular rate and rhythm without murmurs, gallops, or rubs. RESPIRATORY: Breath sounds equal bilaterally. No accessory muscle use. GASTROINTESTINAL: Abdomen soft, non-tender, nondistended. MUSCULOSKELETAL: No cyanosis, or edema. BACK: Nontender without obvious deformity. No CVA tenderness. Neurologic exam normal. Data Data Last Documented VS Vital Signs Date Time Temp Pulse Resp B/P (MAP) Pulse Ox O2 Delivery O2 Flow Rate FiO2 03/04/17 09:43 68 15 03/04/17 09:20 98.4 134/92 (106) 99 Orders Orders Electrocardiogram (03/04/17 10:16) Complete Blood Count With Diff (03/04/17 10:16) Comprehensive Metabolic Panel (03/04/17 10:16) Creatine Kinase (Cpk) (03/04/17 10:16) Troponin I (10/26/17 10:16) Group A Rapid Strep Screen (03/04/17 10:16) Chest, Single Ap (03/04/17 10:16) Ketorolac Inj (Toradol Inj) (03/04/17 10:30) Strep Culture (Group A) (03/04/17 10:20) Labs Laboratory Tests Test 03/04/17 10:20 03/04/17 12:34 Blood Urea Nitrogen 16 MG/DL Creatinine 1.04 MG/DL Random Glucose 89 MG/DL Total Protein 8.5 GM/DL Albumin 3.6 GM/DL Calcium Level 8.7 MG/DL Alkaline Phosphatase 80 U/L Aspartate Amino Transf (AST/SGOT) 35 U/L Alanine Aminotransferase (ALT/SGPT) 30 U/L Total Bilirubin 0.4 MG/DL Sodium Level 140 MEQ/L Potassium Level 3.5 MEQ/L Chloride Level 109 MEQ/L Carbon Dioxide Level 24.5 MEQ/L Anion Gap 7 MEQ/L Estimat Glomerular Filtration Rate 57 ML/MIN Total Creatine Kinase 80 U/L Troponin I LESS THAN 0.02 NG/ML White Blood Count 4.3 TH/MM3 Red Blood Count 4.06 MIL/MM3 Hemoglobin 12.8 GM/DL Hematocrit 37.6 % Mean Corpuscular Volume 92.6 FL Mean Corpuscular Hemoglobin 31.6 PG Mean Corpuscular Hemoglobin Concent 34.1 % Red Cell Distribution Width 14.3 % Platelet Count 149 TH/MM3 Mean Platelet Volume 8.9 FL Neutrophils (%) (Auto) 23.5 % Lymphocytes (%) (Auto) 25.4 % Monocytes (%) (Auto) 15.5 % Eosinophils (%) (Auto) 34.8 % Basophils (%) (Auto) 0.8 % Neutrophils # (Auto) 1.0 TH/MM3 Lymphocytes # (Auto) 1.1 TH/MM3 Monocytes # (Auto) 0.7 TH/MM3 Eosinophils # (Auto) 1.5 TH/MM3 Basophils # (Auto) 0.0 TH/MM3 CBC Comment DIFF FINAL Differential Comment MDM Medical Decision Making Medical Screen Exam Complete: Yes Emergency Medical Condition: Yes Interpretation(s) Last Impressions Chest X-Ray 03/04/17 1016 Signed Impressions: Service Date/Time: February 10:49 - CONCLUSION: No evidence of acute cardiopulmonary disease. Shakir Jackson MD 12:14 PM. CMP within normal limit. Creatinine 1.04. Cardiac enzymes are normal. 1319 p.m. CBC WBC 4.3. Platelets 149. Group A strep antigen negative. Differential Diagnosis Differential diagnosis including viral syndrome, pharyngitis, electrolyte imbalance, dehydration. Narrative Course 46 years old female with sore throat, lightheadedness, chills, dysphagia. History HIV positive. Patient also complaining left shoulder pain. Diagnosis Primary Impression: Pharyngitis with viral syndrome Additional Impression: Muscle strain Patient Instructions: General Instructions Additional Instructions: Take medication as needed for pain. Follow-up with personal physician. Encouraged patient to follow-up with physician for HIV medication and CD4 count viral load follow-up. Med/Other Pt SpecificInfo: Prescription(s) given Scripts Methocarbamol (Robaxin) 750 Mg Tab 750 MG PO QID for Muscle Spasm, #40 TAB 0 Refills Prov: Tiburcio Maxwell MD 03/04/17 Disposition: 01 DISCHARGE HOME Condition: Stable Tiburcio Maxwell MD Mar 04, 2017 10:24
[2017-03-04] MEDS ORDERED: KETOROLAC TROMETHAMINE 60 MG/2 ML (IM) VIAL IM ONE ×2 (10:30)
--- NOTE | 2017-03-04 11:00 | RADRPT ---
EXAM DATE/TIME: 03/04/2017 10:49 [facility] COMPARISON: CHEST SINGLE AP, September 05, 2016, 22:31. INDICATIONS : Chest pain and pain down left arm. MEDICAL HISTORY : Hepatitis C. Hypertension. Renal calculi. AIDS. SURGICAL HISTORY : Tonsillectomy. Appendectomy. Cholecystectomy. Hysterectomy. ENCOUNTER: Initial ACUITY: 1 day PAIN SCORE: 9/10 LOCATION: Bilateral chest FINDINGS: A single view of the chest demonstrates the lungs to be symmetrically aerated without evidence of mas s, infiltrate or effusion. The cardiomediastinal contours are unremarkable. Osseous structures are intact. CONCLUSION: No evidence of acute cardiopulmonary disease. Shakir Jackson MD on March 04, 2017 at 10:58 Board Certified Radiologist. This report was verified electronically.
[2017-03-04 11:10] LABS: ALBUMIN 3.6 GM/DL (3.4-5.0); ALKALINE PHOSPHATASE 80 U/L (45-117); ALT (GPT) 30 U/L (10-53); AST (GOT) 35 U/L (15-37); BICARBONATE 24.5 MEQ/L (21.0-32.0); BLOOD UREA NITROGEN 16 MG/DL (7-18); CALCIUM 8.7 MG/DL (8.5-10.1); CHLORIDE 109 MEQ/L (98-107); CREATININE 1.04 MG/DL (0.50-1.00); GLOMERULAR FILTRATION RATE 57 ML/MIN (>89); GLUCOSE,RANDOM 89 MG/DL (74-106); SODIUM (NA) 140 MEQ/L (136-145); TOTAL BILIRUBIN ADULT 0.4 MG/DL (0.2-1.0); TOTAL PROTEIN 8.5 GM/DL (6.4-8.2); TROPONIN I LESS THAN 0.02 NG/ML (0.02-0.05)
[2017-03-04 12:56] LABS: BASOPHIL % 0.8 % (0.0-2.0); EOSINOPHIL # 1.5 TH/MM3 (0-0.4); EOSINOPHIL % 34.8 % (0.0-4.0); HEMATOCRIT 37.6 % (35.0-46.0); HEMOGLOBIN 12.8 GM/DL (11.6-15.3); LYMPH % 25.4 % (9.0-44.0); LYMPHOCYTE # 1.1 TH/MM3 (1.0-4.8); MEAN CELL VOLUME 92.6 FL (80.0-100.0); MEAN CORPUSCULAR HEMOGLOBIN 31.6 PG (27.0-34.0); MEAN CORPUSCULAR HGB CONC 34.1 % (32.0-36.0); MEAN PLATELET VOLUME 8.9 FL (7.0-11.0); MONO % 15.5 % (0.0-8.0); MONOCYTE # 0.7 TH/MM3 (0-0.9); NEUT % 23.5 % (16.0-70.0); PLATELET COUNT 149 TH/MM3 (150-450); RED BLOOD COUNT 4.06 MIL/MM3 (4.00-5.30); RED CELL DISTRIBUTION WIDTH 14.3 % (11.6-17.2); WHITE BLOOD COUNT 4.3 TH/MM3 (4.0-11.0)
[2017-03-04] MEDS ORDERED: ROBA750T PO ×2 (13:24)
--- NOTE | 2017-03-04 23:40 | EKG ---
Date Performed: 03/04/2017 Time Performed: 09:50:19 PTAGE: 46 years EKG: Sinus rhythm NONSPECIFIC T-WAVE ABNORMALITY BORDERLINE ECG PREVIOUS TRACING : 09/05/2016 20.31 Compared to prior tracing no significant change DOCTOR: Dustin Wesley Interpretating Date/Time 03/04/2017 23:39:38
[2017-03-09] MEDS ORDERED: CIPR-9 PO ×2 (18:44)
[2017-03-09] MEDS ORDERED: ULTR50TA5 PO ×2 (18:44)
== END 2017-03-04 14:16 | disposition home or self-care (01) ==
LOC: NEPC 09:18
DX: B20 Human immunodeficiency virus [HIV] disease (principal); J02.9 Acute pharyngitis, unspecified; B19.20 Unspecified viral hepatitis C without hepatic coma; M25.512 Pain in left shoulder; R42 Dizziness and giddiness; R07.9 Chest pain, unspecified
CPT/HCPCS: 71010; 80053; 82550; 84484; 85025; 87081; 87880; 93005; 96372; 99285; J1885

== ENCOUNTER 2017-03-09 16:05 | Emergency (ER) | payer OTHER ==
[~2017-03-09] VITALS: Ht 152.4 cm; Wt 59.0 kg
[~2017-03-09 16:05] MED LIST changes: -BACT800T5 PO; -HYDR-3535 PO; +ROBA750T PO
[2017-03-09 16:06] VITALS: BP 173/91; PULSE 82; RESP 18; TEMP 98.5; O2SAT 98
--- NOTE | 2017-03-09 16:31 | PD ---
Physical Exam Date Seen by Provider: Mar 09, 2017 Time Seen by Provider: 16:29 Narrative 46-year-old white female presents to emergency Department with complaints of swelling of her labia and groin the past. Area is very painful for the patient. She has not been sick recently. Denies any rashes or blistering. History of MRSA. Patient has had a fallout with Dr. Moseley. She is offered HIV medicines for nearly 3 months. Vital signs reviewed. Pt waiting for bed placement. Data Data Last Documented VS Vital Signs Date Time Temp Pulse Resp B/P (MAP) Pulse Ox O2 Delivery O2 Flow Rate FiO2 03/09/17 16:06 98.5 82 18 173/91 (118) 98 Room Air [facility] Medical Record Reviewed: No Supervised Visit with LISSA: Kurt Weston Mar 09, 2017 16:31
[2017-03-09 18:08] VITALS: BP 158/90; PULSE 77; RESP 16; O2SAT 100
[2017-03-09] MEDS ORDERED: traMADol HCL 50 MG TAB PO ONE (18:30)
[2017-03-09] MEDS ORDERED: CIPROFLOXACIN 500 MG TAB PO ONE (18:30)
[2017-03-09] MEDS ORDERED: TRAM50 PO (18:44)
[2017-03-09] MEDS ORDERED: CIPR-9 PO (18:44)
--- NOTE | 2017-03-09 18:45 | PD ---
HPI Chief Complaint: Pain: Acute or Chronic Time Seen by Provider: 18:23 Travel History International Travel<30 days: No Contact w/Intl Traveler<30days: No Traveled to known affect area: No History of Present Illness HPI c/o right inner thigh area lump, sharply painful, 8/10, no alleviating/ aggravating , (denies abd pain/n/v/d/vag bleeding/vag discharge) chart and rn notes reviewed pmhx: htn, hiv (not on meds), mrsa PFSH Past Medical History Hx Anticoagulant Therapy: No Arthritis: No Asthma: No Autoimmune Disease: Yes (HIV DIAGNOSED 2015 BORDERLINE AIDS ) Blood Disorders: No Anxiety: No Depression: No Heart Rhythm Problems: No Cancer: No Cardiovascular Problems: Yes (HTN) High Cholesterol: No Chemotherapy: No Chest Pain: Yes Congestive Heart Failure: No COPD: No Cerebrovascular Accident: No Diabetes: No Diminished Hearing: No Diverticulitis: Yes Endocrine: No Gastrointestinal Disorders: No Genitourinary: Yes Headaches: Yes (seldom) Hepatitis: Yes (HEP C ) Hiatal Hernia: No Heparin Induced Thrombocytopen: No Hypertension: Yes Immune Disorder: Yes (HIV, Viral Hepatitis) Inguinal Hernia: Yes Implanted Vascular Access Dvce: No Kidney Stones: Yes Medical other: Yes (Recent sepsis) Musculoskeletal: No Neurologic: Yes (AMS) Psychiatric: No Reproductive: No Respiratory: No Immunizations Current: Yes Migraines: Yes Radiation Therapy: No Seizures: No Sickle Cell Disease: No Sleep Apnea: No Thyroid Disease: No Influenza Vaccination: No ?: Not Menopausal: Yes : 2 Para: 2 Miscarriage: 0 : 0 Ovarian Cysts: Yes (HAD REMOVED) Past Surgical History Abdominal Surgery: Yes (2 C-Sections) AICD: No Appendectomy: Yes Arteriovenous Shunt: No Cardiac Surgery: No Section: Yes (x2) Cholecystectomy: Yes Ear Surgery: No Endocrine Surgery: No Eye Surgery: No Genitourinary Surgery: Yes (Kidney Stones surgery.) Gynecologic Surgery: No Hysterectomy: Yes (1999) Insulin Pump: No Joint Replacement: No Neurologic Surgery: No Oral Surgery: No Pacemaker: No Thoracic Surgery: No Tonsillectomy: Yes ( AND ADENOIDS CHILD) Other Surgery: Yes (HERNIA REPAIR) Social History Alcohol Use: No Tobacco Use: No Substance Use: No Allergies-Medications (Allergen,Severity, Reaction): Coded Allergies: No Known Allergies (Unverified Adverse Reaction, Unknown, 03/09/17) Reported Meds & Prescriptions Reported Meds & Active Scripts Active Ultram (Tramadol HCl) 50 Mg Tab 50 Mg PO Q6H PRN Cipro (Ciprofloxacin HCl) 500 Mg Tab 500 Mg PO BID Review of Systems Except as stated in HPI: all other systems reviewed are Neg Physical Exam Narrative GENERAL: SKIN: Warm and dry. HEAD: Atraumatic. Normocephalic. EYES: Pupils equal and round. No scleral icterus. No injection or drainage. ENT: No nasal bleeding or discharge. Mucous membranes pink and moist. NECK: Trachea midline. No JVD. CARDIOVASCULAR: Regular rate and rhythm. RESPIRATORY: No accessory muscle use. Clear to auscultation. Breath sounds equal bilaterally. GASTROINTESTINAL: Abdomen soft, non-tender, nondistended. RN AT BEDSIDE FOR ESTERNAL EXAM...SHOWS A NICKEL SIZE LUMP ALONG INFERIOR GLUTEAL FOLD WELL AWAY FROM VULVAR REGION, NO OTHER LESIONS, NO STREAKING, NO LAD MUSCULOSKELETAL: Extremities without clubbing, cyanosis, or edema. No obvious deformities. NEUROLOGICAL: Awake and alert. No obvious cranial nerve deficits. Motor grossly within normal limits. Five out of 5 muscle strength in the arms and legs. Normal speech. PSYCHIATRIC: Appropriate mood and affect; insight and judgment normal. Data Data Last Documented VS Vital Signs Date Time Temp Pulse Resp B/P (MAP) Pulse Ox O2 Delivery O2 Flow Rate FiO2 03/09/17 18:53 03/09/17 18:08 77 16 100 Room Air 03/09/17 16:06 98.5 Orders Orders Tramadol (Ultram) (03/09/17 18:30) Ciprofloxacin (Cipro) (03/09/17 18:30) Ed Discharge Order (03/09/17 18:45) MDM Medical Decision Making Medical Screen Exam Complete: Yes Emergency Medical Condition: Yes Medical Record Reviewed: Yes Differential Diagnosis cellulitis v abscess v bartholins cyst Narrative Course upon examination, cyst at level of inferior gluteal fold Diagnosis Primary Impression: early inferior gluteal cellulitis Patient Instructions: Abscess (ED), General Instructions Additional Instructions: PLEASE NOTE, YOU DO NOT HAVE AN ABSCESS YET, HOWEVER THIS INFO PACKET IS THE BEST ONE TO ANTICIPATE WHAT MAY HAPPEN, PLEASE TAKE ANTIBIOTIC PRESCRIBED AND SEE YOUR PCP OR US IN 3 DAYS TO REEVALUATE NEED FOR I&D AT THAT TIME Scripts Tramadol (Ultram) 50 Mg Tab 50 MG PO Q6H Y for PAIN, #20 TAB 0 Refills Prov: Elliot Acosta MD 03/09/17 Ciprofloxacin (Cipro) 500 Mg Tab 500 MG PO BID for Infection, #20 TAB 0 Refills Prov: Elliot Acosta MD 03/09/17 Disposition: 01 DISCHARGE HOME Condition: Stable Elliot Acosta MD Mar 09, 2017 18:45
== END 2017-03-09 19:23 | disposition home or self-care (01) ==
LOC: NEPD 16:05
DX: L03.317 Cellulitis of buttock (principal); I10 Essential (primary) hypertension; B20 Human immunodeficiency virus [HIV] disease
CPT/HCPCS: 99284

== ENCOUNTER 2017-04-09 19:06 | Emergency (ER) | payer OTHER ==
[~2017-04-09 19:06] MED LIST changes: +CIPR-9 PO; -ROBA750T PO; +TRAM50 PO
[2017-04-09 19:13] VITALS: BP 171/85; PULSE 100; RESP 16; TEMP 98; O2SAT 99
[2017-04-09 19:27] VITALS: PULSE 88; RESP 16; O2SAT 100
[2017-04-09] MEDS ORDERED: CLIN150C14 PO (19:27)
[2017-04-09] MEDS ORDERED: SODIUM CHLORIDE 0.9% FLUSH 10 ML FLUSH IVF PRN (19:30)
[2017-04-09] MEDS ORDERED: diphenhydrAMINE HCL 50 MG/ML VIAL IV PUSH ONE (19:30)
[2017-04-09] MEDS ORDERED: PROCHLORPERAZINE INJ 10 MG/2 ML VIAL IV PUSH ONE (19:30)
[2017-04-09 19:57] LABS: AUTOMATED NEUTROPHIL # 2.2 TH/MM3 (1.8-7.7); BASOPHIL % 0.7 % (0.0-2.0); EOSINOPHIL # 0.8 TH/MM3 (0-0.4); EOSINOPHIL % 14.2 % (0.0-4.0); HEMATOCRIT 37.3 % (35.0-46.0); LYMPH % 22.8 % (9.0-44.0); LYMPHOCYTE # 1.2 TH/MM3 (1.0-4.8); MEAN CELL VOLUME 92.2 FL (80.0-100.0); MEAN CORPUSCULAR HEMOGLOBIN 31.3 PG (27.0-34.0); MEAN CORPUSCULAR HGB CONC 33.9 % (32.0-36.0); MONO % 20.9 % (0.0-8.0); NEUT % 41.4 % (16.0-70.0); PLATELET COUNT 244 TH/MM3 (150-450); RED BLOOD COUNT 4.05 MIL/MM3 (4.00-5.30); RED CELL DISTRIBUTION WIDTH 13.9 % (11.6-17.2); WHITE BLOOD COUNT 5.4 TH/MM3 (4.0-11.0)
--- NOTE | 2017-04-09 19:59 | PD ---
HPI . Near syncope Chief Complaint: Syncope/Near-Syncope Time Seen by Provider: 19:22 Travel History International Travel<30 days: No Contact w/Intl Traveler<30days: No Traveled to known affect area: No History of Present Illness HPI Patient presents stating that she nearly passed out just prior to arrival. She states that she was just standing in the kitchen when she suddenly felt very dizzy. She does not describe vertigo. She now states that she has a headache. The headache started after the dizzy spell. She rates the pain is 10/10. No modifying factors. In addition, she has groin pain. She has been seen at an outside hospital for this and has been prescribed clindamycin which she is currently taking. She states that her symptoms have not improved. This patient has a history of HIV and hepatitis C but is on no medications for these. She also has a history of hypertension. PFSH Past Medical History Hx Anticoagulant Therapy: No Arthritis: No Asthma: No Autoimmune Disease: Yes (HIV DIAGNOSED 2015 BORDERLINE AIDS ) Blood Disorders: No Anxiety: No Depression: No Heart Rhythm Problems: No Cancer: No Cardiovascular Problems: Yes (HTN) High Cholesterol: No Chemotherapy: No Chest Pain: Yes Congestive Heart Failure: No COPD: No Cerebrovascular Accident: No Diabetes: No Diminished Hearing: No Diverticulitis: Yes Endocrine: No Gastrointestinal Disorders: No Genitourinary: Yes Headaches: Yes (seldom) Hepatitis: Yes (HEP C ) Hiatal Hernia: No Heparin Induced Thrombocytopen: No Hypertension: Yes Immune Disorder: Yes (HIV, Viral Hepatitis) Inguinal Hernia: Yes Implanted Vascular Access Dvce: No Kidney Stones: Yes Medical other: Yes (Recent sepsis) Musculoskeletal: No Neurologic: Yes (AMS) Psychiatric: No Reproductive: No Respiratory: No Immunizations Current: Yes Migraines: Yes Radiation Therapy: No Seizures: No Sickle Cell Disease: No Sleep Apnea: No Thyroid Disease: No ?: Not Menopausal: Yes : 2 Para: 2 Miscarriage: 0 : 0 Ovarian Cysts: Yes (HAD REMOVED) Past Surgical History Abdominal Surgery: Yes (2 C-Sections) AICD: No Appendectomy: Yes Arteriovenous Shunt: No Cardiac Surgery: No Section: Yes (x2) Cholecystectomy: Yes Ear Surgery: No Endocrine Surgery: No Eye Surgery: No Genitourinary Surgery: Yes (Kidney Stones surgery.) Gynecologic Surgery: No Hysterectomy: Yes (1999) Insulin Pump: No Joint Replacement: No Neurologic Surgery: No Oral Surgery: No Pacemaker: No Thoracic Surgery: No Tonsillectomy: Yes ( AND ADENOIDS CHILD) Other Surgery: Yes (HERNIA REPAIR) Social History Alcohol Use: No Tobacco Use: No Substance Use: No Allergies-Medications (Allergen,Severity, Reaction): Coded Allergies: No Known Allergies (Unverified Adverse Reaction, Unknown, 04/09/17) Reported Meds & Prescriptions Reported Meds & Active Scripts Active Reported Clindamycin (Clindamycin HCl) 150 Mg Cap 150 Mg PO Q8HR 10 Days Review of Systems Except as stated in HPI: all other systems reviewed are Neg General / Constitutional: No: Fever, Chills Eyes: No: Diploplia, Blurred Vision HENT: Positive: Headaches, Lightheadedness, No: Vertigo Gastrointestinal: No: Nausea, Vomiting Skin: Positive Rash Physical Exam Narrative GENERAL: Awake and alert and in no acute distress. SKIN: warm/dry. She has numerous scabbed lesions in her pubic hair. The skin is not red or hot. This is where her groin pain is. HEAD: Normocephalic. Atraumatic. Nontender. EYES: Pupils equal and round. No scleral icterus. No injection or drainage. ENT: No nasal bleeding or discharge. Mucous membranes pink and moist. NECK: Trachea midline. Full range of motion without pain.. CARDIOVASCULAR: Regular rate and rhythm. Heart sounds are normal. RESPIRATORY: No accessory muscle use. Clear to auscultation. Breath sounds equal bilaterally. GASTROINTESTINAL: Abdomen soft. Nontender. Bowel sounds present. Nondistended. : MUSCULOSKELETAL: No obvious deformities. NEUROLOGICAL: Awake and alert. No obvious cranial nerve deficits. Motor grossly within normal limits. Normal speech. PSYCHIATRIC: Appropriate mood and affect; insight and judgment normal. Data Data Last Documented VS Vital Signs Date Time Temp Pulse Resp B/P (MAP) Pulse Ox O2 Delivery O2 Flow Rate FiO2 04/09/17 19:27 88 16 100 Room Air 04/09/17 19:13 98.0 171/85 (113) Orders Orders Electrocardiogram (04/09/17 19:24) Basic Metabolic Panel (Bmp) (04/09/17 19:24) Complete Blood Count With Diff (04/09/17 19:24) Magnesium (Mg) (04/09/17 19:24) Ct Brain W/O Iv Contrast(Rout) (04/09/17 19:24) Ecg Monitoring (04/09/17 19:24) Iv Access Insert/Monitor (04/09/17 19:24) Oximetry (04/09/17 19:24) Sodium Chloride 0.9% Flush (Ns Flush) (04/09/17 19:30) Diphenhydramine Inj (Benadryl Inj) (04/09/17 19:30) Prochlorperazine Inj (Compazine Inj) (04/09/17 19:30) Morphine Inj (Morphine Inj) (04/09/17 21:45) Labs Laboratory Tests Test 04/09/17 19:35 White Blood Count 5.4 TH/MM3 Red Blood Count 4.05 MIL/MM3 Hemoglobin 12.7 GM/DL Hematocrit 37.3 % Mean Corpuscular Volume 92.2 FL Mean Corpuscular Hemoglobin 31.3 PG Mean Corpuscular Hemoglobin Concent 33.9 % Red Cell Distribution Width 13.9 % Platelet Count 244 TH/MM3 Mean Platelet Volume 9.2 FL Neutrophils (%) (Auto) 41.4 % Lymphocytes (%) (Auto) 22.8 % Monocytes (%) (Auto) 20.9 % Eosinophils (%) (Auto) 14.2 % Basophils (%) (Auto) 0.7 % Neutrophils # (Auto) 2.2 TH/MM3 Lymphocytes # (Auto) 1.2 TH/MM3 Monocytes # (Auto) 1.1 TH/MM3 Eosinophils # (Auto) 0.8 TH/MM3 Basophils # (Auto) 0.0 TH/MM3 CBC Comment AUTO DIFF Differential Comment AUTO DIFF CONFIRMED Platelet Estimate NORMAL Platelet Morphology Comment NORMAL Blood Urea Nitrogen 11 MG/DL Creatinine 1.09 MG/DL Random Glucose 87 MG/DL Calcium Level 9.2 MG/DL Magnesium Level 1.8 MG/DL Sodium Level 137 MEQ/L Potassium Level 4.1 MEQ/L Chloride Level 103 MEQ/L Carbon Dioxide Level 27.3 MEQ/L Anion Gap 7 MEQ/L Estimat Glomerular Filtration Rate 54 ML/MIN [facility] Medical Decision Making Medical Screen Exam Complete: Yes Emergency Medical Condition: Yes Interpretation(s) EKG shows a normal sinus rhythm with no acute ischemic change. Differential Diagnosis Differential diagnosis of dizziness includes but is not limited to vertigo, dehydration, acute blood loss, sepsis, ACS Narrative Course This patient presents complaining with acute dizziness. She now has a headache. I will treat her headache with IV Compazine and Benadryl. CT of her head is pending. Basic labs are pending. She looks well. CBC & BMP Diagram 04/09/17 19:35 Calcium Level 9.2, Magnesium Level 1.8 The patient is requesting pain medication for her groin pain. I have pulled her up to [employer]. Her last 6 narcotic prescriptions have come from 6 different providers in [address] head>>No acute intracranial abnormalities. The history, exam, diagnostic testing, and current condition do not suggest any significant pathology to warrant further testing, continued ED treatment, admission, or surgical evaluation at this point. No EMC was found. The patient 's condition is stable and appropriate for discharge. Diagnosis Primary Impression: Dizziness Additional Impressions: Headache Qualified Codes: R51 - Headache Groin pain Qualified Codes: R10.30 - Lower abdominal pain, unspecified Patient Instructions: Acute Headache (DC), Dizziness (ED), General Instructions Disposition: 01 DISCHARGE HOME Condition: Stable Mervat Bazzi MD Apr 09, 2017 19:59
[2017-04-09 20:01] LABS: HEMO FLAGS AUTO DIFF
[2017-04-09 20:18] LABS: BICARBONATE 27.3 MEQ/L (21.0-32.0); MAGNESIUM 1.8 MG/DL (1.5-2.5); POTASSIUM 4.1 MEQ/L (3.5-5.1)
[2017-04-09 20:48] LABS: PLATELET ESTIMATE SMEAR NORMAL (NORMAL); PLATELET MORPHOLOGY NORMAL (NORMAL); SCAN/DIFF AUTO DIFF CONFIRMED
[2017-04-09] MEDS ORDERED: MORPHINE SULFATE 4 MG/ML INJ IV PUSH ONE (21:45)
--- NOTE | 2017-04-09 21:50 | RADRPT ---
EXAM DATE/TIME: 04/09/2017 21:18 [facility] COMPARISON: CT BRAIN W/O CONTRAST, September 08, 2016, 8:55. INDICATIONS : Dizziness and near syncopal episode. RADIATION DOSE: 33.25 CTDIvol (mGy) MEDICAL HISTORY : Cardiovascular disease. Hypertension. HIV.Hepatitis C. SURGICAL HISTORY : Appendectomy. Cholecystectomy.Hernia repair. ENCOUNTER: Initial ACUITY: 1 day PAIN SCALE: 0/10 LOCATION: cranial TECHNIQUE: Multiple contiguous axial images were obtained of the head. Using automated exposure control and adj ustment of the mA and/or kV according to patient size, radiation dose was kept as low as reasonably a chievable to obtain optimal diagnostic quality images. DICOM format image data is available electro nically for review and comparison. FINDINGS: CEREBRUM: The ventricles are normal for age. No evidence of midline shift, mass lesion, hemorrhage or acute in farction. No extra-axial fluid collections are seen. POSTERIOR FOSSA: The cerebellum and brainstem are intact. The 4th ventricle is midline. The cerebellopontine angle i s unremarkable. EXTRACRANIAL: The visualized portion of the orbits is intact. SKULL: The calvaria is intact. No evidence of skull fracture. CONCLUSION: 1. No acute intracranial abnormalities. Kurt Underwood MD on April 09, 2017 at 21:47 Board Certified Radiologist. This report was verified electronically.
--- NOTE | 2017-04-11 23:16 | EKG ---
Date Performed: 04/09/2017 Time Performed: 19:21:10 PTAGE: 46 years EKG: Sinus rhythm NONSPECIFIC T-WAVE ABNORMALITY ABNORMAL ECG PREVIOUS TRACING : 03/04/2017 09.50 Compared to prior tracing no significant change DOCTOR: Salvatore Craig Interpretating Date/Time 04/11/2017 23:15:28
== END 2017-04-09 22:08 | disposition home or self-care (01) ==
LOC: NEPD 19:06
DX: R42 Dizziness and giddiness (principal); R51 Headache; R10.30 Lower abdominal pain, unspecified; I10 Essential (primary) hypertension; Z87.442 Personal history of urinary calculi; Z21 Asymptomatic human immunodeficiency virus [HIV] infection status; Z86.19 Personal history of other infectious and parasitic diseases
CPT/HCPCS: 70450; 80048; 83735; 85025; 93005; 96374; 96375; 99285; J0780; J1200; J2270

== ENCOUNTER 2017-04-12 11:41 | Emergency (ER) | payer OTHER ==
[~2017-04-12 11:41] MED LIST changes: -CIPR-9 PO; +CLIN150C14 PO; -TRAM50 PO
[2017-04-12 11:43] VITALS: BP 172/99; PULSE 77; RESP 18; TEMP 97.9; O2SAT 98
[2017-04-12 12:47] LABS: BACTERIA, URINE MOD /hpf; BLOOD, URINE NEG (NEG); GLUCOSE,URINE NEG (NEG); HYALINE CAST, URINE 1 /lpf (RARE); KETONE, URINE NEG (NEG); NITRITE,URINE POS (NEG); SQUAMOUS EPITHELIAL CELL URINE <1 /hpf (0-5); TRANSITIONAL EPI CELLS, URINE <1 /hpf; URINE COLOR YELLOW (YELLW/STRAW)
[2017-04-12 12:54] LABS: COMMENT (UR) CULTURE INDICATED; CULTURE IF INDICATED CULTURE INDICATED
[2017-04-12 13:10] VITALS: RESP 18; O2SAT 97
[2017-04-12] MEDS ORDERED: SODIUM CHLORIDE 0.9% FLUSH 10 ML FLUSH IV FLUSH PRN (13:30)
[2017-04-12] MEDS ORDERED: cefTRIAXone INJ 1,000 MG in SODIUM CHLORIDE 0.9% INJ 100 ML IV ONE (13:30)
[2017-04-12] MEDS ORDERED: KETOROLAC TROMETHAMINE 30 MG/ML (IVP) VIAL IV PUSH ONE (14:00)
[2017-04-12 14:19] LABS: AUTOMATED NEUTROPHIL # 1.9 TH/MM3 (1.8-7.7); BASOPHIL % 0.8 % (0.0-2.0); EOSINOPHIL # 1.4 TH/MM3 (0-0.4); EOSINOPHIL % 28.8 % (0.0-4.0); HEMATOCRIT 35.2 % (35.0-46.0); HEMO FLAGS DIFF FINAL; LYMPH % 15.7 % (9.0-44.0); LYMPHOCYTE # 0.7 TH/MM3 (1.0-4.8); MEAN CORPUSCULAR HEMOGLOBIN 31.5 PG (27.0-34.0); MEAN CORPUSCULAR HGB CONC 34.2 % (32.0-36.0); MONO % 15.2 % (0.0-8.0); NEUT % 39.5 % (16.0-70.0); PLATELET COUNT 228 TH/MM3 (150-450); RED BLOOD COUNT 3.82 MIL/MM3 (4.00-5.30); RED CELL DISTRIBUTION WIDTH 14.2 % (11.6-17.2); WHITE BLOOD COUNT 4.8 TH/MM3 (4.0-11.0)
--- NOTE | 2017-04-12 14:39 | PD ---
HPI Chief Complaint: Poultry Offal Icer Problem/Complaint Time Seen by Provider: 12:11 Travel History International Travel<30 days: No Contact w/Intl Traveler<30days: No Traveled to known affect area: No History of Present Illness HPI 46-year-old female complains of vaginal discharge clear and pelvic pain for the last 3 days. She also describes a lump in the medial gluteal distribution with some drainage for the last few days. The lump is very tender. She's had no fever. She reports a history of HIV and does not recall her last CD4 count. She reports noncompliance with antiretrovirals for one year due to lack of insurance. No vomiting. Severity moderate. PFSH Past Medical History Hx Anticoagulant Therapy: No Arthritis: No Asthma: No Autoimmune Disease: Yes (HIV DIAGNOSED 2015 BORDERLINE AIDS ) Blood Disorders: No Anxiety: No Depression: No Heart Rhythm Problems: No Cancer: No Cardiovascular Problems: Yes (HTN) High Cholesterol: No Chemotherapy: No Chest Pain: Yes Congestive Heart Failure: No COPD: No Cerebrovascular Accident: No Diabetes: No Diminished Hearing: No Diverticulitis: Yes Endocrine: No Gastrointestinal Disorders: No Genitourinary: Yes Headaches: Yes (seldom) Hepatitis: Yes (HEP C ) Hiatal Hernia: No Heparin Induced Thrombocytopen: No Hypertension: Yes Immune Disorder: Yes (HIV, Viral Hepatitis) Inguinal Hernia: Yes Implanted Vascular Access Dvce: No Kidney Stones: Yes Medical other: Yes (Recent sepsis) Musculoskeletal: No Neurologic: Yes (AMS) Psychiatric: No Reproductive: No Respiratory: No Immunizations Current: Yes Migraines: Yes Radiation Therapy: No Seizures: No Sickle Cell Disease: No Sleep Apnea: No Thyroid Disease: No Tetanus Vaccination: < 5 Years ?: Not Menopausal: Yes : 2 Para: 2 Miscarriage: 0 : 0 Ovarian Cysts: Yes (HAD REMOVED) Past Surgical History Abdominal Surgery: Yes (2 C-Sections) AICD: No Appendectomy: Yes Arteriovenous Shunt: No Cardiac Surgery: No Section: Yes (x2) Cholecystectomy: Yes Ear Surgery: No Endocrine Surgery: No Eye Surgery: No Genitourinary Surgery: Yes (Kidney Stones surgery.) Gynecologic Surgery: No Hysterectomy: Yes (1999) Insulin Pump: No Joint Replacement: No Neurologic Surgery: No Oral Surgery: No Pacemaker: No Thoracic Surgery: No Tonsillectomy: Yes ( AND ADENOIDS CHILD) Other Surgery: Yes (HERNIA REPAIR) Social History Alcohol Use: No Tobacco Use: No Substance Use: No Allergies-Medications (Allergen,Severity, Reaction): Coded Allergies: No Known Allergies (Unverified Adverse Reaction, Unknown, 04/12/17) Reported Meds & Prescriptions Reported Meds & Active Scripts Active Bactrim DS (Sulfamethoxazole-Trimethoprim) 800-160 Mg Tab 1 Tab PO BID Ultram (Tramadol HCl) 50 Mg Tab 50 Mg PO Q6H PRN Reported Clindamycin (Clindamycin HCl) 150 Mg Cap 150 Mg PO Q8HR 10 Days Review of Systems Except as stated in HPI: all other systems reviewed are Neg General / Constitutional: No: Fever Cardiovascular: No: Chest Pain or Discomfort Physical Exam Narrative GENERAL: 46-year-old female pleasant well-nourished well-developed SKIN: Warm and dry. Along the medial aspect of the L gluteus there is a 3cm indurated area with fluctuance c/w abscess. RECTAL: no palpable mass to suggest rectal abscess. HEAD: Atraumatic. Normocephalic. EYES: Pupils equal and round. No scleral icterus. No injection or drainage. ENT: No nasal bleeding or discharge. Mucous membranes pink and moist. NECK: Trachea midline. No JVD. CARDIOVASCULAR: Regular rate and rhythm. RESPIRATORY: No accessory muscle use. Clear to auscultation. Breath sounds equal bilaterally. GASTROINTESTINAL: Abdomen soft, non-tender, nondistended. Hepatic and splenic margins not palpable. MUSCULOSKELETAL: Extremities without clubbing, cyanosis, or edema. No obvious deformities. NEUROLOGICAL: Awake and alert. No obvious cranial nerve deficits. Motor grossly within normal limits. Five out of 5 muscle strength in the arms and legs. Normal speech. PSYCHIATRIC: Appropriate mood and affect; insight and judgment normal. Data Data Last Documented VS Vital Signs Date Time Temp Pulse Resp B/P (MAP) Pulse Ox O2 Delivery O2 Flow Rate FiO2 04/12/17 15:12 04/12/17 13:10 18 97 04/12/17 11:43 97.9 77 VS reviewed Orders Orders Gc And Chlamydia Pcr (04/12/17 12:20) Wet Prep Profile (04/12/17 12:20) Urinalysis - C+S If Indicated (04/12/17 12:20) Ed Urine Pregnancytest Poc (04/12/17 12:20) Urine Culture (04/12/17 12:13) Complete Blood Count With Diff (04/12/17 13:17) Iv Access Insert/Monitor (04/12/17 13:17) Ecg Monitoring (04/12/17 13:17) Oximetry (04/12/17 13:17) Sodium Chloride 0.9% Flush (Ns Flush) (04/12/17 13:30) Ceftriaxone Inj (Rocephin Inj) (04/12/17 13:30) Ketorolac Inj (Toradol Inj) (04/12/17 14:00) Wound Culture And Gram Stain (04/12/17 13:56) Ed Discharge Order (04/12/17 14:54) Labs Laboratory Tests Test 04/12/17 12:13 04/12/17 13:57 Urine Color YELLOW Urine Turbidity HAZY Urine pH 6.0 Urine Specific [place] 1.020 Urine Protein 30 mg/dL Urine Glucose (UA) NEG mg/dL Urine Ketones NEG mg/dL Urine Occult Blood NEG Urine Nitrite POS Urine Bilirubin NEG Urine Urobilinogen LESS THAN 2.0 MG/DL Urine Leukocyte Esterase LARGE Urine RBC 1 /hpf Urine WBC 50 /hpf Urine WBC Clumps OCC Urine Squamous Epithelial Cells <1 /hpf Urine Transitional Epithelial Cells <1 /hpf Urine Bacteria MOD /hpf Urine Hyaline Casts 1 /lpf Microscopic Urinalysis Comment CULTURE INDICATED Clue Cells (Wet Prep) NONE SEEN Vaginal Trichomonas (Wet Prep) NONE SEEN Vaginal Yeast (Wet Prep) NONE SEEN White Blood Count 4.8 TH/MM3 Red Blood Count 3.82 MIL/MM3 Hemoglobin 12.0 GM/DL Hematocrit 35.2 % Mean Corpuscular Volume 92.0 FL Mean Corpuscular Hemoglobin 31.5 PG Mean Corpuscular Hemoglobin Concent 34.2 % Red Cell Distribution Width 14.2 % Platelet Count 228 TH/MM3 Mean Platelet Volume 9.4 FL Neutrophils (%) (Auto) 39.5 % Lymphocytes (%) (Auto) 15.7 % Monocytes (%) (Auto) 15.2 % Eosinophils (%) (Auto) 28.8 % Basophils (%) (Auto) 0.8 % Neutrophils # (Auto) 1.9 TH/MM3 Lymphocytes # (Auto) 0.7 TH/MM3 Monocytes # (Auto) 0.7 TH/MM3 Eosinophils # (Auto) 1.4 TH/MM3 Basophils # (Auto) 0.0 TH/MM3 CBC Comment DIFF FINAL Differential Comment MDM Medical Decision Making Medical Screen Exam Complete: Yes Emergency Medical Condition: Yes Differential Diagnosis UTI, BV, trichomoniasis, abscess Narrative Course CBC & BMP Diagram 04/12/17 13:57 Urinalysis shows UTI Wet prep negative Abscess I&D'd Patient to go home with Bactrim for cellulitis and UTI Patient received 1 g Rocephin here Procedures Procedure Narrative SocietyAfter the risks and benefits were discussed the following procedure was performed: INCISION AND DRAINAGE OF ABSCESS: The area was prepped and was sterilely draped. A subcutaneous wheal of 1 % Xylocaine with a total number 5 mL was used to anesthetize the area. The area was properly anesthetized. A number 11 scalpel was used to make a 1 -cm incision across the area of the abscess. Cultures were obtained. Sterile dressing applied. Patient advised to have packing removed in two days. Diagnosis Primary Impression: Abscess of buttock Additional Impression: UTI (urinary tract infection) Qualified Codes: N39.0 - Urinary tract infection, site not specified; R31.9 - Hematuria, unspecified Referrals: Infectious Disease Specialist call for appointment Med/Other Pt SpecificInfo: Prescription(s) given Scripts Sulfamethoxazole-Trimethoprim (Bactrim DS) 800-160 Mg Tab 1 TAB PO BID for Infection, #20 TAB 0 Refills Prov: Gunner Wesley MD 04/12/17 Tramadol (Ultram) 50 Mg Tab 50 MG PO Q6H Y for PAIN, #20 TAB 0 Refills Prov: Gunner Wesley MD 04/12/17 Disposition: 01 DISCHARGE HOME Condition: Stable Gunner Wesley MD Apr 12, 2017 14:39
[2017-04-12] MEDS ORDERED: TRAM50 PO (14:54)
[2017-04-12] MEDS ORDERED: BACT800T5 PO (14:54)
[2017-04-12 16:01] LABS: CHLAMYDIA PCR NOT DETECTED (NOT DETECT); NEISSERIA PCR NOT DETECTED (NOT DETECT)
[2017-04-12 16:20] LABS: POTASSIUM 4.8 MEQ/L (3.5-5.1)
== END 2017-04-12 15:32 | disposition home or self-care (01) ==
LOC: NEPE 11:41
DX: L02.31 Cutaneous abscess of buttock (principal); A49.02 Methicillin resistant Staphylococcus aureus infection, unspecified site; N39.0 Urinary tract infection, site not specified; B96.20 Unspecified Escherichia coli [E. coli] as the cause of diseases classified elsewhere; I10 Essential (primary) hypertension; Z86.19 Personal history of other infectious and parasitic diseases; Z21 Asymptomatic human immunodeficiency virus [HIV] infection status; Z87.442 Personal history of urinary calculi; Z79.899 Other long term (current) drug therapy
CPT/HCPCS: 10060; 80048; 81001; 84703; 85025; 86403; 87070; 87077; 87086; 87186; 87210; 87491; 87591; 96374; 99285; J0696; J1885

== ENCOUNTER 2017-05-04 13:19 | Emergency (ER) | payer OTHER ==
[~2017-05-04] VITALS: Ht 152.4 cm; Wt 52.3 kg
[~2017-05-04 13:19] MED LIST changes: +BACT800T5 PO; +TRAM50 PO
[2017-05-04 13:21] VITALS: BP 121/84; PULSE 98; RESP 14; TEMP 100.2; O2SAT 98
--- NOTE | 2017-05-04 13:54 | PD ---
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 This patient complains of some painful genital lesions. Duration 3 days. Severity is moderate. No vaginal discharge or bleeding. No alleviating factors. PFSH Past Medical History Hx Anticoagulant Therapy: No Arthritis: No Asthma: No Autoimmune Disease: Yes (HIV DIAGNOSED 2015 BORDERLINE AIDS ) Blood Disorders: No Anxiety: No Depression: No Heart Rhythm Problems: No Cancer: No Cardiovascular Problems: Yes (HTN) High Cholesterol: No Chemotherapy: No Chest Pain: Yes Congestive Heart Failure: No COPD: No Cerebrovascular Accident: No Diabetes: No Diminished Hearing: No Diverticulitis: Yes Endocrine: No Gastrointestinal Disorders: No Genitourinary: Yes Headaches: Yes (seldom) Hepatitis: Yes (HEP C ) Hiatal Hernia: No Heparin Induced Thrombocytopen: No Hypertension: Yes Immune Disorder: Yes (HIV, Viral Hepatitis) Inguinal Hernia: Yes Implanted Vascular Access Dvce: No Kidney Stones: Yes Medical other: Yes (Recent sepsis) Musculoskeletal: No Neurologic: Yes (AMS) Psychiatric: No Reproductive: No Respiratory: No Immunizations Current: Yes Migraines: Yes Radiation Therapy: No Seizures: No Sickle Cell Disease: No Sleep Apnea: No Thyroid Disease: No Tetanus Vaccination: < 5 Years Influenza Vaccination: No ?: Not Menopausal: Yes : 2 Para: 2 Miscarriage: 0 : 0 Ovarian Cysts: Yes (HAD REMOVED) Past Surgical History Abdominal Surgery: Yes (2 C-Sections) AICD: No Appendectomy: Yes Arteriovenous Shunt: No Cardiac Surgery: No Section: Yes (x2) Cholecystectomy: Yes Ear Surgery: No Endocrine Surgery: No Eye Surgery: No Genitourinary Surgery: Yes (Kidney Stones surgery.) Gynecologic Surgery: No Hysterectomy: Yes (1999) Insulin Pump: No Joint Replacement: No Neurologic Surgery: No Oral Surgery: No Pacemaker: No Thoracic Surgery: No Tonsillectomy: Yes ( AND ADENOIDS CHILD) Other Surgery: Yes (HERNIA REPAIR) Social History Alcohol Use: No Tobacco Use: No Substance Use: No Allergies-Medications (Allergen,Severity, Reaction): Coded Allergies: No Known Allergies (Unverified Adverse Reaction, Unknown, 12/26/17) Reported Meds & Prescriptions Reported Meds & Active Scripts Active Bactrim DS (Sulfamethoxazole-Trimethoprim) 800-160 Mg Tab 1 Tab PO BID Ultram (Tramadol HCl) 50 Mg Tab 50 Mg PO Q6H PRN Reported Clindamycin (Clindamycin HCl) 150 Mg Cap 150 Mg PO Q8HR 10 Days Review of Systems HENT: No: Headaches Cardiovascular: No: Chest Pain or Discomfort Respiratory: No: Cough Physical Exam Narrative GASTROINTESTINAL: Abdomen soft, non-tender, nondistended. Positive bowel sounds. No hepato-splenomegaly, or palpable masses. No guarding. Psych: Normal mood and affect. Normal insight and judgment. : Patient has several ulcerative lesions in the vulvar region Data Data Last Documented VS Vital Signs Date Time Temp Pulse Resp B/P (MAP) Pulse Ox O2 Delivery O2 Flow Rate FiO2 05/04/17 13:30 100 18 05/04/17 13:21 100.2 121/84 (96) 98 MDM Medical Decision Making Medical Screen Exam Complete: Yes Emergency Medical Condition: Yes Medical Record Reviewed: Yes Differential Diagnosis HSV, dermatitis, cellulitis Narrative Course I have reviewed the patient's electronic medical record. Patient is a frequent visitor to the ER. This is her 21st visit this year Lesions look consistent with HSV She does have immunocompromise Does not look septic or toxic complaining only of vaginal lesions I wrote her some of her pain and some acyclovir Encouraged family physician follow-up Diagnosis Primary Impression: HSV (herpes simplex virus) infection Additional Instructions: The patient was advised to follow up with their physician and return if they worsen. The patient was warned about potential sedation for the medications they will receive on prescription. Med/Other Pt SpecificInfo: Prescription(s) given Scripts No Active Prescriptions or Reported Meds Disposition: 01 DISCHARGE HOME Condition: Stable Dae Patel MD May 04, 2017 13:53
[2017-05-04] MEDS ORDERED: ACYC800T PO (14:20)
[2017-05-04] MEDS ORDERED: TYLETAB34 PO (14:20)
[2017-05-04] MEDS ORDERED: oxyCODONE/ACETAMINOPHEN 5 MG/325 MG TAB PO ONE (14:30)
== END 2017-05-04 14:54 | disposition home or self-care (01) ==
LOC: NEPD 13:19
DX: A60.04 Herpesviral vulvovaginitis (principal)
CPT/HCPCS: 99283

== ENCOUNTER 2017-06-15 11:46 | Emergency (ER) | payer OTHER ==
[~2017-06-15 11:46] MED LIST changes: +ACYC800T PO; -BACT800T5 PO; -CLIN150C14 PO; -TRAM50 PO; +TYLETAB34 PO
[2017-06-15 12:02] VITALS: BP 116/63; PULSE 94; RESP 18; TEMP 98.6; O2SAT 99
[2017-06-15] MEDS ORDERED: metroNIDAZOLE 500 MG TAB PO ONE (13:45)
[2017-06-15] MEDS ORDERED: KETOROLAC TROMETHAMINE 60 MG/2 ML (IM) VIAL IM ONE (13:45)
[2017-06-15] MEDS ORDERED: FLUCONAZOLE 100 MG TAB PO ONE (13:45)
[2017-06-15 14:00] LABS: BILIRUBIN, URINE NEG (NEG); BLOOD, URINE NEG (NEG); GLUCOSE,URINE NEG (NEG); HYALINE CAST, URINE 1 /lpf (RARE); KETONE, URINE NEG (NEG); MUCUS URINE FEW /lpf (OCC); NITRITE,URINE NEG (NEG); RENAL EPITHELIAL CELLS <1 /hpf; SQUAMOUS EPITHELIAL CELL URINE 5 /hpf (0-5); URINE COLOR YELLOW (YELLW/STRAW); URINE LEUKOCYTE ESTERASE MOD (NEG)
[2017-06-15] MEDS ORDERED: DIFL100T PO (14:28)
[2017-06-15] MEDS ORDERED: METR-1 PO (14:28)
[2017-06-15] MEDS ORDERED: IBUP1TAB7 PO (14:28)
[2017-06-15] MEDS ORDERED: CEPH-460 PO (14:28)
[2017-06-15] MEDS ORDERED: PERM5CRE11 TOPICAL (14:29)
--- NOTE | 2017-06-15 14:29 | PD ---
HPI Chief Complaint: Skin Problem Time Seen by Provider: 13:20 Travel History International Travel<30 days: No Contact w/Intl Traveler<30days: No Traveled to known affect area: No History of Present Illness HPI 46-year-old female presents to the emergency department with 2 complaints. First complaint is an itchy rash to bilateral antecubital area and the back of her neck and trunk 3 days. No one else with a rash. Denies new exposures to lotions, soaps, detergents, perfumes, foods, medications, environmental exposures. Denies airway edema, tongue edema, shortness of breath, difficulty breathing. Has tried Benadryl, Vaseline, powder, topical creams with no relief of symptoms. Her second complaint is vaginal swelling, pain and itching 2 days. Has history of genital herpes and doesn't know if this is causing her current symptoms. Denies fever, vomiting, vaginal discharge, abdominal pain, diarrhea, dysuria. Has tried Tylenol and ibuprofen with no relief of symptoms. Symptoms are constantly aggravated. No known relieving factors. Has history of hypertension, HIV, hepatitis C. Deies sexual activity x2 years. Denies STD/ STI risk. No.Primary care provider. No known allergies. Has no other medical complaints. No other modifying factors or associated signs and symptoms. PFSH Past Medical History Hx Anticoagulant Therapy: No Arthritis: No Asthma: No Autoimmune Disease: Yes (HIV DIAGNOSED 2015 BORDERLINE AIDS ) Blood Disorders: No Anxiety: No Depression: No Heart Rhythm Problems: No Cancer: No Cardiovascular Problems: Yes (HTN) High Cholesterol: No Chemotherapy: No Chest Pain: Yes Congestive Heart Failure: No COPD: No Cerebrovascular Accident: No Diabetes: No Diminished Hearing: No Diverticulitis: Yes Endocrine: No Gastrointestinal Disorders: No Genitourinary: Yes Headaches: Yes (seldom) Hepatitis: Yes (HEP C ) Hiatal Hernia: No Heparin Induced Thrombocytopen: No Hypertension: Yes Immune Disorder: Yes (HIV, Viral Hepatitis) Inguinal Hernia: Yes Implanted Vascular Access Dvce: No Kidney Stones: Yes Medical other: Yes (Recent sepsis) Musculoskeletal: No Neurologic: Yes (AMS hx) Psychiatric: No Reproductive: No Respiratory: No Immunizations Current: Yes Migraines: Yes Radiation Therapy: No Seizures: No Sickle Cell Disease: No Sleep Apnea: No Thyroid Disease: No Tetanus Vaccination: < 5 Years ?: Not Menopausal: Yes : 2 Para: 2 Miscarriage: 0 : 0 Ovarian Cysts: Yes (HAD REMOVED) Past Surgical History Abdominal Surgery: Yes (2 C-Sections) AICD: No Appendectomy: Yes Arteriovenous Shunt: No Cardiac Surgery: No Section: Yes (x2) Cholecystectomy: Yes Ear Surgery: No Endocrine Surgery: No Eye Surgery: No Genitourinary Surgery: Yes (Kidney Stones surgery.) Gynecologic Surgery: No Hysterectomy: Yes (2000) Insulin Pump: No Joint Replacement: No Neurologic Surgery: No Oral Surgery: No Pacemaker: No Thoracic Surgery: No Tonsillectomy: Yes ( AND ADENOIDS CHILD) Other Surgery: Yes (HERNIA REPAIR) Social History Alcohol Use: No Tobacco Use: No Substance Use: No Allergies-Medications (Allergen,Severity, Reaction): Coded Allergies: No Known Allergies (Unverified Adverse Reaction, Unknown, 06/15/17) Reported Meds & Prescriptions Reported Meds & Active Scripts Active Elimite Topical (Permethrin) 5% Cream 1 Applic TOPICAL ONCE Ibuprofen 800 Mg Tab 800 Mg PO Q6HR PRN Keflex (Cephalexin) 500 Mg Cap 500 Mg PO Q12H 7 Days Diflucan (Fluconazole) 100 Mg Tab 100 Mg PO DAILY Take in one week if symptoms persist Flagyl (Metronidazole) 500 Mg Tab 500 Mg PO BID 7 Days Review of Systems Except as stated in HPI: all other systems reviewed are Neg Physical Exam Narrative GENERAL: Well-nourished, well-developed female patient, in no acute distress; afebrile, nontoxic-appearing SKIN: Warm and dry. Generalized erythremic pimple-like rash to bilateral antecubital areas and back of neck; some areas appear excoriated. No areas with cellulitic process noted. HEAD: Atraumatic. Normocephalic. EYES: Pupils equal and round. No scleral icterus. No injection or drainage. ENT: Mucous membranes pink and moist. NECK: Trachea midline. No lymphadenopathy. CARDIOVASCULAR: Regular rate and rhythm. No murmur appreciated. RESPIRATORY: No accessory muscle use. Clear to auscultation. Breath sounds equal bilaterally. GASTROINTESTINAL: Abdomen soft, non-tender, nondistended. Bilateral pelvic region nontender to palpation. Hepatic and splenic margins not palpable. No guarding, rigidity, rebound tenderness. PELVIC: Exam done in the presence of a nurse. Labia majora and bilateral groin area with erythremic, moist rash; groin area appears excoriated with notable scratching gomez; outer vagina with moist, foul fish-like smell; findings consistent with vaginal yeast infection and vaginitis. No groin lymphadenopathy. No genital lesions noted. BACK: No CVA tenderness. MUSCULOSKELETAL: No obvious deformities. No clubbing. No cyanosis. No edema. NEUROLOGICAL: Awake and alert. No obvious cranial nerve deficits. Motor grossly within normal limits. Normal speech. PSYCHIATRIC: Appropriate mood and affect; insight and judgment normal. Data Data Last Documented VS Vital Signs Date Time Temp Pulse Resp B/P (MAP) Pulse Ox O2 Delivery O2 Flow Rate FiO2 06/15/17 14:32 06/15/17 12:02 98.6 94 18 99 Orders Orders Urinalysis - C+S If Indicated (06/15/17 13:36) Gc And Chlamydia Pcr (06/15/17 13:36) Ketorolac Inj (Toradol Inj) (06/15/17 13:45) Fluconazole (Diflucan) (06/15/17 13:45) Metronidazole (Flagyl) (06/15/17 13:45) Urine Culture (06/15/17 13:50) Ed Discharge Order (06/15/17 14:29) Labs Laboratory Tests Test 06/15/17 13:50 Urine Color YELLOW Urine Turbidity HAZY Urine pH 6.0 Urine Specific [place] 1.012 Urine Protein 30 mg/dL Urine Glucose (UA) NEG mg/dL Urine Ketones NEG mg/dL Urine Occult Blood NEG Urine Nitrite NEG Urine Bilirubin NEG Urine Urobilinogen LESS THAN 2.0 MG/DL Urine Leukocyte Esterase MOD Urine RBC 2 /hpf Urine WBC 9 /hpf Urine Squamous Epithelial Cells 5 /hpf Urine Renal Epithelial Cells <1 /hpf Urine Hyaline Casts 1 /lpf Urine Mucus FEW /lpf Microscopic Urinalysis Comment CULTURE INDICATED MDM Medical Decision Making Medical Screen Exam Complete: Yes Emergency Medical Condition: Yes Medical Record Reviewed: Yes Differential Diagnosis Vaginitis, scabies, UTI, chlamydia, gonorrhea, Trichomonas, PID, contact dermatitis, eczema Narrative Course 46-year-old female physical exam consistent with vaginitis and scabies. I discussed the patient was Dr. Acosta, my attending physician, and he agrees with my plan of care. Urinalysis ordered. Diflucan, Flagyl, Toradol administered in the ER. Chlamydia and gonorrhea pending. Urinalysis with signs of infection. Diflucan, Flagyl, Keflex, Elimite cream, ibuprofen prescribed for home. Instructed patient to take Diflucan in 1 week if symptoms persist. She verbalized understanding and agreement. Instructed patient to follow up with gynecology. Instructed patient to use over-the- counter clotrimazole cream as directed and as needed for vaginitis. Instructed patient to follow up with primary care provider. Patient verbalizes understanding and agreement with treatment plan. Patient is medically cleared and stable for discharge. Discussed reasons to return to the emergency department. Patient agrees with treatment plan. The patients vital signs are stable and the patient is stable for outpatient follow-up and treatment. Patient discharged home, stable and in no acute distress. Diagnosis Primary Impression: Vaginitis Qualified Codes: N76.0 - Acute vaginitis Additional Impressions: Scabies UTI (urinary tract infection) Qualified Codes: N39.0 - Urinary tract infection, site not specified Referrals: [facility] Primary Care Physician Patient Instructions: General Instructions, Scabies (ED), Urinary Tract Infection in Women (ED), Vaginitis (ED) Additional Instructions: Take antibiotics as prescribed and complete full course Over the counter clotrimazole cream to affected area as directed and as need for rash Drink plenty of fluids Maintain good personal hygiene Follow-up with primary care provider Return to the emergency department immediately with worsening of symptoms Elimite cream as directed; repeat in one week as needed Soaking in cool water or apply cool, wet washcloths to irritated areas to minimize itching Apply anti-itch creams, such as calamine lotion, to relieve pain and itching as needed Ilod-axl-pjubqiv antihistamines as needed and as directed to relieve allergic symptoms caused by scabies Wash all pillows, linens, blankets, etc. in hot water and dry in hot dryer Bag and all unwashable linens, [place] stuffed animals, etc. 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 Follow-up with primary care provider Return to the emergency department immediately with worsening of symptoms Med/Other Pt SpecificInfo: Prescription(s) given Scripts Permethrin Topical (Elimite Topical) 5% Cream 1 APPLIC TOPICAL ONCE for Scabies, #1 TUBE 0 Refills Prov: Nat Forrest 06/15/17 Ibuprofen (Ibuprofen) 800 Mg Tab 800 MG PO Q6HR Y for PAIN, #30 TAB 0 Refills Prov: Nat Forrest 06/15/17 Cephalexin (Keflex) 500 Mg Cap 500 MG PO Q12H for Infection for 7 Days, #14 CAP 0 Refills Prov: Nat Forrest 06/15/17 Fluconazole (Diflucan) 100 Mg Tab 100 MG PO DAILY for Infection, #1 TAB 0 Refills Take in one week if symptoms persist Prov: Nat Forrest 06/15/17 Metronidazole (Flagyl) 500 Mg Tab 500 MG PO BID for Infection for 7 Days, #14 TAB 0 Refills Prov: Nat Forrest 06/15/17 Disposition: 01 DISCHARGE HOME Condition: Stable Nat Forrest Jun 15, 2017 14:29
== END 2017-06-15 14:55 | disposition home or self-care (01) ==
LOC: NEPD 11:46
DX: N76.0 Acute vaginitis (principal); B86 Scabies; N39.0 Urinary tract infection, site not specified; B95.1 Streptococcus, group B, as the cause of diseases classified elsewhere; B95.62 Methicillin resistant Staphylococcus aureus infection as the cause of diseases classified elsewhere
CPT/HCPCS: 81001; 86403; 87086; 87186; 87491; 87591; 96372; 99283; J1885

== ENCOUNTER 2017-09-25 09:17 | Emergency (ER) | payer OTHER ==
[~2017-09-25] VITALS: Ht 152.4 cm; Wt 50.0 kg
[~2017-09-25 09:17] MED LIST changes: -ACYC800T PO; +CEPH-460 PO; +DIFL100T PO; +IBUP1TAB7 PO; +METR-1 PO; +PERM5CRE11 TOPICAL; -TYLETAB34 PO
[2017-09-25 09:21] VITALS: BP 112/82; PULSE 89; RESP 16; TEMP 98.5; O2SAT 98
--- NOTE | 2017-09-25 09:28 | PD ---
HPI Chief Complaint: Pain: Acute or Chronic Time Seen by Provider: 09:00 Travel History International Travel<30 days: No Contact w/Intl Traveler<30days: No Traveled to known affect area: No PFSH Past Medical History Hx Anticoagulant Therapy: No Arthritis: No Asthma: No Autoimmune Disease: Yes (HIV DIAGNOSED 2015 BORDERLINE AIDS ) Blood Disorders: No Anxiety: No Depression: No Heart Rhythm Problems: No Cancer: No Cardiovascular Problems: Yes (HTN) High Cholesterol: No Chemotherapy: No Chest Pain: Yes Congestive Heart Failure: No COPD: No Cerebrovascular Accident: No Diabetes: No Diminished Hearing: No Diverticulitis: Yes Endocrine: No Gastrointestinal Disorders: No Genitourinary: Yes Headaches: Yes (seldom) Hepatitis: Yes (HEP C ) Hiatal Hernia: No Heparin Induced Thrombocytopen: No Hypertension: Yes Immune Disorder: Yes (HIV, Viral Hepatitis) Inguinal Hernia: Yes Implanted Vascular Access Dvce: No Kidney Stones: Yes Musculoskeletal: No Neurologic: Yes (AMS hx) Psychiatric: No Reproductive: No Respiratory: No Immunizations Current: Yes Migraines: Yes Radiation Therapy: No Seizures: No Sickle Cell Disease: No Sleep Apnea: No Thyroid Disease: No ?: Not Menopausal: Yes : 2 Para: 2 Miscarriage: 0 : 0 Ovarian Cysts: Yes (HAD REMOVED) Past Surgical History Abdominal Surgery: Yes (2 C-Sections) AICD: No Appendectomy: Yes Arteriovenous Shunt: No Cardiac Surgery: No Section: Yes (x2) Cholecystectomy: Yes Ear Surgery: No Endocrine Surgery: No Eye Surgery: No Genitourinary Surgery: Yes (Kidney Stones surgery.) Gynecologic Surgery: No Hysterectomy: Yes Insulin Pump: No Joint Replacement: No Neurologic Surgery: No Oral Surgery: No Pacemaker: No Thoracic Surgery: No Tonsillectomy: Yes ( AND ADENOIDS CHILD) Other Surgery: Yes (HERNIA REPAIR) Social History Alcohol Use: No Tobacco Use: No Substance Use: No Allergies-Medications (Allergen,Severity, Reaction): Coded Allergies: No Known Allergies (Unverified Adverse Reaction, Unknown, 06/15/17) Reported Meds & Prescriptions Reported Meds & Active Scripts Active Elimite Topical (Permethrin) 5% Cream 1 Applic TOPICAL ONCE Ibuprofen 800 Mg Tab 800 Mg PO Q6HR PRN Keflex (Cephalexin) 500 Mg Cap 500 Mg PO Q12H 7 Days Diflucan (Fluconazole) 100 Mg Tab 100 Mg PO DAILY Take in one week if symptoms persist Flagyl (Metronidazole) 500 Mg Tab 500 Mg PO BID 7 Days Data Data Last Documented VS Vital Signs Date Time Temp Pulse Resp B/P (MAP) Pulse Ox O2 Delivery O2 Flow Rate FiO2 09/25/17 09:21 98.5 89 16 112/82 (92) 98 Nat Forrest September 25, 2017 09:28
[2017-09-25] MEDS ORDERED: diphenhydrAMINE HCL 50 MG/ML VIAL IV PUSH ONE (09:45)
[2017-09-25] MEDS ORDERED: SODIUM CHLOR 0.9% 1000 ML INJ 1,000 ML IV ONE (09:45)
--- NOTE | 2017-09-25 10:05 | PD ---
HPI . Back pain Chief Complaint: Pain: Acute or Chronic Time Seen by Provider: 09:25 Travel History International Travel<30 days: No Contact w/Intl Traveler<30days: No Traveled to known affect area: No History of Present Illness HPI Patient presents with a chief complaint of back pain which she states that she has had for the last month and which she currently rates at 10/10. Pain is exacerbated by movement. Patient is not taking anything at home for her pain. This patient has AIDS and hepatitis C. She is also complaining with diffuse skin lesions which are very pruritic. In addition, she has some genital lesions which are very painful. She also has a lesion on her anus which is very painful she states that she has had all of this for more than a month. She reports that she has been seen for this and has been given medications which she has used without relief. On review of her records, she was seen here on June 15 for a rash and was diagnosed with scabies and vaginitis and treated accordingly. Prior to that, she was seen here on 05/04 and diagnosed with genital herpes treated with acyclovir. Prior to that, she was seen on 04/12, diagnosed with an abscess which was I&D. She was discharged on Bactrim. I did not go any further back in her chart. She has not had any recent hospitalizations related to her AIDS or hep C. PFSH Past Medical History Hx Anticoagulant Therapy: No Arthritis: No Asthma: No Autoimmune Disease: Yes (HIV DIAGNOSED 2015 BORDERLINE AIDS ) Blood Disorders: No Anxiety: No Depression: No Heart Rhythm Problems: No Cancer: No Cardiovascular Problems: Yes (HTN) High Cholesterol: No Chemotherapy: No Chest Pain: Yes Congestive Heart Failure: No COPD: No Cerebrovascular Accident: No Diabetes: No Diminished Hearing: No Diverticulitis: Yes Endocrine: No Gastrointestinal Disorders: No Genitourinary: Yes Headaches: Yes (seldom) Hepatitis: Yes (HEP C ) Hiatal Hernia: No Heparin Induced Thrombocytopen: No Hypertension: Yes Immune Disorder: Yes (HIV, Viral Hepatitis) Inguinal Hernia: Yes Implanted Vascular Access Dvce: No Kidney Stones: Yes Medical other: Yes (Recent sepsis) Musculoskeletal: No Neurologic: Yes (AMS hx) Psychiatric: No Reproductive: No Respiratory: No Immunizations Current: Yes Migraines: Yes Radiation Therapy: No Seizures: No Sickle Cell Disease: No Sleep Apnea: No Thyroid Disease: No ?: Not Menopausal: Yes : 2 Para: 2 Miscarriage: 0 : 0 Ovarian Cysts: Yes (HAD REMOVED) Past Surgical History Abdominal Surgery: Yes (2 C-Sections) AICD: No Appendectomy: Yes Arteriovenous Shunt: No Cardiac Surgery: No Section: Yes (x2) Cholecystectomy: Yes Ear Surgery: No Endocrine Surgery: No Eye Surgery: No Genitourinary Surgery: Yes (Kidney Stones surgery.) Gynecologic Surgery: No Hysterectomy: Yes Insulin Pump: No Joint Replacement: No Neurologic Surgery: No Oral Surgery: No Pacemaker: No Thoracic Surgery: No Tonsillectomy: Yes ( AND ADENOIDS CHILD) Other Surgery: Yes (HERNIA REPAIR) Social History Alcohol Use: No Tobacco Use: No Substance Use: No Allergies-Medications (Allergen,Severity, Reaction): Coded Allergies: No Known Allergies (Verified Adverse Reaction, Unknown, 09/25/17) Reported Meds & Prescriptions Reported Meds & Active Scripts Active Flagyl (Metronidazole) 500 Mg Tab 500 Mg PO BID 7 Days Cipro (Ciprofloxacin HCl) 500 Mg Tab 500 Mg PO BID 10 Days Prednisone 50 Mg Tab 50 Mg PO DAILY 5 Days Hydroxyzine HCl 50 Mg Tab 50 Mg PO QID PRN Acyclovir 800 Mg Tab 800 Mg PO 5 TIMES A DAY 10 Days Elimite Topical (Permethrin) 5% Cream 1 Applic TOPICAL ONCE Ibuprofen 800 Mg Tab 800 Mg PO Q6HR PRN Keflex (Cephalexin) 500 Mg Cap 500 Mg PO Q12H 7 Days Diflucan (Fluconazole) 100 Mg Tab 100 Mg PO DAILY Take in one week if symptoms persist Flagyl (Metronidazole) 500 Mg Tab 500 Mg PO BID 7 Days Review of Systems Except as stated in HPI: all other systems reviewed are Neg General / Constitutional: No: Fever, Chills Genitourinary: Positive: Other (Pain and lesions on the external genitalia) Musculoskeletal: Positive: Pain (Back pain) Skin: Positive Rash, Positive Itching, Positive Dryness, Positive Lesions Physical Exam Narrative GENERAL: Thin, chronically ill-appearing woman. Her hair is thinning. SKIN: warm/dry. She has a diffuse, scaly rash with areas of excoriation secondary to scratching. She has a perianal abscess which is draining. HEAD: Normocephalic. Atraumatic. EYES: Pupils equal and round. No scleral icterus. No injection or drainage. ENT: No nasal bleeding or discharge. Mucous membranes pink and moist. NECK: Trachea midline. Full range of motion without pain.. CARDIOVASCULAR: Regular rate and rhythm. RESPIRATORY: No accessory muscle use. Clear to auscultation. Breath sounds equal bilaterally. : Vesicular lesions on the external genitalia. MUSCULOSKELETAL: No obvious deformities. NEUROLOGICAL: Awake and alert. No obvious cranial nerve deficits. Motor grossly within normal limits. Normal speech. PSYCHIATRIC: Appropriate mood and affect; insight and judgment normal. Data Data Last Documented VS Vital Signs Date Time Temp Pulse Resp B/P (MAP) Pulse Ox O2 Delivery O2 Flow Rate FiO2 09/25/17 13:58 75 17 144/79 (100) 100 Room Air 09/25/17 09:21 98.5 Orders Orders ^ Saline Lock (09/25/17 09:41) Complete Blood Count With Diff (09/25/17 09:41) Comprehensive Metabolic Panel (09/25/17 09:41) Urinalysis - C+S If Indicated (09/25/17 09:41) Sodium Chlor 0.9% 1000 Ml Inj (Ns 1000 M (09/25/17 09:45) Diphenhydramine Inj (Benadryl Inj) (09/25/17 09:45) Morphine Inj (Morphine Inj) (09/25/17 10:45) Cath For Specimen (09/25/17 12:22) Urine Culture (09/25/17 12:08) Labs Laboratory Tests Test 09/25/17 10:15 09/25/17 12:08 White Blood Count 5.8 TH/MM3 Red Blood Count 3.15 MIL/MM3 Hemoglobin 10.0 GM/DL Hematocrit 29.6 % Mean Corpuscular Volume 93.9 FL Mean Corpuscular Hemoglobin 31.7 PG Mean Corpuscular Hemoglobin Concent 33.7 % Red Cell Distribution Width 18.8 % Platelet Count 136 TH/MM3 Mean Platelet Volume 9.4 FL Neutrophils (%) (Auto) 62.9 % Lymphocytes (%) (Auto) 7.4 % Monocytes (%) (Auto) 12.0 % Eosinophils (%) (Auto) 17.0 % Basophils (%) (Auto) 0.7 % Neutrophils # (Auto) 3.6 TH/MM3 Lymphocytes # (Auto) 0.4 TH/MM3 Monocytes # (Auto) 0.7 TH/MM3 Eosinophils # (Auto) 1.0 TH/MM3 Basophils # (Auto) 0.0 TH/MM3 CBC Comment DIFF FINAL Differential Comment Blood Urea Nitrogen 29 MG/DL Creatinine 1.70 MG/DL Random Glucose 71 MG/DL Total Protein 8.1 GM/DL Albumin 3.0 GM/DL Calcium Level 8.6 MG/DL Alkaline Phosphatase 75 U/L Aspartate Amino Transf (AST/SGOT) 21 U/L Alanine Aminotransferase (ALT/SGPT) 17 U/L Total Bilirubin 0.2 MG/DL Sodium Level 143 MEQ/L Potassium Level 3.8 MEQ/L Chloride Level 112 MEQ/L Carbon Dioxide Level 18.1 MEQ/L Anion Gap 13 MEQ/L Estimat Glomerular Filtration Rate 32 ML/MIN Urine Color YELLOW Urine Turbidity CLOUDY Urine pH 6.0 Urine Specific [place] 1.013 Urine Protein 100 mg/dL Urine Glucose (UA) NEG mg/dL Urine Ketones NEG mg/dL Urine Occult Blood SMALL Urine Nitrite POS Urine Bilirubin NEGATIVE Urine Urobilinogen LESS THAN 2.0 MG/DL Urine Leukocyte Esterase LARGE Urine RBC 2 /hpf Urine WBC /hpf Urine WBC Clumps MANY Urine Squamous Epithelial Cells 2 /hpf Urine Bacteria MOD /hpf Microscopic Urinalysis Comment CULTURE INDICATED MDM Medical Decision Making Medical Screen Exam Complete: Yes Emergency Medical Condition: Yes Medical Record Reviewed: Yes (Please see HPI for pertinent review of records) Differential Diagnosis Differential diagnosis includes but is not limited to degenerative disc disease , spinal stenosis, lumbar radiculopathy, muscular pain., kidney colic, pyelonephritis, AAA. I have queried up to date regarding the differential diagnosis of skin lesions and AIDS patients. The differential diagnosis includes seborrheic dermatitis, eosinophilic folliculitis, psoriasis, fungal infection, molluscum contagiosum, herpes, Kaposi's sarcoma Narrative Course This is an AIDS patient who also has hepatitis C who presents with a chief complaint of low back pain. She has had it for a month. The pain sounds muscular. It is exacerbated by movement. She does not have any concerning neurological complaints nor does she have a fever. Her second complaint is a diffuse, pruritic rash. It is a scaly rash with excoriation. She has been previously treated presumptively for scabies with no relief of her symptoms. I will treat her with steroids and Atarax and have her follow-up with her primary care provider for further evaluation and treatment. The third complaint is painful genital lesions. Examination is compatible with HSV. She has had this before. This will be treated with acyclovir. Lastly, she is complaining with a painful perirectal lesion. Examination of this is compatible with an abscess which has spontaneously drained. She will be treated for this with Bactrim. In the meantime, I am giving her a liter of fluids along with some IV Benadryl for the itching. Routine lab work is in process. Disposition will be made based upon the results of the labs. CBC & BMP Diagram 09/25/17 10:15 Total Protein 8.1, Albumin 3.0 L, Calcium Level 8.6, Alkaline Phosphatase 75, Aspartate Amino Transf (AST/SGOT) 21, Alanine Aminotransferase (ALT/SGPT) 17, Total Bilirubin 0.2 UA>>large LE, innumerable WBCs, many WBC clumps, mod bact I am already discharging this patient with prescriptions for Cipro and Flagyl because of the perirectal abscess. I will defer an additional antibiotic for the UTI pending the culture. Diagnosis Primary Impression: Pruritic rash Additional Impressions: HSV (herpes simplex virus) infection Perirectal abscess UTI (urinary tract infection) Qualified Codes: N39.0 - Urinary tract infection, site not specified Referrals: Primary Care Physician 3 days Patient Instructions: Abscess (ED), Acute Rash (DC), General Instructions, Genital Herpes Simplex (DC) Med/Other Pt SpecificInfo: Prescription(s) given Scripts Metronidazole (Flagyl) 500 Mg Tab 500 MG PO BID for Infection for 7 Days, #14 TAB 0 Refills Prov: Mervat Bazzi MD 09/25/17 Ciprofloxacin (Cipro) 500 Mg Tab 500 MG PO BID for Infection for 10 Days, #20 TAB 0 Refills Prov: Mervat Bazzi MD 09/25/17 Prednisone (Prednisone) 50 Mg Tab 50 MG PO DAILY for 5 Days, #5 TAB 0 Refills Prov: Mervat Bazzi MD 09/25/17 Hydroxyzine HCl (Hydroxyzine HCl) 50 Mg Tab 50 MG PO QID Y for itching, #30 TAB 0 Refills Prov: Mervat Bazzi MD 09/25/17 Acyclovir (Acyclovir) 800 Mg Tab 800 MG PO 5 TIMES A DAY for Mgmt Viral Infection for 10 Days, TAB 0 Refills Prov: Mervat Bazzi MD 09/25/17 Disposition: 01 DISCHARGE HOME Condition: Stable Mervat Bazzi MD September 25, 2017 10:05
[2017-09-25] MEDS ORDERED: MORPHINE SULFATE 4 MG/ML INJ IV PUSH ONE (10:45)
[2017-09-25 11:09] LABS: AUTOMATED NEUTROPHIL # 3.6 TH/MM3 (1.8-7.7); BASOPHIL % 0.7 % (0.0-2.0); HEMATOCRIT 29.6 % (35.0-46.0); LYMPH % 7.4 % (9.0-44.0); LYMPHOCYTE # 0.4 TH/MM3 (1.0-4.8); MEAN CELL VOLUME 93.9 FL (80.0-100.0); MEAN CORPUSCULAR HEMOGLOBIN 31.7 PG (27.0-34.0); MEAN CORPUSCULAR HGB CONC 33.7 % (32.0-36.0); MEAN PLATELET VOLUME 9.4 FL (7.0-11.0); MONOCYTE # 0.7 TH/MM3 (0-0.9); NEUT % 62.9 % (16.0-70.0); PLATELET COUNT 136 TH/MM3 (150-450); RED BLOOD COUNT 3.15 MIL/MM3 (4.00-5.30); RED CELL DISTRIBUTION WIDTH 18.8 % (11.6-17.2); WHITE BLOOD COUNT 5.8 TH/MM3 (4.0-11.0)
[2017-09-25 11:50] LABS: ALT (GPT) 17 U/L (10-53); AST (GOT) 21 U/L (15-37); BICARBONATE 18.1 MEQ/L (21.0-32.0); BLOOD UREA NITROGEN 29 MG/DL (7-18); CALCIUM 8.6 MG/DL (8.5-10.1); CHLORIDE 112 MEQ/L (98-107); GLOMERULAR FILTRATION RATE 32 ML/MIN (>89); GLUCOSE,RANDOM 71 MG/DL (74-106); SODIUM (NA) 143 MEQ/L (136-145)
[2017-09-25 11:52] LABS: ALKALINE PHOSPHATASE 75 U/L (45-117); TOTAL BILIRUBIN ADULT 0.2 MG/DL (0.2-1.0); TOTAL PROTEIN 8.1 GM/DL (6.4-8.2)
[2017-09-25] MEDS ORDERED: HYDR50TA94 PO (12:16)
[2017-09-25] MEDS ORDERED: CIPR-9 PO (12:16)
[2017-09-25] MEDS ORDERED: ACYC800T PO (12:16)
[2017-09-25] MEDS ORDERED: PRED50 PO (12:16)
[2017-09-25] MEDS ORDERED: METR-1 PO (12:16)
[2017-09-25 13:45] LABS: BILIRUBIN, URINE NEGATIVE (NEG); BLOOD, URINE SMALL (NEG); GLUCOSE,URINE NEG (NEG); KETONE, URINE NEG (NEG); URINE COLOR YELLOW (YELLW/STRAW)
[2017-09-25 13:46] LABS: NITRITE,URINE POS (NEG); URINE LEUKOCYTE ESTERASE LARGE (NEG)
[2017-09-25 13:47] LABS: BACTERIA, URINE MOD /hpf; SQUAMOUS EPITHELIAL CELL URINE 2 /hpf (0-5); WHITE BLOOD CELL CLUMPS MANY
[2017-09-25 13:58] VITALS: BP 144/79; PULSE 75; RESP 17; O2SAT 100
[2017-09-25] MEDS ORDERED: NORC5TAB PO (14:48)
== END 2017-09-25 16:15 | disposition home or self-care (01) ==
LOC: NEPD 09:17
DX: L29.9 Pruritus, unspecified (principal); B00.9 Herpesviral infection, unspecified; K61.1 Rectal abscess; N39.0 Urinary tract infection, site not specified; B20 Human immunodeficiency virus [HIV] disease; I10 Essential (primary) hypertension; B96.20 Unspecified Escherichia coli [E. coli] as the cause of diseases classified elsewhere; B95.62 Methicillin resistant Staphylococcus aureus infection as the cause of diseases classified elsewhere; B19.20 Unspecified viral hepatitis C without hepatic coma
CPT/HCPCS: 80053; 81001; 85025; 86403; 87077; 87086; 87186; 96374; 96375; 99284; J1200; J2270